=== PATIENT | female | born 1975 | race Caucasian/White ===

== ENCOUNTER 2019-12-24 12:06 | Emergency (ER) | payer OTHER, SELFPAY ==
[2019-12-24 12:30] VITALS: BP 158/95; PULSE 83; RESP 16; TEMP 36.8; O2SAT 98; BMI 39.1
--- NOTE | 2019-12-24 13:16 | HMH.EDUTC ---
[facility] [place]ression: Viral syndrome Disposition: Home, Self-Care Condition on Discharge: Good Instructions: DI for Viral Syndrome, Preventing the Spread of Coronavirus Discharge Instructions Additional Instructions: Drink plenty of fluids. Take tylenol for pain or fever. Follow up with your regular doctor. GO TO THE ER FOR ANY WORSENING SYMPTOMS FOLLOW THE DIRECTIONS ON THE COVID-19 HAND OUT THAT WE GAVE YOU REGARDING SELF-ISOLATION UNTIL YOU KNOW YOUR COVID-19 RESULTS Referrals: Lovely Uribe [Primary Care Provider] - Time of Disposition: 13:17 Medical Decision Making - Medical Records Medical records reviewed: No: I reviewed the patient's medical records. - Ruddy Inquiry Pt receiving controlled substance: No Vital Signs: 12/24/19 12:30 12/24/19 13:22 Temperature 98.3 F 98.3 F Temperature Source Oral Pulse Rate 83 Pulse Rate [Right Brachial] 83 Respiratory Rate 16 16 Blood Pressure 158/95 H Blood Pressure [Right Arm] 158/95 H Blood Pressure Mean [Right Arm] 116 Blood Pressure Source [Right Arm] Automatic Cuff Blood Pressure Position [Right Arm] Sitting 02 Sat by Pulse Oximetry 98 Oxygen Delivery Method Room Air Orders (Tests/Meds): ORDERS Category Date Time Status Covid-19 Nasal PCR ([facility]) Routine Lab 12/24/19 12:30 [place] [facility] [place] - General Stated complaint: headache,covid exposure Time Seen by Provider: 12/24/19 13:16 Mode of Arrival: Ambulatory Source of Information: Patient Limitations: No Limitations Description of Symptoms (Recalled from Triage Doc. 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 She c/o runny nose and mild sore throat at this time. - Related Data Allergies Allergy/AdvReac Type Severity Reaction Status Date / Time No Known Allergies Allergy Verified 12/24/19 12:52 - Worker's Comp Is this a Worker's Comp case?: No [facility] History - Hepatitis A Screen Drug use history?: No High risk sexual behaviors?: No History of sexually transmitted infection?: No Currently employed?: No Childcare worker?: No Do you have indoor plumbing?: Yes Do you have electricity?: Yes Attestation statement:: This patient has been screened for Hepatitis A risk factors. I have reviewed the patient's past medical history: Yes - Social History Alcohol Intake: never Occupational Status: other ROS Obtained: Yes All systems reviewed & no additional complaints - Constitutional Constitutional: Reports chills, Denies fever(s), Reports poor appetite, Reports malaise - Eyes Eyes: Denies eye discharge - ENT Ears, Nose, Mouth, and Throat: Reports as per HPI - Cardiovascular Cardiovascular: Denies chest pain - Respiratory Respiratory: No chest congestion, No cough Physical Exam - General General appearance: alert, in no apparent distress - Head Head exam: atraumatic, normocephalic, normal inspection - Eye Eye exam: Present: normal appearance, PERRL, EOMI - ENT ENT exam: Present: normal exam, normal oropharynx, mucous membranes moist, TM's normal bilaterally, normal external ear exam - Neck Neck exam: Present: normal inspection, full ROM, trachea midline. Absent: meningismus, lymphadenopathy - Chest Chest inspection: Present: normal inspection, symmetric chest wall rise. Absent: tenderness - Respiratory Respiratory exam: Present: normal lung sounds bilaterally. Absent: respiratory distress - Cardiovascular Cardiovascular exam: Present: regular rate, normal rhythm. Absent: JVD - Abdomina
[2019-12-24 13:22] VITALS: BP 158/95; PULSE 83; RESP 16; TEMP 36.8; O2SAT 98
[2019-12-24 23:28] LABS: Adenovirus,PCR Not Detected (NotDetected); Bordetella Pertussis Not Detected (NotDetected); Chlamydophila Pneumoniae, PCR Not Detected (NotDetected); Coronavirus 19, PCR Not Detected (NotDetected); Coronavirus 229E Not Detected (NotDetected); Coronavirus NL63 Not Detected (NotDetected); Coronavirus OC43 Not Detected (NotDetected); Coronovirus HKU1,PCR Not Detected (NotDetected); Human Metapneumovirus Not Detected (NotDetected); Influenza A, PCR Not Detected (NotDetected); Influenza AH1, 2009 Not Detected (NotDetected); Influenza AH1, PCR Not Detected (NotDetected); Influenza AH3,PCR Not Detected (NotDetected); Influenza B, PCR Not Detected (NotDetected); Mycoplasma Pneumoniae, PCR Not Detected (NotDetected); Parainfluenza 1, PCR Not Detected (NotDetected); Parainfluenza 2, PCR Not Detected (NotDetected); Parainfluenza 3, PCR Not Detected (NotDetected); Parainfluenza 4, PCR Not Detected (NotDetected); Respiratory Syncytial Virus Not Detected (NotDetected); Rhinovirus/Enterovirus Not Detected (NotDetected)
== END 2019-12-24 13:25 | disposition home or self-care (01) ==
PROVIDERS: Emergency Provider Nurse Practitioner Family; PCP General Practice
DX: Z20.828 Contact with and (suspected) exposure to other viral communicable diseases (principal)
CPT/HCPCS: 87581; 87633; 87798; 99201; U0003

== ENCOUNTER 2021-03-13 18:32 | Emergency (ER) | payer OTHER, SELFPAY ==
[2021-03-13 19:09] VITALS: BP 151/92; PULSE 89; RESP 21; TEMP 36.8; O2SAT 100; BMI 39.9
[2021-03-13 19:14] LABS: UTC Influenza A Antigen Negative (Negative); UTC Influenza B Antigen Negative (Negative)
--- NOTE | 2021-03-13 19:30 | HMH.EDUTC ---
[facility] [place] Disposition Clinical Impression: Exposure to COVID-19 virus, Viral syndrome Disposition: Home, Self-Care Condition on Discharge: Good Instructions: DI for Viral Syndrome, DI for COVID-19 (Suspected or Confirmed ), Preventing the Spread of Coronavirus Discharge Instructions Additional Instructions: *Monitor Temp, Over the counter Motrin or Tylenol as directed/as needed Tylenol every 4 hours and Motrin every 6 hours (as long as your family doctor has told you that you can take it) for fever or pain. and straight to ER if unable to lower temp less than 101.0 after medication given *Warm salt water gargles may help to soothe the throat *Throat Lozenges *Warm fluids like tea with honey may help to soothe the throat *Sleep elevated *Humidifier/Vaporizer Make sure to drink plenty of fluids Make sure that you are eating a healthy diet and eating foods high in vitamin C Follow up IMMEDIATELY for new or worsening symptoms or no Noticeable improvement over the next 48-72 hours. 911 for difficulty breathing or swallowing You were tested for today for COVID19 your test result should be back in the next 24-48 hours, you may check your results on the [facility] My Health Portal if you have trouble logging on you may call support to help you You was given a handout with instructions for Self Quarantine and Self isolation for while you wait on test results and what to do if they are positive If you are positive the Health Dept will be contacting you also Make sure to take your Vitamins Vit. C Vit D and Zinc if you can take them Referrals: Lovely Uribe [Primary Care Provider] - As needed Forms: Work/School Release Time of Disposition: 19:43 Medical Decision Making - Ruddy Inquiry Pt receiving controlled substance: No Ruddy was queried for this patient: No Vital Signs: 03/13/21 19:09 Temperature 98.3 F Temperature Source Oral Pulse Rate [Left] 89 Respiratory Rate 21 Blood Pressure [Right Arm] 151/92 H Blood Pressure Mean [Right Arm] 111 02 Sat by Pulse Oximetry 100 - Lab Data Lab results reviewed: Yes: I reviewed the patient's lab results. Lab Results 03/13/21 19:06: Influenza Type A Ag Negative, Influenza Type B Ag Negative Orders (Tests/Meds): ORDERS Category Date Time Status Covid-19 Nasal PCR ([facility]) Routine Lab 03/13/21 19:00 Received [facility] [place] HPI - General Stated complaint: sore throat, cough, headach, body aches, Time Seen by Provider: 03/13/21 19:30 Mode of Arrival: Ambulatory Source of Information: Patient Limitations: No Limitations Description of Symptoms (Recalled from Triage Doc. by RN): pt c/o body aches, [place], diarrhea, and cough since last night. daughter is positive for covid. HEENT Symptoms (Recalled from RN notes): Yes Resp Symptoms (Recalled from RN notes): Yes Skin Symptoms (Recalled from RN notes): No MS Symptoms (Recalled from RN notes): No Functional Status (Recalled from RN notes): wnl - History of Present Illness Provider Complaint: Patient state that her 17yr old daughter recently tested positive for COVID states that now she is having symptoms States that she is having body aches, chills, headache and diarrhea that started yesterday and today she has been aching all over States that she is concerned that she may have COVID now too or the flu - Related Data Allergies Allergy/AdvReac Type Severity Reaction Status Date / Time No Known Allergies Allergy Verified 12/24/19 12:52 - Worker's Comp Is this a Worker's Comp case?: No [facility] History - Hepatitis A Screen Drug use history?: No High risk sexual behaviors?: No History of sexually transmitted infection?: No Currently employed?: No Childcare worker?: No Do you have indoor plumbing?: Yes Do you have electricity?: Yes Attestation statement:: This patient has been screened for Hepatitis A risk factors. I have reviewed the patient's past medical history: Yes - Social History Alcohol Intake: never Occupational Sta
[2021-03-13 19:53] VITALS: BP 151/92; PULSE 89; RESP 21; TEMP 36.8
== END 2021-03-13 19:54 | disposition home or self-care (01) ==
PROVIDERS: Emergency Provider Nurse Practitioner; PCP General Practice
DX: B34.9 Viral infection, unspecified (principal); Z20.822 Contact with and (suspected) exposure to COVID-19
CPT/HCPCS: 87804; 99202; C9803; G0463; U0003; U0005

== ENCOUNTER 2021-09-13 22:41 | Emergency (ER) | payer OTHER, SELFPAY ==
[2021-09-13 22:41] VITALS: BP 162/100; PULSE 98; RESP 17; TEMP 37.1; O2SAT 95; BMI 39.9
--- NOTE | 2021-09-13 22:44 | ECG_ITS ---
APPROVED REPORT Exam: Resting ECG HR:94 bpm ECG Measurements Heart Rate 94 AXES CA 158 P 63 QRSd 95 QRS 52 QT 362 T 39 QTc 413 Conclusion SINUS RHYTHM NORMAL ECG UNCONFIRMED REPORT Electronically signed by : Timmy Chambers MD 09/15/2021 16:25:40
[2021-09-13 23:00] VITALS: BP 150/98; PULSE 94; O2SAT 96
--- NOTE | 2021-09-13 23:02 | XR_ITS ---
PROCEDURE INFORMATION: Exam: XR Chest Exam date and time: 09/13/2021 11:32 PM Age: 46 years old Clinical indication: Sternal or substernal pain and left-sided; Additional info: Chest pain TECHNIQUE: Imaging protocol: Radiologic exam of the chest. Views: 2 views. COMPARISON: No relevant prior studies available. FINDINGS: Lungs: Well aerated with no evidence of consolidations, interstitial patterns or pulmonary nodules. Pleural spaces: No evidence of effusions or pneumothorax. Heart/Mediastinum: The cardiomediastinal silhouette is normal in size and configuration. There is no evidence of cardiomegaly. Bones/joints: Intact. IMPRESSION: No radiographic abnormalities identified.
--- NOTE | 2021-09-13 23:09 | HMH.EDCP ---
ED Disposition Clinical Impression: Atypical chest pain, Exposure to COVID-19 virus Disposition: Home, Self-Care Condition on Discharge: Good Instructions: DI for Atypical Chest Pain Additional Instructions: recheck in ed if needed and see pcp for follow up - will treat as possible post infl changes covid-19 as pt with home test positive Prescriptions: predniSONE [Prednisone 20mg Tab] 20 mg PO BID #10 tab Transmission Status: [place] [facility] [place] Referrals: Coby Banegas APRN [Primary Care Provider] - - Critical Care Critical Care Time: No Attestation: On 09/13/21, the high probability of a clinically significant, sudden or life threatening deterioration of the following system(s) required my full and direct attention, intervention and personal management. The time I documented below is in addition to time spent performing reported procedures but includes the following listed in this critical care notation. Medical Decision Making - Medical Records Medical records reviewed: Yes: I reviewed the patient's medical records. - Ruddy Inquiry Pt receiving controlled substance: No Vital Signs: 09/13/21 22:41 09/13/21 23:00 09/13/21 23:30 Temperature 98.8 F Temperature Source Oral Pulse Rate 94 H 100 H Pulse Rate [Left Radial] 98 H Respiratory Rate 17 Blood Pressure 150/98 H 152/99 H Blood Pressure [Right Arm] 162/100 H Blood Pressure Mean 111 117 Blood Pressure Mean [Right Arm] 120 Blood Pressure Source [Right Arm] Automatic Cuff Blood Pressure Position [Right Arm] Sitting 02 Sat by Pulse Oximetry 95 96 96 Oxygen Delivery Method Room Air Room Air Room Air 09/14/21 00:30 09/14/21 01:00 09/14/21 01:31 Temperature Temperature Source Pulse Rate 82 82 82 Pulse Rate [Left Radial] Respiratory Rate 29 H 23 17 Blood Pressure 141/85 H 150/89 H 160/97 H Blood Pressure [Right Arm] Blood Pressure Mean Blood Pressure Mean [Right Arm] Blood Pressure Source [Right Arm] Blood Pressure Position [Right Arm] 02 Sat by Pulse Oximetry 100 99 100 Oxygen Delivery Method Room Air Room Air Room Air 09/14/21 02:01 09/14/21 02:30 09/14/21 02:51 Temperature 98.6 F Temperature Source Oral Pulse Rate 74 88 86 Pulse Rate [Left Radial] Respiratory Rate 13 22 18 Blood Pressure 137/78 134/69 135/69 Blood Pressure [Right Arm] Blood Pressure Mean Blood Pressure Mean [Right Arm] Blood Pressure Source [Right Arm] Blood Pressure Position [Right Arm] 02 Sat by Pulse Oximetry 99 95 Oxygen Delivery Method Room Air Room Air Room Air - Lab Data Lab results reviewed: Yes: I reviewed the patient's lab results. Lab Results 09/13/21 22:46: SARS-CoV-2 (PCR) Not detected, Influenza A Untype (PCR) Not detected, Influenza Type B (PCR) Not detected 09/13/21 22:50: WBC 9.8, RBC 4.83, Hgb 13.4, Hct 39.6, MCV 82.0, MCH 27.8, MCHC 33.9, RDW 14.6, Plt Count 215, MPV 8.5, Neut % (Auto) 60.9, Lymph % (Auto) 28.5, [place] % (Auto) 5.7, Eos % (Auto) 3.0, Baso % (Auto) 1.9, Neut # (Auto) 6.0, Lymph # (Auto) 2.8, [place] # (Auto) 0.6, Eos # (Auto) 0.3, Baso # (Auto) 0.2, ESR 18 09/13/21 22:50: Sodium 140, Potassium 3.4 L, Chloride 109 H, Carbon Dioxide 23, Anion Gap 11.4, BUN 16, Creatinine 0.60, Estimated Creat Clear 203, Estimated GFR 108, Est GFR ( Amer) 131, Glucose 97, Calcium 9.1, Total Bilirubin 0.1 L, Direct Bilirubin 0.0, Conjugated Bilirubin 0.0, Indirect Bilirubin 0.1, Unconjugated Bilirubin 0.4, AST 24, ALT 21, Alkaline Phosphatase 55, Troponin I < 0.01, C-Reactive Protein 3.0, Total Protein 7.1, Albumin 4.2, Amylase 70, Lipase 179, Procalcitonin 0.044 09/13/21 22:50: Serum HCG, Qual Negative 09/14/21 01:49: Troponin I < 0.01 Result diagrams: 09/13/21 22:50 09/13/21 22:50 Orders (Tests/Meds): ED MEDICATIONS Generic Name Dose Route Start Last Admin Trade Name Freq PRN Reason Stop Dose Admin Sodium Chloride 1,000 mls @ 999 mls/hr
[2021-09-13 23:11] LABS: Basophils # 0.2 K/mm3 (0-0.2); Basophils % 1.9 % (0.1-2.0); Eosinophils # 0.3 K/mm3 (0.0-0.4); Hematocrit 39.6 % (37.0-47.0); Hemoglobin 13.4 g/dL (12.2-16.2); Lymphocytes # 2.8 K/mm3 (0.7-4.5); Lymphocytes % 28.5 % (10-50); Mean Corpuscular HGB Conc 33.9 g/dL (31.8-35.4); Mean Corpuscular Hemoglobin 27.8 pg (27.0-31.2); Mean Platelet Volume 8.5 fl (7.4-10.4); Monocytes # 0.6 K/mm3 (0.1-1.0); Monocytes % 5.7 % (1.7-9.3); Neutrophils % 60.9 % (37.0-80.0); Platelet Count 215 K/mm3 (142-424); Red Blood Count 4.83 M/mm3 (4.20-5.40); Red Cell Distribution Width 14.6 % (11.5-17.5); White Blood Count 9.8 K/mm3 (4.8-10.8)
--- NOTE | 2021-09-13 23:16 | CT_ITS ---
PROCEDURE INFORMATION: Exam: CTA Chest With Contrast Exam date and time: 09/13/2021 11:44 PM Age: 46 years old Clinical indication: Other: Mid and left chest pain covid positive; Additional info: Cp covid+ RO pe TECHNIQUE: Imaging protocol: Computed tomographic angiography of the chest with contrast. 3D rendering (Not supervised by radiologist): MIP and/or 3D reconstructed images were created by the technologist. Radiation optimization: All CT scans at this facility use at least one of these dose optimization techniques: automated exposure control; mA and/or kV adjustment per patient size (includes targeted exams where dose is matched to clinical indication); or iterative reconstruction. Contrast material: ISOVUE 370; Contrast volume: 75 ml; Contrast route: INTRAVENOUS (IV); COMPARISON: CR XR CHEST 2V 09/13/2021 11:32 PM FINDINGS: Pulmonary arteries: Demonstrate homogeneous enhancement with no filling defects to suggest a recent pulmonary embolism. Aorta: Unremarkable. No aortic aneurysm. No aortic dissection. Lungs: No consolidation, interstitial process, masses or pulmonary nodules. Pleural spaces: Unremarkable. No pneumothorax. No pleural effusion. Heart: Unremarkable. No cardiomegaly. No pericardial effusion. Lymph nodes: Unremarkable. No enlarged lymph nodes. Gallbladder and bile ducts: Status post cholecystectomy. Bones/joints: Unremarkable. No acute fracture. Soft tissues: Unremarkable. IMPRESSION: 1. No evidence of PE. 2. No radiographic evidence of an acute pulmonary process.
[2021-09-13 23:17] LABS: Alanine Aminotransferase 21 U/L (12-78); Albumin Level 4.2 g/dl (3.5-5.0); Alkaline Phosphatase 55 U/L (38-126); Amylase 70 U/L (30-110); Anion Gap 11.4 mEq/L (5-15); Aspartate Amino Transferase 24 U/L (14-36); Bilirubin,Unconjugated 0.4 mg/dL (0.0-1.1); Blood Urea Nitrogen 16 mg/dl (7-17); Calcium 9.1 mg/dl (8.4-10.2); Carbon Dioxide 23 mmol/L (22.0-30.0); Chloride 109 mmol/L (98-107); Creatinine Clearance Estimated 203 mL/min (50-200); Estimated Glomerular Filt Rate 108 ml/min (>60); GFR (African American) 131 ML/MIN (>60); Glucose 97 mg/dl (74-100); Lipase 179 U/L (23-300); Potassium 3.4 mmoL/L (3.5-5.1); Sodium 140 mmol/L (136-145); Total Protein,Serum 7.1 g/dl (6.3-8.2)
[2021-09-13 23:26] LABS: Bilirubin,Indirect 0.1 mg/dL (0.0-0.9); Bilirubin,Total 0.1 mg/dl (0.2-1.3)
[2021-09-13 23:30] VITALS: BP 152/99; PULSE 100; O2SAT 96
[2021-09-13 23:30] LABS: HCG Qualitative, Serum Negative (Negative)
[2021-09-13 23:31] LABS: Troponin I < 0.01 ng/ml (0.00-0.034)
[2021-09-13 23:36] LABS: Erythrocyte Sedimentation Rate 18 mm/hr (0-20); Procalcitonin 0.044 ng/mL (0.0-2.0)
[2021-09-14] VITALS (7 sets, daily range): BP systolic 134–160; BP diastolic 69–97; PULSE 74–93; RESP 13–29; TEMP 36.7–37; O2SAT 95–100
--- NOTE | 2021-09-14 01:39 | PC.NURSE ---
Pt updated on POC. No new needs at this time.
[2021-09-14 01:58] LABS: Coronavirus 19, PCR Not Detected (NotDetected); Influenza A, PCR Not Detected (NotDetected); Influenza B, PCR Not Detected (NotDetected)
[2021-09-14 02:16] LABS: Troponin I < 0.01 ng/ml (0.00-0.034)
--- NOTE | 2021-09-14 03:25 | PC.NURSE ---
PT REPORTS PAIN RELIEF AND DESIRE TO GO HOME. MADE AWARE.
== END 2021-09-14 04:06 | disposition home or self-care (01) ==
PROVIDERS: Emergency Provider Emergency Medicine; PCP Nurse Practitioner Family
DX: R07.89 Other chest pain (principal); Z20.822 Contact with and (suspected) exposure to COVID-19
CPT/HCPCS: 71046; 71275; 80048; 80076; 82150; 83690; 84145; 84484; 84703; 85025; 85651; 86140; 93005; 96365; 96366; 96375; 99285; C9803; J2405; Q9967; U0003; U0005

== ENCOUNTER → 2022-02-19 11:00 | Outpatient (CLI) | payer BC, SELFPAY ==
[2022-02-19 18:06] LABS: Basophils # 0.1 K/mm3 (0-0.2); Basophils % 0.8 % (0.1-2.0); Eosinophils # 0.2 K/mm3 (0.0-0.4); Eosinophils % 2.4 % (0.1-12.0); Hematocrit 42.7 % (37.0-47.0); Hemoglobin 13.7 g/dL (12.2-16.2); Lymphocytes # 1.8 K/mm3 (0.7-4.5); Lymphocytes % 20.6 % (10-50); Mean Corpuscular HGB Conc 32.1 g/dL (31.8-35.4); Mean Corpuscular Volume 84.2 fl (81-99); Mean Platelet Volume 8.5 fl (7.4-10.4); Monocytes # 0.4 K/mm3 (0.1-1.0); Monocytes % 4.2 % (1.7-9.3); Neutrophils # 6.1 K/mm3 (1.8-7.8); Neutrophils % 71.9 % (37.0-80.0); Platelet Count 258 K/mm3 (142-424); Red Blood Count 5.07 M/mm3 (4.20-5.40); Red Cell Distribution Width 14.4 % (11.5-17.5); White Blood Count 8.5 K/mm3 (4.8-10.8)
[2022-02-19 18:22] LABS: Alanine Aminotransferase 20 U/L (12-78); Albumin Level 4.6 g/dl (3.5-5.0); Albumin/Globulin Ratio 1.8 (1.1-1.8); Alkaline Phosphatase 73 U/L (38-126); Anion Gap 10.8 mEq/L (5-15); Aspartate Amino Transferase 24 U/L (14-36); Bilirubin,Total 0.3 mg/dl (0.2-1.3); Blood Urea Nitrogen 13 mg/dl (7-17); Calcium 9.4 mg/dl (8.4-10.2); Carbon Dioxide 26 mmol/L (22.0-30.0); Chloride 108 mmol/L (98-107); Estimated Glomerular Filt Rate 90 ml/min (>60); GFR (African American) 109 ML/MIN (>60); Globulin 2.5 g/dL (1.3-3.2); Glucose 85 mg/dl (74-100); Potassium 4.8 mmoL/L (3.5-5.1); Sodium 140 mmol/L (136-145); Total Protein,Serum 7.1 g/dl (6.3-8.2); Uric Acid 5.8 mg/dl (2.5-6.2)
[2022-02-19 18:29] LABS: C-Reactive Protein 4.8 mg/L (0-4)
[2022-02-19 18:37] LABS: Erythrocyte Sedimentation Rate 16 mm/hr (0-20)
[2022-02-19 18:39] LABS: Free T4 (Free Thyroxine) 0.85 ng/dl (0.78-2.19)
[2022-02-19 18:40] LABS: 25-OH Vitamin D, Total 32.5 ng/mL (30-100)
[2022-02-19 18:53] LABS: Thyroid Stimulating Hormone 0.47 uIU/mL (0.465-4.68)
[2022-02-19 19:26] LABS: Hemoglobin A1C 5.8 % (4.0-6.0)
[2022-02-21 10:13] LABS: RA Latex Turbid. 22.1 IU/mL (<14.0)
[2022-03-03 21:20] LABS: Antinuclear Antibodies, IFA POSITIVE
== END ==
PROVIDERS: PCP Family Medicine; Visit Provider Family Medicine
DX: R53.83 Other fatigue (principal); I10 Essential (primary) hypertension; E66.9 Obesity, unspecified; Z68.42 Body mass index [BMI] 45.0-49.9, adult; R79.82 Elevated C-reactive protein (CRP); Z79.899 Other long term (current) drug therapy
CPT/HCPCS: 80053; 82306; 83036; 84439; 84443; 84550; 85025; 85651; 86038; 86140; 86431

== ENCOUNTER → 2022-03-05 06:15 | Outpatient (CLI) | payer BC, SELFPAY ==
[2022-03-05 18:32] LABS: Erythrocyte Sedimentation Rate 18 mm/hr (0-20)
[2022-03-05 18:35] LABS: Basophils % 0.6 % (0.1-2.0); Eosinophils # 0.2 K/mm3 (0.0-0.4); Eosinophils % 2.9 % (0.1-12.0); Hematocrit 40.4 % (37.0-47.0); Hemoglobin 12.9 g/dL (12.2-16.2); Lymphocytes # 1.5 K/mm3 (0.7-4.5); Mean Corpuscular HGB Conc 32.1 g/dL (31.8-35.4); Mean Corpuscular Hemoglobin 27.1 pg (27.0-31.2); Mean Corpuscular Volume 84.6 fl (81-99); Mean Platelet Volume 8.9 fl (7.4-10.4); Monocytes # 0.4 K/mm3 (0.1-1.0); Monocytes % 5.6 % (1.7-9.3); Neutrophils # 4.7 K/mm3 (1.8-7.8); Neutrophils % 68.9 % (37.0-80.0); Platelet Count 262 K/mm3 (142-424); Red Blood Count 4.77 M/mm3 (4.20-5.40); Red Cell Distribution Width 14.3 % (11.5-17.5); White Blood Count 6.7 K/mm3 (4.8-10.8)
== END ==
PROVIDERS: PCP Family Medicine; Visit Provider Family Medicine
DX: I10 Essential (primary) hypertension (principal); M25.50 Pain in unspecified joint
CPT/HCPCS: 85025; 85651

== ENCOUNTER → 2022-03-15 12:48 | Outpatient (CLI) | payer BC, SELFPAY | PROVIDERS: PCP Family Medicine; Visit Provider Family Medicine | DX: R06.81 Apnea, not elsewhere classified (principal); R06.83 Snoring | CPT/HCPCS: G0399 ==

== ENCOUNTER → 2022-04-24 20:06 | Outpatient (CLI) | payer BC, SELFPAY ==
[2022-04-24 21:29] LABS: Alanine Aminotransferase 23 U/L (12-78); Albumin Level 4.6 g/dl (3.5-5.0); Alkaline Phosphatase 53 U/L (38-126); Aspartate Amino Transferase 24 U/L (14-36); Bilirubin, Conjugated 0.3 mg/dL (0.0-0.3); Bilirubin,Direct 0.4 mg/dl (0.0-0.4); Bilirubin,Total 0.4 mg/dl (0.2-1.3); Total Protein,Serum 7.4 g/dl (6.3-8.2)
== END ==
PROVIDERS: Visit Provider Nurse Practitioner Primary Care
DX: M05.79 Rheumatoid arthritis with rheumatoid factor of multiple sites without organ or systems involvement (principal)
CPT/HCPCS: 80076

== ENCOUNTER → 2022-07-07 18:27 | Outpatient (CLI) | payer BC, SELFPAY ==
[2022-07-07 20:52] LABS: Alanine Aminotransferase 26 U/L (12-78); Albumin Level 4.5 g/dl (3.5-5.0); Alkaline Phosphatase 61 U/L (38-126); Aspartate Amino Transferase 29 U/L (14-36); Bilirubin,Direct 0.4 mg/dl (0.0-0.4); Bilirubin,Indirect 0.1 mg/dL (0.0-0.9); Bilirubin,Total 0.5 mg/dl (0.2-1.3); Bilirubin,Unconjugated 0.1 mg/dL (0.0-1.1); Total Protein,Serum 7.1 g/dl (6.3-8.2)
== END ==
PROVIDERS: Nurse Practitioner Primary Care; PCP Family Medicine; Visit Provider Family Medicine
DX: M05.79 Rheumatoid arthritis with rheumatoid factor of multiple sites without organ or systems involvement (principal); Z79.899 Other long term (current) drug therapy
CPT/HCPCS: 80076

== ENCOUNTER → 2022-12-22 15:00 | Outpatient (CLI) | payer BC, SELFPAY ==
[2022-12-22 17:44] LABS: Basophils % 0.3 % (0.1-2.0); Eosinophils # 0.2 K/mm3 (0.0-0.4); Eosinophils % 2.4 % (0.1-12.0); Hematocrit 39.1 % (37.0-47.0); Hemoglobin 13.2 g/dL (12.2-16.2); Lymphocytes # 1.8 K/mm3 (0.7-4.5); Lymphocytes % 24.7 % (10-50); Mean Corpuscular HGB Conc 33.7 g/dL (31.8-35.4); Mean Corpuscular Hemoglobin 28.1 pg (27.0-31.2); Mean Corpuscular Volume 83.5 fl (81-99); Mean Platelet Volume 9.1 fl (7.4-10.4); Monocytes # 0.4 K/mm3 (0.1-1.0); Neutrophils # 4.9 K/mm3 (1.8-7.8); Neutrophils % 67.5 % (37.0-80.0); Platelet Count 246 K/mm3 (142-424); Red Blood Count 4.68 M/mm3 (4.20-5.40); Red Cell Distribution Width 14.4 % (11.5-17.5); White Blood Count 7.3 K/mm3 (4.8-10.8)
[2022-12-22 17:46] LABS: Alanine Aminotransferase 27 U/L (12-78); Albumin Level 4.4 g/dl (3.5-5.0); Albumin/Globulin Ratio 1.7 (1.1-1.8); Alkaline Phosphatase 62 U/L (38-126); Anion Gap 15.1 mEq/L (5-15); Aspartate Amino Transferase 30 U/L (14-36); Bilirubin,Total 0.4 mg/dl (0.2-1.3); Blood Urea Nitrogen 14 mg/dl (7-17); Carbon Dioxide 21 mmol/L (22.0-30.0); Chloride 109 mmol/L (98-107); Estimated Glomerular Filt Rate 67 ml/min (>60); GFR (African American) 82 ML/MIN (>60); Globulin 2.6 g/dL (1.3-3.2); Glucose 174 mg/dl (74-100); Potassium 4.1 mmoL/L (3.5-5.1); Sodium 141 mmol/L (136-145)
[2022-12-22 17:52] LABS: C-Reactive Protein 2.7 mg/L (0-4)
[2022-12-22 18:06] LABS: T4 (Thyroxine) 7.3 ug/dl (5.53-11.0); Triiodothryronine (T3) Uptake 36 % (23.5-40.5)
[2022-12-22 18:14] LABS: Erythrocyte Sedimentation Rate 14 mm/hr (0-20)
[2022-12-22 18:18] LABS: Thyroid Stimulating Hormone 0.69 uIU/mL (0.465-4.68)
[2022-12-22 18:31] LABS: Hemoglobin A1C 5.4 % (4.0-6.0)
[2022-12-24 15:03] LABS: C-Peptide 26.4 ng/mL (1.1-4.4)
[2022-12-29 09:04] LABS: Antinuclear Antibodies (ANA) Negative
== END ==
PROVIDERS: PCP Nurse Practitioner Family; Visit Provider Nurse Practitioner Family
DX: E16.2 Hypoglycemia, unspecified; F41.9 Anxiety disorder, unspecified
CPT/HCPCS: 80053; 83036; 83525; 84436; 84439; 84443; 84479; 84681; 85025; 85651; 86038; 86140; 86225; 86235

== ENCOUNTER → 2022-12-26 10:06 | Outpatient (CLI) | payer BC, SELFPAY ==
--- NOTE | 2022-12-26 10:13 | CT_ITS ---
FINAL REPORT TECHNIQUE: Pre- and postcontrast images of the abdomen were performed by computed tomography. CLINICAL HISTORY: rule out insulinoma hypoglycemia, diarrhea COMPARISON: None FINDINGS: The lung bases are clear. The liver is normal in size and attenuation. The gallbladder has been surgically removed. A gastric sleeve is present. The spleen is unremarkable. The adrenals are normal. The pancreas is unremarkable. The kidneys enhance appropriately. The appendix is normal in appearance. No evidence of a pancreatic mass or abnormal contrast enhancement is identified. IMPRESSION: No acute intra-abdominal process. No pancreatic mass or contrast-enhancement within the pancreas is present. Reviewed, Interpreted and Dictated by Vernon Sanders III, MD Transcribed by Donna Mattson Authenticated and [facility]
== END ==
PROVIDERS: PCP Nurse Practitioner Family; Visit Provider Nurse Practitioner Family
DX: E16.2 Hypoglycemia, unspecified (principal); K91.1 Postgastric surgery syndromes; R19.7 Diarrhea, unspecified
CPT/HCPCS: 74170; Q9967

== ENCOUNTER 2022-12-30 08:30 | Emergency (ER) | payer BC, SELFPAY ==
[2022-12-30] VITALS (8 sets, daily range): BP systolic 115–139; BP diastolic 68–96; PULSE 70–92; RESP 16–20; TEMP 36.8; O2SAT 95–98; BMI 40.1
--- NOTE | 2022-12-30 08:45 | XR_ITS ---
FINAL REPORT CLINICAL HISTORY: fall down 8 steps, pain, polytrauma FINDINGS: Left femur Two views were obtained. There is no acute fracture or dislocation. No soft tissue abnormality is identified. IMPRESSION: No acute process. Reviewed, Interpreted and Dictated by Vernon Sanders III, MD Transcribed by Gila Hoyos Authenticated and [facility]
--- NOTE | 2022-12-30 08:45 | CT_ITS ---
FINAL REPORT TECHNIQUE: Thin section axial CT with IV contrast supplemented with multiplanar reconstruction under CT angiogram protocol. 3-D reconstructions were performed. This study was performed with techniques to keep radiation doses as low as reasonably achievable (ALARA). Individualized dose reduction techniques using automated exposure control or adjustment of mA and/or kV according to the patient''s size were employed. CLINICAL HISTORY: fall down 8 steps, head injury, polytrauma FINDINGS: The distal vertebral, basilar and distal internal carotid arteries have an unremarkable appearance. No aneurysm is seen. Major intracranial vessels are patent without significant stenosis. IMPRESSION: No evidence of vascular injury, aneurysm, hemodynamically significant stenosis or major vessel occlusion of the intracranial arterial system. Reviewed, Interpreted and Dictated by Vernon Sanders III, MD Transcribed by Gila Hoyos Authenticated and [facility]
--- NOTE | 2022-12-30 08:45 | CT_ITS ---
FINAL REPORT TECHNIQUE: Pre-and postcontrast images of the abdomen were performed by computed tomography. Extensive 3-D reconstruction images were performed. A CTA was performed. This study was performed with techniques to keep radiation doses as low as reasonably achievable (ALARA). Individualized dose reduction techniques using automated exposure control or adjustment of mA and/or kV according to the patient''s size were employed. CLINICAL HISTORY: fall down 8 steps, head injury, polytrauma FINDINGS: ABDOMEN: The lung bases are clear. Precontrast images demonstrate no evidence of nephrolithiasis. No adrenal masses are identified. The liver, spleen and pancreas are unremarkable. There are postoperative changes from gastric sleeve and cholecystectomy. The appendix is normal. CTA: The abdominal aorta is proper caliber. The SMA, celiac axis, and YUMI are patent. There is no significant stenosis or calcification. The renal arteries are patent bilaterally. CTA PELVIS: The iliac arteries are unremarkable. IMPRESSION: There is no evidence of organ injury or hemoperitoneum. Reviewed, Interpreted and Dictated by Vernon Sanders III, MD Transcribed by Gila Hoyos Authenticated and [facility]
--- NOTE | 2022-12-30 08:45 | CT_ITS ---
FINAL REPORT TECHNIQUE: Axial imaging of the lumbar spine was obtained without contrast. Sagittal and coronal reformatted images were also obtained and reviewed. This study was performed with techniques to keep radiation doses as low as reasonably achievable (ALARA). Individualized dose reduction techniques using automated exposure control or adjustment of mA and/or kV according to the patient's size were employed. CLINICAL HISTORY: fall down 8 steps, head injury, polytrauma FINDINGS: There is no fracture. The vertebral alignment is normal. There is multilevel mild degenerative change. Annular bulges are seen at multiple levels. There is a central L5-S1 disc protrusion. There are mild and moderate degenerative changes, worst at L5-S1.There is no evidence of significant central canal stenosis. IMPRESSION: Multilevel degenerative change without acute bony abnormality. Reviewed, Interpreted and Dictated by Vernon Sanders III, MD Transcribed by Gila Hoyos Authenticated and [facility]
--- NOTE | 2022-12-30 08:45 | CT_ITS ---
FINAL REPORT TECHNIQUE: Axial images through the pelvis were performed by computed tomography. Sagittal and coronal reformatted images were obtained and reviewed. This study was performed with techniques to keep radiation doses as low as reasonably achievable (ALARA). Individualized dose reduction techniques using automated exposure control or adjustment of mA and/or kV according to the patient's size were employed. CLINICAL HISTORY: fall down 8 steps, head injury, polytrauma FINDINGS: No fracture is identified. IUD is seen in the uterus. No mass or fluid collection is seen. IMPRESSION: No fracture identified. Reviewed, Interpreted and Dictated by Vernon Sanders III, MD Transcribed by Gila Hoyos Authenticated and [facility]
--- NOTE | 2022-12-30 08:45 | CT_ITS ---
FINAL REPORT TECHNIQUE: Thin section axial CT with IV contrast supplemented with multiplanar reconstruction under CT angiogram protocol. This study was performed with techniques to keep radiation doses as low as reasonably achievable (ALARA). Individualized dose reduction techniques using automated exposure control or adjustment of mA and/or kV according to the patient''s size were employed. NASCET criteria was utilized during interpretation. CLINICAL HISTORY: fall down 8 steps, head injury, polytrauma FINDINGS: Aortic arch: Arch shows no significant narrowing. Great vessel origins are widely patent. Right carotid: No significant stenosis is seen of the cervical common or internal carotid artery. Left carotid: No significant stenosis is seen of the cervical common or internal carotid artery. Vertebral: The right vertebral artery is hypoplastic. No significant stenosis is present. IMPRESSION: No significant stenosis identified. Reviewed, Interpreted and Dictated by Vernon Sanders III, MD Transcribed by Gila Hoyos Authenticated and [facility]
--- NOTE | 2022-12-30 08:45 | CT_ITS ---
FINAL REPORT CLINICAL HISTORY: fall down 8 steps, head injury, polytrauma FINDINGS: Axial CT images of the thoracic spine were obtained without contrast. Sagittal and coronal reformatted images were also obtained. This study was performed with techniques to keep radiation doses as low as reasonably achievable (ALARA). Individualized dose reduction techniques using automated exposure control or adjustment of mA and/or kV according to the patient's size were employed. There is no evidence of fracture. The vertebral alignment is normal. There are moderate degenerative changes with multilevel osteophytes. There is no evidence of significant canal stenosis. No paraspinous soft tissue abnormality is identified. IMPRESSION: No fracture or acute bony abnormality. Reviewed, Interpreted and Dictated by Vernon Sanders III, MD Transcribed by Gila Hoyos Authenticated and [facility]
--- NOTE | 2022-12-30 08:45 | CT_ITS ---
FINAL REPORT CLINICAL HISTORY: fall down 8 steps, head injury, polytrauma FINDINGS: Thin section axial CT images of the chest were obtained with contrast. 3D reformatted images were also obtained. This study was performed with techniques to keep radiation doses as low as reasonably achievable (ALARA). Individualized dose reduction techniques using automated exposure control or adjustment of mA and/or kV according to the patient''s size were employed. There is no evidence of pulmonary embolism. There is no evidence of thoracic aortic aneurysm or dissection. There is no evidence of mediastinal or hilar mass or adenopathy. There is no evidence of pulmonary mass or nodule. No localized inflammatory process is seen within the lungs. Limited images of the upper abdomen are unremarkable. IMPRESSION: No evidence of pulmonary embolism. No mass or localized inflammatory process. Reviewed, Interpreted and Dictated by Vernon Sanders III, MD Transcribed by Gila Hoyos Authenticated and [facility]
--- NOTE | 2022-12-30 08:45 | CT_ITS ---
FINAL REPORT CLINICAL HISTORY: fall down 8 steps, head injury, polytrauma FINDINGS: Axial CT images of the cervical spine were obtained without contrast. Sagittal and coronal reformatted images were also obtained. This study was performed with techniques to keep radiation doses as low as reasonably achievable (ALARA). Individualized dose reduction techniques using automated exposure control or adjustment of mA and/or kV according to the patient's size were employed. There is artifact secondary to patient's body habitus. There is no evidence of fracture or dislocation. The bony alignment is normal. There are moderate degenerative changes. There is no evidence of canal stenosis. No paraspinous soft tissue abnormality is seen. Limited images of the upper thorax are unremarkable. IMPRESSION: No fracture or acute bony abnormality identified. Reviewed, Interpreted and Dictated by Vernon Sanders III, MD Transcribed by Gila Hoyos Authenticated and [facility]
--- NOTE | 2022-12-30 08:45 | CT_ITS ---
FINAL REPORT CLINICAL HISTORY: fall down 8 steps, head injury, polytrauma FINDINGS: Axial images of the head were obtained without contrast. Coronal reformatted images were also obtained.This study was performed with techniques to keep radiation doses as low as reasonably achievable (ALARA). Individualized dose reduction techniques using automated exposure control or adjustment of mA and/or kV according to the patient''s size were employed. There is no evidence of intracranial hemorrhage or mass. The ventricular size is within normal limits. There is no evidence of shift of the midline structures. No abnormal extra axial fluid collection is identified. No skull abnormality is seen on the bone window images. IMPRESSION: No acute intracranial abnormality. Reviewed, Interpreted and Dictated by Vernon Sanders III, MD Transcribed by Gila Hoyos Authenticated and [facility]
--- NOTE | 2022-12-30 08:45 | XR_ITS ---
FINAL REPORT CLINICAL HISTORY: fall down 8 steps, pain, polytrauma FINDINGS: Left knee Three views were obtained. There is no acute fracture or dislocation. There are mild degenerative changes. No soft tissue abnormality is identified. IMPRESSION: No acute process. Reviewed, Interpreted and Dictated by Vernon Sanders III, MD Transcribed by Gila Hoyos Authenticated and [facility]
--- NOTE | 2022-12-30 08:45 | XR_ITS ---
FINAL REPORT CLINICAL HISTORY: fall down 8 steps, pain, polytrauma FINDINGS: Left hip Three views were obtained. There is no acute fracture or dislocation. There are moderate degenerative changes. No soft tissue abnormality is identified. IMPRESSION: No acute process. Reviewed, Interpreted and Dictated by Vernon Sanders III, MD Transcribed by Gila Hoyos Authenticated and . [facility]
--- NOTE | 2022-12-30 08:52 | HMH.EDGENADL ---
Discharge Plan Disposition Patient Disposition: Home, Self-Care Condition: Good Prescriptions Prescriptions: New naproxen 500 mg tablet 500 mg PO BID PRN (Reason: pain) Qty: 20 0RF methocarbamol 750 mg tablet 750 mg PO Q8H PRN (Reason: pain) Qty: 20 0RF No Action (DME) pen needle, diabetic [BD Ultra-Fine Mini Pen Needle] 31 gauge x 3/16 needle See Rx Instructions .ROUTE .MEDSUPPLY Qty: 50 Rx Instructions: As directed venlafaxine [Effexor XR] 75 mg capsule,extended release 24hr 75 mg PO DAILY Qty: 90 1RF Ozempic 1 mg/dose (4 mg/3 mL) pen injector 1 mg SQ WEEKLY Mirena 21 mcg/24 hours (8 yrs) 52 mg intrauterine device intrauterine lisinopril 20 mg tablet See Rx Instructions .ROUTE .COMPLEX Qty: 90 1RF Dose Instruction: TAKE 1 TABLET DAILY FOR HYPERTENSION Rx Instructions: TAKE 1 TABLET DAILY FOR HYPERTENSION diltiazem HCl 180 mg capsule,extended release 24hr See Rx Instructions .ROUTE .COMPLEX Qty: 90 1RF Dose Instruction: TAKE 1 CAPSULE DAILY Rx Instructions: TAKE 1 CAPSULE DAILY Referrals Follow up/Referrals: Fabián Kent MD [Primary Care Provider] - See instructions Activity Restrictions/Add. Instructions Additional Instructions/Restrictions: You were evaluated in the emergency department today. 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 You may also take Tylenol. Limit screen time, physical activity, driving, and operate heavy machinery until you have been 24 hours without neurologic symptoms, including headache. Follow-up with your primary care provider over the next 3 days. Return to the emergency department for new or worsening symptoms. Clinical Impressions Clinical Impression: Fall down stairs, Concussion Stand Alone Forms Stand Alone Forms: Work/School Release Instructions Patient Instructions: DI for Concussion Discharge ED Provider: Azucena Ramsey General Adult HPI General Chief complaint: Fall Stated complaint: AO12/30@home, head/Lt hip pain, dizzy Time Seen by Provider: 12/30/22 08:45 Mode of Arrival: Wheelchair Source of Information: Patient Limitations: No Limitations Description of Symptoms (Recalled from ER Triage Doc. by RN): Patient reports falling down 8 steps around 7am this morning. Complaint of left sided head pain and left hip pain. Also complaining of dizziness. Denies LOC. History of Present Illness HPI narrative: This patient is a 47-year-old female with a history of hypertension, diabetes, and PCOS presenting to the emergency department for evaluation after a fall down 8 steps. She states that she slipped on ice at the top of her outside stairs, and she fell all the way down to the bottom. She had the left side of her head but does not believe that she lost consciousness. She also complains of left hip pain. She is not able to get up on her own. She currently complains of severe headache, dizziness, and left hip pain. She does not take any blood thinners. She was well prior to the fall with no symptoms otherwise this morning. Related Data Home Medications Medication Instructions Recorded Confirmed pen needle, diabetic 31 gauge x #50 ea 04/14/22 12/22/2205/15 (BD Ultra-Fine Mini Pen Needle) levonorgestrel 21 mcg/24 hours (8 intrauterine 11/10/22 12/22/22 yrs) 52 mg intrauterine device (Mirena) semaglutide 1 mg/dose (4 mg/3 mL) 1 mg SQ WEEKLY 11/10/22 12/22/22 subcutaneous pen injector (Ozempic) Previous Rx's Medication Instructions Recorded venlafaxine 75 mg capsule,extended 75 mg PO DAILY #90 caps 07/17/22 release 24 hr (Effexor XR) diltiazem HCl 180 mg See Rx Instructions .Route 09/01/22 capsule,extended release 24 hr .COMPLEX #90 caps lisinopril 20 mg tablet See Rx Instructions .Route 09/01/22 .COMPLEX #90 tabs methocarbamol 750 mg tablet 750 mg PO Q8H PRN pain #20 tabs 12/30/22 naproxen 500 mg tablet
[2022-12-30 09:10] LABS: Basophils % 0.4 % (0.1-2.0); Eosinophils # 0.2 K/mm3 (0.0-0.4); Eosinophils % 2.2 % (0.1-12.0); Hematocrit 40.4 % (37.0-47.0); Lymphocytes # 1.5 K/mm3 (0.7-4.5); Lymphocytes % 18.6 % (10-50); Mean Corpuscular HGB Conc 34.7 g/dL (31.8-35.4); Mean Corpuscular Hemoglobin 28.7 pg (27.0-31.2); Mean Corpuscular Volume 82.6 fl (81-99); Mean Platelet Volume 8.5 fl (7.4-10.4); Monocytes # 0.4 K/mm3 (0.1-1.0); Monocytes % 5.3 % (1.7-9.3); Neutrophils # 5.9 K/mm3 (1.8-7.8); Neutrophils % 73.4 % (37.0-80.0); Platelet Count 201 K/mm3 (142-424); Red Cell Distribution Width 14.7 % (11.5-17.5)
[2022-12-30 09:13] LABS: Chloride 110 mmol/L (98-107); Potassium 3.9 mmoL/L (3.5-5.1); Sodium 141 mmol/L (136-145)
[2022-12-30 09:16] LABS: Alanine Aminotransferase 27 U/L (12-78); Albumin Level 4.6 g/dl (3.5-5.0); Albumin/Globulin Ratio 1.7 (1.1-1.8); Alkaline Phosphatase 48 U/L (38-126); Anion Gap 12.9 mEq/L (5-15); Aspartate Amino Transferase 33 U/L (14-36); Bilirubin,Total 0.4 mg/dl (0.2-1.3); Blood Urea Nitrogen 16 mg/dl (7-17); Carbon Dioxide 22 mmol/L (22.0-30.0); Creatinine Clearance Estimated 202 mL/min (50-200); Estimated Glomerular Filt Rate 108 ml/min (>60); GFR (African American) 130 ML/MIN (>60); Globulin 2.7 g/dL (1.3-3.2); Total Protein,Serum 7.3 g/dl (6.3-8.2)
[2022-12-30 09:17] LABS: Calcium 8.4 mg/dl (8.4-10.2); Glucose 116 mg/dl (74-100)
[2022-12-30 09:49] LABS: HCG,Quantitative < 2 mIU/ml (0-5.42)
[2022-12-30 09:50] LABS: HCG Qualitative, Serum Negative (Negative)
--- NOTE | 2022-12-30 09:52 | PC.NURSE ---
notified radiology that test has resulted, is negative, and she may be taken for imaging.
--- NOTE | 2022-12-30 10:05 | PC.NURSE ---
Dr. Ramsey s/w Dr. Nowak, Urologist with [facility].
--- NOTE | 2022-12-30 10:06 | PC.NURSE ---
xray at bs
--- NOTE | 2022-12-30 10:24 | PC.NURSE ---
pt to ct scan via stretcher
--- NOTE | 2022-12-30 11:22 | PC.NURSE ---
pt back from ct scan
--- NOTE | 2022-12-30 11:40 | PC.NURSE ---
Rounded on pt states no needs at this time at bs
--- NOTE | 2022-12-30 12:53 | PC.NURSE ---
pt laying in bed stated no complaints at this time, at bs
== END 2022-12-30 13:22 | disposition home or self-care (01) ==
PROVIDERS: Emergency Provider Emergency Medicine; PCP Family Medicine
DX: S06.0X0A Concussion without loss of consciousness, initial encounter (principal); M25.552 Pain in left hip; I10 Essential (primary) hypertension; E11.9 Type 2 diabetes mellitus without complications; M06.9 Rheumatoid arthritis, unspecified; E66.9 Obesity, unspecified; Z79.85 Long-term (current) use of injectable non-insulin antidiabetic drugs; W10.8XXA Fall (on) (from) other stairs and steps, initial encounter
CPT/HCPCS: 70450; 70496; 70498; 71275; 72125; 72128; 72131; 72192; 73502; 73552; 73562; 74174; 80053; 84702; 84703; 85025; 96374; 96375; 99285; J0131; J2405; Q9967

== ENCOUNTER 2023-01-25 11:04 | Emergency (ER) | payer BC, SELFPAY ==
[2023-01-25 11:55] VITALS: BP 165/108; PULSE 92; RESP 20; TEMP 37.2; O2SAT 98; BMI 41.9
--- NOTE | 2023-01-25 12:03 | XR_ITS ---
PROCEDURE INFORMATION: Exam: XR Chest Exam date and time: 01/25/2023 12:15 PM Age: 47 years old Clinical indication: Cough TECHNIQUE: Imaging protocol: Radiologic exam of the chest. Views: 2 views. COMPARISON: CT ANGIO CHEST 12/30/2022 11:10 AM FINDINGS: Lungs: Unremarkable. No consolidation. Pleural spaces: Unremarkable. No pleural effusion. No pneumothorax. Heart/Mediastinum: Unremarkable. No cardiomegaly. Bones/joints: Unremarkable. IMPRESSION: No acute findings.
--- NOTE | 2023-01-25 12:18 | EXP.UTC ---
Discharge Plan Disposition Patient Disposition: Home, Self-Care Condition: Good Prescriptions Prescriptions: New albuterol sulfate [Proventil HFA] 90 mcg/actuation HFA aerosol inhaler 1 - 2 inh inhalation Q6H PRN (Reason: shortness of breath or wheezing) Qty: 8.5 0RF guaifenesin [Mucinex] 600 mg tablet extended release 12hr 1,200 mg PO BID PRN (Reason: cough) Qty: 20 0RF azithromycin [Zithromax Z-Gustavo] 250 mg tablet See Rx Instructions .ROUTE .COMPLEX 5 Days Qty: 6 0RF Rx Instructions: For 250 mg dose pack: take 500 mg today (day 1), then 250 mg for 4 days (days 2-5) No Action (DME) pen needle, diabetic [BD Ultra-Fine Mini Pen Needle] 31 gauge x 3/16 needle See Rx Instructions .ROUTE .MEDSUPPLY Qty: 50 Rx Instructions: As directed venlafaxine [Effexor XR] 75 mg capsule,extended release 24hr 75 mg PO DAILY Qty: 90 1RF lisinopril 20 mg tablet See Rx Instructions .ROUTE .COMPLEX Qty: 90 1RF Dose Instruction: TAKE 1 TABLET DAILY FOR HYPERTENSION Rx Instructions: TAKE 1 TABLET DAILY FOR HYPERTENSION diltiazem HCl 180 mg capsule,extended release 24hr See Rx Instructions .ROUTE .COMPLEX Qty: 90 1RF Dose Instruction: TAKE 1 CAPSULE DAILY Rx Instructions: TAKE 1 CAPSULE DAILY Referrals Follow up/Referrals: Fabián Kent MD [Primary Care Provider] - See instructions Activity Restrictions/Add. Instructions Additional Instructions/Restrictions: Start antibiotic today. Be sure to complete entire prescription even if feeling better Monitor temp. Tylenol every 4 hours as needed and / or ibuprofen every 6 hours as needed ( As long as your primary care physician has told you that it ok to take both. For fever/aches/pains ER if no less than 101 despite Tylenol or Motrin Humidifier/vaporizer or hot steamy shower Inhaler every 4-6 hours as needed like we discussed. If unsure how to use it, ask pharmacist to demonstrate how. Should help open airways and improve cough, wheezing, and shortness of breath Mucinex during the day for your cough and cough suppressant only at night. Be sure to drink lots of water. Follow up IMMEDIATELY for new or worsening of symptoms OR no noticeable improvement over the next 48-72 hours. 911 immediately for any life threatening symptoms such as chest pain or difficulty breathing Clinical Impressions Clinical Impression: Bronchitis Sinusitis Qualifiers: Sinusitis location: unspecified location Chronicity: unspecified Qualified Code(s): J32.9 - Chronic sinusitis, unspecified Instructions Patient Instructions: Sinusitis, Acute Bronchitis, DI for Sinusitis Discharge ED Provider: Edna Bella [facility] HPI General Stated complaint: cough, chest congestion, pain between shoulders Mode of Arrival: Ambulatory Source of Information: Patient Limitations: No Limitations Time Seen by Provider: 01/25/23 12:19 Description of Symptoms (Recalled from Triage Doc. by RN): PATIENT C/O CONGESTION, PRODUCTIVE COUGH WITH DARK GREEN SPUTUM, SOA AND LOW-GRADE FEVER. SHE STATES SHE SAW HER PCP ON THURSDAY AND WAS GIVEN STEROID AND COUGH MEDS BUT STATES SHE IS FEELING WORSE HEENT Symptoms (Recalled from RN notes): Yes Resp Symptoms (Recalled from RN notes): Yes Skin Symptoms (Recalled from RN notes): No MS Symptoms (Recalled from RN notes): No Functional Status (Recalled from RN notes): WNL History of Present Illness Provider Complaint: Patient having chest congestion, cough that is productive at times, low grade fever and at times feels a little SOA after coughing episode states that she was seen earlier in the week by her PCP and treated with steriods and cough medication but has got worse so she came in today to get checked Related Data Home Medications Medication Instructions Recorded Confirmed pen needle, diabetic 31 gauge x #50 ea 04/14/22 01/20/2305/15 (BD Ultra-Fine Mini P
[2023-01-25 13:20] VITALS: BP 165/108; PULSE 92; RESP 20; TEMP 37.2; O2SAT 98
== END 2023-01-25 13:26 | disposition home or self-care (01) ==
PROVIDERS: Emergency Provider Nurse Practitioner; PCP Family Medicine
DX: J20.9 Acute bronchitis, unspecified (principal); J01.90 Acute sinusitis, unspecified; R06.02 Shortness of breath; R05.9 Cough, unspecified; M54.6 Pain in thoracic spine; R09.89 Other specified symptoms and signs involving the circulatory and respiratory systems; R50.9 Fever, unspecified; I10 Essential (primary) hypertension
CPT/HCPCS: 71046; 96372; 99212; 99214; G0463; J0696

== ENCOUNTER 2023-03-17 21:59 | Emergency (ER) | payer BC, SELFPAY ==
[2023-03-17 22:00] VITALS: BP 195/113; PULSE 103; RESP 19; TEMP 37.4; O2SAT 95; BMI 40.9
[2023-03-17 22:16] LABS: Microscopic, Urine URINE MICROSCOPIC (MICROSCOPIC)
[2023-03-17 22:20] LABS: Urine Pregnancy, HCG Qual. Negative (Negative)
[2023-03-17 22:22] LABS: Appearance,Urine SL CLOUDY (Clear); Bilirubin,Urine Negative (Negative); Blood, Urine TRACE-I (Negative); Color,Urine YELLOW (Yellow); Glucose,Urine (UA) Negative (Negative); Ketones,Urine Negative (Negative); Leukocyte Esterase,Urine 1+ (Negative); Nitrate,Urine Negative (Negative); Protein,Urine Negative (Negative); Urobilinogen,Urine 0.2 EU/dl (0.2)
--- NOTE | 2023-03-17 22:26 | CT_ITS ---
PROCEDURE INFORMATION: Exam: CT Abdomen And Pelvis With Contrast Exam date and time: 03/17/2023 10:48 PM Age: 47 years old Clinical indication: Abdominal pain; Additional info: Abdominal pain, fever TECHNIQUE: Imaging protocol: Computed tomography of the abdomen and pelvis with contrast. Total images: 340 Radiation optimization: All CT scans at this facility use at least one of these dose optimization techniques: automated exposure control; mA and/or kV adjustment per patient size (includes targeted exams where dose is matched to clinical indication); or iterative reconstruction. Contrast material: ISOVUE; Contrast volume: 75 ml; Contrast route: IV; COMPARISON: CT ANGIO ABDOMEN PELVIS 12/30/2022 11:10 AM FINDINGS: Lungs: Lung bases are clear. Heart: Normal heart size. Liver: Decreased liver attenuation from phase of contrast versus steatosis. Mild hepatomegaly. No liver mass. Gallbladder and bile ducts: Status post cholecystectomy. No bile duct dilatation. Pancreas: Normal. No ductal dilation. Spleen: Splenomegaly at 15.5 cm. No splenic mass. Adrenal glands: Normal. No mass. Kidneys and ureters: Mild bilateral pelvicaliectasis, similar to prior exam. Stable minor bilateral perinephric edema. No nephrolithiasis or renal mass. No ureteral stones. Stomach and bowel: Status post gastric sleeve procedure. Unremarkable duodenum. No ileus or bowel obstruction. Small bowel appears within normal limits. Unremarkable terminal ileum. Unremarkable colon and rectum. Appendix: Normal appendix. Intraperitoneal space: Unremarkable. No free air. No significant fluid collection. Vasculature: Numerous pelvic phleboliths. Abdominal aorta is normal in caliber. Major abdominal vessels enhance appropriately. Lymph nodes: Unremarkable. No enlarged lymph nodes. Urinary bladder: Unremarkable as visualized. Reproductive: 2.4 cm left ovarian cyst or dominant follicle requiring no strict follow-up. Anteverted uterus containing an IUD. Unremarkable right ovary. No adnexal mass. Bones/joints: Moderate degenerative changes lower thoracic spine. Mild degenerative changes lumbar spine. Mild osteopenia. Mild degenerative changes bilateral hips and SI joints. Soft tissues: Very tiny fat containing umbilical hernia. IMPRESSION: 1. No acute intra-abdominal or pelvic process. 2. Mild bilateral pelvicaliectasis, unchanged from December 30, 2022, and likely physiologic. 3. Mild hepatosplenomegaly. 4. Status post gastric sleeve and cholecystectomy. 5. Status post IUD. 6. 2.4 cm left ovarian cyst or dominant follicle requiring no strict follow-up.
[2023-03-17 22:28] LABS: Basophils # 0.1 K/mm3 (0-0.2); Basophils % 0.9 % (0.1-2.0); Eosinophils # 0.3 K/mm3 (0.0-0.4); Eosinophils % 2.7 % (0.1-12.0); Hemoglobin 14.1 g/dL (12.2-16.2); Lymphocytes # 2.6 K/mm3 (0.7-4.5); Lymphocytes % 24.5 % (10-50); Mean Corpuscular HGB Conc 33.5 g/dL (31.8-35.4); Mean Corpuscular Hemoglobin 27.5 pg (27.0-31.2); Mean Corpuscular Volume 82.2 fl (81-99); Mean Platelet Volume 8.4 fl (7.4-10.4); Monocytes # 0.6 K/mm3 (0.1-1.0); Monocytes % 5.5 % (1.7-9.3); Neutrophils % 66.5 % (37.0-80.0); Platelet Count 240 K/mm3 (142-424); Red Blood Count 5.11 M/mm3 (4.20-5.40); Red Cell Distribution Width 14.3 % (11.5-17.5); White Blood Count 10.6 K/mm3 (4.8-10.8)
[2023-03-17 22:32] LABS: Coronavirus 19, PCR Not Detected (NotDetected); Influenza A, PCR Not Detected (NotDetected); Influenza B, PCR Not Detected (NotDetected)
--- NOTE | 2023-03-17 22:32 | ED_ITS ---
Discharge Plan Disposition Patient Disposition: Home, Self-Care Prescriptions Prescriptions: New amoxicillin-pot clavulanate 875-125 mg tablet 1 tab PO BID 7 Days Qty: 14 0RF No Action diltiazem HCl 180 mg capsule,extended release 24hr 180 mg PO DAILY lisinopril 20 mg tablet 20 mg PO DAILY Referrals Follow up/Referrals: Fabián Kent MD [Primary Care Provider] - See instructions Activity Restrictions/Add. Instructions Additional Instructions/Restrictions: Please take antibiotics as prescribed. Please follow-up with your primary care provider. Please return to the emergency department if you develop any new or worsening symptoms or become concerned for your health. Clinical Impressions Clinical Impression: Abdominal pain Qualifiers: Abdominal location: right lower quadrant Qualified Code(s): R10.31 - Right lower quadrant pain UTI (urinary tract infection) Qualifiers: Encounter type: initial encounter Instructions Patient Instructions: DI for Acute Abdominal Pain Discharge ED Provider: Chandan Fishman General Adult HPI <Chandan Fishman MD - Last Filed: 03/17/23 23:03> General Chief complaint: Abdominal Pain Stated complaint: abd pain Time Seen by Provider: 03/17/23 22:15 Mode of Arrival: Ambulatory Source of Information: Patient Limitations: No Limitations Description of Symptoms (Recalled from ER Triage Doc. by RN): 47 F presents from home with right sided abdominal pain that began at 0300 this date. Patient reports this as being 8/10 pain that is sharp and radiates to her overall abdomen area. Patient states she has children at home with the flu and believed this to be related; however, the pain is worsening. Patient still has her appendix. Denies n/v/d. History of Present Illness HPI narrative: 47-year-old female history of gastric sleeve, section, cholecystectomy presenting for right lower quadrant pain. Started at 3 AM today, 03/17. Got progressively worse throughout the day. Came back worse just before arrival. It is sharp, stabbing, right lower quadrant, does not radiate, associated with constipation, no vomiting, diarrhea. Patient states that last bowel movement was earlier today, but was constipated for her. She is not passing gas. Related Data Home Medications Medication Instructions Recorded Confirmed diltiazem HCl 180 mg 180 mg PO DAILY 03/17/23 03/17/23 capsule,extended release 24 hr lisinopril 20 mg tablet 20 mg PO DAILY 03/17/23 03/17/23 Previous Rx's Medication Instructions Recorded amoxicillin 875 mg-potassium 1 tab PO BID 7 days #14 tabs 03/17/23 clavulanate 125 mg tablet Allergies Allergy/AdvReac Type Severity Reaction Status Date / Time No Known Allergies Allergy Verified 01/20/23 11:07 [facility] <Chandan Fishman MD - Last Filed: 03/17/23 23:03> [facility] Disclaimer: The information contained in this section may have been updated after the patient was seen, as this information can be updated by other users. Medical History Hypertension Rheumatoid arthritis Seropositive rheumatoid arthritis of multiple joints Surgical History H/O gastric sleeve History of History of cholecystectomy History of tonsillectomy Family History Other Coronary artery disease Diabetes Hypertension Social History Smoking Status: Never smoker alcohol intake: never substance use type: denies use current occupational status: unemployed Travel in the last 8 weeks: None household members: spouse and children housing: house <Chandan Fishman MD - Last Filed: 03/17/23 23:03> ROS Obtained: Yes All systems reviewed & no additional complaints except as documented Physical Exam <Chandan Fishman MD - Last Filed: 03/17/23 23:03> General General appearance: alert, in no apparent distress and obese Head Head exam: atraumatic and normocephalic Eye Eye exam: Present normal appearance, PERRL and EOMI ENT ENT exam: Present mucous membranes moist Neck Neck exam: Present normal inspection, full ROM and trachea midline Respiratory Respiratory exam: Absent respiratory distress, wheezes, stridor, accessory muscle use or prolonged expiratory phase Cardiovascular Cardiovascular exam: Present normal rhythm Abdominal Exam Abdominal exam: Present soft, tenderness and guarding; Absent distention, rebound or rigidity Abdominal tenderness: Present RLQ Extremities Exam Extremities exam: Absent edema Neurological Exam Neurological exam: Present alert, oriented X3, CN II-XII intact and normal gait; Absent motor sensory deficit Skin Skin exam: Present warm and dry; Absent diaphoresis or erythema Medical Decision Making <Chandan Fishman MD - Last Filed: 03/17/23 23:03> Medical Records Medical records reviewed: Yes I reviewed the patient's medical records. Ruddy Inquiry Pt receiving controlled substance: No Ruddy was queried for this patient: No Vital Signs: 03/17/23 22:00 Temperature 99.3 F Temperature Source Oral Pulse Rate [Left] 103 H Respiratory Rate 19 Blood Pressure [Right Arm] 195/113 H Blood Pressure Mean [Right Arm] 140 Blood Pressure Source [Right Arm] Automatic Cuff Blood Pressure Position [Right Arm] Sitting 02 Sat by Pulse Oximetry 95 Oxygen Delivery Method Room Air Lab Data Lab Results 03/17/23 22:09: Urine Color Yellow, Urine Appearance Sl cloudy, Urine pH 7.0, Ur Specific [place] 1.020, Urine Protein Negative, Urine Glucose (UA) Negative, Urine Ketones Negative, Urine Blood Trace-i, Urine Nitrate Negative, Urine Bili houser Negative, Urine Urobilinogen 0.2, Ur Leukocyte Esterase 1+ A, Urine RBC 3- 5, Urine WBC 3-5, Ur Squamous Epith Cells Occasional, Amorphous Sediment 1+, Urine Bacteria 2+, Urine HCG, Qual Negative 03/17/23 22:15: WBC 10.6, RBC 5.11, Hgb 14.1, Hct 42.0, MCV 82.2, MCH 27.5, MCHC 33.5, RDW 14.3, Plt Count 240, MPV 8.4, Neut % (Auto) 66.5, Lymph % (Auto) 24.5, [place] % (Auto) 5.5, Eos % (Auto) 2.7, Baso % (Auto) 0.9, Neut # (Auto) 7.0, Lymph # (Auto) 2.6, [place] # (Auto) 0.6, Eos # (Auto) 0.3, Baso # (Auto) 0.1, Sodium 142, Potassium 3.9, Chloride 107, Carbon Dioxide 27, Anion Gap 11.9, BUN 17, Creatinine 0.90, Estimated Creat Clear 138, Estimated GFR 67, Est GFR ( Amer) 82, Glucose 116 H, Lactate 1.0, Calcium 9.3, Total Bilirubin 0.4, AST 26, ALT 24, Alkaline Phosphatase 51, Total Protein 7.6, Albumin 4.5, Globulin 3.1, Albumin/Globulin Ratio 1.5 03/17/23 22:25: Lipase 201 03/17/23 22:27: SARS-CoV-2 (PCR) Not detected, Influenza A Untype (PCR) Not detected, Influenza Type B (PCR) Not detected 03/17/23 22:15 03/17/23 22:15 Orders (Tests/Meds): ED MEDICATIONS Generic Name Dose Route Start Last Admin Trade Name Robby PRN Reason Stop Dose Admin Sodium Chloride 1,000 mls @ 999 mls/hr 03/17/23 22:35 03/17/23 22:40 Sod Chlor 0.9% 1000ml Bag IV 03/17/23 23:35 999 mls/hr .Q1H1M ONE Administration Sodium Chloride 10 ml 03/17/23 22:11 Sodium Chloride 0.9% 10ml Flush Syringe IV 04/16/23 22:10 NEEDED PRN Maintain IV Site Sodium Chloride 10 ml 03/17/23 22:52 03/17/23 22:53 Sodium Chloride 0.9% 10ml Syr (Rad Only) IV 04/16/23 22:51 10 ml NEEDED PRN Administration Maintain IV Site Trimethoprim/Sulfamethoxazole 1 each 03/17/23 23:31 Sulfa/Trimethoprim 1 Tablet PO 03/17/23 23:32 ONCE ONE Discontinued Medications Generic Name Dose Route Start Last Admin Trade Name Robby PRN Reason Stop Dose Admin Acetaminophen 1,000 mg 03/17/23 22:34 03/17/23 22:40 Acetaminophen 1,000mg/100ml Vial IV 03/17/23 22:35 1,000 mg ONCE ONE Administration Iopamidol 75 ml 03/17/23 22:52 03/17/23 22:53 Iopamidol-370 (76%);100ml Bottle IV 03/17/23 22:53 75 ml ONCE ONE Administration Ketorolac Tromethamine 15 mg 03/17/23 22:34 03/17/23 22:40 Ketorolac 30mg/Ml Vial IV 03/17/23 22:35 15 mg ONCE ONE Administration Ondansetron HCl 4 mg 03/17/23 22:34 03/17/23 22:40 Ondansetron 4mg/2ml Vial IV 03/17/23 22:35 4 mg ONCE ONE Administration ORDERS Category Date Time Status CT abdomen pelvis w con Stat Cat Scan 03/17/23 22:26 Completed Complete Blood Count Auto Diff Stat Lab 03/17/23 22:15 Completed Comprehensive Metabolic Panel Stat Lab 03/17/23 22:15 Completed Lactic Acid Stat Lab 03/17/23 22:15 Completed Lipase Stat Lab 03/17/23 22:25 Completed Rapid PCR Covid and Flu A/B Stat Lab 03/17/23 22:27 Completed Urinalysis and Microscopic Stat Lab 03/17/23 22:09 Completed Urine , HCG Qual. Stat Lab 03/17/23 22:09 Completed Urine Culture Stat Micro 03/17/23 22:09 Received Medical Decision Narrative: 47-year-old female history of gastric sleeve, section, cholecystectomy presenting for right lower quadrant pain. Started at 3 AM today, 03/17. Got progressively worse throughout the day. Came back worse just before arrival. It is sharp, stabbing, right lower quadrant, does not radiate, associated with constipation, no vomiting, diarrhea. Patient states that last bowel movement was earlier today, but was constipated for her. She is not passing gas. History was obtained via conversation with patient. On arrival, patient hemodynamically stable, alert, oriented x4, appropriate, GCS 15, moving all extremities spontaneously, pupils equal and reactive to light. Full physical exam performed and significant for obese, well-appearing woman. Tenderness primarily in right lower quadrant with guarding. No rebound or rigidity. No flank tenderness. Differential includes PUD, gastritis, enteritis, gastroenteritis, pancreatitis, SBO, colitis, diverticulitis, nephrolithiasis, UTI, aortic pathology, mesenteric ischemia, , cholecystitis, appendicitis, hepatitis, among others. Patient was given fluids, Toradol, [place] of, Zofran for symptomatic management and correction of underlying abnormalities. Workup independently interpreted and nonactionable CBC or chemistry. UA with trace blood and leukocyte Estrace. CT scan pending at time of handoff to oncoming physician. <Devin Spencer MD - Last Filed: 03/17/23 23:36> Vital Signs: 03/17/23 22:00 Temperature 99.3 F Temperature Source Oral Pulse Rate [Left] 103 H Respiratory Rate 19 Blood Pressure [Right Arm] 195/113 H Blood Pressure Mean [Right Arm] 140 Blood Pressure Source [Right Arm] Automatic Cuff Blood Pressure Position [Right Arm] Sitting 02 Sat by Pulse Oximetry 95 Oxygen Delivery Method Room Air Lab Data Lab Results 03/17/23 22:09: Urine Color Yellow, Urine Appearance Sl cloudy, Urine pH 7.0, Ur Specific [place] 1.020, Urine Protein Negative, Urine Glucose (UA) Negative, Urine Ketones Negative, Urine Blood Trace-i, Urine Nitrate Negative, Urine Bilirubin Negative, Urine Urobilinogen 0.2, Ur Leukocyte Esterase 1+ A, Urine RBC 3-5, Urine WBC 3-5, Ur Squamous Epith Cells Occasional, Amorphous Sediment 1+, Urine Bacteria 2+, Urine HCG, Qual Negative 03/17/23 22:15: WBC 10.6, RBC 5.11, Hgb 14.1, Hct 42.0, MCV 82.2, MCH 27.5, MCHC 33.5, RDW 14.3, Plt Count 240, MPV 8.4, Neut % (Auto) 66.5, Lymph % (Auto) 24.5, [place] % (Auto) 5.5, Eos % (Auto) 2.7, Baso % (Auto) 0.9, Neut # (Auto) 7.0, Lymph # (Auto) 2.6, [place] # (Auto) 0.6, Eos # (Auto) 0.3, Baso # (Auto) 0.1, Sodium 142, Potassium 3.9, Chloride 107, Carbon Dioxide 27, Anion Gap 11.9, BUN 17, Creatinine 0.90, Estimated Creat Clear 138, Estimated GFR 67, Est GFR ( Amer) 82, Glucose 116 H, Lactate 1.0, Calcium 9.3, Total Bilirubin 0.4, AST 26, ALT 24, Alkaline Phosphatase 51, Total Protein 7.6, Albumin 4.5, Globulin 3.1, Albumin/Globulin Ratio 1.5 03/17/23 22:25: Lipase 201 03/17/23 22:27: SARS-CoV-2 (PCR) Not detected, Influenza A Untype (PCR) Not detected, Influenza Type B (PCR) Not detected Orders (Tests/Meds): ED MEDICATIONS Generic Name Dose Route Start Last Admin Trade Name Freq PRN Reason Stop Dose Admin Sodium Chloride 1,000 mls @ 999 mls/hr 03/17/23 22:35 03/17/23 22:40 Sod Chlor 0.9% 1000ml Bag IV 03/17/23 23:35 999 mls/hr .Q1H1M ONE Administration Sodium Chloride 10 ml 03/17/23 22:11 Sodium Chloride 0.9% 10ml Flush Syringe IV 04/16/23 22:10 NEEDED PRN Maintain IV Site Sodium Chloride 10 ml 03/17/23 22:52 03/17/23 22:53 Sodium Chloride 0.9% 10ml Syr (Rad Only) IV 04/16/23 22:51 10 ml NEEDED PRN Administration Maintain IV Site Trimethoprim/Sulfamethoxazole 1 each 03/17/23 23:31 Sulfa/Trimethoprim 1 Tablet PO 03/17/23 23:32 ONCE ONE Discontinued Medications Generic Name Dose Route Start Last Admin Trade Name Freq PRN Reason Stop Dose Admin Acetaminophen 1,000 mg 03/17/23 22:34 03/17/23 22:40 Acetaminophen 1,000mg/100ml Vial IV 03/17/23 22:35 1,000 mg ONCE ONE Administration Iopamidol 75 ml 03/17/23 22:52 03/17/23 22:53 Iopamidol-370 (76%);100ml Bottle IV 03/17/23 22:53 75 ml ONCE ONE Administration Ketorolac Tromethamine 15 mg 03/17/23 22:34 03/17/23 22:40 Ketorolac 30mg/Ml Vial IV 03/17/23 22:35 15 mg ONCE ONE Administration Ondansetron HCl 4 mg 03/17/23 22:34 03/17/23 22:40 Ondansetron 4mg/2ml Vial IV 03/17/23 22:35 4 mg ONCE ONE Administration ORDERS Category Date Time Status CT abdomen pelvis w con Stat Cat Scan 03/17/23 22:26 Completed Complete Blood Count Auto Diff Stat Lab 03/17/23 22:15 Completed Comprehensive Metabolic Panel Stat Lab 03/17/23 22:15 Completed Lactic Acid Stat Lab 03/17/23 22:15 Completed Lipase Stat Lab 03/17/23 22:25 Completed Rapid PCR Covid and Flu A/B Stat Lab 03/17/23 22:27 Completed Urinalysis and Microscopic Stat Lab 03/17/23 22:09 Completed Urine , HCG Qual. Stat Lab 03/17/23 22:09 Completed Urine Culture Stat Micro 03/17/23 22:09 Received Medical Decision Narrative: 47-year-old female history of gastric sleeve, section, cholecystectomy presenting for right lower quadrant pain. Started at 3 AM today, 03/17. Got progressively worse throughout the day. Came back worse just before arrival. It is sharp, stabbing, right lower quadrant, does not radiate, associated with constipation, no vomiting, diarrhea. Patient states that last bowel movement was earlier today, but was constipated for her. She is not passing gas. History was obtained via conversation with patient. On arrival, patient hemodynamically stable, alert, oriented x4, appropriate, GCS 15, moving all extremities spontaneously, pupils equal and reactive to light. Full physical exam performed and significant for obese, well-appearing woman. Tenderness primarily in right lower quadrant with guarding. No rebound or rigidity. No flank tenderness. Differential includes PUD, gastritis, enteritis, gastroenteritis, pancreatitis, SBO, colitis, diverticulitis, nephrolithiasis, UTI, aortic pathology, mesenteric ischemia, , cholecystitis, appendicitis, hepatitis, among others. Patient was given fluids, Toradol, [place] of, Zofran for symptomatic management and correction of underlying abnormalities. Workup independently interpreted and nonactionable CBC or chemistry. UA with trace blood and leukocyte Estrace. CT scan pending at time of handoff to oncoming physician. Johanna CHA: I assumed care of the patient at the time of handoff from the prior provider. On reassessment patient reports symptomatic improvement. No guarding on my exam. CT imaging interpreted by me, shows no acute findings such as braxton endicitis, gastroenteritis, obstruction etc. Does show other stable findings from prior. Nothing to explain abdominal pain. UA shows 3-5 WBCs and 3-5 RBCs with 2+ bacteria, nitrate negative. Patient reports no urinary symptoms. Given fever and abdominal pain with positive urine, will treat empirically as urinary tract infection, though this may not ultimately be the source of her pain. Patient given dose of Bactrim and discharged with prescription for same. Return precautions given. Critical Care <Chandan Fishman MD - Last Filed: 03/17/23 23:03> Critical Care Time Critical Care Time: No
[2023-03-17 22:33] LABS: Alanine Aminotransferase 24 U/L (12-78); Albumin Level 4.5 g/dl (3.5-5.0); Albumin/Globulin Ratio 1.5 (1.1-1.8); Alkaline Phosphatase 51 U/L (38-126); Anion Gap 11.9 mEq/L (5-15); Aspartate Amino Transferase 26 U/L (14-36); Bilirubin,Total 0.4 mg/dl (0.2-1.3); Blood Urea Nitrogen 17 mg/dl (7-17); Calcium 9.3 mg/dl (8.4-10.2); Carbon Dioxide 27 mmol/L (22.0-30.0); Chloride 107 mmol/L (98-107); Creatinine Clearance Estimated 138 mL/min (50-200); Estimated Glomerular Filt Rate 67 ml/min (>60); GFR (African American) 82 ML/MIN (>60); Globulin 3.1 g/dL (1.3-3.2); Glucose 116 mg/dl (74-100); Potassium 3.9 mmoL/L (3.5-5.1); Sodium 142 mmol/L (136-145); Total Protein,Serum 7.6 g/dl (6.3-8.2)
[2023-03-17] MEDS: 0.9 % SODIUM CHLORIDE 1000ML 1,000 ML 999 ML IV (22:40)
[2023-03-17] MEDS: ACETAMINOPHEN 1,000MG/100ML VIAL 1000 MG IV (22:40)
[2023-03-17] MEDS: KETOROLAC 30MG/ML VIAL 15 MG IV (22:40)
[2023-03-17] MEDS: ONDANSETRON 4MG/2ML VIAL 4 MG IV (22:40)
[2023-03-17 22:44] LABS: Lipase 201 U/L (23-300)
[2023-03-17] MEDS: IOPAMIDOL-370 (76%);100ML BOTTLE 75 ML IV (22:53)
[2023-03-17] MEDS: SODIUM CHLORIDE 0.9% 10ML SYR (RAD ONLY) 10 ML IV (22:53)
[2023-03-17 23:11] LABS: Amorphous Sediment,Urine 1+ /lpf; Bacteria,Urine 2+ /lpf; Squamous Epithelial Cell,Urine Occasional #/hpf (0-5)
[2023-03-17] MEDS: SULFA/TRIMETHOPRIM 1 TABLET 1 EACH PO (23:36)
[2023-03-17 23:42] VITALS: BP 175/90; PULSE 86; RESP 17; TEMP 36.6; O2SAT 96
--- NOTE | 2023-03-20 13:39 | PC.NURSE ---
Per Ayse after reviewing urine culture results and seeing pt was DC on augmentin, there is no further action at this time
== END 2023-03-17 23:42 | disposition home or self-care (01) ==
PROVIDERS: Emergency Provider Emergency Medicine; PCP Family Medicine
DX: R10.31 Right lower quadrant pain (principal); N39.0 Urinary tract infection, site not specified; B96.89 Other specified bacterial agents as the cause of diseases classified elsewhere; I10 Essential (primary) hypertension; E66.9 Obesity, unspecified; Z68.41 Body mass index [BMI] 40.0-44.9, adult
CPT/HCPCS: 74177; 80053; 81001; 81025; 83605; 83690; 85025; 87086; 87636; 96361; 96374; 96375; 99285; J0131; J2405; Q9967

== ENCOUNTER 2023-11-03 14:10 | Outpatient (CLI) | payer BC, SELFPAY ==
--- NOTE | 2023-11-03 14:10 | MM_ITS ---
PROCEDURE INFORMATION: Exam: Bilateral Screening 3D Mammography Exam date and time: 11/03/2023 2:03 PM Age: 48 years old Clinical indication: Screening. No family history of breast cancer. Note technologist indicates thicker tissue under right arm. TECHNIQUE: Imaging protocol: Bilateral Screening tomosynthesis and 2D mammography including computer-aided detection (CAD) when performed. COMPARISON: SCN DIG BREAST TOMOSYN GLENDA 03/06/2020 11:16 AM FINDINGS: MAMMOGRAPHY: Breast composition: The breasts are almost entirely fatty. Mass: None. Architectural distortion: None. Calcifications: No suspicious calcifications. Asymmetric density: None. Skin thickening: None. Axillary adenopathy: None. IMPRESSION: See comment Technologist notes thicker tissue under right arm. If of clinical concern, diagnostic mammography and or sonography can be added as clinically indicated.Further evaluation of a palpable abnormality should be based on clinical grounds regardless of radiographic findings or lack thereof. No mammographic evidence of malignancy. Annual screening is recommended unless otherwise clinically indicated. ASSESSMENT: BI-RADS Category 1: Negative.
== END 2023-11-03 23:59 | disposition home or self-care (01) ==
LOC: RAD 14:10
PROVIDERS: PCP Family Medicine; Visit Provider Family Medicine
DX: Z12.39 Encounter for other screening for malignant neoplasm of breast (principal)
CPT/HCPCS: 77063; 77067

== ENCOUNTER 2023-12-18 10:04 | Emergency (ER) | payer BC, SELFPAY ==
[2023-12-18] VITALS (8 sets, daily range): BP systolic 110–137; BP diastolic 73–92; PULSE 80–101; RESP 14–18; TEMP 36.7; O2SAT 93–99; BMI 39.1
--- NOTE | 2023-12-18 10:02 | ECG_ITS ---
APPROVED REPORT Exam: Resting ECG HR:101 bpm ECG Measurements Heart Rate 101 AXES NH 156 P 64 QRSd 98 QRS 56 QT 356 T 65 QTc 414 Conclusion SINUS TACHYCARDIA LOW QRS VOLTAGE IN PRECORDIAL LEADS [QRS DEFLECTION < 1.0 mV IN CHEST LEADS] ABNORMAL RHYTHM ECG UNCONFIRMED REPORT Electronically signed by : GHASSAN REILLY, 12/20/2023 06:10:06
--- NOTE | 2023-12-18 10:11 | ED_ITS ---
Discharge Plan Disposition Patient Disposition: Home, Self-Care Condition: Good Prescriptions Prescriptions: New meloxicam 7.5 mg tablet 7.5 mg PO BID 5 Days Qty: 10 0RF No Action sumatriptan succinate [Imitrex] 25 mg tablet See Rx Instructions PO .COMPLEX Qty: 30 2RF Rx Instructions: take 1 tab at onset of headache; if no relief may repeat 1 tab after at least 2 hrs; max = 4 tabs/24 hr PO azithromycin 250 mg tablet See Rx Instructions PO .COMPLEX Qty: 6 0RF Rx Instructions: For 250 mg dose pack: take 500 mg today (day 1), then 250 mg for 4 days (days 2-5) PO diltiazem HCl 180 mg capsule,extended release 24hr 180 mg PO DAILY 90 Days Qty: 90 0RF lisinopril 20 mg tablet 20 mg PO DAILY 90 Days Qty: 90 0RF venlafaxine 75 mg capsule,extended release 24hr 75 mg PO DAILY 90 Days Qty: 90 0RF Referrals Follow up/Referrals: Brook Merrill DO [Staff Physician] - See instructions Provider,Referral, MD [Primary Care Provider] - See instructions Activity Restrictions/Add. Instructions Additional Instructions/Restrictions: As we discussed, it appears that some of your chest pain is related to some fibrous tissue on your left breast that is near your sternum. It is difficult to say, reviewing your recent mammogram, that this was imaged on that mammogram. I placed a referral to the [facility] doctor in [facility] for you to have this evaluated. I have written a prescription for a course of anti-inflammatory medications. Please return with any new or worsening symptoms. I would like you to have this evaluated by the [facility] doctor as it is important to have a specialist weigh in and make sure that this is not something that would need biopsy or further workup because although this could be a benign condition it may need further workup to rule out conditions such as breast cancer. Clinical Impressions Clinical Impression: Abnormal breast tissue Stand Alone Forms Stand Alone Forms: Work/School Release Print Language Print Language: Marshallese Discharge ED Provider: Dragan Tavera General Adult HPI General Chief complaint: Chest Pain Stated complaint: chest pain Time Seen by Provider: 12/18/23 10:11 History of Present Illness HPI narrative: She presents with a chief complaint of chest pain, which began approximately three weeks ago, following a mammogram performed one month ago. The pain is described as sharp and occurs even when lying still. She denies any recent injuries and reports no relief or exacerbation of the pain with any specific activities or interventions. There is no difficulty breathing, bruising, or swelling in the affected area. Her medical history includes a fall in November of the previous year, with no broken ribs or lingering issues reported. Additionally, there is a history of pericarditis following a COVID-19 infection in August 2021. She notes that the current chest pain is different from the pain experienced during the pericarditis episode, describing the previous pain as feeling like an elephant went on me and my heart was beating out of my chest. She denies any recent illness, cough, or congestion but reports bilateral leg muscle pain without swelling. Previous mammograms have been performed at a different facility, and breast exams have been conducted by an [employer]PER[employer] in the past. She is unsure of the results of the most recent mammogram. Initially, she thought she might have pulled a muscle during the mammogram but became concerned when the pain persisted even when not moving. The pain is localized to the chest wall area, and she wonders if it could be related to arthritis. The pain occurs throughout the day, both at work and at home, prompting her to encourage her to seek medical attention. Please note that above description of symptoms, in this electronic medical record under categorization of recalled from ER triage doctor by RN are reflective of an initial nursing assessment, however, is not reflective of my full history and physical exam that was personally taken and clarified. Consequentially, this preceding description of symptoms, which may include the patient's categorized chief complaint in the EMR, do not reflect my personal clinical impression, and the ultimate description of history of present illness and patient stated complaints should be deferred to this section of the note. Unless stated otherwise or congruent with this section of the note, additional signs, symptoms, or incongruence should be interpreted as inaccurate with my clinical impression. Related Data Previous Rx's ?Medication ?Instructions ?Recorded sumatriptan succinate 25 mg tablet See Rx Instructions PO .COMPLEX 04/22/23 (Imitrex) #30 tabs azithromycin 250 mg tablet See Rx Instructions PO .COMPLEX #6 08/05/23 tabs diltiazem HCl 180 mg 180 mg PO DAILY 90 days #90 caps 11/18/23 capsule,extended release 24 hr lisinopril 20 mg tablet 20 mg PO DAILY 90 days #90 tabs 11/20/23 venlafaxine 75 mg capsule,extended 75 mg PO DAILY 90 days #90 caps 11/20/23 release 24 hr meloxicam 7.5 mg tablet 7.5 mg PO BID 5 days #10 tabs 12/18/23 Allergies Allergy/AdvReac Type Severity Reaction Status Date / Time No Known Allergies Allergy Verified 04/22/23 16:08 [facility] Disclaimer: The information contained in this section may have been updated after the patient was seen, as this information can be updated by other users. Medical History Hypertension Rheumatoid arthritis Seropositive rheumatoid arthritis of multiple joints Surgical History H/O gastric sleeve History of History of cholecystectomy History of tonsillectomy Family History Other Coronary artery disease Diabetes Hypertension Social History Smoking Status: Never smoker alcohol intake: never substance use type: denies use current occupational status: unemployed Travel in the last 8 weeks: None household members: spouse and children housing: house Other Medical History Have you received the Flu Vaccine for this season: No Have you received the Pneumonia Vaccine: No ROS Obtained: Yes other As per HPI Physical Exam General General appearance: alert and in no apparent distress Head Head exam: atraumatic and normocephalic Eye Eye exam: Present normal appearance Neck Neck exam: Present normal inspection Chest Chest inspection: Present normal inspection and symmetric chest wall rise Respiratory Respiratory exam: Present normal lung sounds bilaterally; Absent respiratory distress Cardiovascular Cardiovascular exam: Present regular rate and normal rhythm Abdominal Exam Abdominal exam: Present soft Neurological Exam Neurological exam: Present alert and oriented X3 Psychiatric Psychiatric exam: Present normal affect and normal mood Skin Skin exam: Present warm and dry Other Other exam information: Along reported area of chest pain, some fibrous tissue on superior medial aspect of parasternal area. No palpable fluctuance or overlying skin changes. Medical Decision Making Medical Records Medical records reviewed: Yes I reviewed the patient's medical records. Screening: Per USPSTF and CDC recommendations, given the prevalence of disease in our region, it is our hospital?s policy to screen for HIV and viral Hepatitis for all patients aged 18 and over and those with ongoing risk factors. Ruddy Inquiry Pt receiving controlled substance: No Vital Signs: 12/18/23 10:05 12/18/23 10:11 12/18/23 10:37 Temperature 98.0 F Temperature Source Oral Pulse Rate 93 H 89 Pulse Rate [Radial] 93 H Respiratory Rate 16 18 14 Blood Pressure 135/92 H 128/85 Blood Pressure [Right Arm] 135/92 H Blood Pressure Mean [Right Arm] 106 Blood Pressure Source Blood Pressure Source [Right Arm] Automatic Cuff Blood Pressure Position Blood Pressure Position [Right Arm] Sitting 02 Sat by Pulse Oximetry 97 94 L 98 Oxygen Delivery Method Room Air Room Air Room Air 12/18/23 11:00 12/18/23 11:30 12/18/23 12:00 Temperature Temperature Source Pulse Rate 89 80 101 H Pulse Rate [Radial] Respiratory Rate 17 16 17 Blood Pressure 137/82 114/80 110/73 Blood Pressure [Right Arm] Blood Pressure Mean [Right Arm] Blood Pressure Source Blood Pressure Source [Right Arm] Blood Pressure Position Blood Pressure Position [Right Arm] 02 Sat by Pulse Oximetry 95 95 93 L Oxygen Delivery Method 12/18/23 12:30 12/18/23 13:03 Temperature 98.0 F Temperature Source Oral Pulse Rate 92 H 94 H Pulse Rate [Radial] Respiratory Rate 17 18 Blood Pressure 121/78 121/78 Blood Pressure [Right Arm] Blood Pressure Mean [Right Arm] Blood Pressure Source Automatic Cuff Blood Pressure Source [Right Arm] Blood Pressure Position Sitting Blood Pressure Position [Right Arm] 02 Sat by Pulse Oximetry 99 Oxygen Delivery Method Room Air Lab Data Lab Results 12/18/23 10:15: WBC 8.1, RBC 5.07, Hgb 14.2, Hct 41.1, MCV 81.1, MCH 28.0, MCHC 34.5, RDW 14.9, Plt Count 242, MPV 8.3, Neut % (Auto) 67.8, Lymph % (Auto) 22.1, [place] % (Auto) 6.3, Eos % (Auto) 3.2, Baso % (Auto) 0.6, Neut # (Auto) 5.5, Lymph # (Auto) 1.8, [place] # (Auto) 0.5, Eos # (Auto) 0.3, Baso # (Auto) 0.1, Total Counted 100, Neutrophils % (Manual) 53, Lymphocytes % (Manual) 41, Atypical Lymphs % 1.0, Monocytes % (Manual) 2, Eosinophils % (Manual) 3, Platelet Estimate Normal, RBC Morphology Normal, Sodium 140, Potassium 4.6, Chloride 110 H, Carbon Dioxide 24, Anion Gap 10.6, BUN 15, Creatinine 0.60, Estimated Creat Clear 195, Estimated GFR 107, Est GFR ( Amer) 130, Glucose 103 H, Calcium 9.0, Total Bilirubin 0.7, AST 42 H, ALT 31, Alkaline Phosphatase 34 L, Troponin I < 0.01, Total Protein 7.5, Albumin 4.6, Globulin 2.9, Albumin/Globulin Ratio 1.6, Hepatitis C Antibody Non reactive, HIV 1&2 Antibody Rapid Nonreactive 12/18/23 10:15 12/18/23 10:15 Orders (Tests/Meds): ED MEDICATIONS Discontinued Medications Generic Name Dose Route Start Last Admin Trade Name Freq PRN Reason Stop Dose Admin Sodium Chloride 10 ml 12/18/23 10:18 Sodium Chloride 0.9% 10ml Flush Syringe IV 01/17/24 10:17 NEEDED PRN Maintain IV Site ORDERS Category Date Time Status Chest XR 2 view (NOT portable) [XR chest 2V] Stat Exams 12/18/23 10:18 Completed Complete Blood Count Man Dif Stat Lab 12/18/23 10:15 Completed Comprehensive Metabolic Panel Stat Lab 12/18/23 10:15 Completed HIV (1&2) Antibody Rapid Stat Lab 12/18/23 10:15 Completed Hep C Ab with Reflex to RNA Stat Lab 12/18/23 10:15 Completed Troponin I Stat Lab 12/18/23 10:15 Completed HEART Score History (anamnesis): Slightly suspicious ECG: Non-specific disturbance Age: 45-65 years Risk factors: No known risk factors Troponin: </= normal limit HEART Score: 2 Medical Decision Narrative: Patient with history and exam per above presenting for evaluation of chest pain Diagnoses considered include ACS, soft tissue injury, costochondritis, pneumonia, symptoms appear to be most consistent with tenderness along fibrous tissue of chest wall area. ED workup and treatment included: ED MEDICATIONS Discontinued Medications Generic Name Dose Route Start Last Admin Trade Name Freq PRN Reason Stop Dose Admin Sodium Chloride 10 ml 12/18/23 10:18 Sodium Chloride 0.9% 10ml Flush Syringe IV 01/17/24 10:17 NEEDED PRN Maintain IV Site ORDERS Category Date Time Status Chest XR 2 view (NOT portable) [XR chest 2V] Stat Exams 12/18/23 10:18 Completed Complete Blood Count Man Dif Stat Lab 12/18/23 10:15 Completed Comprehensive Metabolic Panel Stat Lab 12/18/23 10:15 Completed HIV (1&2) Antibody Rapid Stat Lab 12/18/23 10:15 Completed Hep C Ab with Reflex to RNA Stat Lab 12/18/23 10:15 Received Troponin I Stat Lab 12/18/23 10:15 Completed Labs were independently interpreted by me, significant for no acute findings Imaging was independently visualized and interpreted by me, significant for no acute findings Please refer to radiology report for full details. My clinical impression at this time is most consistent with tenderness due to fibrous tissue of the medial aspect of left breast, of indeterminate etiology. She will require follow-up for further evaluation by specialist. She was informed that she should follow-up closely to ensure that she has proper evaluation to rule out conditions such as neoplasm. I discussed my clinical impression with patient and answered all questions. At this time, the evidence for any other entities in the differential is insufficient to warrant any further testing or ED observation. This was explained to the patient. The patient was advised that persistent or worsening symptoms require further evaluation. Critical Care Critical Care Time Critical Care Time: No
--- NOTE | 2023-12-18 10:18 | XR_ITS ---
PROCEDURE INFORMATION: Exam: XR Chest Exam date and time: 12/18/2023 10:20 AM Age: 48 years old Clinical indication: Angina; Additional info: Chest pain TECHNIQUE: Imaging protocol: Radiologic exam of the chest. Views: 2 views. COMPARISON: CR XR CHEST 2V 01/25/2023 12:15 PM FINDINGS: Lungs: Unremarkable. No consolidation. Pleural spaces: Unremarkable. No pleural effusion. No pneumothorax. Heart/Mediastinum: Unremarkable. No cardiomegaly. Bones/joints: Unremarkable. IMPRESSION: No acute findings.
[2023-12-18 10:24] LABS: MANUAL DIFFERENTIAL MANUAL DIFFERENTIAL (MANUAL DIFF)
[2023-12-18 10:36] LABS: Basophils # 0.1 K/mm3 (0-0.2); Basophils % 0.6 % (0.1-2.0); Eosinophils # 0.3 K/mm3 (0.0-0.4); Eosinophils % 3.2 % (0.1-12.0); Hematocrit 41.1 % (37.0-47.0); Hemoglobin 14.2 g/dL (12.2-16.2); Lymphocytes # 1.8 K/mm3 (0.7-4.5); Lymphocytes % 22.1 % (10-50); Mean Corpuscular HGB Conc 34.5 g/dL (31.8-35.4); Mean Corpuscular Volume 81.1 fl (81-99); Mean Platelet Volume 8.3 fl (7.4-10.4); Monocytes # 0.5 K/mm3 (0.1-1.0); Monocytes % 6.3 % (1.7-9.3); Neutrophils # 5.5 K/mm3 (1.8-7.8); Neutrophils % 67.8 % (37.0-80.0); Platelet Count 242 K/mm3 (142-424); Red Blood Count 5.07 M/mm3 (4.20-5.40); Red Cell Distribution Width 14.9 % (11.5-17.5); White Blood Count 8.1 K/mm3 (4.8-10.8)
[2023-12-18 10:41] LABS: Alanine Aminotransferase 31 U/L (12-78); Albumin Level 4.6 g/dl (3.5-5.0); Albumin/Globulin Ratio 1.6 (1.1-1.8); Alkaline Phosphatase 34 U/L (38-126); Anion Gap 10.6 mEq/L (5-15); Aspartate Amino Transferase 42 U/L (14-36); Bilirubin,Total 0.7 mg/dl (0.2-1.3); Blood Urea Nitrogen 15 mg/dl (7-17); Carbon Dioxide 24 mmol/L (22.0-30.0); Chloride 110 mmol/L (98-107); Creatinine Clearance Estimated 195 mL/min (50-200); Estimated Glomerular Filt Rate 107 ml/min (>60); GFR (African American) 130 ML/MIN (>60); Globulin 2.9 g/dL (1.3-3.2); Glucose 103 mg/dl (74-100); Potassium 4.6 mmoL/L (3.5-5.1); Sodium 140 mmol/L (136-145); Total Protein,Serum 7.5 g/dl (6.3-8.2)
--- NOTE | 2023-12-18 10:44 | PC.NURSE ---
ROUNDED ON PT NO NEEDS AT THIS TIME, TURNED OFF LIGHT AND CALL LIGHT IN REACH
[2023-12-18 10:50] LABS: Troponin I < 0.01 ng/ml (0.00-0.034)
[2023-12-18 11:37] LABS: HIV (1&2) Antibody Rapid NONREACTIVE (NONREACTIVE)
[2023-12-18 12:23] LABS: Eosinophils % 3 % (0-3); Lymphocytes % 41 % (10-50); Monocytes % 2 % (2-9); Neutrophils % 53 % (42-76); Platelet Estimate Normal; RBC Morphology Normal; Total Cells Counted 100
--- NOTE | 2023-12-18 12:30 | PC.NURSE ---
DR NGUYỄN AT BEDSIDE
[2023-12-19 08:28] LABS: HCV Ab Non Reactive (Non Reactive)
== END 2023-12-18 13:05 | disposition home or self-care (01) ==
PROVIDERS: Emergency Provider Emergency Medicine
DX: N64.59 Other signs and symptoms in breast (principal); R07.9 Chest pain, unspecified; M79.10 Myalgia, unspecified site
CPT/HCPCS: 71046; 80053; 84484; 85007; 85014; 85018; 85048; 85049; 86803; 87389; 93005; 99283

== ENCOUNTER 2024-01-28 11:08 | Emergency (ER) | payer BC, SELFPAY ==
[2024-01-28 11:10] VITALS: BP 137/98; PULSE 120; RESP 22; TEMP 36.9; O2SAT 97; BMI 40.7
[2024-01-28 11:21] VITALS: BMI 40.7
--- NOTE | 2024-01-28 11:21 | ECG_ITS ---
APPROVED REPORT Exam: Resting ECG HR:116 bpm ECG Measurements Heart Rate 116 AXES DC 153 P 69 QRSd 97 QRS 74 QT 331 T 51 QTc 400 Conclusion SINUS TACHYCARDIA LOW QRS VOLTAGE IN PRECORDIAL LEADS [QRS DEFLECTION < 1.0 mV IN CHEST LEADS] NONSPECIFIC T-WAVE ABNORMALITY ABNORMAL RHYTHM ECG UNCONFIRMED REPORT Electronically signed by : GHASSAN REILLY, 01/29/2024 06:22:00
--- NOTE | 2024-01-28 11:26 | XR_ITS ---
PROCEDURE INFORMATION: Exam: XR Chest Exam date and time: 01/28/2024 11:24 AM Age: 48 years old Clinical indication: Cough and fever; Additional info: Cough, productive, fevers TECHNIQUE: Imaging protocol: Radiologic exam of the chest. Views: 2 views. COMPARISON: CR XR CHEST 2V 12/18/2023 10:20 AM FINDINGS: Lungs: Normal. Pleural spaces: Unremarkable. No pleural effusion. No pneumothorax. Heart/Mediastinum: Normal. Bones/joints: No acute abnormality. IMPRESSION: No acute findings.
[2024-01-28 11:30] VITALS: BP 144/94; PULSE 123; O2SAT 94
[2024-01-28] MEDS: 0.9 % SODIUM CHLORIDE 1000ML 1,000 ML 999 ML IV (11:31)
--- NOTE | 2024-01-28 11:33 | [facility].EDCP ---
Discharge Plan Disposition Chief Complaint: Shortness of Breath/Dyspnea Prescriptions Prescriptions: New dexamethasone 6 mg tablet 6 mg PO DAILY Qty: 5 0RF No Action azithromycin 250 mg tablet See Rx Instructions PO .COMPLEX Qty: 6 0RF Rx Instructions: For 250 mg dose pack: take 500 mg today (day 1), then 250 mg for 4 days (days 2-5) PO diltiazem HCl 180 mg capsule,extended release 24hr 180 mg PO DAILY 90 Days Qty: 90 0RF lisinopril 20 mg tablet 20 mg PO DAILY 90 Days Qty: 90 0RF venlafaxine 75 mg capsule,extended release 24hr 75 mg PO DAILY 90 Days Qty: 90 0RF sumatriptan succinate [Imitrex] 25 mg tablet See Rx Instructions PO .COMPLEX Qty: 30 2RF Rx Instructions: take 1 tab at onset of headache; if no relief may repeat 1 tab after at least 2 hrs; max = 4 tabs/24 hr PO meloxicam 7.5 mg tablet 7.5 mg PO BID 5 Days Qty: 10 0RF Referrals Follow up/Referrals: Fabián Kent MD [Primary Care Provider] - See instructions Activity Restrictions/Add. Instructions Additional Instructions/Restrictions: Call your family doctor to establish care for this visit to the emergency department and schedule follow-up within 48 hours to ensure improvement. If you have any worsening of your condition or any other concerning signs or symptoms, return to the emergency department or your primary care doctor for further evaluation. Clinical Impressions Clinical Impression: COVID-19 Print Language Print Language: Greek Discharge ED Provider: Chandan Fishman [facility] General Chief Complaint: Shortness of Breath/Dyspnea Stated Complaint: coughing up black soa back pain Time Seen by Provider: 01/28/24 11:18 Mode of Arrival: Ambulatory Source of Information: Patient Limitations: No Limitations Description of Symptoms (Recalled from ER Triage Doc. by RN): patient reports she has been sick for 2 weeks. Patient states she has had a cough, SOA, and back pain. She started to cough up some mucus today. is covid positive at this time. History of Present Illness HPI narrative: Please note that above description of symptoms, in this electronic medical record under categorization of recalled from ER triage doctor by RN are reflective of an initial nursing assessment, however, is not reflective of my full history and physical exam that was personally taken and clarified. Consequentially, this preceding description of symptoms, which may include the patient's categorized chief complaint in the EMR, do not reflect my personal clinical impression, and the ultimate description of history of present illness and patient stated complaints should be deferred to this section of the note. Unless stated otherwise or congruent with this section of the note, additional signs, symptoms, or incongruence should be interpreted as inaccurate with my clinical impression. Related Data Previous Rx's ?Medication ?Instructions ?Recorded azithromycin 250 mg tablet See Rx Instructions PO .COMPLEX #6 08/05/23 tabs diltiazem HCl 180 mg 180 mg PO DAILY 90 days #90 caps 11/18/23 capsule,extended release 24 hr lisinopril 20 mg tablet 20 mg PO DAILY 90 days #90 tabs 11/20/23 venlafaxine 75 mg capsule,extended 75 mg PO DAILY 90 days #90 caps 11/20/23 release 24 hr meloxicam 7.5 mg tablet 7.5 mg PO BID 5 days #10 tabs 12/18/23 sumatriptan succinate 25 mg tablet See Rx Instructions PO .COMPLEX 01/07/24 (Imitrex) #30 tabs dexamethasone 6 mg tablet 6 mg PO DAILY #5 tabs 01/28/24 Allergies Allergy/AdvReac Type Severity Reaction Status Date / Time No Known Allergies Allergy Verified 04/22/23 16:08 [facility] Disclaimer: The information contained in this section may have been updated after the patient was seen, as this information can be updated by other users. Medical History Hypertension Rheumatoid arthritis Seropositive rheumatoid arthritis of multiple joints Surgical History H/O gastric sleeve History of History of cholecystectomy History of tonsillectomy Family History Other Coronary artery disease Diabetes Hypertension Social History Smoking Status: Never smoker alcohol intake: never substance use type: denies use current occupational status: unemployed household members: spouse and children housing: house Other Medical History Have you received the Flu Vaccine for this season: No Have you received the Pneumonia Vaccine: No ROS Obtained: Yes All systems reviewed & no additional complaints except as documented Physical Exam General General appearance: alert, in no apparent distress and obese Neck Neck exam: Present trachea midline Chest Chest inspection: Present normal inspection and symmetric chest wall rise Respiratory Respiratory exam: Present normal lung sounds bilaterally and other (Intermittently coughing); Absent respiratory distress, wheezes, stridor, accessory muscle use or prolonged expiratory phase Cardiovascular Cardiovascular exam: Present normal rhythm, tachycardia and other (Pulses equal and symmetric in upper and lower extremities) Extremities Exam Extremities exam: Absent edema Neurological Exam Neurological exam: Present alert, oriented X3 and CN II-XII intact Skin Skin exam: Present warm and dry; Absent cyanosis, diaphoresis or pallor HEART Score HEART Score HEART Score assessment performed?: Yes HEART Score: 1 Critical Care Critical Care Time Critical Care Time: No Medical Decision Making Medical Records Medical records reviewed: Yes I reviewed the patient's medical records. Ruddy Inquiry Pt receiving controlled substance: No Ruddy was queried for this patient: No Vital Signs Vital Signs: 01/28/24 11:10 01/28/24 11:30 01/28/24 12:01 Temperature 98.4 F Temperature Source Oral Pulse Rate 123 H 106 H Pulse Rate [Right Brachial] 120 H Respiratory Rate 22 Blood Pressure 144/94 H 168/94 H Blood Pressure [Right Arm] 137/98 H Blood Pressure Mean [Right Arm] 111 Blood Pressure Source [Right Arm] Automatic Cuff Blood Pressure Position [Right Arm] Sitting 02 Sat by Pulse Oximetry 97 94 L 98 Oxygen Delivery Method Room Air Room Air Room Air 01/28/24 12:30 Temperature Temperature Source Pulse Rate 104 H Pulse Rate [Right Brachial] Respiratory Rate Blood Pressure 133/89 Blood Pressure [Right Arm] Blood Pressure Mean [Right Arm] Blood Pressure Source [Right Arm] Blood Pressure Position [Right Arm] 02 Sat by Pulse Oximetry 98 Oxygen Delivery Method Room Air Lab Data Labs: Lab Results 01/28/24 11:33: Lactate 1.8 01/28/24 11:34: WBC 11.2 H, RBC 5.00, Hgb 13.8, Hct 41.5, MCV 83.1, MCH 27.6, MCHC 33.2, RDW 14.5, Plt Count 234, MPV 7.9, Neut % (Auto) 72.3, Lymph % (Auto) 17.7, [place] % (Auto) 6.2, Eos % (Auto) 2.9, Baso % (Auto) 0.9, Neut # (Auto) 8.1 H, Lymph # (Auto) 2.0, Linn # (Auto) 0.7, Eos # (Auto) 0.3, Baso # (Auto) 0.1, D-Dimer 0.65 H, Sodium 142, Potassium 3.9, Chloride 110 H, Carbon Dioxide 23, Anion Gap 12.9, BUN 12, Creatinine 0.80, Estimated Creat Clear 153, Estimated GFR 77, Est GFR ( Amer) 93, Glucose 111 H, Calcium 8.9, Total Bilirubin 0.5, AST 24, ALT 24, Alkaline Phosphatase 59, Troponin I < 0.01, Total Protein 7.1, Albumin 4.3, Globulin 2.8, Albumin/Globulin Ratio 1.5, SARS-CoV-2 (PCR) Detected A, Influenza A Untype (PCR) Not detected, Influenza Type B (PCR) Not detected 01/28/24 11:34 01/28/24 11:34 Response Orders (Tests/Meds): ED MEDICATIONS Generic Name Dose Route Start Last Admin Trade Name Freq PRN Reason Stop Dose Admin Sodium Chloride 10 ml 01/28/24 11:27 Sodium Chloride 0.9% 10ml Flush Syringe IV 02/27/24 11:26 NEEDED PRN Maintain IV Site Discontinued Medications Generic Name Dose Route Start Last Admin Trade Name Freq PRN Reason Stop Dose Admin Dexamethasone 10 mg 01/28/24 11:27 01/28/24 11:34 Dexamethasone 4mg Tablet PO 01/28/24 11:28 10 mg ONCE ONE Administration Sodium Chloride 1,000 mls @ 999 mls/hr 01/28/24 11:27 01/28/24 11:31 Sod Chlor 0.9% 1000ml Bag IV 01/28/24 12:27 999 mls/hr .Q1H1M ONE Administration ORDERS Category Date Time Status CXR 2 view (NOT portable) [XR chest 2V] Stat Exams 01/28/24 11:26 Completed CBC w/Auto Diff [Complete Blood Count Auto Diff] Stat Lab 01/28/24 11:34 Completed CMP [Comprehensive Metabolic Panel] Stat Lab 01/28/24 11:34 Completed D-Dimer Stat Lab 01/28/24 11:34 Completed Lactic Acid Stat Lab 01/28/24 11:33 Completed Rapid PCR Covid and Flu A/B Stat Lab 01/28/24 11:34 Completed Trop I [Troponin I] Stat Lab 01/28/24 11:34 Completed Troponin I Q3H Lab 01/28/24 14:30 Ordered Troponin I Q3H Lab 01/28/24 17:30 Ordered Blood Culture Stat Micro 01/28/24 11:47 Received ECG Request Stat Y 01/28/24 11:21 Ordered MDM Narrative Medical Decision Narrative: 48-year-old female history of hypertension presenting with cough. Patient states that her was diagnosed with COVID a few days prior to this. She states that she has been sick for about 2 weeks, then started getting worse over the last 2 days. Cough changed from clear to productive of dark green sputum. Also has been chilled, no objective fevers measured. No chest pain, shortness of breath, nausea, vomiting. Been tolerating p.o. intake without issue. History was obtained via conversation with patient. On arrival, patient hemodynamically stable, alert, oriented x4, appropriate, GCS 15, moving all extremities spontaneously, pupils equal and reactive to light. Full physical exam performed and significant for obese female in no acute distress. Intermittently coughing. Not producing any sputum. Lungs are clear to auscultation anterior and posteriorly bilaterally. Cardiac exam within normal limits. Patient is tachycardic, but afebrile. Mucous membranes appear moist. Differential includes bronchitis, pneumonia, PE, pneumothorax, sepsis, among others. Patient was given Decadron p.o., 1 L fluids for symptomatic management and correction of underlying abnormalities. Patient placed on continuous cardiac monitoring and continuous pulse ox with initial blood pressure 137/98, heart rate 120, saturation 97% on room air. EKG independently interpreted sinus tachycardia [address] or T wave changes concerning for acute ischemia. MI 153, QRS 97, QTc 400. Normal axis. No evidence of right heart strain. Workup independently interpreted and significant for nonactionable CBC or chemistry. Negative troponin. D-dimer mildly elevated 0.65, but positive COVID swab. On independent interpretation of imaging, no acute cardiopulmonary space disease on chest x-ray. See radiology read for full review of final results. Heart score 1. PERC positive, dimer negative by years criteria. On reevaluation, patient resting about at baseline, no acute complaints. Given patient presentation, workup, history, this most likely represents acute COVID URI and bronchitis. Because patient at baseline without signs or symptoms of clinical decompensation, deemed appropriate for discharge. Results were relayed to patient who voiced understanding and were agreeable to outpatient management and follow up. I discussed my clinical impression with patient and answered all questions. At this time, the evidence for any other entities in the differential is insufficient to warrant any further testing or ED observation. This was explained as well. Advisory was given that persistent or worsening symptoms require further evaluation. I confirmed the understanding of this discussion. Leather [employer] disclaimer Much of this encounter note is an electronic ui software developer spoken language to printed text. Electronic ui software developer of the spoken language may permit errors. Although I have reviewed the note, some errors may still exist.
[2024-01-28] MEDS: DEXAMETHASONE 4MG TABLET 10 MG PO (11:34)
[2024-01-28 11:46] LABS: Influenza A, PCR Not Detected (NotDetected); Influenza B, PCR Not Detected (NotDetected)
[2024-01-28 11:48] LABS: Basophils # 0.1 K/mm3 (0-0.2); Basophils % 0.9 % (0.1-2.0); Eosinophils # 0.3 K/mm3 (0.0-0.4); Eosinophils % 2.9 % (0.1-12.0); Hematocrit 41.5 % (37.0-47.0); Hemoglobin 13.8 g/dL (12.2-16.2); Lymphocytes % 17.7 % (10-50); Mean Corpuscular HGB Conc 33.2 g/dL (31.8-35.4); Mean Corpuscular Hemoglobin 27.6 pg (27.0-31.2); Mean Corpuscular Volume 83.1 fl (81-99); Mean Platelet Volume 7.9 fl (7.4-10.4); Monocytes # 0.7 K/mm3 (0.1-1.0); Monocytes % 6.2 % (1.7-9.3); Neutrophils # 8.1 K/mm3 (1.8-7.8); Neutrophils % 72.3 % (37.0-80.0); Platelet Count 234 K/mm3 (142-424); Red Cell Distribution Width 14.5 % (11.5-17.5); White Blood Count 11.2 K/mm3 (4.8-10.8)
[2024-01-28 11:59] LABS: Lactic Acid 1.8 mmol/L (0.7-2.1)
[2024-01-28 12:00] LABS: Alanine Aminotransferase 24 U/L (12-78); Albumin Level 4.3 g/dl (3.5-5.0); Albumin/Globulin Ratio 1.5 (1.1-1.8); Alkaline Phosphatase 59 U/L (38-126); Anion Gap 12.9 mEq/L (5-15); Aspartate Amino Transferase 24 U/L (14-36); Bilirubin,Total 0.5 mg/dl (0.2-1.3); Blood Urea Nitrogen 12 mg/dl (7-17); Calcium 8.9 mg/dl (8.4-10.2); Carbon Dioxide 23 mmol/L (22.0-30.0); Chloride 110 mmol/L (98-107); Creatinine Clearance Estimated 153 mL/min (50-200); Estimated Glomerular Filt Rate 77 ml/min (>60); GFR (African American) 93 ML/MIN (>60); Globulin 2.8 g/dL (1.3-3.2); Glucose 111 mg/dl (74-100); Potassium 3.9 mmoL/L (3.5-5.1); Sodium 142 mmol/L (136-145); Total Protein,Serum 7.1 g/dl (6.3-8.2)
[2024-01-28 12:01] VITALS: BP 168/94; PULSE 106; O2SAT 98
[2024-01-28 12:13] LABS: Troponin I < 0.01 ng/ml (0.00-0.034)
[2024-01-28 12:21] LABS: D-Dimer 0.65 ug/mL (0.0-0.5)
[2024-01-28 12:30] VITALS: BP 133/89; PULSE 104; O2SAT 98
[2024-01-28 12:34] LABS: Coronavirus 19, PCR Detected (NotDetected)
[2024-01-28 12:55] VITALS: BP 133/89; PULSE 90; RESP 20; TEMP 37.1; O2SAT 99
== END 2024-01-28 12:59 | disposition home or self-care (01) ==
PROVIDERS: Emergency Provider Emergency Medicine; PCP Family Medicine
DX: U07.1 COVID-19 (principal); R05.9 Cough, unspecified; R06.02 Shortness of breath; M54.9 Dorsalgia, unspecified; R68.83 Chills (without fever)
CPT/HCPCS: 71046; 80053; 83605; 84484; 85025; 85378; 87040; 87636; 93005; 96360; 99284; J7030; J8540

== ENCOUNTER 2024-03-16 15:37 | Outpatient (CLI) | payer BC, SELFPAY ==
[2024-03-16 16:35] LABS: Basophils % 0.4 % (0.1-2.0); Eosinophils # 0.2 K/mm3 (0.0-0.4); Eosinophils % 2.6 % (0.1-12.0); Hematocrit 39.9 % (37.0-47.0); Hemoglobin 13.4 g/dL (12.2-16.2); Lymphocytes # 1.8 K/mm3 (0.7-4.5); Lymphocytes % 25.3 % (10-50); Mean Corpuscular HGB Conc 33.6 g/dL (31.8-35.4); Mean Corpuscular Hemoglobin 27.7 pg (27.0-31.2); Mean Corpuscular Volume 82.4 fl (81-99); Mean Platelet Volume 10.7 fl (7.4-10.4); Monocytes # 0.6 K/mm3 (0.1-1.0); Monocytes % 8.3 % (1.7-9.3); Neutrophils # 4.6 K/mm3 (1.8-7.8); Neutrophils % 63.3 % (37.0-80.0); Platelet Count 245 K/mm3 (142-424); Red Blood Count 4.84 M/mm3 (4.20-5.40); Red Cell Distribution Width 14.1 % (11.5-17.5); White Blood Count 7.3 K/mm3 (4.8-10.8)
[2024-03-16 16:58] LABS: Chloride 107 mmol/L (98-107); Sodium 136 mmol/L (136-145)
[2024-03-16 17:01] LABS: Anion Gap 10.2 mEq/L (5-15); Blood Urea Nitrogen 15 mg/dl (7-17); Calcium 9.6 mg/dl (8.4-10.2); Carbon Dioxide 23 mmol/L (22.0-30.0); Estimated Glomerular Filt Rate 107 ml/min (>60); GFR (African American) 130 ML/MIN (>60); Glucose 96 mg/dl (74-100); Potassium 4.2 mmoL/L (3.5-5.1)
[2024-03-16 17:32] LABS: Thyroid Stimulating Hormone 0.57 uIU/mL (0.465-4.68)
[2024-03-17 08:17] LABS: FSH 5.7 mIU/mL (.)
== END 2024-03-16 23:59 | disposition home or self-care (01) ==
LOC: LAB.DROPOF 03-17 11:21
PROVIDERS: PCP Family Medicine; Visit Provider Family Medicine
DX: M25.9 Joint disorder, unspecified (principal); I10 Essential (primary) hypertension; E28.2 Polycystic ovarian syndrome
CPT/HCPCS: 80048; 83001; 83036; 84443; 85025

== ENCOUNTER 2024-09-17 23:16 | Inpatient (IN) | payer BC, SELFPAY ==
--- OUTSIDE RECORDS SUMMARY | 2024-08-02 14:45 | XMS_ITS | Encounter Summary ---
Author Organization [facility] Address [address] [place] [address] Care Team Providers Care Boat Fueler Name Role Phone Fabián [place] MD Primary Care Provider +1- [phone] Reason for Visit * Reason Comments Rheumatoid Arthritis Follow up Encounter Details Date Type Department Care Team (Late st Contact Info) Description 08/02/2024 2:45 PM EDT Office Visit [facility]Y [address] [address] Abner Valentin DO [address] [id number] Seropositive rheumatoid arthritis (Primary Dx); High risk medication use Social History Tobacco Use Types Packs/Day Years Used Date Smoking Tobacco: Never Smokeless Tobacco: Never Alcohol Use Standard Drinks/Week Comments Never 0 (1 standard drink = 0.6 oz pur e alcohol) Comments Unknown Sex and Gender Information Value Date Recorded Sex Assigned at Not on file Legal Sex Female 10:45 AM EST Gender Identity Not on file Sexual Orientation Not on file documented as of this encounter Last Filed Vital Signs Vital Sign Reading Time Taken Comments Blood Pressure 136/72 08/02/2024 2:16 PM EDT Pulse 115 08/02/2024 2:16 PM EDT Temperature 36.4 C (97.6 F) 08/02/2024 2:16 PM EDT Respiratory Rate - - Oxygen Saturation - - Inhaled Oxygen Concentration - - Weight 123 kg (271 lb 1.6 oz) 08/02/2024 2:16 PM EDT Height 165.1 cm (5' 5 ) 08/02/2024 2:16 PM EDT Body Mass Index 45.11 08/02/2024 2:16 PM EDT documented in this encounter Patient Instructions * Attachments The following attachments cannot be sent through Care Everywhere. * Rheumatoid Arthritis (Azerbaijani) documented in this encounter Progress Notes * Abner Valentin DO - 08/02/2024 2:45 PM EDTAssociated Problem(s): Seropositive rheumatoid arthritis Medication/treatment/interventions tried include: Tylenol, sulfasalazine, venlafaxine, she saw Rheumatology 2022, Paroxetine, methotrexate/folic acid, meloxicam 03/21/22: ESR 25 (< 20), RF 18 (<14), CCP Negative, CRP normal, Benavidez normal, SSA and SSB normal, Sm/BALE PILER Normal, DS DNA Normal, RICKIE 1:320 speckled 03/31/24: RICKIE 1:640 speckled, RF + She previously saw rheumatology She has tried sulfasalazine in the past. She did not think it helped her. We gave her a handout on RA to review. Continue/refill MTX & folic acid She reports feeling well today Follow up in 4 months. Orders: CBC Auto Differential Comprehensive Metabolic Panel C-reactive Protein Sedimentation Rate * Abner Valentin, - 08/02/2024 2:45 PM EDTAssociated Problem(s): High risk medication use Methotrexate 15 mg PO once/week for RA Started 03/31/24 1. CBC and CMP every 8-12 weeks to monitor for medication toxicity. 2. Take folate supplements daily. 3. No recent serious infections. 4. Refill today Orders: CBC Auto Differential Comprehensive Metabolic Panel C-reactive Protein Sedimentation Rate * Abner Valentin DO - 08/02/2024 2:45 PM EDT Images from the original note were not included. Office Follow Up Date: 08/02/2024 Patient Name: Cj Stuart Date of : 1975 Chief Complaint Patient presents with Rheumatoid Arthritis Follow up History of Present Illness: Cj Stuart is a 48 y.o. female who is here today for follow up. She established care with us as of 03/31/24. We have prescribed her methotrexate/folic acid. She reports feeling improved. Today she rates her pain as 1/10 in severity. She has 1 hour/day of morning stiffness. No red or hot joints. No swelling. No muscle pain or weakness. No back or neck issues. No sicca symptoms. No shortness of breath. No chest pain. No GI issues. She has increased urinary frequency. No pain with urination. No headaches or paresthesias. No lymphadenopathy. No abnormal bruising/bleeding. No rash. She notes some hair loss. Subjective Review of Systems Constitutional: Positive for diaphoresis. HENT: Negative. Eyes: Negative. Respiratory: Negative. Cardiovascular: Negative. Gastrointestinal: Negative. Endocrine: Negative. Genitourinary: Positive for frequency. Musculoskeletal: Positive for arthralgias. Skin: Negative. Allergic/Immunologic: Negative. Neurological: Negative. Hematological: Negative. Psychiatric/Behavioral: Negative. All other systems reviewed and are negative. Current Outpatient Medications: dilTIAZem CD (CARDIZEM CD) 180 MG 24 hr capsule, Take 1 capsule by mouth Daily., Disp: , Rfl: folic acid (FOLVITE) 1 MG tablet, Take 1 tablet by mouth Daily., Disp: 30 tablet, Rfl: 5 lisinopril (PRINIVIL,ZESTRIL) 20 MG tablet, Take 1 tablet by mouth Daily., Disp: , Rfl: meloxicam (MOBIC) 15 MG tablet, take 1 tablet 1 time each day, Disp: , Rfl: methotrexate 2.5 MG tablet, Take 6 tablets by mouth 1 (One) Time Per Week., Disp: 24 tablet, Rfl: 3 venlafaxine XR (EFFEXOR-XR) 75 MG 24 hr capsule, Take 1 capsule by mouth Daily., Disp: , Rfl: No Known Allergies I have reviewed and updated the patient's chief complaint, history of present illness, review of systems, past medical history, surgical history, family history, social history, medications and allergy list as appropriate. Objective Vitals: 08/02/24 1416 BP: 136/72 BP Location: Right arm Patient Position: Sitting Cuff Size: Large Adult Pulse: 115 Temp: 97.6 ??F (36.4 ??C) Weight: 123 kg (271 lb 1.6 oz) Height: 165.1 cm (65 ) PainSc: 1 Body mass index is 45.11 kg/m??. Physical Exam General: Well appearing 48 year old female. Not in distress. She is ambulating unassisted. SKIN: No rashes. No alopecia. No subcutaneous nodules. No digital pits or ulcers. No sclerodactyly. HEENT: NCAT. Conjunctiva clear, no photophobia. No oral or nasal ulcers. Hearing intact. Pulmonary: Clear to auscultation bilaterally. No wheezing, rales, or rhonchi. CV: Regular rate and rhythm. No murmurs, rubs, or gallops. Psych: Normal mood and affect. Alert and oriented x 3. Extremities: No cyanosis or edema. Musculoskeletal: No joint swelling or tenderness to palpation. No warmth or erythema. Normal range of motion of the wrists, ankles, elbows, and knees. Lymph: No palpable cervical adenopathy Procedures Assessment / Plan Assessment & Plan Seropositive rheumatoid arthritis Medication/treatment/interventions tried include: Tylenol, sulfasalazine, venlafaxine, she saw [facility] 2022, Paroxetine, methotrexate/folic acid, meloxicam 03/21/22: ESR 25 (< 20), RF 18 (<14), CCP Negative, CRP normal, Benavidez normal, SSA and SSB normal, Sm/BALE PILER Normal, DS DNA Normal, RICKEI 1:320 speckled 03/31/24: RICKIE 1:640 speckled, RF + She previously saw rheumatology She has tried sulfasalazine in the past. She did not think it helped her. We gave her a handout on RA to review. Continue/refill MTX & folic acid She reports feeling well today Follow up in 4 months. Orders: CBC Auto Differential Comprehensive Metabolic Panel C-reactive Protein Sedimentation Rate High risk medication use Methotrexate 15 mg PO once/week for RA Started 03/31/24 1. CBC and CMP every 8-12 weeks to monitor for medication toxicity. 2. Take folate supplements daily. 3. No recent serious infections. 4. Refill today Orders: CBC Auto Differential Comprehensive Metabolic Panel C-reactive Protein Sedimentation Rate Follow Up: Return in about 4 months (around 12/02/2024). Abner Valentin DO [facility] [place] documented in this encounter Plan of Treatment Upcoming Encounters Date Type Department Care Team (Late st Contact Info) Description 12/30/2024 11:15 AM EDT Office Visit [facility] [address] [place] [address] Abner Valentin DO [address] [facility] [address] [place] [address] Scheduled Orders Name Type Priority Associated Diagnoses Orde r Schedule CBC Auto Differential Lab Routine Seropositive rheumatoid arthritis High risk medication use Ordered: 08/02/2024 documented as of this encounter Procedures Procedure Name Priority Date/Time Associated Diagnosis Comments SEDIMENTATION RATE Routine 08/02/2024 2: 47 PM EDT Seropositive rheumatoid arthritis High risk medication use CBC AND DIFFERENTIAL Routine 08/02/2024 2:47 PM EDT C-REACTIVE PROTEIN Routine 08/02/2024 2: 47 PM EDT Seropositive rheumatoid arthritis High risk medication use COMPREHENSIVE METABOLIC PANEL Routine 08/02/2024 2:47 PM EDT Seropositive rheumatoid arthritis High risk medication use documented in this encounter Results * (ABNORMAL) CBC & Differential (08/02/2024 2:47 PM EDT) WBC 9.6 3.4 - 10.8 x10E3/uL [facility] RBC 4.70 3.77 - 5.28 x10E6/uL [facility] Hemoglobin 13.3 11.1 - 15.9 g/dL [facility] Hematocrit 41.6 34.0 - 46.6 % [facility] MCV 89 79 - 97 fL [facility] MCH 28.3 26.6 - 33.0 pg [facility] MCHC 32.0 31.5 - 35.7 g/dL [facility] RDW 13.7 11.7 - 15.4 % [facility] Platelets 277 150 - 450 x10E3/uL [facility] Neutrophil Rel % 76 Not Estab. % [facility] Lymphocyte Rel % 17 Not Estab. % [facility] Monocyte Rel % 5 Not Estab. % [facility] Eosinophil Rel % 2 Not Estab. % [facility] Basophil Rel % 0 Not Estab. % [facility] Neutrophils Absolute 7.3(H) 1.4 - 7.0 x10E3/uL [facility] Lymphocytes Absolute 1.6 0.7 - 3.1 x10E3/uL [facility] Monocytes Absolute 0.4 0.1 - 0.9 x10E3/uL [facility] Eosinophils Absolute 0.2 0.0 - 0.4 x10E3/uL [facility] Basophils Absolute 0.0 0.0 - 0.2 x10E3/uL [facility] Immature Granulocyte Rel % 0 Not Estab. % [facility] Immature Grans Absolute 0.0 0.0 - 0.1 x10E3/uL [facility] 08/02/2024 2:47 PM EDT 08/02/2024 Narrative [email or web address] (AMBULATORY) - 08/03/2024 5:06 AM EDT Performed at: - [address] [id number] Agent: Galindo Lobato PhD, Phone: [phone] Patient Fasting: N Abner Valentin DO LAB BLOOD ORDERABLES F inal Result [email or web address] (AMBULATORY) [address] [id number], [facility] [address] [place] [address], * Sedimentation Rate (08/02/2024 2:47 PM EDT) [facility] Sed Rate 26 0 - 32 mm/hr [facility] Blood 08/02/2024 2:47 PM EDT 08/02/2024 Narrative [email or web address] (AMBULATORY) - 08/03/2024 5:06 AM EDT Performed at: 01 - [facility] [address] [place], [place] [id number] Agent: Galindo Lobato PhD, Phone: [phone] Patient Fasting: N [place] LAB BLOOD ORDERABLES F inal Result Performing Organization Address [facility]/ZIP Co de Phone Number [facility] [address] [place] [address], [facility] [address] [place] [address], * C-reactive Protein (08/02/2024 2:47 PM EDT) [facility] C-Reactive Protein 3 0 - 10 mg/L [facility] Blood 08/02/2024 2:47 PM EDT 08/02/2024 Narrative [facility] - 08/03/2024 5:06 AM EDT Performed at: - [facility] [address] [place], [place] [id number] Agent: Galindo Lobato PhD, Phone: [phone] Patient Fasting: N [place] LAB BLOOD ORDERABLES F inal Result Performing Organization Address [facility]/ZIP Co de Phone Number [facility] (AMBUL[facility]) [address] [place] [address], [facility] [address] [place] [address], * (ABNORMAL) Comprehensive Metabolic Panel (08/02/2024 2:47 PM EDT) Glucose 210(H) 70 - 99 mg/dL [facility] BUN 17 6 - 24 mg/dL [facility] Creatinine 0.84 0.57 - 1.00 mg/dL [facility] EGFR Result 86 >59 mL/min/1.7 3 [facility] BUN/Creatinine Ratio 20 9 - 23 [facility] Sodium 140 134 - 144 mmol/L [facility] Potassium 3.9 3.5 - 5.2 mmol/L [facility] Chloride 104 96 - 106 mmol/L [facility] Total CO2 20 20 - 29 mmol/L [facility] Calcium 9.4 8.7 - 10.2 mg/dL [facility] Total Protein 6.5 6.0 - 8.5 g/dL [facility] Albumin 4.4 3.9 - 4.9 g/dL [facility] Globulin 2.1 1.5 - 4.5 g/dL [facility] Total Bilirubin 0.4 0.0 - 1.2 mg/dL [facility] Alkaline Phosphatase 59 44 - 121 IU/L [facility] AST (SGOT) 12 0 - 40 IU/L [facility] ALT (SGPT) 14 0 - 32 IU/L [facility] Blood 08/02/2024 2:47 PM EDT 08/02/2024 Narrative [facility] (AMBULATORY) - 08/03/2024 5:06 AM EDT Performed at: 01 - [facility] [facility] [id number] [place], [place] [id number] Agent: Galindo Lobato PhD, Phone: [phone] Patient Fasting: N Abner Valentin DO LAB BLOOD ORDERABLES F inal Result [facility] (AMBULATORY) [address] [place] [address], [place] [phone] [facility] [address] [place] [address], documented in this encounter Visit Diagnoses Diagnosis Seropositive rheumatoid arthritis- Primary High risk medication use documented in this encounter Care Teams Boat Fueler Relationship Specialty Start Date End Date Fabián Kent MD [address] [place] [address] [place] [address] PCP - General Family Medicine 03/23/24 documented as of this encounter
--- OUTSIDE RECORDS SUMMARY | 2024-08-02 14:45 | XMS_ITS | Encounter Summary ---
Author Organization [facility] Address [address] [place] [address] Care Team Providers Care Security Intern Name Role Phone Fabián [place] MD Primary Care Provider +1- [phone] Reason for Visit * Reason Comments Rheumatoid Arthritis Follow up Encounter Details Date Type Department Care Team (Late st Contact Info) Description 08/02/2024 2:45 PM EDT Office Visit [facility] RHEUM[facility] [address] [address] Abner Valentin DO [address] [phone] Seropositive rheumatoid arthritis (Primary Dx); High risk [...] sent through Care Everywhere. * Rheumatoid Arthritis (Portuguese) documented in this encounter Progress Notes * Abner Valentin DO - 08/02/2024 2:45 PM EDTAssociated Problem(s): Seropositive rheumatoid arthritis Medication/treatment/interventions tried include: Tylenol, sulfasalazine, venlafaxine, she saw Rheumatology 2022, Paroxetine, methotrexate/folic acid, meloxicam 03/21/22: ESR 25 (< 20), RF 18 (<14), CCP Negative, CRP normal, Benavidez normal, SSA and SSB normal, Sm/LABORER CHEMICAL PROCESSING Normal, DS DNA Normal, RICKIE 1:320 speckled [...] normal, Benavidez normal, SSA and SSB normal, Sm/LABORER CHEMICAL PROCESSING Normal, DS DNA Normal, RICKIE 1:320 speckled [...] in about 4 months (around 12/02/2024). Abner Valentni DO [facility] of [place] documented in this encounter Plan of Treatment Upcoming Encounters Date Type Department Care Team (Late st Contact Info) Description 12/30/2024 11:15 AM EDT Office Visit [facility] [address] [place] [address] Abner Valentin DO [address] [facility] [address] [place] [address] Scheduled Orders Name Type Priority Associated Diagnoses [...] 08/02/2024 2:47 PM EDT 08/02/2024 Narrative [facility] [employer] (AMBULATORY) - 08/03/2024 5:06 AM EDT Performed at: - [address] [id number] Cap Maker: Galindo Lobato PhD, Phone: [phone] Patient Fasting: N Abner Valentin DO LAB BLOOD ORDERABLES F inal Result [facility] (AMBULATORY) [address] [id number], [facility] [address] [place] [address], * Sedimentation Rate (08/02/2024 2:47 PM EDT) [facility] Sed Rate 26 0 - 32 mm/hr [facility] Blood 08/02/2024 2:47 PM EDT 08/02/2024 Narrative [facility] (AMBULATORY) - 08/03/2024 5:06 AM EDT Performed at: 01 - [facility] [address] [place], [place] [id number] Cap Maker: Galindo Lobato PhD, Phone: [phone] Patient Fasting: N [facility] LAB BLOOD ORDERABLES F inal Result Performing Organization Address [facility] [place]/ZIP Co de Phone Number [facility] [address] [place] [address], [facility] [address] [place] [address], * C-reactive Protein (08/02/2024 2:47 PM EDT) [facility] C-Reactive Protein 3 0 - 10 mg/L [facility] Blood 08/02/2024 2:47 PM EDT 08/02/2024 N[facility]ative [facility] - 08/03/2024 5:06 AM EDT Performed at: - [facility] [address] [place], [place] [id number] Cap Maker: Galindo Lobato PhD, Phone: [phone] Patient Fasting: N [facility] LAB BLOOD ORDERABLES F inal Result Performing Organization Address [facility]/ZIP Co de Phone Number [facility] (AMBULATORY) [address] [place] [address], [facility] [address] [place] [address], * (ABNORMAL) Comprehensive Metabolic Panel (08/02/2024 2:47 [...] 08/02/2024 2:47 PM EDT 08/02/2024 Narrative [facility] (AMBULATORY) - 08/03/2024 5:06 AM EDT Performed at: 01 - [facility] [id number] [place], [place] [id number] Cap Maker: Galindo Lobato PhD, Phone: [phone] Patient Fasting: N Abner Valentin DO LAB BLOOD ORDERABLES F inal Result [facility] (AMBULATORY) [address] [place] [address], [place] [phone] [facility] [address] [place] [address], documented in this encounter Visit Diagnoses Diagnosis Seropositive rheumatoid arthritis- Primary High risk medication use documented in this encounter Care Teams Security Intern Relationship Specialty Start Date End Date Fabián [place] MD [address] [place] [address] PCP - General Family Medicine 03/23/24 documented as of this encounter
[2024-09-17 23:17] VITALS: BP 201/119; PULSE 116; RESP 18; TEMP 36.6; O2SAT 100; BMI 43.6
--- NOTE | 2024-09-17 23:21 | XR_ITS ---
PROCEDURE INFORMATION: Exam: XR Chest Exam date and time: 09/17/2024 11:53 PM Age: 49 years old Clinical indication: Pain; Radiating; Additional info: Cp TECHNIQUE: Imaging protocol: Radiologic exam of the chest. Views: 1 view. Total images: 1 COMPARISON: CR XR CHEST 2V 01/28/2024 11:24 AM FINDINGS: Lungs: Unremarkable. No consolidation. No pulmonary vascular congestion or edema. Pleural spaces: Unremarkable. No pleural effusion. No pneumothorax. Heart/Mediastinum: Unremarkable. No cardiomegaly. No mediastinal widening or hilar enlargement. Bones/joints: Unremarkable. IMPRESSION: No radiographically acute cardiopulmonary process.
--- NOTE | 2024-09-17 23:21 | HMH.EDGENADL ---
Discharge Plan Disposition Patient Disposition: Admitted Clinical Impressions Clinical Impression: NSTEMI (non-ST elevated myocardial infarction) Discharge ED Provider: Devin Spencer General Adult HPI General Chief complaint: Chest Pain Stated complaint: chest pain Time Seen by Provider: 09/17/24 23:21 History of Present Illness HPI narrative: 49-year-old female with rheumatoid arthritis, hypertension, tachycardia presents for chest pain. She reports it has been ongoing since this morning. She tried a diet patch from [employer] this morning but started feeling worse after she put it on so she took it off after 2 hours. She reports chest pain pressure and burning in her upper chest. Has been consistent throughout the day. She reports she took her normal meds including lisinopril and diltiazem. Related Data Home Medications ?Medication ?Instructions ?Recorded ?Confirmed folic acid 1 mg tablet 1 mg PO DAILY 04/21/24 09/18/24 methotrexate sodium 2.5 mg tablet 2.5 mg PO WEEKLY 04/21/24 09/18/24 Previous Rx's ?Medication ?Instructions ?Recorded sumatriptan succinate 25 mg tablet See Rx Instructions PO .COMPLEX 01/07/24 (Imitrex) #30 tabs meloxicam 15 mg tablet 15 mg PO DAILY #30 tabs 06/29/24 diltiazem HCl 180 mg See Rx Instructions .Route 08/08/24 capsule,extended release 24 hr .COMPLEX #90 caps lisinopril 20 mg tablet See Rx Instructions .Route 08/24/24 .COMPLEX #90 tabs venlafaxine 75 mg capsule,extended 75 mg PO DAILY 30 days #90 caps 08/24/24 release 24 hr Allergies Allergy/AdvReac Type Severity Reaction Status Date / Time nadolol AdvReac Mild Hypertensio Verified 09/18/24 03:58 n [facility] Disclaimer: The information contained in this section may have been updated after the patient was seen, as this information can be updated by other users. Medical History (Updated 09/18/24 @ 01:57 by Ramiro Ryder APRN) Elevated troponin COVID-19 Exposure to COVID-19 virus Viral syndrome Hypoglycemia Gastroenteritis Fall down stairs Concussion Sinusitis Bronchitis UTI (urinary tract infection) Seropositive rheumatoid arthritis of multiple joints Rheumatoid arthritis Hypertension Surgical History (Updated 09/18/24 @ 01:56 by Ramiro Ryder APRN) H/O cardiac catheterization H/O gastric sleeve History of tonsillectomy History of cholecystectomy History of Family History Other Coronary artery disease Diabetes Hypertension Social History Smoking Status: Never smoker alcohol intake: never substance use type: denies use current occupational status: unemployed Travel in the last 8 weeks?: None household members: spouse and children housing: house Have you lived/traveled outside US in past 30 days?: No Contact w/someone who lives/traveled outside US past 30 days?: No Exposure to someone with infectious disease in past 14 days?: No Do you have a fever (greater than 100.4 F or 38 C)?: No Have you tested positive for COVID-19?: No Exposed to someone with COVID-19 in past 14 days?: No Do you have a sore throat?: No Do you have a cough?: No Do you have any weakness?: No Do you have any diarrhea?: No Are you experiencing any unusual bleeding?: No Do you have any muscle aches/pain?: No Do you have any abdominal pain?: No Are you experiencing loss of taste or smell?: No Other Medical History Have you received the Flu Vaccine for this season: No Have you received the Pneumonia Vaccine: No ROS Obtained: Yes All systems reviewed & no additional complaints except as documented Physical Exam General General appearance: alert Comment: Uncomfortable appearing Head Head exam: atraumatic and normocephalic Eye Eye exam: Present normal appearance, PERRL and EOMI ENT ENT exam: Present normal oropharynx and normal external ear exam Neck Neck exam: Present normal inspection and full ROM Chest Chest inspection: Present normal inspection and symmetric chest wall rise; Absent tenderness Respiratory Respiratory exam: Present normal lung sounds bilaterally; Absent respiratory distress Cardiovascular Cardiovascular exam: Present regular rate and normal rhythm Abdominal Exam Abdominal exam: Present soft; Absent distention, tenderness or guarding Extremities Exam Extremities exam: Present normal inspection; Absent edema or joint swelling Back Exam Back exam: Present normal inspection; Absent tenderness Neurological Exam Neurological exam: Present alert and oriented X3; Absent motor sensory deficit Psychiatric Psychiatric exam: Present normal affect and normal mood Skin Skin exam: Present warm, dry and normal color Lymphatic Lymphatic Findings: no adenopathy Medical Decision Making Medical Records Medical records reviewed: Yes I reviewed the patient's medical records. Screening: Per USPSTF and CDC recommendations, given the prevalence of disease in our region, it is our hospital?s policy to screen for HIV and viral Hepatitis for all patients aged 18 and over and those with ongoing risk factors. Ruddy Inquiry Pt receiving controlled substance: No Ruddy was queried for this patient: No Vital Signs: 09/17/24 23:17 09/17/24 23:22 09/18/24 00:00 Temperature 97.9 F Temperature Source Oral Pulse Rate 116 H 89 Pulse Rate [Radial] 116 H Respiratory Rate 18 25 H Blood Pressure 137/81 Blood Pressure [Right Arm] 201/119 H Blood Pressure Mean Blood Pressure Mean [Right Arm] 146 Blood Pressure Position Blood Pressure Position [Right Arm] Sitting 02 Sat by Pulse Oximetry 100 96 Oxygen Delivery Method Room Air 09/18/24 00:15 09/18/24 00:35 09/18/24 01:25 Temperature 98 F Temperature Source Oral Pulse Rate 101 H 111 H 103 H Pulse Rate [Radial] Respiratory Rate 20 26 H 18 Blood Pressure 164/100 H 207/121 H 163/98 H Blood Pressure [Right Arm] Blood Pressure Mean 119 149 Blood Pressure Mean [Right Arm] Blood Pressure Position Sitting Blood Pressure Position [Right Arm] 02 Sat by Pulse Oximetry 100 99 Oxygen Delivery Method Room Air Lab Data Lab results reviewed: Yes I reviewed the patient's lab results. Lab Results 09/17/24 23:20: WBC 10.3, RBC 4.79, Hgb 13.5, Hct 40.7, MCV 85.0, MCH 28.2, MCHC 33.2, RDW 13.7, Plt Count 244, MPV 9.8, Neut % (Auto) 65.8, Lymph % (Auto) 22.9, Crane % (Auto) 8.2, Eos % (Auto) 2.5, Baso % (Auto) 0.3, Neut # (Auto) 6.8, Lymph # (Auto) 2.4, Crane # (Auto) 0.9, Eos # (Auto) 0.3, Baso # (Auto) 0.0, D-Dimer 0.62 H, Sodium 139, Potassium 3.9, Chloride 107, Carbon Dioxide 24, Anion Gap 11.9, BUN 15, Creatinine 0.80, Estimated Creat Clear 77, Estimated GFR 77, Est GFR ( Amer) 93, Glucose 120 H, Calcium 9.4, Magnesium 2.1, Total Bilirubin 0.5, AST 29, ALT 21, Alkaline Phosphatase 57, Troponin I 0.18 H, Total Protein 7.3, Albumin 4.8, Globulin 2.5, Albumin/Globulin Ratio 1.9 H, Serum HCG, Qual Negative 09/17/24 23:20 09/17/24 23:20 Orders (Tests/Meds): ED MEDICATIONS Generic Name Dose Route Start Last Admin Trade Name Freq PRN Reason Stop Dose Admin Acetaminophen 650 mg 09/18/24 01:06 Acetaminophen 325mg Tab PO 10/18/24 01:05 Q6HP PRN Fever or Mild Pain (1-3) Diltiazem HCl 0 mg 09/18/24 02:15 Diltiazem Hcl 180mg Cap.Er.24h PO 10/18/24 02:14 .COMPLEX CHARLEE Enoxaparin Sodium 120 mg 09/18/24 00:15 09/18/24 00:33 Enoxaparin 100mg/Ml Syringe 1 mg/kg (120 mg) 10/18/24 00:14 120 mg SUBCUT Administration Q12H CHARLEE Enoxaparin Sodium 100 mg 09/18/24 09:00 Enoxaparin 100mg/Ml Syringe SUBCUT 10/18/24 08:59 DAILY CHARLEE Ketorolac Tromethamine 15 mg 09/18/24 01:11 09/18/24 02:05 Ketorolac 30mg/Ml Vial IV 09/23/24 01:10 15 mg Q6HP PRN Administration Moderate to Severe Pain (4-10) Lisinopril 0 mg 09/18/24 02:15 Lisinopril 20mg Tablet PO 10/18/24 02:14 .COMPLEX CHARLEE Lorazepam 1 mg 09/18/24 01:06 09/18/24 02:06 Lorazepam 2mg/Ml Vial IV 10/18/24 01:05 1 mg Q4HP PRN Administration Agitation Morphine Sulfate 2 mg 09/18/24 01:06 Morphine 2mg/Ml Syringe IV 10/18/24 01:05 Q2HP PRN Severe Pain (7-10) Nitroglycerin 0.4 mg 09/18/24 00:12 09/18/24 01:00 Nitroglycerin 0.4mg Sl Tablet SL 10/18/24 00:11 0.4 mg Q5MINP PRN Administration Chest Pain Ondansetron HCl 4 mg 09/18/24 01:06 Ondansetron 4mg/2ml Vial IV 10/18/24 01:05 Q6HP PRN Nausea Sumatriptan Succinate 0 mg 09/18/24 02:15 Sumatriptan Succinate 25mg Tablet PO 10/18/24 02:14 .COMPLEX CHARLEE Venlafaxine HCl 75 mg 09/18/24 09:00 Venlafaxine Xr 75mg Capsule PO 10/18/24 08:59 DAILY CHARLEE Discontinued Medications Generic Name Dose Route Start Last Admin Trade Name Freq PRN Reason Stop Dose Admin Acetaminophen 1,000 mg 09/17/24 23:21 09/17/24 23:37 Acetaminophen 500mg Tab PO 09/17/24 23:22 1,000 mg ONCE ONE Administration Aspirin 324 mg 09/17/24 23:21 09/17/24 23:37 Aspirin 81mg Chewable Tablet PO 09/17/24 23:22 324 mg ONCE ONE Administration Iopamidol 75 ml 09/18/24 00:28 09/18/24 00:37 Iopamidol-370 (76%);100ml Bottle IV 09/18/24 00:29 75 ml ONCE ONE Administration Lidocaine HCl 15 ml 09/17/24 23:21 09/17/24 23:37 Lidocaine 2% Viscous Faye 15ml Udc PO 09/17/24 23:22 15 ml ONCE ONE Administration Sodium Chloride 10 ml 09/18/24 00:28 09/18/24 00:37 Sodium Chloride 0.9% 10ml Syr (Rad Only) IV 09/18/24 00:29 10 ml ONCE ONE Administration Sodium Chloride 50 ml 09/18/24 00:28 09/18/24 00:37 0.9 % Sodium Chloride 50 Ml Vial IV 09/18/24 00:29 50 ml ONCE ONE Administration ORDERS Category Date Time Status CT angio chest PE protocol Stat Cat Scan 09/18/24 00:09 Completed CXR --portable [XR chest portable] Stat Exams 09/17/24 23:21 Completed CBC w/Auto Diff [Complete Blood Count Auto Diff] Stat Lab 09/17/24 23:20 Completed CMP [Comprehensive Metabolic Panel] Stat Lab 09/17/24 23:20 Completed D-Dimer Stat Lab 09/17/24 23:20 Completed HCG Qualitative, Serum Stat Lab 09/17/24 23:20 Completed Magnesium Stat Lab 09/17/24 23:20 Completed Troponin I Q3H Lab 09/17/24 23:20 Completed Troponin I Q3H Lab 09/18/24 02:13 Completed ECG Data Tracing #1: I reviewed this ECG and interpreted as documented below: Sinus tachycardia, rate of 107, no significant ST elevation or T wave changes ECG initial impression date: 09/17/24 ECG initial impression time: 23:15 HEART Score History (anamnesis): Moderately suspicious ECG: Normal Age: 45-65 years Risk factors: 1-2 risk factors Troponin: > 3x normal limit HEART Score: 5 Medical Decision Narrative: 49-year-old female with history of rheumatoid arthritis, hypertension, tachycardia, obesity presents for chest pain/pressure since this morning in her upper chest. History was obtained via interactive discussion with patient, family, chart review. On arrival, patient is afebrile, hypertensive, mildly tachycardic, moving all extremities spontaneously. Full physical exam performed and significant for no significant lower extremity edema, clear lungs bilaterally, Differential includes but is not limited to ACS, PE, hypertensive emergency, GERD, musculoskeletal chest pain, medication side effect. Patient was given aspirin, Tylenol, GI cocktail, for symptomatic management and correction of underlying abnormalities. Workup initiated including CBC CMP chest x-ray test D-dimer (cannot PERC out secondary to tachycardia) troponin. On re-evaluation, patient blood pressure significantly improved, 137/81. Laboratory workup independently interpreted by me and significant for D-dimer greater than 0.5, will follow-up with CT PE, no leukocytosis. Initial troponin is significantly elevated at 0.18. Imaging independently interpreted by me and significant for clear lungs bilaterally on chest x-ray, no evidence of PE on CT scan. See radiology read for full review of final results. Given patient history, exam and workup, patient's presentation most likely represents NSTEMI. Jet Blade Polisher activation was considered but deemed unnecessary given no STEMI. Patient was initiated on Lovenox and nitro. Interactive discussion was had with hospitalist on-call for admission. Procedures Risk/Benefits of Procedure(s) Were Explained: Yes Critical Care Critical Care Time Critical Care Time: Yes Attestation: On 09/17/24, the high probability of a clinically significant, sudden or life threatening deterioration of the following system(s) required my full and direct attention, intervention and personal management. The time I documented below is in addition to time spent performing reported procedures but includes the following listed in this critical care notation. Total Time Total Critical Care Time: 40
[2024-09-17 23:22] VITALS: PULSE 116
--- OUTSIDE RECORDS SUMMARY | 2024-09-17 23:26 | XMS_ITS | Encounter Summary ---
Author Organization [facility] Address [address] [place] [address] Care Team Providers Care Auto Collision Repair Instructor Name Role Phone Fabián Kent MD Primary Care Provider [phone]- [phone] Reason for Visit * Reason Onset Date Comments Med Refill 07/26/2024 Encounter Details Date Type Department Care Team (Late st Contact Info) Description 07/26/2024 Refill [facility] [address] [phone] Abner Valentin DO [address] [id number] Social History Tobacco Use Types Packs/Day Years [...] on file documented as of this encounter Miscellaneous Notes * Telephone Encounter - Eva Beltran RN - 08/01/2024 10:12 AM EDT Rx Refill Note Requested Prescriptions Pending Prescriptions Disp Refills methotrexate 2.5 MG tablet 24 tablet 3 Sig: Take 6 tablets by mouth 1 (One) Time Per Week. Last office visit with prescribing clinician: 03/31/2024 Last telemedicine visit with prescribing clinician: Visit date not found Next office visit with prescribing clinician: 08/02/2024 Would you like a call back once the refill request has been completed: [] Yes [] No If the office needs to give you a call back, can they leave a voicemail: [] Yes [] No Eva Beltran RN 08/01/24, 10:12 EDT documented in this encounter Plan of Treatment Upcoming Encounters Date Type Department Care Team (Late st Contact Info) Description 12/30/2024 11:15 AM EDT Office Visit [facility] [address] [phone] Abner Valentin DO [address] [address] documented as of this encounter Visit Diagnoses Not on filedocumented in this encounter Care Teams Auto Collision Repair Instructor Relationship Specialty Start Date End Date Fabián Kent MD [address] [place] [address] PCP - General Family Medicine 03/23/24 documented as of this encounter
--- OUTSIDE RECORDS SUMMARY | 2024-09-17 23:26 | XMS_ITS | Encounter Summary ---
Author Organization [facility] Address [address] [place] [address] Care Team Providers Care Machine Lead Burner Name Role Phone Fabián Kent MD Primary Care Provider [phone]- [phone] Encounter Details Date Type Department Care Team (Latest Contact Info) Description 08/02/2024 Travel Social History Tobacco Use Types Packs/Day Years [...] on file documented as of this encounter Plan of Treatment Upcoming Encounters Date Type Department Care Team (Late st Contact Info) Description 12/30/2024 11:15 AM EDT Office Visit [facility] [address] [phone] Abner Valentin DO [address] [address] documented as of this encounter Visit Diagnoses Not on filedocumented in this encounter Care Teams Machine Lead Burner Relationship Specialty Start Date End Date Fabián Kent MD [address] [place] [address] [place] [address] PCP - General Family Medicine 03/23/24 documented as of this encounter
--- OUTSIDE RECORDS SUMMARY | 2024-09-17 23:26 | XMS_ITS | Clinical Summary ---
Author Organization [employer] ([place], [place], [place], [place]) Address [address] [place] [address] Care Team Providers Care Enterprise Sales Executive Name Role Phone Fabián Kent MD Primary Care Provider +1- [phone] Allergies No known active allergies Medications lisinopriL (PRINIVIL,ZESTR IL) 20 MG tablet Take 1 tablet (20 mg total) by mouth daily. Active diltiazem (TIAZAC) 180 MG 24 hr capsule Take 1 capsule (180 mg total) by mouth daily. Active venlafaxine (EFFEXOR-XR) 75 MG 24 hr capsule Take 1 capsule (75 mg total) by mouth daily. Active nitroglycerin (NITROSTAT) 0.4 MG SL tablet Put 1 pill under tongue every 5min as needed for chest pain.No more than 3 doses in 15min.Call 911 if pain unrelieved 5min after 1st dose. 20 tablet 4 Active SUMAtriptan (IMITREX) 25 MG tablet Take 1 tablet (25 mg total) by mouth as needed. 4 Active Active Problems Problem Noted Date Diagnosed Date Chest pain 05/13/2023 Tachycardia 05/13/2023 Anxiety 05/12/2023 Arrhythmia 05/12/2023 Hypertension 05/12/2023 Family History Medical History Relation Name Comments Diabetes Maternal Grandfather Heart attack Maternal Grandfather Kidney failure Maternal Grandfather Seizures Maternal Grandmother Lung cancer Paternal Grandfather Relation Name Status Comments Maternal Grandfather Maternal Grandmother Paternal Grandfather Social History Tobacco Use Types Packs/Day Years Used Date Smoking Tobacco: Never Passive Smoke Exposure: Never Smokeless Tobacco: Never Tobacco Cessation:Counseling Given: Not Answered Alcohol Use Standard Drinks/Week Comments Never 0 (1 standard drink = 0.6 oz pur e alcohol) Denies caffeine use Food Insecurity Answer Date Recorded Food run out past 12 months Not on file 04/30 Food did not last past 12 months Not on file 05/12/2023 Employment Answer Date Recorded Help finding and keeping a job Not on file 0 05/12/2023 Family and Community Support Answer Solitario e Recorded Help with Day to Day Activities Not on file 05/12/2023 Feeling Lonely or Isolated Not on file 05/11 Educational Attainment Answer Date Steven rded Speak language other than Maori at home Not on file 05/12/2023 Want help with school or training Not on file 05/12/2023 Substance Use Answer Date Recorded Used prescription meds for non-medical reasons N ot on file 05/12/2023 Used illegal drugs past 12 months Not on file 05/12/2023 Comments Unknown Sex and Gender Information Value Date Recorded Sex Assigned at Not on file Legal Sex Female 8:38 AM CDT Gender Identity Not on file Sexual Orientation Not on file Last Filed Vital Signs Vital Sign Reading Time Taken Comments Blood Pressure 138/82 06/03/2023 11:40 AM EDT Pulse 87 06/03/2023 11:40 AM EDT Temperature 37.3 C (99.1 F) 05/12/2023 9:44 AM EDT Respiratory Rate 20 06/03/2023 11:40 AM EDT Oxygen Saturation 97% 06/03/2023 11:40 AM EDT Inhaled Oxygen Concentration - - Weight 120.2 kg (265 lb) 06/03/2023 11:40 AM EDT Height 165.1 cm (5' 5 ) 06/03/2023 11:40 AM EDT Body Mass Index 44.1 06/03/2023 11:40 AM EDT Plan of Treatment Health Maintenance Due Date Last Done Comments CT Colonography 1976 Colonoscopy 1976 Colorectal Cancer Screening 1976 FOBT/FIT 1976 Fit-DNA (Cologuard) 1976 Sigmoidoscopy 1976 Depression Screening (12+) 1988 HIV Screening 09/09/1991 Hepatitis C Screening 1994 DTAP/TDAP/TD VACCINES (1 - Tdap) 09/09/1995 Pneumococcal Vaccine: 0-49 Years (1 of 2 - PCV) 1995 Pap Smear 1997 Breast Cancer Screening 2016 Lipid Panel 2021 COVID-19 VACCINE (1 - 2023- season) 2023 Tobacco Cessation Counseling and Screening (12+) 06/0206/03/2023 Influenza Vaccine (#1) 2024 Insurance BLUE CROSS/BLUE SHIELD Care Teams Enterprise Sales Executive Relationship Specialty Start Date End Date Fabián Kent MD [address] [place] [address] [place] [address] PCP - General Family Medicine 05/12/23
--- OUTSIDE RECORDS SUMMARY | 2024-09-17 23:26 | XMS_ITS | Encounter Summary ---
Author Organization [facility] Address [address] [place] [address] Care Team Providers Care Dumper Bulk System Name Role Phone Fabián Kent MD Primary Care Provider +1- [phone] Reason for Visit * Reason Comments Med Refill Encounter Details Date Type Department Care Team (Late st Contact Info) Description 07/21/2024 Refill [facility] [address] [phone] Abner Valentin DO [address] [phone] Social History Tobacco Use Types Packs/Day Years [...] Telephone Encounter - Eva Beltran RN - 07/23/2024 5:11 PM EDT Denied MTX. Needs labs documented in this encounter Plan of Treatment Upcoming Encounters Date Type Department Care Team (Late st Contact Info) Description 12/30/2024 11:15 AM EDT Office Visit [facility] [address] [phone] Abner Valentin, DO [address] [place] [address] documented as of this encounter Visit Diagnoses Not on filedocumented in this encounter Care Teams Dumper Bulk System Relationship Specialty Start Date End Date Fabián Kent MD [address] [place] [address] PCP - General Family Medicine 03/23/24 documented as of this encounter
--- OUTSIDE RECORDS SUMMARY | 2024-09-17 23:26 | XMS_ITS | Data Portability ---
Author Organization [place] - [facility] Address [address] [place] [address] Care Team Providers Care Pictures Editor Name Role Phone [place] HINKLE Primary Care Provider Assessment Encounter Date Assessment Date Assessment LastModified by Organization Details LastModified Time 11/28/2021 11/28/2021 I am concerned a bout her tachycardia. On my examination the heart rate had dropped to 80-90 but she is still very short of breath. The 1 thing we have not ruled out as a pulmonary embolus. I think in her situation this needs to be done. Her stress test was normal. Her echocardiogram showed a normal ejection fraction is 65-70% with trivial mitral insufficiency. She has been having cramping since the hydrochlorothiazide. I am going to stop that. If need be, we can add low-dose Lasix. Will get a CT of the chest with PE protocol. I went to see her back in 2 weeks. Continue diltiazem. Meds and chart reviewed in full today Continue current medications Risk factor modification CT chest PE protocol Stop hydrochlorothiazide Continue to hold metoprolol Consider Lasix if swelling reoccurs Continue Cardizem at current dose Follow-up in 2 weeks [email or web address] Not available 11/29/2021 17:08:51 Plan of Treatment Reminders Order Date Submit Date Provider Last Modified By Organization Details Last Modified Time Details Appointments None recorded. Lab None recorded. Referral None recorded. Procedures None recorded. Surgeries None recorded. Imaging CT, angiogram, chest, w/wo contrast 2021 022 [email or web address] 1 [place] (Centralized Scheduling), [address] [place] [address] , [place], [address], 08:46:24 Medication Orders None recorded. Patient TargetsNo targets recorded. Patient InstructionsNo instructions recorded. Reason for Referral None Reported. Results Created Date Observation Date Name Description Value Unit Range Abnormal Flag Note LastModifiedBy Organization Detail LastModifiedTime 12/17/1912/16/2021 CREAT ININE W/GFR note See Note Order ing Provi amor: Jacob regan MD Not Available [address] , [place], [address], 12/16/2021 11:23:05 12/17/1912/16/2021 CREAT ININE W/GFR creatinine 0.68 mg/dL 0.55-1 .02 normal Not Available [address] , [place], [address], 12/16/2021 11:23:05 12/17/1912/16/2021 CREAT ININE W/GFR glom filtr rate (estimated) > 60 mL/mi n >60 normal Not Available [address] Maria M o[place]va, [place], [address], 12/16/2021 11:23:05 12/17/1912/16/2021 CREAT ININE W/GFR GFR est (if -amer ican) > 60 mL/mi n >60 normal Not Available [address] Maria [place], [place], [address], 12/16/2021 11:23:05 12/17/1912/16/2021 CREAT ININE W/GFR performing lab see note - [facility] [address] [place] [address] [facility] [id number] Not Available [address] [place], [place], [address], 12/16/2021 11:23:05 12/17/1912/16/2021 CT, chest , w/ contr ast [facility] Name: CJ STUART9 Medica l AppEnsure Phys: Broderick CHA, [place] [address] : 1975 Age: 46 Sex: F Acct: [id number] Loc: G.CT PHONE #: Exam Date: 2021 Status : REG CLI FAX #: Rad# [id number] Unit# [id number] Admit Date: 2021 EXAMS: CPT CODE: [id number] CTA CHEST (PE) 63572 Examin ation: CTA chest PE protoc ol 2021 Histor y: 46-yea r-old female with shortn ess of breath and cough. Histor y of COVID- 19. Techni que: After the admini strati on of intrav enous contra st, helica l CT data was acquir ed in the axial plane throug h the chest. Images were render ed in 2.5 mm thick contig uous axial, de la o l, and sagitt al sectio ns. Maximu m intens ity projec tion images in the de la o l plane were also create d. In order to reduce radiat ion dose to the patien t, either automa malick exposu re contro l was employ ed or the mA or kV was adjust ed by the techno logist based on patien t age and weight . Compar pepe: None. Findin gs: Adequa te opacif icatio n of the pulmon rajat arteri es. No pulmon rajat emboli sm is identi fied. No enlarg ed medias tinal, hilar, or axilla ry nodes are identi fied. Mild de la o ry artery calcif icatio ns. Heart size is normal . No signif icant perica rdial fluid/ thicke asher. No pleura l fluid. Visual ized portio ns of the upper abdome n includ ed in this examin ation of the chest sugges t fatty infilt ration of the partia lly visual ized liver. Patien t is status post cholec ystect tere and gastri c sleeve surger y. Lung window images show mild depend ent atelec tasis of both lower lobes. Mild subseg mental atelec tasis of medial aspect of the right middle lobe. No consol idatio n or signif icant ground glass. No signif icant pulmon rajat nodule s are identi fied. Bone window images show no signif icant lytic or sclero tic bone lesion s. IMPRES LUCA: 1. No pulmon rajat emboli sm is identi fied. 2. No acute findin gs in the chest. Note: Recomm endati ons for follow -up of incide ntal pulmon rajat nodule s are based on Fleisc hner Societ y criter ia. PAGE 1 Signed Report (KEILA NUED) [facility] Name: CJ STUART [employer] Sil[employer] Phys: Broderick CHA, [place] [address] : 1975 Age: 46 Sex: F Acct: [id number] Loc: G.CT PHONE #: Exam Date: 2021 Status : REG CLI FAX #: [phone] Rad# [id number] Unit# [id number] Admit Date: 2021 EXAMS: CPT CODE: [id number] CTA CHEST (PE) 20806 Electr onical ly Signed by GIOVANNI DAVENPORT MD on 2021 at 1208 Report ed and signed by: GIOVANNI DAVENPORT MD CC: [place] BartholomewP-C; Jacob Mcconnell MD Dictat ed Date/T kunal: 2021 (1208) Techno logist : CELSA SANTOSH DEGENN JAZZY Transc ribed Date/T kunal: 2021 (1208) Transc riptio nist: DR.CLA SHAN averyic Signat ure Date/T kunal: 2021 (1208) Printe d Date/T kunal: 2021 (1229) BATCH NO: N/A PAGE 2 Signed Report CC'ed Logic: Orderi ng Provid er: BRODERICK PERALTA Attend ing Provid er: BRODERICK PERALTA Referr ing Provid er: BRODERICK Al ting Provid er: MEEK BE [email or web address] , [place], [address], 12/16/2021 14:05:13 Result Notes Documentation Provider Name and Address Organization Details Recorded Time Ct, Chest, W/ Contrast : [facility] Name: CJ STUART [address] [place] [address] Phys: [place] [address] : 1975 Age: 46 Sex: F Acct: [id number] Loc: G.CT PHONE #: Exam Date: 12/16/2021 Status: REG CLI FAX #: Rad# [id number] Unit# [id number] Admit Date: 12/16/2021 EXAMS: CPT CODE: [id number] CTA CHEST (PE) 79334 Examination: CTA chest PE protocol 12/16/2021 History: 46-year-old female with shortness of breath and cough. History of COVID-19. Technique: After the administration of intravenous contrast, helical CT data was acquired in the axial plane through the chest. Images were rendered in 2.5 mm thick contiguous axial, coronal, and sagittal sections. Maximum intensity projection images in the coronal plane were also created. In order to reduce radiation dose to the patient, either automated exposure control was employed or the mA or kV was adjusted by the technologist based on patient age and weight. Comparison: None. Findings: Adequate opacification of the pulmonary arteries. No pulmonary embolism is identified. No enlarged mediastinal, hilar, or axillary nodes are identified. Mild coronary artery calcifications. Heart size is normal. No significant pericardial fluid/thickening. No pleural fluid. Visualized portions of the upper abdomen included in this examination of the chest suggest fatty infiltration of the partially visualized liver. Patient is status post cholecystectomy and gastric sleeve surgery. Lung window images show mild dependent atelectasis of both lower lobes. Mild subsegmental atelectasis of medial aspect of the right middle lobe. No consolidation or significant groundglass. No significant pulmonary nodules are identified. Bone window images show no significant lytic or sclerotic bone lesions. IMPRESSION: 1. No pulmonary embolism is identified. 2. No acute findings in the chest. Note: Recommendations for follow-up of incidental pulmonary nodules are based on Fleischner Society criteria. PAGE 1 Signed Report (CONTINUED) [facility] Name: CJ STUART [address] Phys: Broderick CHA, [place] [address] : 1975 Age: 46 Sex: F Acct: [id number] Loc: G.CT PHONE #: Exam Date: 12/16/2021 Status: REG CLI FAX #: Rad# [id number] Unit# [id number] Admit Date: 12/16/2021 EXAMS: CPT CODE: [id number] CTA CHEST (PE) [id number] at 1208 Reported and signed by: KYLIE DAVENPORT MD CC: [place] SORIA-C; Jacob Mcconnell MD Dictated Date/Time: 12/16/2021 (1208) Technologist: MARYANNE WINKLER Transcribed Date/Time: 12/16/2021 (1208) Qualitative Researcher: Electronic Signature Date/Time: 12/16/2021 (1208) Printed Date/Time: 12/16/2021 (1229) BATCH NO: N/A PAGE 2 Signed Report CC'ed Logic: Ordering Provider: BRODERICK PERALTA Attending Provider: BRODERICK PERALTA Referring Provider: BRODERICK PERALTA Consulting Provider: MANAN Casanova [facility], [place] - [place] - [place] & [place] 12/16/2021 14:05:13 Problems Name Problem SNOMED Code Status Onset Date Resolution Date Notes Provider Name and Address Organization Details Recorded Time Dyspnea on exertion 83032397 Active 2021 Jacob Mcconnell MD [facility] [employer],[address], [place], [address] [facility] [place] - [place] - [place] & [place] 2 09:11:04 Tachycardia 4764353 Active 2021 Jacob Mcconnell MD [address] [place] [address],[address], [place], [address], [facility] & [place] 2 09:11:17 Edema 528849667 Active 2021 Jacob Mcconnell MD [address] [place] [address],[address], [place], [address], [place] [facility] & [place] 2 09:11:35 Problem Notes None recorded. Procedures Surgical History Date Name Laterality Status Provider Name and Address Organization Details Recorded Time 007 Cholecystectomy completed [facility] Kannan DAMICO [facility] & [place] 11/28/2021 14:16:31 006 Tonsillectomy/Farhad oidectomy completed Poonamalysa DAMICO [facility] & [place] 11/28/2021 14:16:31 Imaging Results None recorded. Procedure Notes None recorded. Medical Equipment None Reported. Allergies No known drug allergies Medications Name Sig Start Date Stop Date Status Note LastModified by Organization Details LastModified Time potassium chloride ER 10 mEq capsule,ext ended release Take 1 capsule every day by oral route. active SW Not Available Not Available No t Available azithromyci n 250 mg tablet TAKE TWO (2) TABLETS ONCE DAILY FOR ONE (1) DAY THEN ONE (1) TABLET ONCE DAILY FOR FOUR (4) DAYS 11/28 completed Not Available Not Available Not Available diltiazem CD 180 mg capsule,ext ended release 24 hr take one tablet by mouth once daily active Not Available Not Available No t Available metoprolol succinate ER 50 mg tablet,exte nded release 24 hr TAKE ONE (1) TABLET EVERY DAY BY ORAL ROUTE DIRECTED FOR 90 DAYS. 11/28 completed Not Available Not Available Not Available lisinopril 20 mg tablet TAKE ONE (1) TABLET ONCE DAILY. active Not Available Not Available No t Available metoprolol succinate ER 100 mg tablet,exte nded release 24 hr active Not Available Not Available Not Available benzonatate 100 mg capsule TAKE ONE (1) CAPSULE THREE (3) TIMES A DAY BY ORAL ROUTE NEEDED FOR 7 DAYS. 11/28 completed Not Available Not Available Not Available paroxetine 30 mg tablet TAKE ONE (1) TABLET EVERY DAY BY ORAL ROUTE DIRECTED FOR 30 DAYS. 11/28 completed Not Available Not Available Not Available paroxetine 20 mg tablet TAKE 1 TABLET ONCE DAILY. 11/28 completed Not Available Not Available Not Available hydrochloro thiazide 25 mg tablet active Not Available Not Available No t Available paroxetine 40 mg tablet TAKE ONE (1) TABLET EVERY DAY BY ORAL ROUTE DIRECTED FOR 30 DAYS. active Not Available Not Available No t Available amoxicillin 875 mg-potassiu m clavulanate 125 mg tablet TAKE ONE (1) TABLET EVERY 12 HOURS BY ORAL ROUTE DIRECTED FOR 7 DAYS. 11/28 completed Not Available Not Available Not Available hydrochloro thiazide active SW Not Available Not Available Not Available Floranex 1 million cell tablet TAKE ONE (1) TABLET EVERY DAY BY ORAL ROUTE DIRECTED 11/28 completed Not Available Not Available Not Available Vitals Date Recorded Body height Body mass index (BMI) Body weight Oxygen saturation Oxygen saturation in Arterial blood by Pulse oximetry Heart rate Systolic And Diastolic Provider Name and Address Organization Details Last Updated DateTime 2 165.1 cm 45.1 kg/m2 965998. 53 g 98 % 98 % 110 /min 128/76 mm[Hg] Poonam García n [facility] & [place] 2 14:15:00 Social History Question Answer Notes LastModified by Playtabase ion Details LastModified Time Tobacco Smoking Status Never Smoker Poonam Brunner null, [facility] & [place] 11/28/2021 14:19:49 If You Are , What Was Your Level Of Alcohol Consumption Prior To ? None [email or web address] Information not available 11/28/2021 Sex: Unknown Functional Status Question Answer Note LastModified by Organizat ion Details LastModified Time Do you use any illicit or recreational drugs? No [email or web address] Information not available 11/28/2021 What is your level of alcohol consumption? None [email or web address] Information not available 11/28/2021 Mental Status None recorded. Family History Relationship Description Onset Age of this Age Resolved Age Notes LastModified by Organization Details LastModified Time Father No current problems or disability [email or web address] Not available 0 11/28/2021 14:19:33 Mother No current problems or disability [email or web address] Not available 0 11/28/2021 14:19:33 Medical History Condition Response Obesity Y Headaches Y Hypertension Y Gynecological HistoryNo gynecological history recorded. Obstetrics History GPAL:G 0 P 0 0 0 0 Past Encounters Encounter ID Performer Location Encounter Start Date Encounter Closed Date Diagnosis/Indication Diagnosis SNOMED-CT Code Diagnosis ICD10 Code Diagnosis Note [id number] Jacob Mcconnell MD [address] [facility] [address] [place] [address] 11/28/2021 08:41:47 11/28/2021 09:08:09 Dyspnea on exertion 35324328 R06.09 Tachycardia 9517386 R00. [address]-COVID-19 syndrome 5500125327 Z86.16 Edema 172941698 R60.9 Health Concerns Section Related Observation LastModified by Organization Detai ls LastModified Time None Recorded Concern Status LastModified by Organization Details LastModified Time None Recorded Advance Directives Directive None Recorded Payers Insurance Date Sequence Insurance Name Policy Number Policy Harman Covered Member ID Harman Member ID Guarantor Name 12/23/2021 1 [place] [id number] Cj Stuart [id number] Cj Stuart 01/16/2023 1 [facility] (MEDICAID HMO) Zac Roa [id number] Cj Stuart 10/01/2021 1 [facility] [id number] Irvin B Roa [id number] Cj Stuart Notes Date Note Type Note Provider Name and Address Organization Details Recorded Time 2 text/html patient started the diltiazem and hydrochlorothiazide and feels like it is helping with a heart rate but she has been having severe leg pains and spasms especially at night. She is no longer taking the metoprolol. No chest pain or pressure. She does have shortness of breath Jacob Mcconnell MD [address] [facility],[address], [place], [address], [facility] - [facility] 11/29/2021 17:09:15 OBGyn Episode No OBEpisode recorded.
--- OUTSIDE RECORDS SUMMARY | 2024-09-17 23:27 | XMS_ITS | Referral Summary ---
Author Organization [employer] ([place], [place], [place], [place]) Address [address] [place] [address] Care Team Providers Care Hoop Maker Machine Name Role Phone Fabián Kent MD Primary Care Provider [phone] Allergies No known active allergies Medications lisinopriL [...] 05/13/2023 Anxiety 05/12/2023 Arrhythmia 05/12/2023 Hypertension 05/12/2023 Social History Tobacco Use Types Packs/Day Years [...] Date Steven rded Speak language other than [place] Citizen at home Not on file 05/12/2023 Want [...] 06/03/2023 11:40 AM EDT Plan of Treatment Not on file Insurance BLUE CROSS/BLUE SHIELD Care Teams Hoop Maker Machine Relationship Specialty Start Date End Date Fabián Kent MD [address] [place] [address] PCP - General Family Medicine 05/12/23
--- OUTSIDE RECORDS SUMMARY | 2024-09-17 23:27 | XMS_ITS | Clinical Summary ---
Author Organization Healthcare Address [address] [place] [address] Care Team Providers Care Transfer Table Operator Name Role Phone Lovely Uribe MD Primary Care Provider [phone] Allergies No known active allergies Medications dilTIAZem XR (Dilacor XR) 180 MG 24 hr capsule 12/31/2021 Active B-D UF III MINI PEN NEEDLES 31G X 5 MM misc 03/13/2022 Active lisinopril 20 MG tablet 04/30/2021 Active PARoxetine (Paxil) 10 MG tablet Finished in less than a week 02/27/2022 Active Ozempic, 0.25 or 0.5 MG/DOSE, 2 MG/1.5ML solution pen-injector inj. pen 1 (one) time per week. 03/13/2022 Active cholecalciferol (Vitamin D-3) 25 MCG (1000 UT) tablet Take by mouth 1 (one) time each day. Active cyanocobalamin 100 MCG tablet Take 100 mcg by mouth 1 (one) time each day. Active multivitamin (Theragran) tablet Take 1 tablet by mouth 1 (one) time each day. Active sulfaSALAzine (Azulfidine) 500 MG EC tabletIndicatio ns:Seropositive rheumatoid arthritis of multiple sites (CMS/HCC) Do not crush, chew, or split. 2 tablets by mouth twice daily with food 120 tablet 2 07/08/2022 Active Active Problems No known active problems Family History Medical History Relation Name Comments Diabetes Maternal Grandfather Dangelo Hoffman Cancer Paternal Grandfather Larce [place] Relation Name Status Comments Maternal Grandfather Dangelo Hoffman Paternal Grandfather Larce Anitha Social History Tobacco Use Types Packs/Day Years Used Date Smoking Tobacco: Never Smokeless Tobacco: Never Tobacco Cessation:Counseling Given: Not Answered PHQ-2 Answer Date Recorded Patient Health Questionnaire-2 Score 0 03/21/2022 PHQ-2A Answer Date Recorded Patient Health Questionnaire-2 Score 0 03/21/2022 Comments Unknown Sex and Gender Information Value Date Recorded Sex Assigned at Female 03/18/2022 12:28 PM EST Legal Sex Female 8:26 PM EDT Gender Identity Female 03/18/2022 12:28 PM EST Sexual Orientation Straight 03/18/2022 12 :28 PM EST Last Filed Vital Signs Vital Sign Reading Time Taken Comments Blood Pressure 131/89 03/21/2022 9:22 AM EST Pulse 89 03/21/2022 9:22 AM EST Temperature 37 C (98.6 F) 03/21/2022 9:22 AM EST Respiratory Rate - - Oxygen Saturation 98% 03/21/2022 9:22 AM EST Inhaled Oxygen Concentration - - Weight 123 kg (271 lb 2.7 oz) 03/21/2022 9:22 AM EST Height 165.1 cm (5' 5 ) 03/21/2022 9:22 AM EST Body Mass Index 45.12 03/21/2022 9:22 AM EST Plan of Treatment Health Maintenance Due Date Last Done Comments Y-Infant/Child/Adol SDOH Screenings 1975 [facility]-CHYNB-28 Vaccine (#1) 1981 [facility]- SDOH Screenings 1994 [facility]-Adult SDOH Screenings 1994 [facility]-DTaP,Tdap,and Td Vaccine s (1 - Tdap) 09/09/1995 [facility]-Hepatitis B Vaccines (1 of 3 - 19+ 3-dose series) 09/09/1995 [facility]-Pap Smear 1997 [facility]-Cervical Cancer Screening 2006 [facility]-HPV/Cotest 2006 CT Colonography 2021 Colonoscopy 2021 FIT-DNA 2021 FIT 2021 FOBT 2021 Sigmoidoscopy 2021 [facility]-Colorectal Cancer Screening 2021 [facility]-Depression Screening 03/21/2023 03/21/2022 [facility]-Influenza Vaccine (#1) 2024 [facility]-Zoster Vaccines (1 of 2) 2026 [facility]-HIV Screening Completed 03/21/2022 [facility]-Hepatitis C Screening Completed 03/21/2022 [facility]-Obesity Intervention Completed 03/21/2022 HPV Vaccines Aged Out No longer eligi ble based on patient's age to complete this topic [facility]-HIB Vaccines Aged Out No longer e ligible based on patient's age to complete this topic [facility]-Hepatitis A Vaccines Aged Out No longer eligible based on patient's age to complete this topic [facility]-IPV Vaccines Aged Out No longer e ligible based on patient's age to complete this topic [facility]-Pneumococcal Vaccine: Pediatrics (0 to 5 Years) and At-Risk Patients (6 to 49 Years) Aged Out No long er eligible based on patient's age to complete this topic [facility]-Rotavirus Vaccines Aged Out No lo nger eligible based on patient's age to complete this topic Procedures Procedure Name Priority Date/Time Associated Diagnosis Comments ACUTE HEPATITIS PANEL Routine 03/21/2022 10:45 AM EST RICKIE positive HIV 1/2 ANTIBODY/ANTIGEN SCREEN WITH REFLEX TO HIV I/II DIFFERENTIATION Routine 03/21/2022 10:45 AM EST RICKIE positive from Last 3 Months or Most Recently Relevant to Health Maintenance Results * HIV 1 & 2 Antibody/Antigen Screen (03/21/2022 10:45 AM EST) HIV 1 & 2 Antibody/Anti gen Screen Nonreactive Nonreactive 03/21/2022 2:03 PM EST [facility] Blood Venous blood specimen / Unknown Venipuncture / Unknown 03/21/2022 10:45 AM EST 03/21/2022 10:48 AM EST March R Noah STRETCHING MACHINE TENDER FRAME LAB BLOOD ORDERABLES Final Result [facility] [address] [place] [address] * Acute Hepatitis Panel (03/21/2022 10:45 AM EST) Hepatitis B Surf Antigen Negative Negative 03/21/2022 1:42 PM EST [facility] Hepatitis C Antibody Negative Negative 03/21/2022 1:42 PM EST [facility] Hepatitis A Antibody IgM Negative Negative 03/21/2022 1:42 PM EST [facility] Hepatitis B Core Antibody IgM Negative Negative 03/21/2022 1:42 PM EST [facility] Blood Venous blood specimen / Unknown Venipuncture / Unknown 03/21/2022 10:45 AM EST 03/21/2022 10:48 AM EST march R Noah STRETCHING MACHINE TENDER FRAME LAB BLOOD ORDERABLES Final Result [facility] [address] [place] [address] from Last 3 Months or Most Recently Relevant to Health Maintenance Insurance Care Teams Transfer Table Operator Relationship Specialty Start Date End Date [place] [address] PCP - General 07/13/20
--- OUTSIDE RECORDS SUMMARY | 2024-09-17 23:27 | XMS_ITS | Encounter Summary ---
Author Organization Healthcare Address [address] [place] [address] Care Team Providers Care Manager Target Name Role Phone Lovely Uribe MD Primary Care Provider Encounter Details Date Type Department Care Team (Late st Contact Info) Description 04/24/2022 [facility] [address] [place] [address] Fabián Kent MD Social History Tobacco Use Types Packs/Day Years Used Date Smoking Tobacco: Never Smokeless Tobacco: Never PHQ-2 Answer Date Recorded Patient Health Questionnaire-2 Score 0 03/21/2022 PHQ-2A Answer Date Recorded Patient Health Questionnaire-2 Score 0 03/21/2022 Comments Unknown Sex and Gender Information Value Date Recorded Sex Assigned at Female 03/18/2022 12:28 PM EST Legal Sex Female 8:26 PM EDT Gender Identity Female 03/18/2022 12:28 PM EST Sexual Orientation Straight 03/18/2022 12 :28 PM EST documented as of this encounter Plan of Treatment Not on file documented as of this encounter Visit Diagnoses Not on filedocumented in this encounter Additional Health Concerns Assessment Noted Time A fall risk assessment has been complete d for the patient 03/21/2022 9:28 AM EST A Body Mass Index follow-up plan has been documented for the patient 03/23/2022 9:21 AM EST documented as of this encounter Care Teams Manager Target Relationship Specialty Start Date End Date Lovely Uribe MD [address] [place] [address] PCP - General 07/13/20 documented as of this encounter
--- OUTSIDE RECORDS SUMMARY | 2024-09-17 23:27 | XMS_ITS | Encounter Summary ---
[facility] Address [address] [place] [address] Care Team Providers Care Park Recreation Manager Name Role Phone Fabián Kent MD Primary Care Provider [phone]- [phone] Encounter Details Date Type Department Care Team ([facility] Contact Info) Description 08/03/2024 Results Follow-Up [facility] RHEUMATOLOGY [address] [phone] Abner Valentin DO [address] [place] [phone] Social History Tobacco Use Types Packs/Day Years [...] Encounters Date Type Department Care Team (Late Contact Info) Description 12/30/2024 11:15 AM EDT Office Visit [facility] RHEUMATOLOGY [address] [address] Abner Valentin DO [address] [place] [address] [phone] documented as of this encounter Visit Diagnoses Not on filedocumented in this encounter Care Teams Park Recreation Manager Relationship Specialty Start Date End Date Fabián Kent MD [address] [place] [address] PCP - General Family Medicine 03/23/24 documented as of this encounter
--- OUTSIDE RECORDS SUMMARY | 2024-09-17 23:27 | XMS_ITS | Clinical Summary ---
Author Organization [facility] Address [address] [place] [address] Care Team Providers Care Slat Basket Maker Machine Name Role Phone Fabián Kent MD Primary Care Provider [phone]- [phone] Allergies No known active allergies Medications dilTIAZem CD (CARDIZEM CD) 180 MG 24 hr capsule Take 1 capsule by mouth Daily. 02/22/2024 Active lisinopril (PRINIVIL,ZESTR IL) 20 MG tablet Take 1 tablet by mouth Daily. Active venlafaxine XR (EFFEXOR-XR) 75 MG 24 hr capsule Take 1 capsule by mouth Daily. Active methotrexate 2.5 MG tablet Take 6 tablets by mouth 1 (One) Time Per Week. 24 tablet 3 08/02/2024 Active folic acid (FOLVITE) 1 MG tablet Take 1 tablet by mouth Daily. 30 tablet 5 08/02/2024 Active meloxicam (MOBIC) 15 MG tablet take 1 tablet 1 time each day 07/23/2024 Active Active Problems Problem Noted Date Diagnosed Date High risk medication use 08/02/2024 Assessment & Plan (08/02/2024 2:22 PM EDT): Methotrexate 15 mg PO once/week for RA Started 03/31/24 1. CBC and CMP every 8-12 weeks to monitor for medication toxicity. 2. Take folate supplements daily. 3. No recent serious infections. 4. Refill today Orders: CBC Auto Differential Comprehensive Metabolic Panel C-reactive Protein Sedimentation Rate Seropositive rheumatoid arthritis 03/31/2024 Assessment & Plan (08/02/2024 2:22 PM EDT): Medication/treatment/interventions tried include: Tylenol, sulfasalazine, venlafaxine, she saw Rheumatology 2022, Paroxetine, methotrexate/folic acid, meloxicam 03/21/22: ESR 25 (< 20), RF 18 (<14), CCP Negative, CRP normal, Benavidez normal, SSA and SSB normal, Sm/AUTISTIC TEACHER Normal, DS DNA Normal, RICKIE 1:320 speckled [...] Comprehensive Metabolic Panel C-reactive Protein Sedimentation Rate Assessment & Plan (03/31/2024 12:12 PM EST): Medication/treatment/interventions tried include: Tylenol, sulfasalazine, venlafaxine, she saw Rheumatology 2022, Paroxetine 03/21/22: ESR 25 (< 20), RF 18 (<14), CCP Negative, CRP normal, Benavidez normal, SSA and SSB normal, Sm/AUTISTIC TEACHER Normal, DS DNA Normal, RICKIE 1:320 speckled She previously saw rheumatology She has tried sulfasalazine in the past. She did not think it helped her. Labs and x-rays today Start methotrexate 15 mg PO once/week for RA and folic acid 1 mg/day. Risks and benefits reviewed. Orders: QuantiFERON-TB Gold Plus; Future Hepatitis Panel, Acute; Future 14.3.3 ETA, Rheum. Arthritis; Future RICKIE 12 Plus Profile (RDL); Future RICKIE by IFA, Reflex to Titer and Pattern; Future ANCA Panel; Future CBC Auto Differential; Future CK; Future Comprehensive Metabolic Panel; Future C-reactive Protein; Future Cyclic Citrul Peptide Antibody, IgG / IgA; Future HLA-B27 Antigen; Future RF Isotypes, IgG, IgA, IgM EIA; Future Sedimentation Rate; Future Thyroid Antibodies; Future Urinalysis With Culture If Indicated -; Future Aldolase; Future XR Hand 2 View Bilateral; Future XR Foot 3+ View Bilateral; Future XR Knee 3 View Bilateral; Future Encounters Date Type Department Care Team Description 08/03/2024 Results Follow-Up [facility] RHEUMATOLOGY [address] [place] [phone] Abner Valentin DO 08/02/2024 2:45 PM EDT Office Visit [facility] RHEUMATOLOGY [address] [place] [phone] Abner Valentin DO Seropositive rheumatoid arthritis (Primary Dx); High risk medication use 08/02/2024 Travel 07/26/2024 Refill [facility] RHEUMATOLOGY [address] [place] [phone] Abner Valentin DO 07/21/2024 Refill [facility] RHEUMAT[facility] [address] [place] [phone] Abner Valentin DO from Last 3 Months Family History Medical History Relation Name Comments Diabetes Father Relation Name Status Comments Father Social History Tobacco Use Types Packs/Day Years [...] Mass Index 45.11 08/02/2024 2:16 PM EDT Plan of Treatment Upcoming Encounters Date Type Department Care Team (Late st Contact Info) Description 12/30/2024 11:15 AM EDT Office Visit [facility] RHEUMATOLOGY [address] [place] [phone] Abner Valentin DO [address] [facility] [address] [place], [place] [id number] Health Maintenance Due Date Last Done Comments Annual Gynecologic Pelvic an d Breast Exam 1976 TDAP/TD VACCINES (1 - Tdap) 09/09/1995 PAP SMEAR 1997 MAMMOGRAM 2016 COLOGUARD 2021 COLON CANCER SCREENING 5 YEA R SIGMOIDOSCOPY 2021 COLONOSCOPY 2021 [address]AL CANCER SCREENING 2021 CT COLONOGRAPHY 2021 FECAL OCCULT BLOOD TEST 2021 FIT Testing (1 year) 2021 COVID-19 Vaccine ( - 2023-2 5 season) 2023 ANNUAL PHYSICAL 03/31/2024 INFLUENZA VACCINE 11/30/2024 HEPATITIS C SCREENING Completed 03/31/2024 , 03/21/2022 Pneumococcal Vaccine 0-49 Aged Out No longer eligible based on patient's age to complete this topic Procedures Procedure Name Priority Date/Time Associated Diagnosis Comments CBC AND DIFFERENTIAL Routine 08/02/2024 2:47 PM EDT SEDIMENTATION RATE Routine 08/02/2024 2: 47 PM EDT Seropositive rheumatoid arthritis High risk medication use C-REACTIVE PROTEIN Routine 08/02/2024 2: 47 PM EDT Seropositive rheumatoid arthritis High risk medication use COMPREHENSIVE METABOLIC PANEL Routine 08/02/2024 2:47 PM EDT Seropositive rheumatoid arthritis High risk medication use HEPATITIS PANEL, ACUTE Routine 12:39 PM EST Arthralgia, unspecified joint Fatigue, unspecified type Seropositive rheumatoid arthritis from Last 3 Months or Most Recently Relevant to Health Maintenance Results * Sedimentation Rate (08/02/2024 2:47 PM EDT) Sed Rate 26 0 - 32 mm/hr [facility] Blood 08/02/2024 2:47 PM EDT 08/02/2024 Narrative [facility]OQU[facility] (AMBULATORY) - 08/03/2024 5:06 AM EDT Performed at: 01 - [facility] [address], [place] [id number] Library Clerical Assistant: Galindo Lobato PhD, Phone: [phone] Patient Fasting: N Abner Valentin DO LAB BLOOD ORDERABLES F inal Result [facility] (AMBULATORY) [address] [place] [address], [facility] [address] [place] [address], * (ABNORMAL) CBC & Differential (08/02/2024 2:47 [...] 08/02/2024 2:47 PM EDT 08/02/2024 Narrative [facility] (AMBULATORY) - 08/03/2024 5:06 AM EDT Performed at: [address] [place] [id number] Library Clerical Assistant: Galindo Lobato PhD, Phone: [phone] Patient Fasting: N [facility] BLOOD ORDERABLES F inal Result Performing Organization Address [facility]/ZIP Co de Phone Number [facility] ([facility]) [address] [id number], [facility] [address] [place], [place] [id number], [place] [phone] * C-reactive Protein (08/02/2024 2:47 PM EDT) [facility] C-Reactive Protein 3 0 - 10 mg/L [facility] Blood 08/02/2024 2:47 PM EDT 08/02/2024 [facility] (AMBULATORY) - 08/03/2024 5:06 AM EDT Performed at: [address] [place] [id number] Library Clerical Assistant: Galindo Lobato PhD, Phone: [phone] Patient Fasting: N Abner Valentin LAB BLOOD ORDERABLES F inal Result Performing Organization Address City/[facility]/ZIP Co de Phone Number [facility] [address] [place] [address], [place] [phone] [facility] [address] [place] [address], * (ABNORMAL) Comprehensive Metabolic Panel (08/02/2024 2:47 PM EDT) Pathologist [facility] Glucose 210(H) 70 - 99 mg/dL [facility] [...] Blood 08/02/2024 2:47 PM EDT 08/02/2024 N[facility]ative [facility] - 08/03/2024 5:06 AM EDT Performed at: - [address] [id number] Library Clerical Assistant: Galindo Lobato PhD, Phone: [phone] Patient Fasting: N us Abner Valentin DO LAB BLOOD ORDERABLES F inal Result [facility] [employer] [facility] (AMBULATORY) [address] [place], [place] [id number], [facility] [address] [place], [place] [id number], * Hepatitis Panel, Acute (03/31/2024 12:39 PM EST) [facility] Hepatitis B Surface Ag Non-Reacti ve Non-Reacti ve 04/01/2024 12:01 AM EST [facility] Hep A IgM Non-Reacti ve Non-Reacti ve 04/01/2024 12:01 AM EST [facility] Hep B C IgM Non-Reacti ve Non-Reacti ve 04/01/2024 12:01 AM EST [facility] Hepatitis C Ab Non-Reacti ve Non-Reacti ve 04/01/2024 12:01 AM EST [facility] Blood Venipuncture / Unknown 03/31/2024 12:39 PM EST 03/31/2024 12:39 PM EST [facility] - 04/01/2024 12:01 AM EST Results may be falsely decreased if patient taking Biotin. Abner Valentin DO LAB BLOOD ORDERABLES F inal Result [facility]
[address] [place] [address], from Last 3 Months or Most Recently Relevant to Health Maintenance Insurance Care Teams Slat Basket Maker Machine Relationship Specialty Start Date End Date Fabián Kent MD [address] [place] [address] PCP - General Family Medicine 03/23/24
[2024-09-17 23:29] LABS: Hematocrit 40.7 % (37.0-47.0); Hemoglobin 13.5 g/dL (12.2-16.2); Immature Granulocytes % 0.3 %; Mean Corpuscular HGB Conc 33.2 g/dL (31.8-35.4); Mean Corpuscular Hemoglobin 28.2 pg (27.0-31.2); Mean Corpuscular Volume 85.0 fl (81-99); Nucleated Red Blood Cells % 0 %; Platelet Count 244 K/mm3 (142-424); Red Blood Count 4.79 M/mm3 (4.20-5.40); Red Cell Distribution Width-SD 42.5 fL; White Blood Count 10.3 K/mm3 (4.8-10.8)
[2024-09-17] MEDS: ACETAMINOPHEN 500MG TAB 1000 MG PO (23:37)
[2024-09-17] MEDS: ASPIRIN 81MG CHEWABLE TABLET 324 MG PO (23:37)
[2024-09-17] MEDS: LIDOCAINE 2% VISCOUS SOL 15ML UDC 15 ML PO (23:37)
[2024-09-17 23:40] LABS: Alanine Aminotransferase 21 U/L (12-78); Albumin Level 4.8 g/dl (3.5-5.0); Albumin/Globulin Ratio 1.9 (1.1-1.8); Alkaline Phosphatase 57 U/L (38-126); Anion Gap 11.9 mEq/L (5-15); Aspartate Amino Transferase 29 U/L (14-36); Bilirubin,Total 0.5 mg/dl (0.2-1.3); Blood Urea Nitrogen 15 mg/dl (7-17); Calcium 9.4 mg/dl (8.4-10.2); Carbon Dioxide 24 mmol/L (22.0-30.0); Chloride 107 mmol/L (98-107); Creatinine Clearance Estimated 77 mL/min (50-200); Creatinine,Serum 0.80 mg/dl (0.52-1.04); Estimated Glomerular Filt Rate 77 ml/min (>60); GFR (African American) 93 ML/MIN (>60); Globulin 2.5 g/dL (1.3-3.2); Glucose 120 mg/dl (74-100); Magnesium 2.1 mg/dl (1.6-2.3); Potassium 3.9 mmoL/L (3.5-5.1); Sodium 139 mmol/L (136-145); Total Protein,Serum 7.3 g/dl (6.3-8.2)
[2024-09-17 23:45] LABS: D-Dimer 0.62 ug/mL (0.0-0.5); HCG Qualitative, Serum Negative (Negative)
[2024-09-17 23:51] LABS: Troponin I 0.18 ng/ml (0.00-0.034)
[2024-09-18] VITALS (26 sets, daily range): BP systolic 115–207; BP diastolic 66–121; PULSE 74–112; RESP 12–26; TEMP 36.4–37.4; O2SAT 91–100; BMI 45.8
--- NOTE | 2024-09-18 00:09 | CT_ITS ---
PROCEDURE INFORMATION: Exam: CTA Chest With Contrast Exam date and time: 09/18/2024 12:29 AM Age: 49 years old Clinical indication: Pain; Radiating; Additional info: Cp, SOA, positive dimer TECHNIQUE: Imaging protocol: Computed tomographic angiography of the chest with contrast. Exam focused on the arteries. 3D rendering (Not supervised by radiologist): MIP and/or 3D reconstructed images were created by the technologist. Total images: 919 Radiation optimization: All CT scans at this facility use at least one of these dose optimization techniques: automated exposure control; mA and/or kV adjustment per patient size (includes targeted exams where dose is matched to clinical indication); or iterative reconstruction. Contrast material: ISOVUE; Contrast volume: 75 ml; Contrast route: INTRAVENOUS (IV); COMPARISON: CT ANGIO CHEST 12/30/2022 11:10 AM FINDINGS: Pulmonary arteries: Adequate contrast opacification the pulmonary arteries. Main pulmonary artery is normal in caliber. Cardiac pulsation artifact in the pulmonary outflow tract. No main or saddle emboli. No lobar or segmental emboli. Distal subsegmental branch evaluation limited by attenuation artifacts without convincing evidence for embolic disease. Aorta: No thoracic aortic aneurysm or dissection. Lungs: The trachea and main bronchi are patent. The lungs are clear and well expanded. No pulmonary mass or concerning lung nodules. Pleural spaces: Unremarkable. No pneumothorax. No pleural effusion. Heart: Normal heart size. No pericardial effusion. Scarring coronary artery calcifications. Mediastinal space: No mediastinal mass or hematoma. Lymph nodes: No mediastinal or hilar lymphadenopathy. Liver: Hepatic steatosis. Hepatomegaly incompletely included. Gallbladder and biliary ducts: Status post cholecystectomy. Spleen: Mild splenomegaly at 13.5 cm. Stomach: Status post gastric sleeve. Bones/joints: Moderate degenerative changes lower thoracic spine. Bone detail limited by attenuation artifacts. Soft tissues: Unremarkable. IMPRESSION: 1. No acute intrathoracic process. Specifically, no acute pulmonary emboli. 2. Clear lungs. 3. Hepatosplenomegaly. 4. Hepatic steatosis 5. Status post cholecystectomy and gastric sleeve.
[2024-09-18] MEDS: SODIUM CHLORIDE 0.9% 10ML SYR (RAD ONLY) 10 ML IV (00:37)
[2024-09-18] MEDS: IOPAMIDOL-370 (76%);100ML BOTTLE 75 ML IV (00:37)
[2024-09-18] MEDS: 0.9 % SODIUM CHLORIDE 50 ML VIAL IV (00:37)
--- NOTE | 2024-09-18 00:45 | PC.NURSE ---
TAZ Sheppard called report to TAZ Liu
--- NOTE | 2024-09-18 00:50 | PC.NURSE ---
Step down bed ordered. Room change to 264.
[2024-09-18] MEDS: NITROGLYCERIN 0.4MG SL TABLET 0.4 MG SL ×2 (01:00→13:04)
--- NOTE | 2024-09-18 01:19 | P.HP_ITS ---
<Statement entered by Chase Arce MD - 09/18/24 08:59> Personally examined patient and agree with plan of care as outlined by the HOSPITAL MORTICIAN. History of Present Illness *Admission Date: 09/18/24 *Reason for visit:: Chest pain elevated troponin *History of present illness: Ms. Matthews a 49-year-old female began to have chest pain this morning she described as 10 out of 10.. She has had this all day and now has come to the emergency room. She now describes her chest pain is about 7 out of 10.. Workup by the ER provider and report to me shows that she does have an elevated troponin, there was no ST elevation on the twelve-lead EKG.. Due to a slightly elevated D-dimer a CT scan was done to rule out any potential pulmonary embolism. Blood pressure and heart rate has remained high with systolic being greater than 200 at times sometimes dropping to a little below 140. CT scan noted hepatosplenomegaly, and fatty liver. Examination found no other source for the pain. Such as trauma injury or overuse.. She is noted that she receives methotrexate once a week for a positive RA titer and positive RICKIE titer. Other pertinent history shows that she had COVID twice in 2021 also once in 2023. She is a non-smoker, but is morbidly obese . Her weight has remained basically the same. She denies any vomiting or nauseated with the symptoms. Patient states she has been taking her calcium channel char and ALYCIA inhibitor as prescribed. She is also received aspirin in the emergency room. Given the first dose of Lovenox will then be increased to a milligrams in the morning.. Plans are to continue to monitor heart rate and blood pressure need for nitro glycerin drips is a possibility. For this reason she will be placed in the stepdown in the ICU. In evaluating patient's past labs she is not a diabetic but has hyperinsulinemia. [facility] Disclaimer: The information contained in this section may have been updated after the patient was seen, as this information can be updated by other users. Medical History (Updated 09/18/24 @ 01:57 by Ramiro Ryder APRN) Elevated troponin COVID-19 Exposure to COVID-19 virus Viral syndrome Hypoglycemia Gastroenteritis Fall down stairs Concussion Sinusitis Bronchitis UTI (urinary tract infection) Seropositive rheumatoid arthritis of multiple joints Rheumatoid arthritis Hypertension Surgical History (Updated 09/18/24 @ 01:56 by Ramiro Ryder APRN) H/O cardiac catheterization H/O gastric sleeve History of tonsillectomy History of cholecystectomy History of Family History Other Coronary artery disease Diabetes Hypertension Social History Smoking Status: Never smoker alcohol intake: never substance use type: denies use current occupational status: unemployed Travel in the last 8 weeks?: None household members: spouse and children housing: house Have you lived/traveled outside US in past 30 days?: No Contact w/someone who lives/traveled outside US past 30 days?: No Exposure to someone with infectious disease in past 14 days?: No Do you have a fever (greater than 100.4 F or 38 C)?: No Have you tested positive for COVID-19?: No Exposed to someone with COVID-19 in past 14 days?: No Do you have a sore throat?: No Do you have a cough?: No Do you have any weakness?: No Do you have any diarrhea?: No Are you experiencing any unusual bleeding?: No Do you have any muscle aches/pain?: No Do you have any abdominal pain?: No Are you experiencing loss of taste or smell?: No Other Medical History Have you received the Flu Vaccine for this season: No Have you received the Pneumonia Vaccine: No Review of Systems Review of Systems Review of systems:: pertinent systems reviewed and negative unless documented below Constitutional Constitutional: Reports as per HPI and Reports snoring Eyes Eyes: Reports as per HPI ENT Ears, Nose, Mouth, and Throat: Reports as per HPI *Cardiovascular Cardiovascular: Reports as per HPI, Reports chest pain at rest and Reports chest pain with activity Comments: Patient has had chest pain on both sides with some into her arms., Not take any nitroglycerin at home forgot she had *Respiratory Respiratory: Reports as per HPI and Reports snoring Comments: Past history of sleep study showed snoring but indeterminant for sleep apnea t hat showed no decrease in oxygen saturation when sleeping *Gastrointestinal Gastrointestinal: Reports as per HPI Comments: History of gastric sleeve *Musculoskeletal Musculoskeletal: Reports as per HPI Comments: Patient has chronic pain but states that besides the chest wall discomfort that everything else is remained the same Integumentary/Breasts Comments: No complaints of breast disorders has had a biopsy in the past Psychiatric Psychiatric: Reports as per HPI Endocrine Endocrine: Reports as per HPI Hematologic/Lymphatic Hematologic/Lymphatic: Reports as per HPI Allergic/Immunologic Comments: Patient has no allergies to medicine but was put on nadolol once that had an adverse reaction and made her blood pressure elevate Meds Home Medications and Allergies Home Medications ?Medication ?Instructions ?Recorded ?Confirmed ?Type sumatriptan succinate 25 mg tablet See Rx Instructions PO .COMPLEX 01/07/24 09/18/24 Rx (Imitrex) #30 tabs folic acid 1 mg tablet 1 mg PO DAILY 04/21/2409/18 History methotrexate sodium 2.5 mg tablet 2.5 mg PO WEEKLY 09/18/24 History meloxicam 15 mg tablet 15 mg PO DAILY #30 tabs 04/3 09/18/24 Rx diltiazem HCl 180 mg See Rx Instructions .Route 0 08/08/24 09/18/24 Rx capsule,extended release 24 hr .COMPLEX #90 caps lisinopril 20 mg tablet See Rx Instructions .Route 0 08/24/24 09/18/24 Rx .COMPLEX #90 tabs venlafaxine 75 mg capsule,extended 75 mg PO DAILY 30 d ays #90 caps 08/24/24 09/18/24 Rx release 24 hr New Prescriptions to Start Prescriptions: Allergies Allergy/AdvReac Type Severity Reaction Status Date / Time nadolol AdvReac Mild Other Verified 09/18/24 01:37 Exam Data for Last 24 hours Vital signs and Labs for Last 24 Hours: Temp Pulse Resp BP Pulse Ox O2 Del Method 97.9 F 111 H 26 H 207/121 H 99 Room Air 09/17/24 23:17 09/18/24 00:35 09/18/24 00:35 09/18/24 00:35 09/18/24 00:35 09/17/24 23:17 Laboratory Results - last 24 hr 09/17/24 23:20: WBC 10.3, RBC 4.79, Hgb 13.5, Hct 40.7, MCV 85.0, MCH 28.2, MCHC 33.2, RDW 13.7, Plt Count 244, MPV 9.8, Neut % (Auto) 65.8, Lymph % (Auto) 22.9, [place] % (Auto) 8.2, Eos % (Auto) 2.5, Baso % (Auto) 0.3, Neut # (Auto) 6.8, Lymph # (Auto) 2.4, [place] # (Auto) 0.9, Eos # (Auto) 0.3, Baso # (Auto) 0.0, D-Dimer 0.62 H, Sodium 139, Potassium 3.9, Chloride 107, Carbon Dioxide 24, Anion Gap 11.9, BUN 15, Creatinine 0.80, Estimated Creat Clear 77, Estimated GFR 77, Est GFR ( Amer) 93, Glucose 120 H, Calcium 9.4, Magnesium 2.1, Total Bilirubin 0.5, AST 29, ALT 21, Alkaline Phosphatase 57, Troponin I 0.18 H, Total Protein 7.3, Albumin 4.8, Globulin 2.5, Albumin/Globulin Ratio 1.9 H, Serum HCG, Qual Negative I & O for Last 24 hours: Intake & Output 09/15/24 09/16/24 09/17/24 09/18/24 05:59 05:59 05:59 05:59 Weight 262 lb Radiology Reports for the Last 24 Hours: CT of the lungs showed no obvious PEs. Lungs were clear had an enlarged liver and spleen showing fatty deposits Constitutional Constitutional: moderate distress, morbidly obese and cooperative *Routine HEENT Exam Head: Present normocephalic and atraumatic Eye: Present EOMI ENT: Present mucous membranes moist, oropharynx clear, dentition normal and nares patent *Routine Neck Exam Neck: Present supple and full ROM Routine Chest/Breast/Axilla Exam Comments: No tenderness found on exam *Routine Respiratory Exam Respiratory: Present CTA bilaterally, normal respiratory effort, able to speak in complete sentences and symmetric chest movement Comments: Lung exam was perfectly normal no signs of respiratory infection and/or restriction. *Routine Cardiovascular Exam Cardiovascular: Present RRR, Normal S1 and Normal S2 Comments: Examination for heart sounds perfectly normal good capillary refill, patient is obese but there was no sign of any dependent edema in the lower extremities *Routine Abdominal Exam Abdominal: Present soft and obese Comments: Examination of the abdomen perfectly normal patient is large unable to determine that there was any liver or spleen enlargement. But there was no tenderness upon exam *Routine Rectal Exam Rectal:: deferred *Routine Genitalia Exam Genitalia:: deferred *Routine Extremities Exam Extremities: Present full ROM, pulses intact and normal capillary refill Comments: The patient is able to move arms and legs independently there is no sign of any deficits. Routine Back/Spine/Pelvis Exam Back/Spine: Present full ROM Comments: Did not stand the patient while examining her in the emergency room but she is able to move sit up move her neck shows no signs of any back discomfort or limitations *Routine Skin Exam Skin: Present intact, dry and normal turgor *Routine Neurological Exam Neurological: Present alert, oriented X3, CN II-XII intact, normal reflexes, moving all extremities, normal tone, vision grossly intact, hearing grossly intact and normal speech Routine Psychiatric Exam Psychiatric: Present normal affect, normal thought process, cooperative, good i nsight and good judgment Comments: Patient is with in room patient is anxious about what is going on but she is totally appropriate, asking and expressing understanding of questions and teaching. Appears to get along very well with her spouse H&P: Result Impressions Atypical chest pain, with elevated troponin Imaging and Cardiology CT scan - chest: Status: image reviewed by me Additional comments: MPRESSION: 1. No acute intrathoracic process. Specifically, no acute pulmonary emboli. 2. Clear lungs. 3. Hepatosplenomegaly. 4. Hepatic steatosis 5. Status post cholecystectomy and gastric sleeve. Assessment and Plan *Assessment and plan (1) NSTEMI (non-ST elevated myocardial infarction): Status: Acute Category: Medical Code(s): I21.4 - Non-ST elevation (NSTEMI) myocardial infarction (2) Elevated troponin: Status: Inactive Category: Medical Code(s): R79.89 - Other specified abnormal findings of blood chemistry (3) Atypical chest pain: Status: Acute Category: Medical Code(s): R07.89 - Other chest pain (4) Hypertension: Status: Acute Qualifiers: Hypertension type: primary hypertension Qualified Code(s): I10 - Essential (primary) hypertension Category: Medical Code(s): I10 - Essential (primary) hypertension (5) Tachycardia: Status: Acute Category: Medical Code(s): R00.0 - Tachycardia, unspecified (6) Fatty liver: Status: Acute Category: Medical Code(s): K76.0 - Fatty (change of) liver, not elsewhere classified (7) Spleen enlarged: Status: Acute Category: Medical Code(s): R16.1 - Splenomegaly, not elsewhere classified (8) Enlarged liver: Status: Acute Category: Medical Code(s): R16.0 - Hepatomegaly, not elsewhere classified Plan 1. Patient will be admitted to the floor with serial troponins. Will continue to monitor for any ST elevations. Can Nick treatment to decrease hypertension and decreased heart rate.. 2. Patient will be kept on Lovenox and aspirin at this time. Will continue to monitor for ST elevations or EKG changes. Cardiac consult has been placed. 3. Pain and anxiety control, medication has been ordered to help the patient relax and with medications to try to decrease any chest wall discomfort.
--- NOTE | 2024-09-18 01:31 | PC.NURSE ---
patient arrived to ICU unit via wheelchair from ED @01:20
[2024-09-18] MEDS: KETOROLAC 30MG/ML VIAL 15 MG IV (02:05)
[2024-09-18] MEDS: LORazepam 2MG/ML VIAL 1 MG IV (02:06)
[2024-09-18 03:06] LABS: Troponin I 0.32 ng/ml (0.00-0.034)
--- NOTE | 2024-09-18 03:08 | PC.NURSE ---
Troponin 0.32, notified [facility]IAT[facility] THERAPIST and EKG performed.
--- NOTE | 2024-09-18 03:12 | ECG_ITS ---
APPROVED REPORT Exam: Resting ECG HR:86 bpm ECG Measurements Heart Rate 86 AXES [place] 164 P 77 QRSd 99 QRS 60 QT 387 T 79 QTc 430 Conclusion SINUS RHYTHM WITH SINUS ARRHYTHMIA LOW QRS VOLTAGE IN PRECORDIAL LEADS [QRS DEFLECTION < 1.0 mV IN CHEST LEADS] BORDERLINE ECG UNCONFIRMED REPORT Electronically signed by : Timmy Chambers MD 09/19/2024 07:59:53
[2024-09-18 05:36] LABS: Activated Partial Thrombo Time 30.8 seconds (22.8-30.6)
[2024-09-18 05:38] LABS: Alanine Aminotransferase 20 U/L (12-78); Albumin Level 4.4 g/dl (3.5-5.0); Albumin/Globulin Ratio 1.9 (1.1-1.8); Alkaline Phosphatase 48 U/L (38-126); Anion Gap 11.0 mEq/L (5-15); Aspartate Amino Transferase 35 U/L (14-36); Bilirubin,Total 0.6 mg/dl (0.2-1.3); Blood Urea Nitrogen 13 mg/dl (7-17); Calcium 8.9 mg/dl (8.4-10.2); Carbon Dioxide 24 mmol/L (22.0-30.0); Chloride 107 mmol/L (98-107); Creatinine Clearance Estimated 85 mL/min (50-200); Creatinine,Serum 0.70 mg/dl (0.52-1.04); Estimated Glomerular Filt Rate 89 ml/min (>60); GFR (African American) 108 ML/MIN (>60); Globulin 2.3 g/dL (1.3-3.2); Glucose 105 mg/dl (74-100); Magnesium 2.0 mg/dl (1.6-2.3); Potassium 4.0 mmoL/L (3.5-5.1); Sodium 138 mmol/L (136-145); Total Protein,Serum 6.7 g/dl (6.3-8.2)
--- NOTE | 2024-09-18 05:42 | PC.NURSE ---
0110 Report called to Rosario Pérez
[2024-09-18 05:45] LABS: NT Pro Brain Natriuretic Pep. 63.5 pg/mL (0-125)
[2024-09-18 06:00] LABS: Hematocrit 37.8 % (37.0-47.0); Hemoglobin 12.4 g/dL (12.2-16.2); Immature Granulocytes % 0.3 %; Mean Corpuscular HGB Conc 32.8 g/dL (31.8-35.4); Mean Corpuscular Hemoglobin 28.1 pg (27.0-31.2); Mean Corpuscular Volume 85.5 fl (81-99); Nucleated Red Blood Cells % 0 %; Platelet Count 239 K/mm3 (142-424); Red Blood Count 4.42 M/mm3 (4.20-5.40); Red Cell Distribution Width-SD 42.7 fL; White Blood Count 7.6 K/mm3 (4.8-10.8)
[2024-09-18 07:01] LABS: Troponin I 0.49 ng/ml (0.00-0.034)
[2024-09-18 08:07] LABS: Troponin I 0.51 ng/ml (0.00-0.034)
[2024-09-18] MEDS: LISINOPRIL 20MG TABLET 20 MG PO (08:53)
[2024-09-18] MEDS: dilTIAZem HCL 180MG CAP.ER.24H 180 MG PO (08:53)
[2024-09-18] MEDS: VENLAFAXINE XR 75MG CAPSULE 75 MG PO (08:53)
[2024-09-18] MEDS: ENOXAPARIN 150MG/ML SYRINGE 125 MG SUBCUT ×2 (08:55→21:09)
[2024-09-18 09:35] LABS: Cholesterol 178 mg/dl (140-200); HDL Cholesterol 28 mg/dl (40-60); Triglycerides 312 mg/dl (30-150)
[2024-09-18 10:09] LABS: Hemoglobin A1C 7.1 % (4.0-6.0)
[2024-09-18 10:32] LABS: Thyroid Stimulating Hormone 1.08 uIU/mL (0.465-4.68)
[2024-09-18] MEDS: ASPIRIN EC 81MG TABLET 81 MG PO (10:42)
--- NOTE | 2024-09-18 11:14 | P.PN_ITS ---
Subjective *Date: 09/19/24 *Time: 15:39 Exam Data for Last 24 hours Vital signs and Labs for Last 24 Hours: Temp Pulse Resp BP Pulse Ox O2 Del Method 97.6 F 105 H 26 H 132/93 H 97 Room Air 09/18/24 08:00 09/18/24 11:00 09/18/24 11:00 09/18/24 10:00 09/18/24 11:00 09/18/24 10:00 Laboratory Results - last 24 hr 09/17/24 23:20: WBC 10.3, RBC 4.79, Hgb 13.5, Hct 40.7, MCV 85.0, MCH 28.2, MCHC 33.2, RDW 13.7, Plt Count 244, MPV 9.8, Neut % (Auto) 65.8, Lymph % (Auto) 22.9, [place] % (Auto) 8.2, Eos % (Auto) 2.5, Baso % (Auto) 0.3, Neut # (Auto) 6.8, Lymph # (Auto) 2.4, [place] # (Auto) 0.9, Eos # (Auto) 0.3, Baso # (Auto) 0.0, D-Dimer 0.62 H, Sodium 139, Potassium 3.9, Chloride 107, Carbon Dioxide 24, Anion Gap 11.9, BUN 15, Creatinine 0.80, Estimated Creat Clear 77, Estimated GFR 77, Est GFR ( Amer) 93, Glucose 120 H, Calcium 9.4, Magnesium 2.1, Total Bilirubin 0.5, AST 29, ALT 21, Alkaline Phosphatase 57, Troponin I 0.18 H, Total Protein 7.3, Albumin 4.8, Globulin 2.5, Albumin/Globulin Ratio 1.9 H, Serum HCG, Qual Negative 09/18/24 02:13: Troponin I 0.32 H 09/18/24 05:00: WBC 7.6 D, RBC 4.42, Hgb 12.4, Hct 37.8, MCV 85.5, MCH 28.1, MCHC 32.8, RDW 13.9, Plt Count 239, MPV 10.2, Neut % (Auto) 60.2, Lymph % (Auto) 27.6, [place] % (Auto) 7.8, Eos % (Auto) 3.8, Baso % (Auto) 0.3, Neut # (Auto) 4.6, Lymph # (Auto) 2.1, [place] # (Auto) 0.6, Eos # (Auto) 0.3, Baso # (Auto) 0.0, ESR 61 H, APTT 30.8 H, Sodium 138, Potassium 4.0, Chloride 107, Carbon Dioxide 24, Anion Gap 11.0, BUN 13, Creatinine 0.70, Estimated Creat Clear 85, Estimated GFR 89, Est GFR ( Amer) 108, Glucose 105 H, Hemoglobin A1c 7.1 H, Calcium 8.9, Magnesium 2.0, Total Bilirubin 0.6, AST 35, ALT 20, Alkaline Phosphatase 48, Troponin I 0.49 H, NT-Pro-B Natriuret Pep 63.5, Total Protein 6.7, Albumin 4.4, Globulin 2.3, Albumin/Globulin Ratio 1.9 H 09/18/24 07:38: Troponin I 0.51 H 09/18/24 07:40: Triglycerides 312 H, Cholesterol 178, LDL Cholesterol Direct 107.99, VLDL Cholesterol 62 H, HDL Cholesterol 28 L, Cholesterol/HDL Ratio 6.4 H , TSH 1.08 I & O for Last 24 hours: Intake & Output 09/15/24 09/16/24 09/17/24 09/18/24 23:59 23:59 23:59 23:59 Intake Total 450 / 450 Output Total 600 / 600 Balance -150 / -150 Weight 118.841 kg 124.919 kg Constitutional Constitutional: no acute distress and obese *Routine HEENT Exam Head: Present normocephalic Eye: Present EOMI and PERRL ENT: Present mucous membranes moist *Routine Neck Exam Neck: Present supple; Absent lymphadenopathy *Routine Respiratory Exam Respiratory: Present CTA bilaterally *Routine Cardiovascular Exam Cardiovascular: Present RRR *Routine Abdominal Exam Abdominal: Present soft and normoactive bowel sounds; Absent tenderness *Routine Extremities Exam Extremities: Absent cyanosis, clubbing or edema *Routine Skin Exam Skin: Present warm; Absent rash *Routine Neurological Exam Neurological: Present alert and oriented X3 Assessment and Plan *Assessment and plan (1) Fatty liver: Status: Acute Category: Medical Code(s): K76.0 - Fatty (change of) liver, not elsewhere classified (2) Spleen enlarged: Status: Acute Category: Medical Code(s): R16.1 - Splenomegaly, not elsewhere classified (3) NSTEMI (non-ST elevated myocardial infarction): Status: Acute Category: Medical Code(s): I21.4 - Non-ST elevation (NSTEMI) myocardial infarction (4) CAD (coronary artery disease), [place] coronary artery: Status: Acute Category: Medical Code(s): I25.10 - Atherosclerotic heart disease of [place] coronary artery without angina pectoris Kwadwo Briones is a 49-year-old female who presented with midsternal chest pain with radiation to left jaw and was admitted for NSTEMI. #NSTEMI #CAD #Hypertension ? Presented with 1 day onset of midsternal chest pain with radiation to left jaw, troponins peaked at 0.51. EKG without ST elevations. Intermittent chest pains before LHC, responsive to nitro. ? Cardiology consulted, s/p PCI with 3 stents to RCA, 1 stent to first obtuse, and 1 stent to second obtuse arteries. Patient tolerated procedure well. LV gram showed preserved EF 55%. Dr. Vance recommended monitoring overnight. ? Started aspirin 81 mg, Effient 10 mg, atorvastatin 40 mg, metoprolol succinate 25 mg. Had discontinued home diltiazem. ? Cardiology started amlodipine 10 mg, lisinopril 40 mg. ? ECHO obtained, pending report at this time. ? Continuous cardiac telemetry. #Type 2 diabetes, new diagnosis #Obesity #Hepatosplenomegaly #Fatty liver disease ? Hemoglobin A1c 7.1%. ? Blood sugar stable at this time. ? Plan to start metformin, and consider GLP-1 agonist on discharge. Continue statin as above. ? Obesity BMI 46 complicates all aspects of care. #Anxiety/depression ? Continue home venlafaxine 75 mg. Full code DVT prophylaxis: Lovenox 40 mg
[2024-09-18] MEDS: ACETAMINOPHEN 325MG TAB 650 MG PO ×2 (11:41→18:57)
--- NOTE | 2024-09-18 12:57 | ECG_ITS ---
APPROVED REPORT Exam: Resting ECG HR:109 bpm ECG Measurements Heart Rate 109 AXES CO 159 P 59 QRSd 102 QRS 33 QT 353 T 44 QTc 417 Conclusion SINUS TACHYCARDIA LOW QRS VOLTAGE IN PRECORDIAL LEADS [QRS DEFLECTION < 1.0 mV IN CHEST LEADS] Isolated Q in III ABNORMAL ECG UNCONFIRMED REPORT Electronically signed by : Timmy Chambers MD 09/19/2024 07:59:50
--- NOTE | 2024-09-18 13:06 | PC.NURSE ---
EKG print out given to provider at [id number]
[2024-09-18] MEDS: MORPHINE 2MG/ML SYRINGE 2 MG IV (13:14)
--- NOTE | 2024-09-18 18:19 | PC.NURSE ---
Pt has remained in the bed for most of the shift. she has complained of generally not feeling well, she also had an episode of chest pain early this afternoon that was relieved with 1 nitro and 1mg morphine. her migraine has persisted though. pt was medicated with home does of imitrex. pt is a/o x 4 lungs clear throughout. pt is able to get up to the bsc independently. family is noted to be at bedside throughout the shift as well. nad noted.
[2024-09-18] MEDS: ATORVASTATIN 40MG TABLET 40 MG PO (21:09)
--- OUTSIDE RECORDS SUMMARY | 2024-09-18 22:23 | XMS_ITS | Encounter Summary ---
Author Organization [facility] Address [address] [place] [address] Care Team Providers Care Precision Crop Manager Name Role Phone Fabián Kent MD Primary Care Provider [phone] Reason for Visit * Reason Onset Date Comments Med Refill 07/26/2024 Encounter Details Date Type Department Care Team (Late st Contact Info) Description 07/26/2024 Refill [facility] [address] [phone] Abner Valentin DO [address] [id number] Social History Tobacco Use Types Packs/Day Years [...] 12/30/2024 11:15 AM EDT Office Visit [facility] [address] [phone] Abner Valentin DO [address] [id number] documented as of this encounter Visit Diagnoses Not on filedocumented in this encounter Care Teams Precision Crop Manager Relationship Specialty Start Date End Date Fabián Kent MD [address] [place] [facility] [address] [place] [address] PCP - General Family Medicine 03/23/24 documented as of this encounter
--- OUTSIDE RECORDS SUMMARY | 2024-09-18 22:23 | XMS_ITS | Clinical Summary ---
Author Organization [facility] Address [address] [place] [address] Care Team Providers Care Campus Recruiting Intern Name Role Phone Lovely Uribe MD Primary Care Provider [phone] Allergies No known active allergies Medications dilTIAZem [...] Grandfather Dangelo Hoffman Cancer Paternal Grandfather Larce [place] Relation Name Status Comments Maternal Grandfather Dangelo [...] Last Done Comments Y-Infant/Child/Adol SDOH Screenings 1976 [id number] Vaccine (#1) 1981 [facility]- SDOH Screenings 1994 [...] Screen Nonreactive Nonreactive 03/21/2022 2:03 PM EST [facility] Blood Venous blood specimen / Unknown Venipuncture / Unknown 03/21/2022 10:45 AM EST 03/21/2022 10:48 AM EST March R Noah SUPERVISOR REFINING LAB BLOOD ORDERABLES Final Result [facility] [address] [place] [address] * Acute Hepatitis Panel (03/21/2022 10:45 AM EST) Hepatitis B Surf Antigen Negative Negative 03/21/2022 1:42 PM EST [facility] Hepatitis C Antibody Negative Negative 03/21/2022 1:42 PM EST [facility] Hepatitis A Antibody IgM Negative Negative 03/21/2022 1:42 PM EST [facility] Hepatitis B Core Antibody IgM Negative Negative 03/21/2022 1:42 PM EST [facility] Blood Venous blood specimen / Unknown Venipuncture / Unknown 03/21/2022 10:45 AM EST 03/21/2022 10:48 AM EST march R Noah SUPERVISOR REFINING LAB BLOOD ORDERABLES Final Result [facility] [address] [place] [address] from Last 3 Months or Most Recently Relevant to Health Maintenance Insurance Care Teams Campus Recruiting Intern Relationship Specialty Start Date End Date Lovely Uribe MD [address] [place] [address] PCP - General 07/13/20
--- OUTSIDE RECORDS SUMMARY | 2024-09-18 22:23 | XMS_ITS | Clinical Summary ---
Author Organization [facility] Address [address] [place] [address] Care Team Providers Care Director Of Quality Name Role Phone Fabián Kent MD Primary Care Provider +1- [phone] Allergies No known active allergies Medications dilTIAZem [...] normal, Benavidez normal, SSA and SSB normal, Sm/TAPE STRINGER Normal, DS DNA Normal, RICKIE 1:320 speckled [...] normal, Benavidez normal, SSA and SSB normal, Sm/TAPE STRINGER Normal, DS DNA Normal, RICKIE 1:320 speckled [...] Department Care Team Description 08/03/2024 Results Follow-Up [facility] RHEUMATOLOGY [address] [place] [phone] Abner Valentin DO 08/02/2024 2:45 PM EDT Office Visit [facility] RHEUM[facility] [address] [place] [phone] Abner Valentin DO Seropositive rheumatoid arthritis (Primary Dx); High risk medication use 08/02/2024 Travel 07/26/2024 Refill [facility] RHEUM[facility] [address] [place] [phone] Abner Valentin DO 07/21/2024 Refill [facility] RHEUMAT[facility] [address] [place] [phone] Abner Valentin DO from Last 3 Months [...] Description 12/30/2024 11:15 AM EDT Office Visit [facility] RHEUMAT[facility] [address] [place] [phone] Abner Valentin DO [address] [facility] [address] [place], [place] [id number] Health Maintenance Due Date Last Done Comments [...] at: [facility] - [facility] [address] [place], [place] [id number] Director Of Casework Services: Galindo Lobato PhD, Phone: [phone] Patient Fasting: N Abner Valentin DO LAB BLOOD ORDERABLES F inal Result [facility] (AMBULATORY) [address] [place] [address], [facility] [address] [place] [address], * (ABNORMAL) CBC & Differential (08/02/2024 2:47 [...] 08/02/2024 2:47 PM EDT 08/02/2024 Narrative [facility] (AMBULATORY) - 08/03/2024 5:06 AM EDT Performed at: [address] [place] [id number] Director Of Casework Services: Galindo Lobato PhD, Phone: [phone] Patient Fasting: N [facility] BLOOD ORDERABLES F inal Result Performing Organization Address [facility]/ZIP Co de Phone Number [facility] ([facility]) [address] [id number], [facility] [address] [place], [place] [id number], [place] [phone] * C-reactive Protein (08/02/2024 2:47 PM EDT) [facility] C-Reactive Protein 3 0 - 10 mg/L [facility] Blood 08/02/2024 2:47 PM EDT 08/02/2024 [facility] (AMBULATORY) - 08/03/2024 5:06 AM EDT Performed at: [address] [place] [id number] Director Of Casework Services: Galindo Lobato PhD, Phone: [phone] Patient Fasting: N Abner Valentin LAB BLOOD ORDERABLES F inal Result Performing Organization Address City/[facility]/ZIP Co de Phone Number [facility] [address] [place] [address], [place] [phone] [facility] [address] [place] [address], * (ABNORMAL) Comprehensive Metabolic Panel (08/02/2024 2:47 PM EDT) Pathologist [facility] Glucose 210(H) 70 - 99 mg/dL [facility] [...] Blood 08/02/2024 2:47 PM EDT 08/02/2024 [facility]ative [facility] - 08/03/2024 5:06 AM EDT Performed at: - [address] [id number] Director Of Casework Services: Galindo Lobato PhD, Phone: [phone] Patient Fasting: N us Abner Valentin DO LAB BLOOD ORDERABLES F inal Result [facility] ([facility]) [address] [place], [place] [id number], [facility] [address] [place], [place] [id number], * Hepatitis Panel, Acute (03/31/2024 12:39 PM EST) [facility] Hepatitis B Surface Ag Non-Reacti ve Non-Reacti ve 04/01/2024 12:01 AM EST [facility] Hep A IgM Non-Reacti ve Non-Reacti ve 04/01/2024 12:01 AM EST [facility] Hep B C IgM Non-Reacti ve Non-Reacti ve 04/01/2024 12:01 AM EST [facility] Hepatitis C Ab Non-Reacti ve Non-Reacti ve 04/01/2024 12:01 AM EST [facility] Blood Venipuncture / Unknown 03/31/2024 12:39 PM EST 03/31/2024 12:39 PM EST [facility] LABORATORY - 04/01/2024 12:01 AM EST Results may be falsely decreased if patient taking Biotin. Abner Valentin DO LAB BLOOD ORDERABLES F inal Result [facility]
[address] [place] [address], from Last 3 Months or Most Recently Relevant to Health Maintenance Insurance Care Teams Director Of Quality Relationship Specialty Start Date End Date Fabián Kent MD [address] [place] [address] [place] [address] PCP - General Family Medicine 03/23/24
--- OUTSIDE RECORDS SUMMARY | 2024-09-18 22:23 | XMS_ITS | Clinical Summary ---
Author Organization [employer] ([place], [place], [place] Address [address] [place] [address] Care Team Providers Care Child'S Nurse Name Role Phone Fabián Kent MD Primary Care Provider +1- [phone] Allergies No known active allergies Medications lisinopriL [...] Date Steven rded Speak language other than French at home Not on file 05/12/2023 Want [...] 2024 Insurance BLUE CROSS/BLUE SHIELD Care Teams Child'S Nurse Relationship Specialty Start Date End Date Fabián Kent MD [address] [place] [address] [place] [address] PCP - General Family Medicine 05/12/23
--- OUTSIDE RECORDS SUMMARY | 2024-09-18 22:23 | XMS_ITS | Referral Summary ---
Author Organization [employer] ([place], [place], [place], [place]) Address [address] [place] [address] Care Team Providers Care Screener And Blender Name Role Phone Fabián Kent MD Primary Care Provider [phone]- [phone] Allergies No known active allergies Medications lisinopriL [...] Date Steven rded Speak language other than Colombian at home Not on file 05/12/2023 Want [...] file Insurance BLUE CROSS/BLUE SHIELD Care Teams Screener And Blender Relationship Specialty Start Date End Date Fabián Kent MD [address] [place] [address] [place] [address] PCP - General Family Medicine 05/12/23
--- OUTSIDE RECORDS SUMMARY | 2024-09-18 22:23 | XMS_ITS | Encounter Summary ---
Author Organization [facility] Address [address] [place] [address] Care Team Providers Care Cork Molder Name Role Phone Fabián Kent MD Primary Care Provider +1- [phone] Encounter Details Date Type Department Care Team [...] Visit [facility] RHEUMATOLOGY [address] [phone] Abner Valentni DO [address] [address] documented as of this encounter Visit Diagnoses Not on filedocumented in this encounter Care Teams Cork Molder Relationship Specialty Start Date End Date Fabián Kent MD [address] [place] [address] PCP - General Family Medicine 03/23/24 documented as of this encounter
--- OUTSIDE RECORDS SUMMARY | 2024-09-18 22:23 | XMS_ITS | Encounter Summary ---
Author Organization [facility] Address [address] [place] [address] Care Team Providers Care Land Leasing Information Clerk Name Role Phone Lovely Uribe MD Primary Care Provider [phone] Encounter Details Date Type Department Care Team (Late st Contact Info) Description 04/24/2022 Community [facility] Practice [address] [place] [address] Fabián Kent MD Social History Tobacco Use [...] documented as of this encounter Care Teams Land Leasing Information Clerk Relationship Specialty Start Date End Date Lovely Uribe MD [address] [place] [address] PCP - General 07/13/20 documented as of this encounter
--- OUTSIDE RECORDS SUMMARY | 2024-09-18 22:23 | XMS_ITS | Encounter Summary ---
[facility] Address [address] [place] [address] Care Team Providers Care District Branch Manager Name Role Phone Fabián Kent MD Primary Care Provider [phone]- [phone] Reason for Visit * Reason Comments Med Refill Encounter Details Date Type Department Care Team (Late st Contact Info) Description 07/21/2024 Refill [facility] RHEUMATOLOGY [address] [phone] Abner Valentin DO [address] [phone] Social History Tobacco Use Types Packs/Day Years [...] Description 12/30/2024 11:15 AM EDT Office Visit [facility] RHEUMATOLOGY [address] [phone] Abner Valentin, DO [address] [place] [address] documented as of this encounter Visit Diagnoses Not on filedocumented in this encounter Care Teams District Branch Manager Relationship Specialty Start Date End Date Fabián Kent MD [address] [place] [address] PCP - General Family Medicine 03/23/24 documented as of this encounter
--- OUTSIDE RECORDS SUMMARY | 2024-09-18 22:23 | XMS_ITS | Encounter Summary ---
[facility] Address [address] [place] [address] Care Team Providers Care Mechanic Senior Name Role Phone Fabián Kent MD Primary Care Provider [phone]- [phone] Encounter Details Date Type Department Care Team ([facility] Contact Info) Description 08/03/2024 Results Follow-Up [facility] RHEUMATOLOGY [address] [address] Abner Valentin DO [address] [place] [address] Social History Tobacco Use Types Packs/Day Years [...] 12/30/2024 11:15 AM EDT Office Visit [facility] RHEUMATOLOGY [address] [phone] Abner Valentin DO [address] [place] [phone] documented as of this encounter Visit Diagnoses Not on filedocumented in this encounter Care Teams Mechanic Senior Relationship Specialty Start Date End Date Fabián Kent MD [address] [place] [address] PCP - General Family Medicine 03/23/24 documented as of this encounter
--- NOTE | 2024-09-18 23:15 | ECG_ITS ---
APPROVED REPORT Exam: Resting ECG HR:107 bpm ECG Measurements Heart Rate 107 AXES VT 144 P 60 QRSd 102 QRS 47 QT 346 T 53 QTc 409 Conclusion SINUS TACHYCARDIA LOW QRS VOLTAGE IN PRECORDIAL LEADS [QRS DEFLECTION < 1.0 mV IN CHEST LEADS] ABNORMAL RHYTHM ECG Electronically signed by : KORTNEY ROUSSEAU, 09/18/2024 15:53:17
--- NOTE | 2024-09-18 23:21 | ECG_ITS ---
APPROVED REPORT Exam: Resting ECG HR:100 bpm ECG Measurements Heart Rate 100 AXES NV 158 P 56 QRSd 97 QRS 38 QT 362 T 58 QTc 419 Conclusion SINUS TACHYCARDIA LOW QRS VOLTAGE IN PRECORDIAL LEADS [QRS DEFLECTION < 1.0 mV IN CHEST LEADS] ABNORMAL RHYTHM ECG UNCONFIRMED REPORT Electronically signed by : GHASSAN REILLY, 09/18/2024 06:31:38
[2024-09-19] VITALS (72 sets, daily range): BP systolic 110–168; BP diastolic 69–122; PULSE 78–102; RESP 11–29; TEMP 36.6–37.2; O2SAT 89–99; BMI 46.0
--- NOTE | 2024-09-19 06:00 | CA_ITS ---
APPROVED REPORT EXAM: Comprehensive 2D, Doppler, and color-flow Echocardiogram Carroter: Magalys Mason CRT Ht: 5 ft 4 in Wt: 275lbs BSA: 2.24 BP: 156/99 mmHg Indications: Chest Pain, Non STEMI, Hypertension/HDD, RA Echo Enhancing Agent Indication: Endocardial border delineation Agent(s) / Amount(s) Used: Definity 2 cc Comments: Definity given 2D Dimensions LA Volume 36.70 mL LA Volume Index 16.00 mL/m2 (M/F) 16-34 M-Mode Dimensions LA Diam 3.89 cm (1.9-4.0) TAPSE 2.64 (<1.7) LV Diastology E Decel Time 127 (160-240 msec) E/A Ratio 0.95 MED A' 10.00 cm/s LAT A' 16.40 cm/s Aortic Valve AO Peak GR. 6.80 mmHg Mitral Valve MV A Velocity 75.0 (40-130 cm/s) E/A Ratio 0.95 Pulmonary Valve PV Peak Velocity 84.0 (50-150 cm/s) Tricuspid Valve TR P. Velocity 186.00 cm/s RAP Estimate 10.00 mmHg RVSP 23.90 mmHg Left Ventricle The left ventricle is normal size. The left ventricular systolic function is normal. The left ventricular ejection fraction is within the normal range. There is normal left ventricular wall thickness. There is normal LV segmental wall motion. The left ventricular diastolic function is normal. No left ventricle thrombus noted on this study. LVEF is 55%. Right Ventricle The right ventricle is normal size. The right ventricular systolic function is normal. Atria The left atrium size is normal. The right atrium size is normal. There is no Doppler evidence of interatrial shunt. Aortic Valve The aortic valve opens well. There is no aortic valvular stenosis. No aortic regurgitation is present. Mitral Valve The mitral valve is normal in structure. No evidence of mitral valve stenosis. There is no mitral valve regurgitation noted. Tricuspid Valve Tricuspid valve is grossly normal in structure and function. Trace tricuspid regurgitation. There is insufficient TR jet to estimate RVSP. Pulmonic Valve The pulmonary valve is normal in structure. Trace pulmonic regurgitation. Great Vessels The aortic root is normal in size. IVC is normal in size and collapses >50% with inspiration. Pericardium There is no pericardial effusion. Other Information Study Quality: Fair Conclusion Normal biventricular systolic function. No significant valvular stenosis or regurgitation. Electronically signed by : Darby Vergara MD 09/20/2024 00:38:26
[2024-09-19] MEDS: ACETAMINOPHEN 325MG TAB 650 MG PO (06:14)
[2024-09-19 07:39] LABS: Anion Gap 16.0 mEq/L (5-15); Blood Urea Nitrogen 15 mg/dl (7-17); Calcium 9.4 mg/dl (8.4-10.2); Carbon Dioxide 22 mmol/L (22.0-30.0); Chloride 106 mmol/L (98-107); Creatinine Clearance Estimated 85 mL/min (50-200); Creatinine,Serum 0.70 mg/dl (0.52-1.04); Estimated Glomerular Filt Rate 89 ml/min (>60); GFR (African American) 108 ML/MIN (>60); Glucose 130 mg/dl (74-100); Magnesium 2.0 mg/dl (1.6-2.3); Potassium 4.0 mmoL/L (3.5-5.1); Sodium 140 mmol/L (136-145)
[2024-09-19 07:40] LABS: Alanine Aminotransferase 26 U/L (12-78); Albumin Level 4.7 g/dl (3.5-5.0); Albumin/Globulin Ratio 1.7 (1.1-1.8); Alkaline Phosphatase 77 U/L (38-126); Aspartate Amino Transferase 29 U/L (14-36); Bilirubin,Total 0.7 mg/dl (0.2-1.3); Globulin 2.7 g/dL (1.3-3.2); Total Protein,Serum 7.4 g/dl (6.3-8.2)
[2024-09-19 07:54] LABS: Hematocrit 43.0 % (37.0-47.0); Hemoglobin 13.8 g/dL (12.2-16.2); Red Blood Count 5.03 M/mm3 (4.20-5.40); White Blood Count 10.2 K/mm3 (4.8-10.8)
[2024-09-19 07:55] LABS: Mean Corpuscular HGB Conc 32.1 g/dL (31.8-35.4); Mean Corpuscular Hemoglobin 27.4 pg (27.0-31.2); Mean Corpuscular Volume 85.5 fl (81-99); Nucleated Red Blood Cells % 0 %; Platelet Count 264 K/mm3 (142-424); Red Cell Distribution Width-SD 42.5 fL
[2024-09-19 07:56] LABS: Immature Granulocytes % 0.7 %
[2024-09-19] MEDS: ASPIRIN EC 81MG TABLET 81 MG PO (09:01)
[2024-09-19] MEDS: LISINOPRIL 20MG TABLET 20 MG PO (09:01)
[2024-09-19] MEDS: VENLAFAXINE XR 75MG CAPSULE 75 MG PO (09:02)
[2024-09-19] MEDS: METOPROLOL SUCCINATE XL 25MG TABLET 25 MG PO (09:02)
[2024-09-19] MEDS: DEFINITY US ECHO CONTRAST 2ML INJ 2 MG IV (09:09)
--- NOTE | 2024-09-19 10:00 | PC.NURSE ---
Report given to Brook Carpenter RN. Continuation of care plan.
--- NOTE | 2024-09-19 10:23 | IR_ITS ---
APPROVED REPORT Patient Location: Inpatient PROCEDURES Left heart catheterization Left ventriculogram Selective coronary angiogram Drug-eluting stent deployment to the proximal mid and distal right coronary artery in a continuous manner Intravascular ultrasound to the right coronary Drug-eluting stent appointment to the first obtuse marginal artery Drug-eluting stent deployment to the second obtuse marginal artery INDICATION Acute non-ST elevation myocardial infarction, Coronary artery disease, Complex angiography requiring IVUS guidance Informed consent was obtained prior to the procedure. COMPLICATIONS NONE Estimated Blood Loss: LESS THAN 10 ML TECHNIQUE One percent lidocaine used to anesthetize the right anterior aspect of the wrist. The right radial artery was accessed via the Seldinger technique. A 6 [place] sheath was placed in the right radial artery. 2.5 mg of Verapamil, 800 mcg of nitroglycerin, 1mg Lidocaine and 5000 U Heparin were given through the arterial sheath. The JL3 catheter was also used to perform left heart catheterization, left ventriculogram and selective coronary angiogram. At the end the diagnostic angiogram therapeutic heparin is administered given a therapeutic ACT and the guide catheter was placed in the right coronary followed by choice PT extra-support wire placed distally. 2.75 x 38 mm Yasir frontier stent was deployed in the mid segment. A 3 mm x 30 mm [place] frontier stent was placed distal to the for stent yet still overlapping and deployed at 15 lewis. The balloon was brought back and deployed at 20 lewis to match the 2 stents and a post dilate the 2.75 mm stent. A 3.5 x 15 mm [place] frontier stent was placed proximal to the first stent yet still overlapping and deployed at 20 lewis. Intravascular ultrasound probe was advanced which demonstrated undersizing and poor expansion in several areas. 3.5 x 20 mm noncompliant balloon was deployed in the distal portion at 20 lewis in the midportion at 24 lewis the proximal portion at 24 lewis. Excellent angiographic results were obtained with YARELIS-3 flow being present before and after the procedure. Following this the guide catheter was placed in the left main artery and a choice floppy wire was placed in the second obtuse marginal artery where a 2.5 x 22 mm [place] frontier stent was deployed at 20 lewis reducing the severe stenosis to 0%. The wire was pulled back and placed into the first obtuse marginal artery where another 2.5 x 22 mm [place] frontier stent was deployed at 20 lewis reducing this critical stenosis 0%. YARELIS-3 flow was present before and after the procedure. At the end the procedure the apparatus was removed the sheath was removed good hemostasis was achieved and TR banding patient was transferred to the postop putting in stable condition ANGIOGRAPHIC RESULTS The left main artery Normal The left anterior descending artery Has proximal 30% stenosis with mid vessel 40% stenoses and distal 30% stenosis The circumflex artery Is codominant and has a proximal 40% concentric stenosis with a 90% stenosis in the proximal first obtuse marginal artery and tandem 90% stenoses in the second obtuse marginal artery The right coronary artery Is codominant and has proximal 50% mid vessel 80% in the distal 70% stenosis The PEDRAZA ventriculogram reveals Preserved at 55% The left ventricular end-diastolic pressure 20 mmHg IMPRESSION Severe to critical coronary disease involving the 1st and 2nd obtuse marginal artery off the circumflex artery and severe disease throughout the right coronary as described above Successful stenting of the proximal mid and distal right coronary severe disease reduced to 0% with 3 contiguous drug-eluting stents Successful stenting of a critically diseased first obtuse marginal artery critical disease reduced to 0% with 1 drug-eluting stent Successful stenting of a critically diseased second obtuse marginal artery critical disease reduced to 0% with 1 drug-eluting stent Preserved ejection fraction Mildly elevated LVEDP PLAN 1. Effient aspirin 2. LDL less than 55 to be achieved with high intensity statin 3. Aggressive treatment of diabetes 4. Cardiac rehabilitation 5. Recommend weight loss and exercise program 6. Avoidance of tobacco products 7. Standard therapy for ischemic cardiomyopathy which should include carvedilol and ALYCIA inhibitors Electronically signed by : Devon Vance MD 09/19/2024 12:55:04
--- NOTE | 2024-09-19 10:28 | EXP.CARD.CON ---
History of Present Illness History of Present Illness Consult date: 09/19/24 Requesting physician: Chase Arce Consult reason: chest pain Chief complaint: chest pain History of present illness: This is a 49-year-old white female who presented to the emergency department complaints of chest pain. She states that her symptoms started on Thursday morning. She states at first it felt like a racing of the heart and her heart was going to race out of her chest. Then she had a burning, pressure sensation that radiated to her bilateral arms into the left side of her neck. It was associated with nausea and shortness of breath. The patient states that the symptoms started Thursday morning and persisted all throughout the day on Thursday. She thought she was dehydrated and got some liquid IV without improvement in her symptoms. On Thursday night she came to the emergency department because her symptoms continued to persist. This was a 10 out of 10 pain. Nothing helped to improve her symptoms at home. Her systolic blood pressure was greater than 200 while in the emergency department. She was found to have an elevated troponin consistent with a non-STEMI. She states that her symptoms have improved since being in the hospital. She denies any fever, chills, vomiting, diarrhea, PND or orthopnea. [facility] Disclaimer: The information contained in this section may have been updated after the patient was seen, as this information can be updated by other users. Medical History (Updated 09/19/24 @ 10:31 by Brook Murguia APRN) Angina pectoris NSTEMI (non-ST elevated myocardial infarction) Elevated troponin COVID-19 Exposure to COVID-19 virus Viral syndrome Hypoglycemia Gastroenteritis Fall down stairs Concussion Sinusitis Bronchitis UTI (urinary tract infection) Seropositive rheumatoid arthritis of multiple joints Rheumatoid arthritis Hypertension Surgical History H/O cardiac catheterization H/O gastric sleeve History of tonsillectomy History of cholecystectomy History of Family History Other Coronary artery disease Diabetes Hypertension Social History (Updated 09/18/24 @ 04:31 by Rosario Rincon RN) Smoking Status: Never smoker alcohol intake: never substance use type: denies use current occupational status: unemployed Travel in the last 8 weeks?: None household members: spouse and children housing: house Have you lived/traveled outside US in past 30 days?: No Contact w/someone who lives/traveled outside US past 30 days?: No Exposure to someone with infectious disease in past 14 days?: No Do you have a fever (greater than 100.4 F or 38 C)?: No Have you tested positive for COVID-19?: No Exposed to someone with COVID-19 in past 14 days?: No Do you have a sore throat?: No Do you have a cough?: No Do you have any weakness?: No Are you experiencing any nausea/vomitting?: No Do you have any diarrhea?: No Are you experiencing any unusual bleeding?: No Do you have any muscle aches/pain?: No Do you have any abdominal pain?: No Are you experiencing loss of taste or smell?: No Review of Systems Review of Systems Review of systems:: pertinent systems reviewed and negative unless documented below Constitutional Constitutional: Reports system reviewed and no additional complaints, except as documented Eyes Eyes: Reports system reviewed and no additional complaints, except as documented ENT Ears, Nose, Mouth, and Throat: Reports system reviewed and no additional complaints, except as documented *Cardiovascular Cardiovascular: Reports system reviewed and no additional complaints, except as documented, Reports chest pain, Reports chest pain at rest, Reports chest pain with activity, Reports dyspnea, Reports dyspnea on exertion, Reports palpitations, Reports radiating jaw, neck or arm pain and Reports rapid heart rate *Respiratory Respiratory: Reports system reviewed and no additional complaints, except as documented, Reports dyspnea and Reports dyspnea on exertion *Gastrointestinal Gastrointestinal: Reports system reviewed and no additional complaints, except as documented and Reports nausea *Genitourinary Genitourinary: Reports system reviewed and no additional complaints, except as documented *Musculoskeletal Musculoskeletal: Reports system reviewed and no additional complaints, except as documented Integumentary/Breasts Skin/Breast: Reports system reviewed and no additional complaints, except as documented *Neurologic Neurologic: Reports system reviewed and no additional complaints, except as documented Psychiatric Psychiatric: Reports system reviewed and no additional complaints, except as documented Endocrine Endocrine: Reports system reviewed and no additional complaints, except as documented and Reports palpitations Hematologic/Lymphatic Hematologic/Lymphatic: Reports system reviewed and no additional complaints, except as documented Allergic/Immunologic Allergic/Immunologic: Reports system reviewed and no additional complaints, except as documented Exam Data for Last 24 hours Vital signs and Labs for Last 24 Hours: Temp Pulse Resp BP Pulse Ox O2 Del Method 98.8 F 84 15 136/88 95 Room Air 09/19/24 07:59 09/19/24 08:30 09/19/24 08:30 09/19/24 07:59 09/19/24 08:30 09/19/24 09:00 Laboratory Results - last 24 hr 09/18/24 07:40: TSH 1.08 09/19/24 06:49: WBC 10.2 D, RBC 5.03, Hgb 13.8, Hct 43.0, MCV 85.5, MCH 27.4, MCHC 32.1, RDW 13.8, Plt Count 264, MPV 10.0, Neut % (Auto) 67.9, Lymph % (Auto) 21.6, [place] % (Auto) 6.8, Eos % (Auto) 2.5, Baso % (Auto) 0.5, Neut # (Auto) 6.9, Lymph # (Auto) 2.2, [place] # (Auto) 0.7, Eos # (Auto) 0.3, Baso # (Auto) 0.1, Sodium 140, Potassium 4.0, Chloride 106, Carbon Dioxide 22, Anion Gap 16.0 H, BUN 15, Creatinine 0.70, Estimated Creat Clear 85, Estimated GFR 89, Est GFR ( Amer) 108, Glucose 130 H, Calcium 9.4, Magnesium 2.0, Total Bilirubin 0.7, AST 29, ALT 26 D, Alkaline Phosphatase 77, Total Protein 7.4, Albumin 4.7, Globulin 2.7, Albumin/Globulin Ratio 1.7 I & O for Last 24 hours: Intake & Output 09/16/24 09/17/24 09/18/24 09/19/24 23:59 23:59 23:59 23:59 Intake Total 1050 / 1050 Output Total 1600 / 1600 400 / 400 Balance -550 / -550 -385 / -385 Weight 262 lb 275 lb 6.388 oz 276 lb 0.3 oz Constitutional Constitutional: no acute distress and morbidly obese *Routine HEENT Exam Head: Present normocephalic and atraumatic ENT: Present mucous membranes moist *Routine Neck Exam Neck: Present supple, full ROM and normal carotid upstroke; Absent JVD, carotid bruit or lymphadenopathy *Routine Respiratory Exam Respiratory: Present CTA bilaterally, normal respiratory effort, able to speak in complete sentences and symmetric chest movement *Routine Cardiovascular Exam Cardiovascular: Present RRR, Normal S1 and Normal S2; Absent murmur or gallop *Routine Abdominal Exam Abdominal: Present soft and normoactive bowel sounds; Absent tenderness, distended or organomegaly *Routine Extremities Exam Extremities: Present full ROM, pulses intact and normal capillary refill; Absent cyanosis, clubbing or edema *Routine Skin Exam Skin: Present intact and warm; Absent erythema *Routine Neurological Exam Neurological: Present alert, oriented X3 and CN II-XII intact; Absent sensory deficit or motor deficit Routine Psychiatric Exam Psychiatric: Present normal affect Meds Home Medications and Allergies Home Medications ?Medication ?Instructions ?Recorded ?Confirmed ?Type folic acid 1 mg tablet 1 mg PO DAILY 04/21/24 09/18/24 History methotrexate sodium 2.5 mg tablet 15 mg PO FR 04/21/24 09/18/24 History meloxicam 15 mg tablet 15 mg PO DAILY #30 tabs 06/29/24 09/18/24 Rx venlafaxine 75 mg capsule,extended 75 mg PO DAILY 30 days #90 caps 08/24/24 09/18/24 Rx release 24 hr diltiazem HCl 180 mg 180 mg PO DAILY 09/18/24 09/18/24 History capsule,extended release 24 hr lisinopril 20 mg tablet 20 mg PO DAILY 09/18/24 09/18/24 History sumatriptan succinate 25 mg tablet 25 mg PO DAILYP PRN Headache 09/18/24 09/18/24 History aspirin 81 mg chewable tablet 81 mg PO DAILY #30 tabs 09/19/24 Rx prasugrel HCl 10 mg tablet 10 mg PO DAILY #30 tabs 09/19/24 Rx (Effient) New Prescriptions to Start Prescriptions: aspirin Devon Vance prasugrel HCl [Effient] Devon Vance Allergies Allergy/AdvReac Type Severity Reaction Status Date / Time nadolol AdvReac Mild Hypertensio Verified 09/18/24 03:58 n Assessment and Plan *Assessment and plan (1) NSTEMI (non-ST elevated myocardial infarction): Status: Acute Category: Medical Code(s): I21.4 - Non-ST elevation (NSTEMI) myocardial infarction (2) Angina pectoris: Status: Acute Category: Medical Code(s): I20.9 - Angina pectoris, unspecified (3) Hypertension: Status: Acute Qualifiers: Hypertension type: primary hypertension Qualified Code(s): I10 - Essential (primary) hypertension Category: Medical Code(s): I10 - Essential (primary) hypertension (4) Tachycardia: Status: Acute Category: Medical Code(s): R00.0 - Tachycardia, unspecified (5) Spleen enlarged: Status: Acute Category: Medical Code(s): R16.1 - Splenomegaly, not elsewhere classified (6) Fatty liver: Status: Acute Category: Medical Code(s): K76.0 - Fatty (change of) liver, not elsewhere classified (7) Enlarged liver: Status: Acute Category: Medical Code(s): R16.0 - Hepatomegaly, not elsewhere classified Plan Plan: 1. The patient was admitted to the hospital with chest pain. She was found to have an elevated troponin consistent with a non-STEMI. The patient undergo left cardiac catheterization today to evaluate coronary artery disease due to the elevated troponin. 2. The patient has been educated the risk and benefits of proceed with left cardiac catheterization. The patient verbalized understanding and is agreeable in proceeding with the procedure. 3. The patient will be n.p.o. in preparation for left cardiac catheterization. 4. Will obtain an echocardiogram to evaluate her LV function due to her non-STEMI. 5. Continue aspirin 81 mg daily and Lovenox for non-STEMI. 6. Her blood pressure is well-controlled. Continue lisinopril and metoprolol. 7. Her LDL goal is less than 55. Her LDL is 107. Start Lipitor 40 mg p.o. nightly. 8. Continue to hold diltiazem. 9. Further recommendations will be made pending the patient's response to treatment and the results of her left cardiac catheterization today. Thank you for the opportunity to help participate in the care of this patient. All recommendations and orders are per Dr. Vergara. AMB Pre-cath Criteria Pre-cath considerations: Clinical evaluation and indication for coronary angiography includes:: suspected CAD, new onset angina <= 2 months and worsening angina Patient is describing chest pain symtom as:: typical angina Clinical risk factors:: Elevated troponin, non-STEMI, hypertension How many antianginals is the patient taking?: 2 Patient is taking:: beta char and CCB Risks and benefits:: We will plan to proceed with LHC/coronary angiography with right radial access. The patient has been educated on the risks and benefits of proceeding with LHC/coronary angiography with right radial access. The patient verbalized understanding and is agreeable in proceeding with the procedure.
[2024-09-19] MEDS: VERAPAMIL 2.5MG/ML 2ML VIAL 2.5 MG IV (10:54)
[2024-09-19] MEDS: HEPARIN 1,000 UNITS/500ML NS (CATH LAB) 3000 UNIT IV (10:54)
[2024-09-19] MEDS: NITROGLYCERIN 800MCG/8ML SYR (CATH LAB) 800 MCG IA (10:54)
[2024-09-19] MEDS: HEPARIN 1,000 UNITS/ML 10ML VIAL (CATH LAB) 5000 UNIT IV (10:54)
[2024-09-19] MEDS: 0.9 % SODIUM CHLORIDE 500 ML 25 ML IV (10:55)
[2024-09-19] MEDS: LIDOCAINE 1% 10ML MDV 10 ML IJ (10:55)
[2024-09-19] MEDS: FENTANYL 100MCG/2ML VIAL 50 MCG IV (10:55)
[2024-09-19] MEDS: MIDAZOLAM HCL 1MG/ML 5ML VIAL 1 MG IV (10:55)
--- NOTE | 2024-09-19 10:55 | PC.NURSE ---
Patient off floor to r and d lab technician, with Anitra Miles RN. @ 10:35am.
[2024-09-19] MEDS: ASPIRIN 325MG TABLET 325 MG PO (11:40)
[2024-09-19] MEDS: PRASUGREL 10MG TAB 60 MG PO (11:40)
--- NOTE | 2024-09-19 11:55 | SUR.PHASEII ---
NOTIFIED A BL[employer]ISE DISPLAYER OF PATIENT BP ELEVATED
--- NOTE | 2024-09-19 12:05 | PC.NURSE ---
Patient back to room from farm labor contractor.
[2024-09-19] MEDS: IOPAMIDOL-370 (76%);100ML BOTTLE 250 ML IV (13:08)
[2024-09-19 13:11] LABS: CATHL Activated Clotting Time 388 SEC (74-125)
[2024-09-19] MEDS: LISINOPRIL 20MG TABLET 40 MG PO (14:13)
[2024-09-19] MEDS: AMLODIPINE 10MG TABLET 10 MG PO (14:14)
--- NOTE | 2024-09-19 17:55 | PC.NURSE ---
arrived by w/c from ICU
[2024-09-19] MEDS: ATORVASTATIN 40MG TABLET 40 MG PO (20:26)
[2024-09-20] VITALS: BP 135/77; PULSE 80; PULSE 89; RESP 18; TEMP 36.8; O2SAT 95
[2024-09-20 04:00] VITALS: BP 122/85; PULSE 90; RESP 20; TEMP 36.8; O2SAT 97; BMI 45.7
[2024-09-20 07:14] LABS: Hematocrit 37.8 % (37.0-47.0); Hemoglobin 12.5 g/dL (12.2-16.2); Immature Granulocytes % 0.3 %; Mean Corpuscular HGB Conc 33.1 g/dL (31.8-35.4); Mean Corpuscular Hemoglobin 28.2 pg (27.0-31.2); Mean Corpuscular Volume 85.1 fl (81-99); Nucleated Red Blood Cells % 0 %; Platelet Count 221 K/mm3 (142-424); Red Blood Count 4.44 M/mm3 (4.20-5.40); Red Cell Distribution Width-SD 42.1 fL; White Blood Count 9.8 K/mm3 (4.8-10.8)
[2024-09-20 07:22] LABS: Alanine Aminotransferase 21 U/L (12-78); Albumin Level 4.2 g/dl (3.5-5.0); Albumin/Globulin Ratio 1.8 (1.1-1.8); Alkaline Phosphatase 59 U/L (38-126); Anion Gap 10.9 mEq/L (5-15); Aspartate Amino Transferase 25 U/L (14-36); Bilirubin,Total 0.7 mg/dl (0.2-1.3); Blood Urea Nitrogen 16 mg/dl (7-17); Calcium 9.1 mg/dl (8.4-10.2); Carbon Dioxide 24 mmol/L (22.0-30.0); Chloride 108 mmol/L (98-107); Creatinine Clearance Estimated 85 mL/min (50-200); Creatinine,Serum 0.70 mg/dl (0.52-1.04); Estimated Glomerular Filt Rate 89 ml/min (>60); GFR (African American) 108 ML/MIN (>60); Globulin 2.4 g/dL (1.3-3.2); Glucose 108 mg/dl (74-100); Magnesium 1.9 mg/dl (1.6-2.3); Potassium 3.9 mmoL/L (3.5-5.1); Sodium 139 mmol/L (136-145); Total Protein,Serum 6.6 g/dl (6.3-8.2)
[2024-09-20 08:00] VITALS: BP 146/80; PULSE 90; PULSE 93; RESP 14; TEMP 37; O2SAT 97
[2024-09-20] MEDS: LISINOPRIL 20MG TABLET 40 MG PO (08:41)
[2024-09-20] MEDS: ASPIRIN EC 81MG TABLET 81 MG PO (08:41)
[2024-09-20] MEDS: AMLODIPINE 10MG TABLET 10 MG PO (08:41)
[2024-09-20] MEDS: METOPROLOL SUCCINATE XL 25MG TABLET 25 MG PO (08:41)
[2024-09-20] MEDS: PRASUGREL 10MG TAB 10 MG PO (08:41)
[2024-09-20] MEDS: VENLAFAXINE XR 75MG CAPSULE 75 MG PO (08:50)
--- NOTE | 2024-09-20 10:33 | P.PN_ITS ---
Documented by User: CASH Mariee 09/20/24 10:37 Subjective Subjective Date: 09/20/24 Time: 09:30 Interval history: Successful stenting of RCA and OM1 yesterday. Patient has stable labs and vitals this morning and denies symptoms. Exam Data for Last 24 hours Vital signs and Labs for Last 24 Hours: Temp Pulse Resp BP Pulse Ox O2 Del Method 98.6 F 93 H 14 146/80 H 97 Room Air 09/20/24 08:00 09/20/24 08:00 09/20/24 08:00 09/20/24 08:00 09/20/24 08:00 09/20/24 09:05 Laboratory Results - last 24 hr 09/19/24 11:12: Activated Clotting Time 388 H* 09/20/24 06:26: WBC 9.8, RBC 4.44, Hgb 12.5, Hct 37.8, MCV 85.1, MCH 28.2, MCHC 33.1, RDW 13.6, Plt Count 221, MPV 10.3, Neut % (Auto) 70.8, Lymph % (Auto) 18.1, [place] % (Auto) 7.7, Eos % (Auto) 2.7, Baso % (Auto) 0.4, Neut # (Auto) 6.9, Lymph # (Auto) 1.8, [place] # (Auto) 0.8, Eos # (Auto) 0.3, Baso # (Auto) 0.0, Sodium 139, Potassium 3.9, Chloride 108 H, Carbon Dioxide 24, Anion Gap 10.9, BUN 16, Creatinine 0.70, Estimated Creat Clear 85, Estimated GFR 89, Est GFR ( Amer) 108, Glucose 108 H, Calcium 9.1, Magnesium 1.9, Total Bilirubin 0.7, AST 25, ALT 21, Alkaline Phosphatase 59, Total Protein 6.6, Albumin 4.2 D, Globulin 2.4, Albumin/Globulin Ratio 1.8 I & O for Last 24 hours: Intake & Output 09/17/24 09/18/24 09/19/24 09/20/24 23:59 23:59 23:59 23:59 Intake Total 1050 / 1050 15 / 375 840 / 840 Output Total 1600 / 1600 400 / 400 600 / 600 Balance -550 / -550 -385 / -25 240 / 240 Weight 262 lb 275 lb 6.388 oz 276 lb 0.3 oz 274 lb 8 oz Constitutional Constitutional: no acute distress and cooperative *Routine HEENT Exam Eye: Present PERRL *Routine Respiratory Exam Respiratory: Present CTA bilaterally; Absent accessory muscle use, wheezes or crackles *Routine Cardiovascular Exam Cardiovascular: Present RRR, Normal S1 and Normal S2; Absent murmur, gallop or rubs Comments: Right radial cath site normal on inspection and palpation *Routine Abdominal Exam Abdominal: Present soft; Absent tenderness *Routine Extremities Exam Extremities: Present pulses intact; Absent cyanosis or edema *Routine Skin Exam Skin: Present intact; Absent erythema or wounds *Routine Neurological Exam Neurological: Present alert and oriented X3 Routine Psychiatric Exam Psychiatric: Present cooperative Progress Note: A&P Assessment and plan (1) NSTEMI (non-ST elevated myocardial infarction): Status: Acute (2) CAD (coronary artery disease), [place] coronary artery: Status: Acute (3) Hypertension: Status: Acute (4) Hyperlipidemia: Status: Acute (5) Fatty liver: Status: Acute (6) Spleen enlarged: Status: Acute (7) Diabetes mellitus: Status: Acute Assessment and Plan Assessment and Plan for All Diagnoses:: 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 Discussed dedicated intermodal truck driver RF modification and care for cath site. Htn - stable - home with Metoprolol, Lisinopril, Amlodipine DM-II - new dx this admission - would be good candidate for GLP-1 but states she was previously intolerant - defer to Hospitalist HLD - home with high dose statin CV stable for DC Home. Office f/u with us 1-2 weeks. CV DC Meds: Aspirin 81 mg 1 p.o. daily Effient 10 mg 1 p.o. daily Toprol-XL 25 mg 1 p.o. daily Lisinopril 20 mg 1 p.o. daily Amlodipine 5 mg 1 p.o. daily Atorvastatin 80 mg 1 p.o. nightly Documented by User: Brook Murguia APRN 09/20/24 12:36 Subjective Subjective Interval history: Successful stenting of RCA and OM1 yesterday. Patient has stable labs and vitals this morning. Denies chest pain or pressure. Denies shortness of breath or edema. Denies fever, chills, nausea, vomiting or diarrhea. Exam Data for Last 24 hours Vital signs and Labs for Last 24 Hours: Temp Pulse Resp BP Pulse Ox O2 Del Method 98.6 F 93 H 14 146/80 H 97 Room Air 09/20/24 08:00 09/20/24 08:00 09/20/24 08:00 09/20/24 08:00 09/20/24 08:00 09/20/24 09:05 Laboratory Results - last 24 hr 09/19/24 11:12: Activated Clotting Time 388 H* 09/20/24 06:26: WBC 9.8, RBC 4.44, Hgb 12.5, Hct 37.8, MCV 85.1, MCH 28.2, MCHC 33.1, RDW 13.6, Plt Count 221, MPV 10.3, Neut % (Auto) 70.8, Lymph % (Auto) 18.1, [place] % (Auto) 7.7, Eos % (Auto) 2.7, Baso % (Auto) 0.4, Neut # (Auto) 6.9, Lymph # (Auto) 1.8, [place] # (Auto) 0.8, Eos # (Auto) 0.3, Baso # (Auto) 0.0, Sodium 139, Potassium 3.9, Chloride 108 H, Carbon Dioxide 24, Anion Gap 10.9, BUN 16, Creatinine 0.70, Estimated Creat Clear 85, Estimated GFR 89, Est GFR ( Amer) 108, Glucose 108 H, Calcium 9.1, Magnesium 1.9, Total Bilirubin 0.7, AST 25, ALT 21, Alkaline Phosphatase 59, Total Protein 6.6, Albumin 4.2 D, Globulin 2.4, Albumin/Globulin Ratio 1.8 I & O for Last 24 hours: Intake & Output 09/17/24 09/18/24 09/19/24 09/20/24 23:59 23:59 23:59 23:59 Intake Total 1050 / 1050 15 / 375 840 / 840 Output Total 1600 / 1600 400 / 400 600 / 600 Balance -550 / -550 -385 / -25 240 / 240 Weight 262 lb 275 lb 6.388 oz 276 lb 0.3 oz 274 lb 8 oz Constitutional Constitutional: morbidly obese Progress Note: A&P Assessment and plan (1) NSTEMI (non-ST elevated myocardial infarction): Status: Acute (2) CAD (coronary artery disease), [place] coronary artery: Status: Acute (3) Hypertension: Status: Acute (4) Hyperlipidemia: Status: Acute (5) Fatty liver: Status: Acute (6) Spleen enlarged: Status: Acute (7) Diabetes mellitus: Status: Acute Assessment and Plan Assessment and Plan for All Diagnoses:: Plan: 1. The patient was admitted to the hospital with chest pain. She was found to have an elevated troponin consistent with a non-STEMI. The patient underwent left cardiac catheterization yesterday and had stenting to the proximal and distal right coronary artery with 3 drug-eluting stents, stenting to the first obtuse marginal artery with 1 drug-eluting stent and stenting to the second obtuse marginal artery with 1 drug-eluting stent. She tolerated the procedure well and will be on Effient and aspirin for dual antiplatelet therapy. 2. Echo showed a normal ejection fraction and no significant valve disease. 3. Her blood pressure is well-controlled. Continue lisinopril and metoprolol and norvasc for hypertension. 4. Her LDL goal is less than 55. Her LDL is 107. She was started on Lipitor 40 mg p.o. nightly. 5. Patient has new onset diabetic. Her hemoglobin A1c was 7.1%. She would be a good candidate for a GLP-1. Will leave this up to the hospitalist. 6. No further recommendations at this time from a cardiac standpoint. She is stable for discharge home today from a cardiac standpoint on the following cardiac medications: CV DC Meds: Aspirin 81 mg 1 p.o. daily Effient 10 mg 1 p.o. daily Toprol-XL 25 mg 1 p.o. daily Lisinopril 40 mg 1 p.o. daily Amlodipine 10 mg 1 p.o. daily Atorvastatin 40 mg 1 p.o. nightly Thank you for the opportunity to help participate in the care of this patient. All recommendations and orders are per Dr. Vergara.
--- NOTE | 2024-09-20 10:37 | EXP.DC.SUM ---
General Admission date:: 09/18/24 Discharge date: 09/20/24 HPI HPI HPI: Ms. Matthews a 49-year-old female began to have chest pain this morning she described as 10 out of 10.. She has had this all day and now has come to the emergency room. She now describes her chest pain is about 7 out of 10.. Workup by the ER provider and report to me shows that she does have an elevated troponin, there was no ST elevation on the twelve-lead EKG.. Due to a slightly elevated D-dimer a CT scan was done to rule out any potential pulmonary embolism. Blood pressure and heart rate has remained high with systolic being greater than 200 at times sometimes dropping to a little below 140. CT scan noted hepatosplenomegaly, and fatty liver. Examination found no other source for the pain. Such as trauma injury or overuse.. She is noted that she receives methotrexate once a week for a positive RA titer and positive RICKIE titer. Other pertinent history shows that she had COVID twice in 2021 also once in 2023. She is a non-smoker, but is morbidly obese . Her weight has remained basically the same. She denies any vomiting or nauseated with the symptoms. Patient states she has been taking her calcium channel char and ALYCIA inhibitor as prescribed. She is also received aspirin in the emergency room. Given the first dose of Lovenox will then be increased to a milligrams in the morning.. Plans are to continue to monitor heart rate and blood pressure need for nitroglycerin drips is a possibility. For this reason she will be placed in the stepdown in the ICU. In evaluating patient's past labs she is not a diabetic but has hyperinsulinemia. Hospital Course Hospital Course Hospital Course: Cj Briones is a 49-year-old female who presented with midsternal chest pain with radiation to left jaw and was admitted for NSTEMI. Taken for left heart cath on 09/19. Tolerated procedure well. Received 5 stents total. Stable to discharge home with close follow-up as an outpatient. Adjustments made to medications. Problems addressed as follows: # Type I NSTEMI #CAD #Hypertension ? Presented with 1 day onset of midsternal chest pain with radiation to left jaw, troponins peaked at 0.51. EKG without ST elevations. Intermittent chest pains before C, responsive to nitro. Cardiology consulted, s/p PCI with 3 stents to RCA, 1 stent to first obtuse, and 1 stent to second obtuse arteries. Patient tolerated procedure well. LV gram showed preserved EF 55%. Dr. Vance recommended monitoring overnight. Started aspirin 81 mg, Effient 10 mg, atorvastatin 40 mg, metoprolol succinate 25 mg. Had discontinued home diltiazem. Did well overnight. Cardiology recommended adding amlodipine 10 mg daily and lisinopril 40 mg daily for hypertension. Echo obtained showing preserved EF. Left heart cath findings as follows: Severe to critical coronary disease involving the 1st and 2nd obtuse marginal artery off the circumflex artery and severe disease throughout the right coronary as described above Successful stenting of the proximal mid and distal right coronary severe disease reduced to 0% with 3 contiguous drug-eluting stents Successful stenting of a critically diseased first obtuse marginal artery critical disease reduced to 0% with 1 drug-eluting stent Successful stenting of a critically diseased second obtuse marginal artery critical disease reduced to 0% with 1 drug-eluting stent Preserved ejection fraction Mildly elevated LVEDP #Type 2 diabetes, new diagnosis #Obesity #Hepatosplenomegaly #Fatty liver disease ? Hemoglobin A1c 7.1%. Blood sugar stable during admission. Recommend close follow-up with PCP to consider GLP-1 as an outpatient to treat both diabetes and her obesity. #Anxiety/depression: Continue home venlafaxine 75 mg. Exam Data for Last 24 hours Vital signs and Labs for Last 24 Hours: Temp Pulse Resp BP Pulse Ox O2 Del Method 98.6 F 93 H 14 146/80 H 97 Room Air 09/20/24 08:00 09/20/24 08:00 09/20/24 08:00 09/20/24 08:00 09/20/24 08:00 09/20/24 09:05 Laboratory Results - last 24 hr 09/19/24 11:12: Activated Clotting Time 388 H* 09/20/24 06:26: WBC 9.8, RBC 4.44, Hgb 12.5, Hct 37.8, MCV 85.1, MCH 28.2, MCHC 33.1, RDW 13.6, Plt Count 221, MPV 10.3, Neut % (Auto) 70.8, Lymph % (Auto) 18.1, [place] % (Auto) 7.7, Eos % (Auto) 2.7, Baso % (Auto) 0.4, Neut # (Auto) 6.9, Lymph # (Auto) 1.8, [place] # (Auto) 0.8, Eos # (Auto) 0.3, Baso # (Auto) 0.0, Sodium 139, Potassium 3.9, Chloride 108 H, Carbon Dioxide 24, Anion Gap 10.9, BUN 16, Creatinine 0.70, Estimated Creat Clear 85, Estimated GFR 89, Est GFR ( Amer) 108, Glucose 108 H, Calcium 9.1, Magnesium 1.9, Total Bilirubin 0.7, AST 25, ALT 21, Alkaline Phosphatase 59, Total Protein 6.6, Albumin 4.2 D, Globulin 2.4, Albumin/Globulin Ratio 1.8 I & O for Last 24 hours: Intake & Output 09/17/24 09/18/24 09/19/24 09/20/24 23:59 23:59 23:59 23:59 Intake Total 1050 / 1050 15 / 375 840 / 840 Output Total 1600 / 1600 400 / 400 600 / 600 Balance -550 / -550 -385 / -25 240 / 240 Weight 118.841 kg 124.919 kg 125.2 kg 124.511 kg Constitutional Constitutional: no acute distress, morbidly obese and cooperative *Routine HEENT Exam Head: Present normocephalic Eye: Present EOMI and PERRL ENT: Present mucous membranes moist *Routine Neck Exam Neck: Present supple; Absent lymphadenopathy *Routine Respiratory Exam Respiratory: Present CTA bilaterally; Absent rhonchi, wheezes or crackles *Routine Cardiovascular Exam Cardiovascular: Present RRR *Routine Abdominal Exam Abdominal: Present soft and normoactive bowel sounds; Absent tenderness *Routine Rectal Exam Patient deferred: visual exam *Routine Exam Patient deferred: external exam *Routine Extremities Exam Extremities: Absent cyanosis, clubbing or edema Comments: Right radial access clean dry and intact. No bleeding *Routine Skin Exam Skin: Present intact and warm; Absent rash *Routine Neurological Exam Neurological: Present alert, oriented X3 and moving all extremities; Absent altered mental status Results Data Completed and Pending Labs on day of discharge: Labs from last 24 hours 09/20/24 09/19/24 06:26 11:12 WBC 9.8 RBC 4.44 Hgb 12.5 Hct 37.8 MCV 85.1 MCH 28.2 MCHC 33.1 RDW 13.6 Plt Count 221 MPV 10.3 Neut % (Auto) 70.8 Lymph % (Auto) 18.1 [place] % (Auto) 7.7 Eos % (Auto) 2.7 Baso % (Auto) 0.4 Neut # (Auto) 6.9 Lymph # (Auto) 1.8 [place] # (Auto) 0.8 Eos # (Auto) 0.3 Baso # (Auto) 0.0 Activated Clotting Time 388 H* Sodium 139 Potassium 3.9 Chloride 108 H Carbon Dioxide 24 Anion Gap 10.9 BUN 16 Creatinine 0.70 Estimated Creat Clear 85 Estimated GFR 89 Est GFR ( Amer) 108 Glucose 108 H Calcium 9.1 Magnesium 1.9 Total Bilirubin 0.7 AST 25 ALT 21 Alkaline Phosphatase 59 Total Protein 6.6 Albumin 4.2 D Globulin 2.4 Albumin/Globulin Ratio 1.8 DS: Diagnosis Discharge Diagnosis (1) NSTEMI (non-ST elevated myocardial infarction): Status: Acute Code(s): I21.4 - Non-ST elevation (NSTEMI) myocardial infarction (2) CAD (coronary artery disease), [place] coronary artery: Status: Acute Code(s): I25.10 - Atherosclerotic heart disease of [place] coronary artery without angina pectoris (3) Fatty liver: Status: Acute Code(s): K76.0 - Fatty (change of) liver, not elsewhere classified (4) Spleen enlarged: Status: Acute Code(s): R16.1 - Splenomegaly, not elsewhere classified Meds Home Medications and Allergies Home Medications ?Medication ?Instructions ?Recorded ?Confirmed ?Type folic acid 1 mg tablet 1 mg PO DAILY 04/21/24 09/18/24 History methotrexate sodium 2.5 mg tablet 15 mg PO FR 04/21/24 09/18/24 History venlafaxine 75 mg capsule,extended 75 mg PO DAILY 30 days #90 caps 08/24/24 09/18/24 Rx release 24 hr sumatriptan succinate 25 mg tablet 25 mg PO DAILYP PRN Headache 09/18/24 09/18/24 History amlodipine 10 mg tablet 10 mg PO DAILY 30 days #30 tabs 09/20/24 Rx aspirin 81 mg tablet,delayed 81 mg PO DAILY #30 tabs 09/20/24 Rx release atorvastatin 40 mg tablet 40 mg PO HS 30 days #30 tabs 09/20/24 Rx lisinopril 40 mg tablet 40 mg PO DAILY #30 tabs 09/20/24 Rx metoprolol succinate 25 mg 25 mg PO DAILY 30 days #30 tabs 09/20/24 Rx tablet,extended release 24 hr prasugrel HCl 10 mg tablet 10 mg PO DAILY 30 days #30 tabs 09/20/24 Rx New Prescriptions to Start Prescriptions: amlodipine Dangelo,Ruel aspirin Dangelo,Ruel atorvastatin Dangelo,Ruel lisinopril Dangelo,Ruel metoprolol succinate Dangelo,Ruel prasugrel HCl Dangelo,Ruel Allergies Allergy/AdvReac Type Severity Reaction Status Date / Time nadolol AdvReac Mild Hypertensio Verified 09/18/24 03:58 n Discharge Plan Disposition Patient Disposition: Home, Self-Care Condition: Good Discharge Order Discharge Orders: Discharge Order (Routine); Ordered 09/20/24 Ordered By: Ruel Pierson Follow up Plan Follow up with: Brook Murguia APRN [Nurse Practitioner, Cardiology] - 09/26/24 11:00 am Fabián Kent MD [Primary Care Provider, Internal Medicine] - 09/27/24 11:30 am Prescriptions/Medication Reconciliation: New atorvastatin 40 mg Tablet 40 mg PO HS 30 Days Qty: 30 0RF amlodipine 10 mg Tablet 10 mg PO DAILY 30 Days Qty: 30 0RF metoprolol succinate 25 mg Tablet Extended Release 24 Hr 25 mg PO DAILY 30 Days Qty: 30 0RF lisinopril 40 mg tablet 40 mg PO DAILY Qty: 30 0RF aspirin 81 mg Tablet,Delayed Release (Dr/Ec) 81 mg PO DAILY Qty: 30 5RF prasugrel HCl 10 mg Tablet 10 mg PO DAILY 30 Days Qty: 30 5RF Continued methotrexate sodium 2.5 mg tablet 15 mg PO FR Patient Comments: TAKE 6 TABLETS 1 TIME EACH WEEK folic acid 1 mg tablet 1 mg PO DAILY Patient Comments: TAKE 1 TABLET 1 TIME EACH DAY venlafaxine 75 mg capsule,extended release 24hr 75 mg PO DAILY 30 Days Qty: 90 0RF sumatriptan succinate 25 mg tablet 25 mg PO DAILYP PRN (Reason: Headache) Patient Comments: TAKE 1 TABLET AT START OF HEADACHE. MAY TAKE ANOTHER TABLET IN 2 HOURS IF NEEDED. DO NOT TAKE MORE THAN 4 TABLETS IN 24 HOURS. Rx Instructions: OFE 1 TABLET AT START OF HEADACHE. MAY TAKE ANOTHER TABLET IN 2 HOURS IF NEEDED. DO NOT TAKE MORE THAN 4 TABLETS IN 24 HOURS. Discontinued meloxicam 15 mg tablet 15 mg PO DAILY Qty: 30 2RF diltiazem HCl 180 mg capsule,extended release 24hr 180 mg PO DAILY Patient Comments: TAKE 1 CAPSULE DAILY lisinopril 20 mg tablet 20 mg PO DAILY Patient Comments: TAKE 1 TABLET DAILY Other Ambulatory Orders: Basic Metabolic Panel (Routine) Timeframe: 3 Days Facility: [facility] - Location: Laboratory Ordered By: Devon Vance Complete Blood Count Auto Diff (Routine) Timeframe: 3 Days Facility: [facility] - Location: Laboratory Ordered By: Devon Vance Problem Reconciliation Problems Reviewed?: Yes Patient Discharge Instructions ACTIVITY: Continue current activity and No heavy lifting DIET: continue same diet, diabetic diet and low fat, low cholesterol Stand Alone Forms: [facility] Work Release Patient Instructions: DI for Cardiac Catheterization, DI for Coronary Artery Disease Print Language: Kazakh Providers Primary Care Provider: Fabián Kent Admit Provider: Chase Arce Attending Provider: Chase Arce
--- NOTE | 2024-09-21 09:53 | SW/DCPLANNER ---
Spoke with patient on the phone. Patient stated that she is doing good and that her arm is sore where she had the heart cath. Patient stated that she is aware of her upcoming appointments. Patient stated that she was able to get her new medicine picked up from [facility]. Patient stated that she has no concerns or questions at this time. Evelin Beltran
== END 2024-09-20 12:02 | disposition home or self-care (01) | DRG 321 ==
LOC: ER 23:25 → 2ND 09-18 00:39 → ICU 09-18 22:21 → 2ND 09-19 17:48
PROVIDERS: Internal Medicine; Nurse Practitioner Family; Admitting Provider Student in an Organized Health Care Education/Training Program; Emergency Provider Emergency Medicine; PCP Family Medicine; Visit Provider Student in an Organized Health Care Education/Training Program
PROC: 4A023N7 Measurement of Cardiac Sampling and Pressure, Left Heart, Percutaneous Approach (ICD-10-PCS; CPT 93452; principal; 2024-09-19 10:30)
DX: I21.4 Non-ST elevation (NSTEMI) myocardial infarction (principal); Z68.42 Body mass index [BMI] 45.0-49.9, adult; I25.10 Atherosclerotic heart disease of native coronary artery without angina pectoris; I10 Essential (primary) hypertension; E11.9 Type 2 diabetes mellitus without complications; K76.0 Fatty (change of) liver, not elsewhere classified; R16.2 Hepatomegaly with splenomegaly, not elsewhere classified; E78.5 Hyperlipidemia, unspecified; M06.9 Rheumatoid arthritis, unspecified; F41.9 Anxiety disorder, unspecified; F32.A Depression, unspecified; E66.01 Morbid (severe) obesity due to excess calories; Z79.899 Other long term (current) drug therapy; Z88.8 Allergy status to other drugs, medicaments and biological substances; Z86.16 Personal history of COVID-19
CPT/HCPCS: 36415; 71045; 71275; 80053; 80061; 83036; 83735; 83880; 84443; 84484; 84703; 85025; 85347; 85378; 85651; 85730; 93005; 93306; 99152; 99153; C1725; C1769; C1874; J1200; J1644; J1650; J1885; J2003; J2060; J2250; J2270; J3010; J7040; Q9957; Q9967

== ENCOUNTER 2024-09-22 13:11 | Outpatient (CLI) | payer BC, SELFPAY ==
--- OUTSIDE RECORDS SUMMARY | 2024-08-02 14:45 | XMS_ITS | Encounter Summary ---
Author Organization [facility] Address [address] [place] [address] Care Team Providers Care Insulation Extruder Operator Name Role Phone Fabián [place] MD Primary Care Provider +1- [phone] Reason for Visit * Reason Comments Rheumatoid Arthritis Follow up Encounter Details Date Type Department Care Team (Late st Contact Info) Description 08/02/2024 2:45 PM EDT Office Visit [facility] RHEUMATOLOGY [address] [address] Abner Valentin DO [address] [id number] Seropositive rheumatoid arthritis (Primary Dx); High risk [...] sent through Care Everywhere. * Rheumatoid Arthritis (Bangladeshi) documented in this encounter Progress Notes * Abner Valentin DO - 08/02/2024 2:45 PM EDTAssociated Problem(s): Seropositive rheumatoid arthritis Medication/treatment/interventions tried include: Tylenol, sulfasalazine, venlafaxine, she saw Rheumatology 2022, Paroxetine, methotrexate/folic acid, meloxicam 03/21/22: ESR 25 (< 20), RF 18 (<14), CCP Negative, CRP normal, Benavidez normal, SSA and SSB normal, Sm/SANITATION WORKER Normal, DS DNA Normal, RICKIE 1:320 speckled [...] normal, Benavidez normal, SSA and SSB normal, Sm/SANITATION WORKER Normal, DS DNA Normal, RICKIE 1:320 speckled [...] 4 months (around 12/02/2024). Abner Valentin DO [facility] [place] documented in this encounter Plan of Treatment Upcoming Encounters Date Type Department Care Team (Late st Contact Info) Description 12/30/2024 11:15 AM EDT Office Visit [facility] [address] [place] [address] Abner Valentin DO [address] [facility] [address] [place] [address] Scheduled Orders Name Type Priority Associated Diagnoses [...] 08/02/2024 2:47 PM EDT 08/02/2024 Narrative [facility] (AMBULATORY) - 08/03/2024 5:06 AM EDT Performed at: - [address] [id number] Coffee Weigher: Galindo Lobato PhD, Phone: [phone] Patient Fasting: N Abner Valentin DO LAB BLOOD ORDERABLES F inal Result [facility] (AMBULATORY) [address] [id number], [facility] [address] [place] [address], * Sedimentation Rate (08/02/2024 2:47 PM EDT) [facility] Sed Rate 26 0 - 32 mm/hr [facility] Blood 08/02/2024 2:47 PM EDT 08/02/2024 Narrative [facility] (AMBULATORY) - 08/03/2024 5:06 AM EDT Performed at: 01 - [facility] [address] [place], [place] [id number] Coffee Weigher: Galindo Lobato PhD, Phone: [phone] Patient Fasting: N [facility] LAB BLOOD ORDERABLES F inal Result Performing Organization Address [facility]/ZIP Co de Phone Number [facility] [address] [place] [address], [facility] [address] [place] [address], * C-reactive Protein (08/02/2024 2:47 PM EDT) [facility] C-Reactive Protein 3 0 - 10 mg/L [facility] Blood 08/02/2024 2:47 PM EDT 08/02/2024 Narrative [facility] - 08/03/2024 5:06 AM EDT Performed at: - [facility] [address] [place], [place] [id number] Coffee Weigher: Galindo Lobato PhD, Phone: [phone] Patient Fasting: N [facility] LAB BLOOD ORDERABLES F inal Result Performing Organization Address [facility]/ZIP Co de Phone Number [facility] (AMBULATORY) [address] [place] [address], [facility] [address] [place] [address], * (ABNORMAL) Comprehensive Metabolic Panel (08/02/2024 2:47 [...] 08/02/2024 2:47 PM EDT 08/02/2024 Narrative [facility] (AMBULATORY) - 08/03/2024 5:06 AM EDT Performed at: 01 - [facility] [id number] [place], [place] [id number] Coffee Weigher: Galindo Lobato PhD, Phone: [phone] Patient Fasting: N Abner Valentin DO LAB BLOOD ORDERABLES F inal Result [facility] (AMBULATORY) [address] [place] [address], [place] [phone] [facility] [address] [place] [address], documented in this encounter Visit Diagnoses Diagnosis Seropositive rheumatoid arthritis- Primary High risk medication use documented in this encounter Care Teams Insulation Extruder Operator Relationship Specialty Start Date End Date Fabián [place] MD [address] [place] [address] PCP - General Family Medicine 03/23/24 documented as of this encounter
--- OUTSIDE RECORDS SUMMARY | 2024-09-22 13:14 | XMS_ITS | Data Portability ---
Author Organization [place] [facility] [facility] Address [address] [place] [address] Care Team Providers Care Stretch Box Tender Name Role Phone [place] HINKLE Primary Care [...] CT, angiogram, chest, w/wo contrast 2021 022 1 [facility] (Centralized Scheduling), [address] [place] [address] , [place], [address], 08:46:24 Medication Orders None recorded. Patient TargetsNo targets recorded. Patient InstructionsNo instructions recorded. Reason for Referral None Reported. Results Created Date Observation Date Name Description Value Unit Range Abnormal Flag Note LastModifiedBy Organization Detail LastModifiedTime 12/17/1912/16/2021 CREAT ININE W/GFR note See Note Order ing Provi amor: Jacob regan MD Not Available [address] , [place], [address], 12/16/2021 11:23:05 12/17/1912/16/2021 CREAT ININE W/GFR creatinine 0.68 mg/dL 0.55-1 .02 normal Not Available [address] , [place], [address], 12/16/2021 11:23:05 12/17/1912/16/2021 CREAT ININE W/GFR glom filtr rate (estimated) > 60 mL/mi n >60 normal Not Available [address] [place], [place], [address], 12/16/2021 11:23:05 12/17/1912/16/2021 CREAT ININE W/GFR GFR est (if -amer ican) > 60 mL/mi n >60 normal Not Available [address] [place], [place], [address], 12/16/2021 11:23:05 12/17/1912/16/2021 CREAT ININE W/GFR performing lab see note - [facility] [address] [place] [address] [facility] [address] Not Available [address] [place], [place], [address], 12/16/2021 11:23:05 12/17/1912/16/2021 CT, chest , w/ contr ast [facility] Name: CJ STUART9 Medica l SMCpros Phys: Broderick CHA, [place] [address] : 1975 Age: 46 Sex: F Acct: [id number] Loc: G.CT PHONE #: Exam Date: 2021 Status : REG CLI FAX #: Rad# [id number] Unit# [id number] Admit Date: 2021 EXAMS: CPT CODE: [id number] CTA CHEST (PE) 71188 Examin ation: CTA chest PE protoc ol [...] ia. PAGE 1 Signed Report (KEILA NUED) [facility] Name: CJ STUART [employer] [facility] Medical Phys: Broderick CHA, [place] [address] : 1975 Age: 46 Sex: F Acct: [id number] Loc: G.CT PHONE #: Exam Date: 2021 Status : REG CLI FAX #: Rad# [id number] Unit# [id number] Admit Date: 2021 EXAMS: CPT CODE: [id number] CTA CHEST (PE) 83618 Electr onical ly Signed by GIOVANNI DAVENPORT [...] BRODERICK Al ting Provid er: MEEK BE [email or web address] [address] , [place], [address], 12/16/2021 14:05:13 Result Notes Documentation Provider Name and Address Organization Details Recorded Time Ct, Chest, W/ Contrast : [facility] Name: CJ STUART [address] [place] [address] Phys: [place] [address] : 1975 Age: 46 Sex: F Acct: [id number] Loc: G.CT PHONE #: Exam Date: 12/16/2021 Status: REG CLI FAX #: Rad# [id number] Unit# [id number] Admit Date: 12/16/2021 EXAMS: CPT CODE: [id number] CTA CHEST (PE) 37302 Examination: CTA chest PE protocol 12/16/2021 History: [...] Society criteria. PAGE 1 Signed Report (CONTINUED) [facility] Ce Name: CJ STUART [address] Phys: Broderick CHA, [place] [address] : 1975 Age: 46 Sex: F Acct: [id number] Loc: G.CT PHONE #: Exam Date: 12/16/2021 Status: REG CLI FAX #: Rad# [id number] Unit# [id number] Admit Date: 12/16/2021 EXAMS: CPT CODE: [id number] CTA CHEST (PE) 40855 at 1208 Reported and signed by: KYLIE DAVENPORT MD CC: [place] SORIA-C; Jacob Mcconnell MD Dictated Date/Time: 12/16/2021 (1208) Technologist: MARYANNE WINKLER Transcribed Date/Time: 12/16/2021 (1208) Pad Machine Feeder: Electronic Signature Date/Time: 12/16/2021 (1208) Printed Date/Time: 12/16/2021 (1229) BATCH NO: N/A PAGE 2 Signed Report CC'ed Logic: Ordering Provider: BRODERICK PERALTA Attending Provider: BRODERICK PERALTA Referring Provider: BRODERICK PERALTA Consulting Provider: MANAN Casanova [facility], [place] - [place] - [place] [facility] [place] 12/16/2021 14:05:13 Problems Name Problem SNOMED Code Status Onset Date Resolution Date Notes Provider Name and Address Organization Details Recorded Time Dyspnea on exertion 32189185 Active 2021 Jacob Mcconnell MD [facility] [address], [place], [address] [facility] [place] - [facility] - [place] [facility] [place] 2 09:11:04 Tachycardia 8066045 Active 2021 Jacob Mcconnell MD [address] [place] [address],[address], [place], [address], [facility] & [place] 2 09:11:17 Edema 521544395 Active 2021 Jacob Mcconnell MD [address] [place] [address],[address], [place], [address], [facility] & [place] 2 09:11:35 Problem Notes None recorded. Procedures Surgical History Date Name Laterality Status Provider Name and Address Organization Details Recorded Time 007 Cholecystectomy completed [facility] Kannan DAMICO [facility] & [place] 11/28/2021 14:16:31 006 Tonsillectomy/Farhad oidectomy completed Poonamalysa DAMICO [facility] & [place] 11/28/2021 14:16:31 Imaging Results None recorded. Procedure [...] Updated DateTime 2 165.1 cm 45.1 kg/m2 329874. 53 g 98 % 98 % 110 /min 128/76 mm[Hg] Poonam García n [facility] & [place] 2 14:15:00 Social History Question Answer Notes LastModified by Socialthing ion Details LastModified Time Tobacco Smoking Status Never Smoker Poonam Brunner null, [facility] & [place] 11/28/2021 14:19:49 If You Are , What Was Your Level Of Alcohol Consumption Prior To ? None [email or web address] Information not available 11/28/2021 Sex: Unknown Functional Status Question Answer Note LastModified by Organizat ion Details LastModified Time Do you use any illicit or recreational drugs? No [email or web address] Information not available 11/28/2021 What is your level of alcohol consumption? None [email or web address] Information not available 11/28/2021 Mental Status None recorded. Family History Relationship Description Onset Age of this Age Resolved Age Notes LastModified by Organization Details LastModified Time Father No current problems or disability [email or web address] Not available 0 11/28/2021 14:19:33 Mother No current problems or disability [email or web address] Not available 0 11/28/2021 14:19:33 Medical History Condition Response Obesity Y Headaches Y Hypertension Y Gynecological HistoryNo gynecological history recorded. Obstetrics History GPAL:G 0 P 0 0 0 0 Past Encounters Encounter ID Performer Location Encounter Start Date Encounter Closed Date Diagnosis/Indication Diagnosis SNOMED-CT Code Diagnosis ICD10 Code Diagnosis Note [id number] Jacob Mcconnell MD [address] [email or web address] [address] [place] [address] 11/28/2021 08:41:47 11/28/2021 09:08:09 Dyspnea on exertion 60703720 R06.09 Tachycardia 2086280 R00. [address]-COVID-19 syndrome 4848369030 Z86.16 Edema 065632654 R60.9 Health Concerns Section Related Observation LastModified by Organization Detai ls LastModified Time None Recorded Concern Status LastModified by Organization Details LastModified Time None Recorded Advance Directives Directive None Recorded Payers Insurance Date Sequence Insurance Name Policy Number Policy Harman Covered Member ID Harman Member ID Guarantor Name 12/23/2021 1 [place] [id number] Cj Stuart [id number] Cj Stuart 01/16/2023 1 [facility] (MEDICAID HMO) Zac Roa [id number] Cj Stuart 10/01/2021 1 [facility] [id number] Irvin B Roa [id number] Cj Stuart Notes Date Note Type Note [...] of breath Jacob Mcconnell MD [address] [facility] [place] [facility],[address], [place], [address], [facility] - [facility] 11/29/2021 17:09:15 OBGyn Episode No OBEpisode recorded.
--- OUTSIDE RECORDS SUMMARY | 2024-09-22 13:15 | XMS_ITS | Encounter Summary ---
Author Organization Healthcare Address [address] [place] [address] Care Team Providers Care Meat Lugger Name Role Phone Lovely Uribe MD Primary Care Provider [phone] Encounter Details Date Type Department Care Team (Late st Contact Info) Description 04/24/2022 Community [facility] [address] [place] [address] Fabián Kent MD Social History Tobacco Use [...] documented as of this encounter Care Teams Meat Lugger Relationship Specialty Start Date End Date Lovely Uribe MD [address] [place] [address] PCP - General 07/13/20 documented as of this encounter
--- OUTSIDE RECORDS SUMMARY | 2024-09-22 13:15 | XMS_ITS | Encounter Summary ---
Author Organization [facility] Address [address] [place] [address] Care Team Providers Care Near Eastern Archaeology Lecturer Name Role Phone Fabián Kent MD Primary Care Provider [phone] Encounter Details Date Type Department Care Team [...] Description 12/30/2024 11:15 AM EDT Office Visit [facility] RHEUMATOLOGY [address] [phone] Abner Valentin DO [address] [address] documented as of this encounter Visit Diagnoses Not on filedocumented in this encounter Care Teams Near Eastern Archaeology Lecturer Relationship Specialty Start Date End Date Fabián Kent MD [address] [place] [address] [place] [address] PCP - General Family Medicine 03/23/24 documented as of this encounter
--- OUTSIDE RECORDS SUMMARY | 2024-09-22 13:15 | XMS_ITS | Encounter Summary ---
Author Organization [facility] Address [address] [place] [address] Care Team Providers Care Title Abstractor Name Role Phone Fabián Kent MD Primary Care Provider [phone] Reason for Visit * Reason Onset Date Comments Med Refill 07/26/2024 Encounter Details Date Type Department Care Team (Late st Contact Info) Description 07/26/2024 Refill [facility] RHEUMATOLOGY [address] [address] Abner Valentin DO [address] [id number] Social History Tobacco Use Types Packs/Day Years [...] Description 12/30/2024 11:15 AM EDT Office Visit [facility] RHEUMATOLOGY [address] [phone] Abner Valentin DO [address] [address] documented as of this encounter Visit Diagnoses Not on filedocumented in this encounter Care Teams Title Abstractor Relationship Specialty Start Date End Date Fabián Kent MD [address] [place] [facility] [address] [place] [address] PCP - General Family Medicine 03/23/24 documented as of this encounter
--- OUTSIDE RECORDS SUMMARY | 2024-09-22 13:15 | XMS_ITS | Referral Summary ---
Author Organization [facility] ([place], [place], [place], [place]) Address [address] [place] [address] Care Team Providers Care Floating Derrick Operator Name Role Phone Fabián Kent MD Primary Care Provider [phone]- [phone] Allergies No known active allergies Medications lisinopriL [...] Date Steven rded Speak language other than Estonian at home Not on file 05/12/2023 Want [...] file Insurance BLUE CROSS/BLUE SHIELD Care Teams Floating Derrick Operator Relationship Specialty Start Date End Date Fabián Kent MD [address] [place] [address] [place] [address] PCP - General Family Medicine 05/12/23
--- OUTSIDE RECORDS SUMMARY | 2024-09-22 13:15 | XMS_ITS | Clinical Summary ---
Author Organization [facility] Address [address] [place] [address] Care Team Providers Care Courtroom Deputy Or Calendar Clerk Name Role Phone Fabián Kent MD Primary Care Provider [phone]- [phone] Allergies No known active allergies Medications dilTIAZem [...] normal, Benavidez normal, SSA and SSB normal, Sm/SMELTER CHARGER Normal, DS DNA Normal, RICKIE 1:320 speckled [...] normal, Benavidez normal, SSA and SSB normal, Sm/SMELTER CHARGER Normal, DS DNA Normal, RICKIE 1:320 speckled [...] Department Care Team Description 08/03/2024 Results Follow-Up [facility] [address] [place] [phone] Abner Valentin DO 08/02/2024 2:45 PM EDT Office Visit [facility] [address] [place] [phone] Abner Valentin DO Seropositive rheumatoid arthritis (Primary Dx); High risk medication use 08/02/2024 Travel 07/26/[address] [facility] [address] [place] [phone] Abner Valentin DO 07/21/[address] [facility] [address] [place] [phone] Abner Valentin DO from Last 3 Months [...] Description 12/30/2024 11:15 AM EDT Office Visit [facility] [address] [place] [phone] Abner Valentin DO [address] [facility] [address] [place], [place] [id number] Health Maintenance Due Date Last Done Comments [...] 5:06 AM EDT Performed at: 01 - [facility] [address] [place], [place] [id number] Plasterer Journeyman: Galindo Lobato PhD, Phone: [phone] Patient Fasting: N Abner Valentin DO LAB BLOOD ORDERABLES F inal Result [facility] ([facility]) [address] [place] [address], [facility] [address] [place] [address], * (ABNORMAL) CBC & Differential (08/02/2024 2:47 [...] PM EDT 08/02/2024 Narrative [facility] (AMBULATORY) - 08/03/2024 5:06 AM EDT Performed at: [address] [place] [id number] Plasterer Journeyman: Galindo Lobato PhD, Phone: [phone] Patient Fasting: N [facility] LAB BLOOD ORDERABLES F inal Result Performing Organization Address [facility]/ZIP Co de Phone Number [facility] [address] [id number], [facility] [address] [place], [place] [id number], [place] [phone] * C-reactive Protein (08/02/2024 2:47 PM EDT) [facility] C-Reactive Protein 3 0 - 10 mg/L [facility] Blood 08/02/2024 2:47 PM EDT 08/02/2024 [facility] (AMBULATORY) - 08/03/2024 5:06 AM EDT Performed at: [address] [place] [id number] Plasterer Journeyman: Galindo Lobato PhD, Phone: [phone] Patient Fasting: N Abner Valentin LAB BLOOD ORDERABLES F inal Result Performing Organization Address City/[facility]/ZIP Co de Phone Number [facility] [address] [place] [address], [place] [phone] [facility] [address] [place] [address], * (ABNORMAL) Comprehensive Metabolic Panel (08/02/2024 2:47 PM EDT) Pathologist [facility] Glucose 210(H) 70 - 99 mg/dL [facility] [...] Blood 08/02/2024 2:47 PM EDT 08/02/[address] [facility] - 08/03/2024 5:06 AM EDT Performed at: - [address] [id number] Plasterer Journeyman: Galindo Lobato PhD, Phone: [phone] Patient Fasting: N us Abner Valentin DO LAB BLOOD ORDERABLES F inal Result [facility]) [address] [place], [place] [id number], [facility] [address] [place], [place] [id number], * Hepatitis Panel, Acute (03/31/2024 12:39 PM EST) [facility] Hepatitis B Surface Ag Non-Reacti ve Non-Reacti ve 04/01/2024 12:01 AM EST [facility] Hep A IgM Non-Reacti ve Non-Reacti ve 04/01/2024 12:01 AM EST [facility] Hep B C IgM Non-Reacti ve Non-Reacti ve 04/01/2024 12:01 AM EST [facility] Hepatitis C Ab Non-Reacti ve Non-Reacti ve 04/01/2024 12:01 AM EST [facility] Blood Venipuncture / Unknown 03/31/2024 12:39 PM EST 03/31/2024 12:39 PM EST [facility] - 04/01/2024 12:01 AM EST Results may be falsely decreased if patient taking Biotin. Abner Valentin DO LAB BLOOD ORDERABLES F inal Result [facility]
[address] [place] [address], from Last 3 Months or Most Recently Relevant to Health Maintenance Insurance Care Teams Courtroom Deputy Or Calendar Clerk Relationship Specialty Start Date End Date Fabián Kent MD [address] [place] [address] PCP - General Family Medicine 03/23/24
--- OUTSIDE RECORDS SUMMARY | 2024-09-22 13:15 | XMS_ITS | Clinical Summary ---
Author Organization Healthcare Address [address] [place] [address] Care Team Providers Care Craft Artist Name Role Phone Lovely Uribe MD Primary Care Provider [phone] Allergies No known active allergies Medications dilTIAZem [...] Grandfather Dangelo Hoffman Cancer Paternal Grandfather Larce [place] Relation Name Status Comments Maternal Grandfather Dangelo [...] Last Done Comments Y-Infant/Child/Adol SDOH Screenings 1976 [id number] Vaccine (#1) 1981 [facility]- SDOH Screenings 1994 [...] Screen Nonreactive Nonreactive 03/21/2022 2:03 PM EST [facility] Blood Venous blood specimen / Unknown Venipuncture / Unknown 03/21/2022 10:45 AM EST 03/21/2022 10:48 AM EST March R Noah IMAGING SCIENCE PROFESSOR LAB BLOOD ORDERABLES Final Result [facility] [address] [place] [address] * Acute Hepatitis Panel (03/21/2022 10:45 AM EST) Hepatitis B Surf Antigen Negative Negative 03/21/2022 1:42 PM EST [facility] Hepatitis C Antibody Negative Negative 03/21/2022 1:42 PM EST [facility] Hepatitis A Antibody IgM Negative Negative 03/21/2022 1:42 PM EST [facility] Hepatitis B Core Antibody IgM Negative Negative 03/21/2022 1:42 PM EST [facility] Blood Venous blood specimen / Unknown Venipuncture / Unknown 03/21/2022 10:45 AM EST 03/21/2022 10:48 AM EST march R Noah IMAGING SCIENCE PROFESSOR LAB BLOOD ORDERABLES Final [facility] [address] [place] [address] from Last 3 Months or Most Recently Relevant to Health Maintenance Insurance Care Teams Craft Artist Relationship Specialty Start Date End Date Lovely Uribe MD [address] [place] [address] PCP - General 07/13/20
--- OUTSIDE RECORDS SUMMARY | 2024-09-22 13:15 | XMS_ITS | Clinical Summary ---
Author Organization [facility] ([place], [place], [place], [place]) Address [address] [place] [address] Care Team Providers Care Airplane Flight Attendant Supervisor Name Role Phone Fabián Kent MD Primary Care Provider [phone] Allergies No known active allergies Medications lisinopriL [...] Date Steven rded Speak language other than Bulgarian at home Not on file 05/12/2023 Want [...] 2024 Insurance BLUE CROSS/BLUE SHIELD Care Teams Airplane Flight Attendant Supervisor Relationship Specialty Start Date End Date Fabián Kent MD [address] [place] [address] PCP - General Family Medicine 05/12/23
--- OUTSIDE RECORDS SUMMARY | 2024-09-22 13:15 | XMS_ITS | Encounter Summary ---
Author Organization [facility] Address [address] [place] [address] Care Team Providers Care Production Control Expert Name Role Phone Fabián Kent MD Primary Care Provider [phone] Encounter Details Date Type Department Care Team ([facility] Contact Info) Description 08/03/2024 Results Follow-Up [facility] [address] [phone] Abner Valentin DO [address] [place] [phone] Social History Tobacco Use Types Packs/Day Years [...] Description 12/30/2024 11:15 AM EDT Office Visit [facility] [address] [phone] Abner Valentin DO [address] [place] [phone] documented as of this encounter Visit Diagnoses Not on filedocumented in this encounter Care Teams Production Control Expert Relationship Specialty Start Date End Date Fabián Kent MD [address] [place] [address] PCP - General Family Medicine 03/23/24 documented as of this encounter
[2024-09-22 13:47] LABS: Hematocrit 40.1 % (37.0-47.0); Hemoglobin 12.9 g/dL (12.2-16.2); Immature Granulocytes % 0.3 %; Mean Corpuscular HGB Conc 32.2 g/dL (31.8-35.4); Mean Corpuscular Hemoglobin 27.3 pg (27.0-31.2); Mean Corpuscular Volume 85.0 fl (81-99); Nucleated Red Blood Cells % 0 %; Platelet Count 259 K/mm3 (142-424); Red Blood Count 4.72 M/mm3 (4.20-5.40); Red Cell Distribution Width-SD 42.3 fL; White Blood Count 10.1 K/mm3 (4.8-10.8)
[2024-09-22 14:18] LABS: Chloride 107 mmol/L (98-107); Sodium 137 mmol/L (136-145)
[2024-09-22 14:19] LABS: Potassium 4.4 mmoL/L (3.5-5.1)
[2024-09-22 14:21] LABS: Blood Urea Nitrogen 22 mg/dl (7-17); Creatinine,Serum 0.60 mg/dl (0.52-1.04); Estimated Glomerular Filt Rate 107 ml/min (>60); GFR (African American) 129 ML/MIN (>60)
[2024-09-22 14:22] LABS: Anion Gap 12.4 mEq/L (5-15); Calcium 9.8 mg/dl (8.4-10.2); Carbon Dioxide 22 mmol/L (22.0-30.0); Glucose 93 mg/dl (74-100)
== END 2024-09-22 23:59 | disposition home or self-care (01) ==
LOC: LAB 13:12
PROVIDERS: PCP Family Medicine; Visit Provider Internal Medicine
DX: I25.10 Atherosclerotic heart disease of native coronary artery without angina pectoris (principal)
CPT/HCPCS: 36415; 80048; 85025

== ENCOUNTER 2024-10-13 18:15 | Emergency (ER) | payer BC, SELFPAY ==
--- NOTE | 2024-10-13 18:21 | ECG_ITS ---
APPROVED REPORT Exam: Resting ECG HR:101 bpm ECG Measurements Heart Rate 101 AXES MT 167 P 65 QRSd 97 QRS 50 QT 337 T 56 QTc 395 Conclusion SINUS TACHYCARDIA LOW QRS VOLTAGE IN PRECORDIAL LEADS [QRS DEFLECTION < 1.0 mV IN CHEST LEADS] ABNORMAL RHYTHM ECG Electronically signed by : KORTNEY ROUSSEAU, 10/13/2024 21:55:08
--- NOTE | 2024-10-13 18:25 | CT_ITS ---
PROCEDURE INFORMATION: Exam: CTA Chest With Contrast Exam date and time: 10/13/2024 6:42 PM Age: 49 years old Clinical indication: Other: Severe mid shoulder pain; Additional info: Post cath 3w severe mid shoulder pain TECHNIQUE: Imaging protocol: Computed tomographic angiography of the chest with contrast. Exam focused on the arteries. 3D rendering (Not supervised by radiologist): MIP and/or 3D reconstructed images were created by the technologist. Radiation optimization: All CT scans at this facility use at least one of these dose optimization techniques: automated exposure control; mA and/or kV adjustment per patient size (includes targeted exams where dose is matched to clinical indication); or iterative reconstruction. Contrast material: ISOVUE; Contrast volume: 80 ml; Contrast route: INTRAVENOUS (IV); COMPARISON: CT ANGIO CHEST PE PROTOCOL 09/18/2024 12:29 AM FINDINGS: Pulmonary arteries: Normal. No pulmonary emboli. Aorta: Unremarkable. No aortic aneurysm. No aortic dissection. Lungs: Unremarkable. No consolidation. No masses. Pleural spaces: Unremarkable. No pneumothorax. No pleural effusion. Heart: Unremarkable. No cardiomegaly. No pericardial effusion. Coronary arteries: Moderate coronary calcium. Lymph nodes: Unremarkable. No enlarged lymph nodes. Liver: The liver is low in density. Gallbladder and biliary ducts: Cholecystectomy. Stomach: Gastric bypass surgery. Bones/joints: Unremarkable. No acute fracture. Soft tissues: Unremarkable. IMPRESSION: 1. No evidence of pulmonary embolus. 2. Moderate coronary calcium. 3. Diffuse hepatic steatosis. 4. Cholecystectomy and gastric bypass.
--- NOTE | 2024-10-13 18:27 | ED_ITS ---
Discharge Plan Disposition Patient Disposition: Home, Self-Care Prescriptions Prescriptions: No Action methotrexate sodium 2.5 mg tablet 15 mg PO FR Patient Comments: TAKE 6 TABLETS 1 TIME EACH WEEK folic acid 1 mg tablet 1 mg PO DAILY Patient Comments: TAKE 1 TABLET 1 TIME EACH DAY amlodipine 10 mg tablet 10 mg PO DAILY 30 Days Qty: 30 5RF lisinopril 40 mg tablet 40 mg PO DAILY Qty: 30 5RF metoprolol succinate 25 mg tablet extended release 24 hr 25 mg PO DAILY 30 Days Qty: 30 5RF venlafaxine 75 mg capsule,extended release 24hr 75 mg PO DAILY 30 Days Qty: 90 0RF sumatriptan succinate 25 mg tablet 25 mg PO DAILYP PRN (Reason: Headache) Patient Comments: TAKE 1 TABLET AT START OF HEADACHE. MAY TAKE ANOTHER TABLET IN 2 HOURS IF NEEDED. DO NOT TAKE MORE THAN 4 TABLETS IN 24 HOURS. Rx Instructions: OFE 1 TABLET AT START OF HEADACHE. MAY TAKE ANOTHER TABLET IN 2 HOURS IF NEEDED. DO NOT TAKE MORE THAN 4 TABLETS IN 24 HOURS. atorvastatin 40 mg Tablet 40 mg PO HS 30 Days Qty: 30 0RF aspirin 81 mg Tablet,Delayed Release (Dr/Ec) 81 mg PO DAILY Qty: 30 5RF prasugrel HCl 10 mg Tablet 10 mg PO DAILY 30 Days Qty: 30 5RF Referrals Follow up/Referrals: Fabián Kent MD [Primary Care Provider, Internal Medicine] - See instructions Activity Restrictions/Add. Instructions Additional Instructions/Restrictions: At this time it was felt you are safe to be discharged home. If new or worsening symptoms please do not hesitate to return the emergency department. For pain please take Tylenol 1 g every 6 hours as needed. Clinical Impressions Clinical Impression: Shoulder blade pain, Back pain Instructions Patient Instructions: DI for Low Back Pain Print Language Print Language: Chadian Discharge ED Provider: Zach Aparicio HPI General Chief Complaint: Back Pain/Injury Stated Complaint: Pain in left shoulder area,stents placed 4 wks ag Time Seen by Provider: 10/13/24 18:18 History of Present Illness HPI narrative: Patient is a 49-year-old male past medical history of coronary artery disease status post 5 stents a few weeks ago who presents emergency department for evaluation of back pain and shortness of breath. History is obtained by patient at bedside over the last 3 days she has had severe left-sided shoulder pain radiating up into her left trapezius area no anterior chest pain. There is associated shortness of breath and global weakness. This is different as she had anterior chest pain previously which required stenting. No trauma. No other acute complaints at this time. Please note that above description of symptoms, in this electronic medical record under categorization of recalled from ER triage doctor by RN are reflective of an initial nursing assessment, however, is not reflective of my full history and physical exam that was personally taken and clarified. Consequentially, this preceding description of symptoms, which may include the patient's categorized chief complaint in the EMR, do not reflect my personal clinical impression, and the ultimate description of history of present illness and patient stated complaints should be deferred to this section of the note. Unless stated otherwise or congruent with this section of the note, additional signs, symptoms, or incongruence should be interpreted as inaccurate with my clinical impression. Related Data Home Medications ?Medication ?Instructions ?Recorded ?Confirmed folic acid 1 mg tablet 1 mg PO DAILY 04/21/2409/26 methotrexate sodium 2.5 mg tablet 15 mg PO FR 04/21/24 09/26/24 sumatriptan succinate 25 mg tablet 25 mg PO DAILYP PRN Headache 09/18/24 09/26/24 Previous Rx's ?Medication ?Instructions ?Recorded venlafaxine 75 mg capsule,extended 75 mg PO DAILY 30 d ays #90 caps 08/24/24 release 24 hr aspirin 81 mg tablet,delayed 81 mg PO DAILY #30 tabs 0 09/20/24 release atorvastatin 40 mg tablet 40 mg PO HS 30 days #30 tabs 09/20/24 prasugrel HCl 10 mg tablet 10 mg PO DAILY 30 days #30 tabs 09/20/24 amlodipine 10 mg tablet 10 mg PO DAILY 30 days #30 t abs 09/26/24 lisinopril 40 mg tablet 40 mg PO DAILY #30 tabs 08/31 10/24 metoprolol succinate 25 mg 25 mg PO DAILY 30 days #30 tabs 09/26/24 tablet,extended release 24 hr Allergies Allergy/AdvReac Type Severity Reaction Status Date / Time nadolol AdvReac Mild Hypertensio Verified 09/26/24 13:44 n [facility] Disclaimer: The information contained in this section may have been updated after the patient was seen, as this information can be updated by other users. Medical History Myalgia Diabetes mellitus Hyperlipidemia Angina pectoris NSTEMI (non-ST elevated myocardial infarction) Elevated troponin COVID-19 Exposure to COVID-19 virus Viral syndrome Hypoglycemia Gastroenteritis Fall down stairs Concussion Sinusitis Bronchitis UTI (urinary tract infection) Seropositive rheumatoid arthritis of multiple joints Rheumatoid arthritis Hypertension Surgical History H/O cardiac catheterization H/O gastric sleeve History of tonsillectomy History of cholecystectomy History of Family History Other Coronary artery disease Diabetes Hypertension Social History Smoking Status: Never smoker alcohol intake: never substance use type: denies use current occupational status: unemployed Travel in the last 8 weeks?: None household members: spouse and children housing: house Have you lived/traveled outside US in past 30 days?: No Contact w/someone who lives/traveled outside US past 30 days?: No Exposure to someone with infectious disease in past 14 days?: No Do you have a fever (greater than 100.4 F or 38 C)?: No Have you tested positive for COVID-19?: No Exposed to someone with COVID-19 in past 14 days?: No Do you have a sore throat?: No Do you have a cough?: No Do you have any weakness?: No Do you have any diarrhea?: No Are you experiencing any unusual bleeding?: No Do you have any muscle aches/pain?: No Do you have any abdominal pain?: No Are you experiencing loss of taste or smell?: No Other Medical History Have you received the Flu Vaccine for this season: No Have you received the Pneumonia Vaccine: No ROS Obtained: Yes Systems reviewed as appropriate & no additional complaints except as documented Physical Exam General General appearance: alert Comment: Appearing uncomfortable in bed Head Head exam: atraumatic and normocephalic Eye Eye exam: Present PERRL and EOMI ENT ENT exam: Present mucous membranes moist Neck Neck exam: Present normal inspection Chest Chest inspection: Present normal inspection and symmetric chest wall rise Respiratory Respiratory exam: Present normal lung sounds bilaterally; Absent respiratory distress Cardiovascular Cardiovascular exam: Present regular rate and normal rhythm Abdominal Exam Abdominal exam: Present soft; Absent tenderness, guarding or rebound Extremities Exam Extremities exam: Present normal inspection Neurological Exam Neurological exam: Present alert and CN II-XII intact Psychiatric Psychiatric exam: Present normal affect Skin Skin exam: Present warm and dry HEART Score HEART Score HEART Score assessment performed?: Yes History (anamnesis): Moderately suspicious ECG: Normal Age: 45-65 years Risk factors: Atherosclerosis history Troponin: </= normal limit HEART Score: 4 Critical Care Critical Care Time Critical Care Time: No Medical Decision Making Ruddy Inquiry Pt receiving controlled substance: No Vital Signs Vital Signs: 10/13/24 18:30 10/13/24 18:30 10/13/24 18:32 Temperature 98.7 F 98.7 F Temperature Source Oral Oral Pulse Rate 108 H 96 H Pulse Rate [Right] 108 H Respiratory Rate 18 18 17 Blood Pressure 137/92 H 114/70 Blood Pressure [Right Arm] 137/92 H Blood Pressure Mean [Right Arm] 107 02 Sat by Pulse Oximetry 99 99 97 Oxygen Delivery Method Room Air Room Air 10/13/24 19:00 10/13/24 19:30 Temperature Temperature Source Pulse Rate 98 H 99 H Pulse Rate [Right] Respiratory Rate 27 H 27 H Blood Pressure 118/66 107/63 L Blood Pressure [Right Arm] Blood Pressure Mean [Right Arm] 02 Sat by Pulse Oximetry 97 94 L Oxygen Delivery Method Lab Data Labs: Lab Results 10/13/24 18:25: WBC 7.8, RBC 4.33, Hgb 11.8 L, Hct 37.0, MCV 85.5, MCH 27.3, MCHC 31.9, RDW 14.6, Plt Count 213, MPV 10.3, Neut % (Auto) 70.2, Lymph % (Auto) 17.2, Nuckolls % (Auto) 10.1 H, Eos % (Auto) 1.9, Baso % (Auto) 0.3, Neut # (Auto) 5.5, Lymph # (Auto) 1.3, Nuckolls # (Auto) 0.8, Eos # (Auto) 0.2, Baso # (Auto) 0.0, Sodium 140, Potassium 3.9, Chloride 108 H, Carbon Dioxide 26, Anion Gap 9.9, BUN 14, Creatinine 0.60, Estimated Creat Clear 197, Estimated GFR 107, Est GFR ( Amer) 129, Glucose 79, Calcium 9.2, Total Bilirubin 0.4, AST 26, ALT 22, Alkaline Phosphatase 50, Troponin I < 0.01, Total Protein 7.3, Albumin 4.6, Globulin 2.7, Albumin/Globulin Ratio 1.7 10/13/24 18:45: SARS-CoV-2 (PCR) Not detected, Influenza A Untype (PCR) Not detected, Influenza Type B (PCR) Not detected 10/13/24 18:25 10/13/24 18:25 Response Orders (Tests/Meds): ED MEDICATIONS Generic Name Dose Route Start Last Admin Trade Name Freq PRN Reason Stop Dose Admin Sodium Chloride 10 ml 10/13/24 18:48 10/13/24 18:50 Sodium Chloride 0.9% 10ml Syr (Rad Only) IV 11/12/24 18:47 10 ml NEEDED PRN Administration Maintain IV Site Discontinued Medications Generic Name Dose Route Start Last Admin Trade Name Freq PRN Reason Stop Dose Admin Acetaminophen 1,000 mg 10/13/24 18:27 10/13/24 18:48 Acetaminophen 500mg Tab PO 10/13/24 18:28 1,000 mg ONCE ONE Administration Aspirin 324 mg 10/13/24 18:25 10/13/24 18:49 Aspirin 81mg Chewable Tablet PO 10/13/24 18:26 324 mg ONCE ONE Administration Iopamidol 80 ml 10/13/24 18:48 10/13/24 18:50 Iopamidol-370 (76%);100ml Bottle IV 10/13/24 18:49 80 ml ONCE ONE Administration Morphine Sulfate 4 mg 10/13/24 18:25 10/13/24 18:51 Morphine 4mg/Ml Syringe IV 10/13/24 18:26 4 mg ONCE ONE Administration Ondansetron HCl 4 mg 10/13/24 18:25 10/13/24 18:51 Ondansetron 4mg/2ml Vial IV 10/13/24 18:26 4 mg ONCE ONE Administration Sodium Chloride 50 ml 10/13/24 18:48 10/13/24 18:50 0.9 % Sodium Chloride 50 Ml Vial IV 10/13/24 18:49 50 ml ONCE ONE Administration ORDERS Category Date Time Status CT angio chest - dissection Stat Cat Scan 10/13/24 18:25 Completed CBC w/Auto Diff [Complete Blood Count Auto Diff] Stat Lab 10/13/24 18:25 Completed CMP [Comprehensive Metabolic Panel] Stat Lab 10/13/24 18:25 Completed Rapid PCR Covid and Flu A/B Stat Lab 10/13/24 18:45 Completed Trop I [Troponin I] Stat Lab 10/13/24 18:25 Completed Troponin I Q3H Lab 10/13/24 21:30 Ordered Troponin I Q3H Lab 10/14/24 00:30 Ordered ECG Data Tracing #1: ECG Narrative: Independently interpreted by me rate is 101, rhythm is regular, axis is normal, no ST elevation in anatomical contiguous leads, QTc 395 MDM Narrative Medical Decision Narrative: In summary patient is a 49-year-old female past medical history above presents emerged part for evaluation of left shoulder blade pain. Patient is hemodynamically stable nontoxic-appearing upon arrival, afebrile. Differential diagnosis includes dissection, musculoskeletal back pain, among others. Workup we conducted with hematologic labs CT angio chest dissection protocol, troponin, EKG. Initial interventions include multimodal pain control, aspirin, Zofran. EKG at bedside reviewed by me and is nonischemic. Initial workup reviewed by me hematologic labs are nonactionable no significant leukocytosis, no transfusable anemia no CHRISTIANA or critical electrolyte abnormality. Initial troponin undetectably low. Viral swab negative. CTA chest informally visualized by me no saddle PE no obvious dissection. Formal read shows moderate coronary calcium no evidence of PE evidence of previous gastric bypass. Upon repeat evaluation patient was resting in bed. Given this I feel the patient is appropriate for outpatient management at this time I discussed case with Dr. Vance who agrees. Patient will follow-up with cardiology Thursday morning.
[2024-10-13 18:30] VITALS: BP 137/92; PULSE 108; RESP 18; TEMP 37.1; O2SAT 99; BMI 39.9
[2024-10-13 18:32] VITALS: BP 114/70; PULSE 96; RESP 17; O2SAT 97
--- OUTSIDE RECORDS SUMMARY | 2024-10-13 18:36 | XMS_ITS | Clinical Summary ---
Author Organization Healthcare Address [address] [place] [address] Care Team Providers Care Sales Order Coordinator Name Role Phone Lovely Uribe MD Primary Care Provider [phone] Allergies No known active allergies Medications dilTIAZem [...] Grandfather Dangelo Hoffman Cancer Paternal Grandfather Larce Anitha Relation Name Status Comments Maternal Grandfather Dangelo Hoffman Paternal Grandfather Larce [place] Social History Tobacco Use Types Packs/Day Years [...] Last Done Comments Y-Infant/Child/Adol SDOH Screenings 1976 [id number] Vaccine (#1) 1981 [facility]- SDOH Screenings 1994 [...] Screen Nonreactive Nonreactive 03/21/2022 2:03 PM EST [facility] Blood Venous blood specimen / Unknown Venipuncture / Unknown 03/21/2022 10:45 AM EST 03/21/2022 10:48 AM EST March R Naoh FEED RESEARCH AIDE LAB BLOOD ORDERABLES Final Result [facility] [address] [place] [address] * Acute Hepatitis Panel (03/21/2022 10:45 AM EST) Hepatitis B Surf Antigen Negative Negative 03/21/2022 1:42 PM EST [facility] Hepatitis C Antibody Negative Negative 03/21/2022 1:42 PM EST [facility] Hepatitis A Antibody IgM Negative Negative 03/21/2022 1:42 PM EST [facility] Hepatitis B Core Antibody IgM Negative Negative 03/21/2022 1:42 PM EST [facility] Blood Venous blood specimen / Unknown Venipuncture / Unknown 03/21/2022 10:45 AM EST 03/21/2022 10:48 AM EST march R Noah FEED RESEARCH AIDE LAB BLOOD ORDERABLES Final Result [facility] [address] [place] [address] from Last 3 Months or Most Recently Relevant to Health Maintenance Insurance Care Teams Sales Order Coordinator Relationship Specialty Start Date End Date Lovely Uribe MD [address] [place] [address] PCP - General 07/13/20
--- OUTSIDE RECORDS SUMMARY | 2024-10-13 18:36 | XMS_ITS | Clinical Summary ---
Author Organization [employer] ([place], [place], [place], [place]) Address [address] [place] [address] Care Team Providers Care U.S. Revenue Officer Name Role Phone Fabián Kent MD Primary Care Provider +1- [phone] Allergies No known active allergies Medications lisinopriL [...] Date Steven rded Speak language other than Yoruba at home Not on file 05/12/2023 Want [...] 2024 Insurance BLUE CROSS/BLUE SHIELD Care Teams U.S. Revenue Officer Relationship Specialty Start Date End Date Fabián Kent MD [address] [place] [address] [place] [address] PCP - General Family Medicine 05/12/23
--- OUTSIDE RECORDS SUMMARY | 2024-10-13 18:36 | XMS_ITS | Referral Summary ---
Author Organization [employer] ([place], [place], [place], [place]) Address [address] [place] [address] Care Team Providers Care Blacktop Spreader Name Role Phone Fabián Kent MD Primary Care Provider +1- [phone] Allergies No known active allergies Medications lisinopriL [...] Date Steven rded Speak language other than Israeli at home Not on file 05/12/2023 Want [...] file Insurance BLUE CROSS/BLUE SHIELD Care Teams Blacktop Spreader Relationship Specialty Start Date End Date Fabián Kent MD [address] [place] [address] PCP - General Family Medicine 05/12/23
--- OUTSIDE RECORDS SUMMARY | 2024-10-13 18:36 | XMS_ITS | Encounter Summary ---
Author Organization Healthcare Address [address] [place] [address] Care Team Providers Care Glue Machine Operator Name Role Phone Lovely Uribe MD Primary Care Provider [phone] Encounter Details Date Type Department Care Team (Late st Contact Info) Description 04/24/2022 [facility] [address] [place] [address] Fabián Kent MD Social History Tobacco Use [...] documented as of this encounter Care Teams Glue Machine Operator Relationship Specialty Start Date End Date Lovely Uribe MD [address] [place] [address] PCP - General 07/13/20 documented as of this encounter
--- OUTSIDE RECORDS SUMMARY | 2024-10-13 18:36 | XMS_ITS | Clinical Summary ---
Author Organization [facility] Address [address] [place] [address] Care Team Providers Care Flight Mechanic Name Role Phone Fabián Kent MD Primary Care Provider +1- [phone] Allergies No known active allergies Medications dilTIAZem [...] normal, Benavidez normal, SSA and SSB normal, Sm/STRAIGHTENING MACHINE FEEDER Normal, DS DNA Normal, RICKIE 1:320 speckled [...] normal, Benavidez normal, SSA and SSB normal, Sm/STRAIGHTENING MACHINE FEEDER Normal, DS DNA Normal, RICKIE 1:320 speckled [...] Department Care Team Description 08/03/2024 Results Follow-Up [facility] [address] [place] [phone] Abner Valentin DO 08/02/2024 2:45 PM EDT Office Visit [facility] [address] [place] [phone] Abner Valentin DO Seropositive rheumatoid arthritis (Primary Dx); High risk medication use 08/02/2024 Travel 07/26/2024 Refill [facility] [address] [place] [phone] Abner Valentin DO 07/21/2024 Refill [facility] [address] [place] [phone] Abner Valentin DO from Last 3 Months [...] Office Visit [facility] [address] [place] [phone] Abner Valentin DO [address] [facility] [address] [place], [place] [address] Health Maintenance Due Date Last Done Comments [...] 5:06 AM EDT Performed at: 01 - [facility] [address] [place], [place] [id number] Bar Host/Hostess: Galindo Lobato PhD, Phone: [phone] Patient Fasting: N Abner Valentin DO LAB BLOOD ORDERABLES F inal Result [facility] (AMBULATORY) [address] [place] [address], [facility] [address] [place] [address], * (ABNORMAL) CBC & Differential (08/02/2024 2:47 [...] 08/02/2024 2:47 PM EDT 08/02/2024 Narrative [facility] (AMBULATORY) - 08/03/2024 5:06 AM EDT Performed at: [address] [place] [id number] Bar Host/Hostess: Galindo Lobato PhD, Phone: [phone] Patient Fasting: N [facility]OD ORDERABLES F inal Result Performing Organization Address [facility]/ZIP Co de Phone Number [facility] [address] [id number], [facility] [address] [place], [place] [address], [place] [phone] * C-reactive Protein (08/02/2024 2:47 PM EDT) [facility] C-Reactive Protein 3 0 - 10 mg/L [facility] Blood 08/02/2024 2:47 PM EDT 08/02/2024 [facility] (AMBULATORY) - 08/03/2024 5:06 AM EDT Performed at: [address] [place] [id number] Bar Host/Hostess: Galindo Lobato PhD, Phone: [phone] Patient Fasting: N Abner Valentin LAB BLOOD ORDERABLES F inal Result Performing Organization Address City/[facility]/ZIP Co de Phone Number [facility] [address] [place] [address], [place] [phone] [facility] [address] [place] [address], * (ABNORMAL) Comprehensive Metabolic Panel (08/02/2024 2:47 PM EDT) Pathologist [facility] Glucose 210(H) 70 - 99 mg/dL [facility] [...] Blood 08/02/2024 2:47 PM EDT 08/02/2024 Narrative [facility] - 08/03/2024 5:06 AM EDT Performed at: - [address] [id number] Bar Host/Hostess: Galindo Lobato PhD, Phone: [phone] Patient Fasting: N us Abner Valentin DO LAB BLOOD ORDERABLES F inal Result [facility] (AMBULAT[facility]) [address] [place], [place] [id number], [facility] [address] [place], [place] [id number], * Hepatitis Panel, Acute (03/31/2024 12:39 PM EST) [facility] Hepatitis B Surface Ag Non-Reacti ve Non-Reacti ve 04/01/2024 12:01 AM EST [facility] Hep A IgM Non-Reacti ve Non-Reacti ve 04/01/2024 12:01 AM EST [facility] Hep B C IgM Non-Reacti ve Non-Reacti ve 04/01/2024 12:01 AM EST [facility] Hepatitis C Ab Non-Reacti ve Non-Reacti ve 04/01/2024 12:01 AM EST [facility] Blood Venipuncture / Unknown 03/31/2024 12:39 PM EST 03/31/2024 12:39 PM EST [facility] LABORATORY - 04/01/2024 12:01 AM EST Results may be falsely decreased if patient taking Biotin. Abner Valentin DO LAB BLOOD ORDERABLES F inal Result [facility]
[address] [place] [address], from Last 3 Months or Most Recently Relevant to Health Maintenance Insurance Care Teams Flight Mechanic Relationship Specialty Start Date End Date Fabián Kent MD [address] [place] [address] PCP - General Family Medicine 03/23/24
--- NOTE | 2024-10-13 18:40 | PC.NURSE ---
PT TO CT
[2024-10-13 18:45] LABS: Albumin Level 4.6 g/dl (3.5-5.0); Chloride 108 mmol/L (98-107); Potassium 3.9 mmoL/L (3.5-5.1); Sodium 140 mmol/L (136-145)
[2024-10-13 18:46] LABS: Hematocrit 37.0 % (37.0-47.0); Hemoglobin 11.8 g/dL (12.2-16.2); Immature Granulocytes % 0.3 %; Mean Corpuscular HGB Conc 31.9 g/dL (31.8-35.4); Mean Corpuscular Hemoglobin 27.3 pg (27.0-31.2); Mean Corpuscular Volume 85.5 fl (81-99); Nucleated Red Blood Cells % 0 %; Platelet Count 213 K/mm3 (142-424); Red Blood Count 4.33 M/mm3 (4.20-5.40); Red Cell Distribution Width-SD 44.8 fL; White Blood Count 7.8 K/mm3 (4.8-10.8)
[2024-10-13 18:48] LABS: Alanine Aminotransferase 22 U/L (12-78); Albumin/Globulin Ratio 1.7 (1.1-1.8); Alkaline Phosphatase 50 U/L (38-126); Anion Gap 9.9 mEq/L (5-15); Aspartate Amino Transferase 26 U/L (14-36); Bilirubin,Total 0.4 mg/dl (0.2-1.3); Blood Urea Nitrogen 14 mg/dl (7-17); Calcium 9.2 mg/dl (8.4-10.2); Carbon Dioxide 26 mmol/L (22.0-30.0); Creatinine Clearance Estimated 197 mL/min (50-200); Creatinine,Serum 0.60 mg/dl (0.52-1.04); Estimated Glomerular Filt Rate 107 ml/min (>60); GFR (African American) 129 ML/MIN (>60); Globulin 2.7 g/dL (1.3-3.2); Glucose 79 mg/dl (74-100); Total Protein,Serum 7.3 g/dl (6.3-8.2)
[2024-10-13] MEDS: ACETAMINOPHEN 500MG TAB 1000 MG PO (18:48)
[2024-10-13] MEDS: ASPIRIN 81MG CHEWABLE TABLET 324 MG PO (18:49)
[2024-10-13] MEDS: SODIUM CHLORIDE 0.9% 10ML SYR (RAD ONLY) 10 ML IV (18:50)
[2024-10-13] MEDS: IOPAMIDOL-370 (76%);100ML BOTTLE 80 ML IV (18:50)
[2024-10-13] MEDS: 0.9 % SODIUM CHLORIDE 50 ML VIAL IV (18:50)
[2024-10-13] MEDS: ONDANSETRON 4MG/2ML VIAL 4 MG IV (18:51)
[2024-10-13] MEDS: MORPHINE 4MG/ML SYRINGE 4 MG IV (18:51)
[2024-10-13 19:00] VITALS: BP 118/66; PULSE 98; RESP 27; O2SAT 97
[2024-10-13 19:01] LABS: Coronavirus 19, PCR Not Detected (NotDetected); Influenza A, PCR Not Detected (NotDetected); Influenza B, PCR Not Detected (NotDetected)
[2024-10-13 19:10] LABS: Troponin I < 0.01 ng/ml (0.00-0.034)
--- NOTE | 2024-10-13 19:18 | PC.NURSE ---
received report on patient, pt in stable condition with no needs at this time.
[2024-10-13 19:30] VITALS: BP 107/63; PULSE 99; RESP 27; O2SAT 94
[2024-10-13 20:51] VITALS: BP 93/40; PULSE 88; RESP 12; TEMP 36.6; O2SAT 97
== END 2024-10-13 20:56 | disposition home or self-care (01) ==
PROVIDERS: Emergency Provider Emergency Medicine; PCP Family Medicine
DX: R06.02 Shortness of breath (principal); M25.512 Pain in left shoulder; M54.6 Pain in thoracic spine; R53.1 Weakness
CPT/HCPCS: 71275; 80053; 84484; 85025; 87636; 93005; 96374; 96375; 99284; J2270; J2405; Q9967

== ENCOUNTER 2024-11-26 11:09 | Emergency (ER) | payer BC, SELFPAY ==
[2024-11-26 11:22] VITALS: BP 132/87; PULSE 81; RESP 16; TEMP 36.6; O2SAT 98; BMI 39.9
[2024-11-26 11:30] VITALS: BP 128/84; PULSE 76; O2SAT 97
--- NOTE | 2024-11-26 11:30 | ED_ITS ---
Discharge Plan Disposition Patient Disposition: Home, Self-Care Prescriptions Prescriptions: No Action methotrexate sodium 2.5 mg tablet 15 mg PO FR Patient Comments: TAKE 6 TABLETS 1 TIME EACH WEEK folic acid 1 mg tablet 1 mg PO DAILY Patient Comments: TAKE 1 TABLET 1 TIME EACH DAY lisinopril 40 mg tablet 40 mg PO DAILY Ozempic 0.25 mg or 0.5 mg (2 mg/3 mL) pen injector 0.5 mg SQ WEEKLY Qty: 3 0RF Rx Instructions: for 4 weeks aspirin 81 mg tablet,delayed release (DR/EC) 81 mg PO DAILY Qty: 90 3RF metoprolol succinate 25 mg tablet extended release 24 hr 25 mg PO DAILY Qty: 90 3RF prasugrel HCl 10 mg tablet 10 mg PO DAILY Qty: 90 3RF ranolazine 500 mg tablet extended release 12 hr 500 mg PO BID Qty: 180 3RF rosuvastatin 40 mg tablet 40 mg PO DAILY Qty: 90 3RF venlafaxine 75 mg capsule,extended release 24hr See Rx Instructions .ROUTE .COMPLEX Qty: 90 0RF Dose Instruction: TAKE 1 CAPSULE DAILY Rx Instructions: TAKE 1 CAPSULE DAILY sumatriptan succinate 25 mg tablet 25 mg PO DAILYP PRN (Reason: Headache) Patient Comments: TAKE 1 TABLET AT START OF HEADACHE. MAY TAKE ANOTHER TABLET IN 2 HOURS IF NEEDED. DO NOT TAKE MORE THAN 4 TABLETS IN 24 HOURS. Rx Instructions: OFE 1 TABLET AT START OF HEADACHE. MAY TAKE ANOTHER TABLET IN 2 HOURS IF NEEDED. DO NOT TAKE MORE THAN 4 TABLETS IN 24 HOURS. Referrals Follow up/Referrals: Víctor Souza MD [Referring, Medical] - See instructions Fabián Kent MD [Primary Care Provider, Internal Medicine] - See instructions Activity Restrictions/Add. Instructions Additional Instructions/Restrictions: No obvious emergent medical condition today to explain your cutaneous hypersensitivity or your right calf pain. No evidence of blood clot on your bedside ultrasound. As discussed the D-dimer which is a screening test was mildly elevated but with a low pretest probability some studies have suggested that within this realm that was functionally negative as well as less than 1.0. Given the fact that you are on multiple blood thinners it is very unlikely that you developed a clot as there are no clinical signs or symptoms of this as well aside from subjective pain which is more of a hypersensitivity which I do not typically see in the setting of a DVT. Therefore I recommend that you follow-up closely with your bicycle service technician as this could be a cutaneous manifestation of your rheumatologic disorders as you recently stopped her methotrexate. Alternatively I given you a referral to Doctor Harley Renee with dermatology to look into this further. If your symptoms persist I would recommend you get a formal outpatient ultrasound and follow-up to primary care doctor as well. Clinical Impressions Clinical Impression: Cutaneous hypersensitivity, Right calf pain Print Language Print Language: Tajik Discharge ED Provider: Annemarie Cross General Adult HPI General Chief complaint: Extremity Problem,Nontraumatic Stated complaint: right leg pain Time Seen by Provider: 11/26/24 11:16 Mode of Arrival: Ambulatory Source of Information: Patient Description of Symptoms (Recalled from ER Triage Doc. by RN): pt complains of tingling and nerve like pain in her r lower extremity. states it is hard for her to put weight on it. currently on a blood thinner do to a PA in august History of Present Illness HPI narrative: Patient is a 49-year-old female presenting today with right medial calf discomfort. States that it is very hypersensitive with any type of touch at all even her pant leg causes it to be painful. No rash that she is noted. She does have a history of rheumatologic diseases and is currently being evaluated by bicycle service technician. Also recently in the middle of the summer she had an PA and had multiple stents she is on blood thinners since that time. No unilateral leg swelling no discoloration in the leg. Related Data Home Medications ?Medication ?Instructions ?Recorded ?Confirmed folic acid 1 mg tablet 1 mg PO DAILY 04/21/2411/14 methotrexate sodium 2.5 mg tablet 15 mg PO FR 04/21/24 11/14/24 sumatriptan succinate 25 mg tablet 25 mg PO DAILYP PRN Headache 09/18/24 11/14/24 lisinopril 40 mg tablet 40 mg PO DAILY 11/14/2410/31 Previous Rx's ?Medication ?Instructions ?Recorded venlafaxine 75 mg capsule,extended See Rx Instructions .Route 11/07/24 release 24 hr .COMPLEX #90 caps aspirin 81 mg tablet,delayed 81 mg PO DAILY #90 tabs 0 11/14/24 release metoprolol succinate 25 mg 25 mg PO DAILY #90 tabs tablet,extended release 24 hr prasugrel HCl 10 mg tablet 10 mg PO DAILY #90 tabs ranolazine 500 mg tablet,extended 500 mg PO BID #180 t abs 11/14/24 release,12 hr rosuvastatin 40 mg tablet 40 mg PO DAILY #90 tabs 10/31 07/24 semaglutide 0.25 mg or 0.5 mg (2 0.5 mg (0.736 mL) SQ WEEKLY #3 mL 11/14/24 mg/3 mL) subcutaneous pen injector (Ozempic) Allergies Allergy/AdvReac Type Severity Reaction Status Date / Time amlodipine (From [facility]) AdvReac Mild edema Verified 11/14/24 09:36 nadolol AdvReac Mild Hypertensio Verified 11/14/24 09:18 n PFSH PFS Disclaimer: The information contained in this section may have been updated after the patient was seen, as this information can be updated by other users. Medical History ABIMBOLA (obstructive sleep apnea) Myalgia Diabetes mellitus Hyperlipidemia Angina pectoris NSTEMI (non-ST elevated myocardial infarction) Elevated troponin COVID-19 Exposure to COVID-19 virus Viral syndrome Hypoglycemia Gastroenteritis Fall down stairs Concussion Sinusitis Bronchitis UTI (urinary tract infection) Seropositive rheumatoid arthritis of multiple joints Rheumatoid arthritis Hypertension Surgical History H/O cardiac catheterization H/O gastric sleeve History of tonsillectomy History of cholecystectomy History of Family History Other Coronary artery disease Diabetes Hypertension Social History Smoking Status: Never smoker alcohol intake: never substance use type: denies use current occupational status: unemployed Travel in the last 8 weeks?: None household members: spouse and children housing: house Have you lived/traveled outside US in past 30 days?: No Contact w/someone who lives/traveled outside US past 30 days?: No Exposure to someone with infectious disease in past 14 days?: No Do you have a fever (greater than 100.4 F or 38 C)?: No Have you tested positive for COVID-19?: No Exposed to someone with COVID-19 in past 14 days?: No Do you have a sore throat?: No Do you have a cough?: No Do you have any weakness?: No Do you have any diarrhea?: No Are you experiencing any unusual bleeding?: No Do you have any muscle aches/pain?: No Do you have any abdominal pain?: No Are you experiencing loss of taste or smell?: No Other Medical History Have you received the Flu Vaccine for this season: No Have you received the Pneumonia Vaccine: No ROS Obtained: Yes All systems reviewed & no additional complaints except as documented Physical Exam General General appearance: alert Respiratory Respiratory exam: Present normal lung sounds bilaterally Cardiovascular Cardiovascular exam: Present regular rate Extremities Exam Extremities exam: Present other (Right lower extremity patient has hypersensitivity to the touch of the medial aspect of the calf compartments are soft no evidence of any discoloration rash swelling pulses are normal neurologic exam is normal) Neurological Exam Neurological exam: Present alert and oriented X3 Medical Decision Making Medical Records Screening: Per USPSTF and CDC recommendations, given the prevalence of disease in our region, it is our hospital?s policy to screen for HIV and viral Hepatitis for all patients aged 18 and over and those with ongoing risk factors. Ruddy Inquiry Pt receiving controlled substance: No Vital Signs: 11/26/24 11:22 11/26/24 11:30 Temperature 97.9 F Temperature Source Oral Pulse Rate 76 Pulse Rate [Right] 81 Respiratory Rate 16 Blood Pressure 128/84 Blood Pressure [Right Arm] 132/87 Blood Pressure Mean [Right Arm] 102 02 Sat by Pulse Oximetry 98 97 Oxygen Delivery Method Room Air Lab Data Lab results reviewed: Yes I reviewed the patient's lab results. Lab Results 11/26/24 11:41: WBC 7.4, RBC 4.20, Hgb 11.8 L, Hct 35.9 L, MCV 85.5, MCH 28.1, MCHC 32.9, RDW 14.6, Plt Count 217, MPV 10.4, Neut % (Auto) 69.6, Lymph % (Auto) 20.8, Real % (Auto) 7.7, Eos % (Auto) 1.5, Baso % (Auto) 0.3, Neut # (Auto) 5.2, Lymph # (Auto) 1.6, Real # (Auto) 0.6, Eos # (Auto) 0.1, Baso # (Auto) 0.0, D- Dimer 0.56 H, Sodium 139, Potassium 4.1, Chloride 107, Carbon Dioxide 24, Anion Gap 12.1, BUN 11, Creatinine 0.80, Estimated Creat Clear 148, Estimated GFR 77, Est GFR ( Amer) 93, Glucose 93, Calcium 9.0, Total Bilirubin 0.7, AST 21, ALT 23, Alkaline Phosphatase 54, Total Creatine Kinase 94, C-Reactive Protein 1.0, Total Protein 6.7, Albumin 4.3, Globulin 2.4, Albumin/Globulin Ratio 1.8 11/26/24 11:41 11/26/24 11:41 Orders (Tests/Meds): ORDERS Category Date Time Status POCUS Point of Care (ER Only) Stat Exams 11/26/24 11:27 Taken CBC w/Auto Diff [Complete Blood Count Auto Diff] Stat Lab 11/26/24 11:41 Completed CK [Creatine Kinase] Stat Lab 11/26/24 11:41 Completed CMP [Comprehensive Metabolic Panel] Stat Lab 11/26/24 11:41 Completed CRP [C-Reactive Protein] Stat Lab 11/26/24 11:41 Completed D-Dimer Stat Lab 11/26/24 11:41 Completed Medical Decision Narrative: Patient with cutaneous hypersensitivity and calf discomfort. Its unlikely given the fact that she is on anticoagulation and antiplatelets that she would have an acute clot but we will work this up with a bedside ultrasound as well as a D- dimer. If she has an acute inflammatory response however the about dimer may be falsely elevated and she may need to have an outpatient formal ultrasound performed as today will only have limited [id number] ultrasound available in addition to other noninvasive test such as D-dimer. Other things in the differential would be an allergic reaction autoimmune conditions such as lupus dermatomyositis etc. if her workup here is negative we will have her follow-up with her bicycle service technician and/or local flatbed driver. No evidence of any herpetic rash is herpes zoster can certainly cause this as well. Reassessment 1237 patient remains stable exam objectively is completely normal. D-dimer very mildly elevated at 0.56. Patient has a very low pretest probability and some studies suggest that score is less than 1.0 with low pretest probability are functional enough to rule out a DVT. I did also perform an additional bedside ultrasound which was from the common femoral vein all the way down to the popliteal veins which did not demonstrate any evidence of a DVT images were saved. I discussed with her and offered her an outpatient formal ultrasound but discussed with her also that very low pretest probability given the fact that she is on dual antiplatelet therapy and does not have any other signs or symptoms and that her cutaneous hypersensitivity is different than what I normally see with a DVT. Therefore at the moment she opted to not move forward with a bedside ultrasound and will follow-up with her bicycle service technician. She recently stopped her methotrexate and this is when her symptoms began it is possible this is a cutaneous manifestation of her underlying rheumatologic disease and stated above. Additionally it could be early on in the development of shingles. Also could be some other dermatologic condition and I offered that she will follow-up with dermatology as well. Lastly I told her to follow-up with primary care doctor and to return the emergency room with any persistent or worsening of her symptoms. She was agreeable to this plan understood there is some diagnostic uncertainty was discharged in stable condition. Procedures Miscellaneous Procedure Procedure Performed: Structures identified Common femoral veins and popliteal veins on the right Findings complete compression of the right common femoral vein and right popliteal veins with normal augmentation bilaterally Impression no evidence of right DVT The study was performed by me and I personally interpreted all images and videos based on my clinical judgment these images were adequate and did not necessitate further imaging Limited soft tissue ultrasound Indication: Soft tissue pain Identified structures: Location: Medial aspect of the right knee and popliteal fossa Findings: Normal soft tissue altered Impression: Normal soft tissue Images were to permanent archive The study was technically adequate Soft Tissue CPT Codes: CPT Neck: 25476-29 CPT Upper extremity: 51601-06 CPT Axilla: 78225-97 CPT Chest wall: 61910-99 CPT Breast: 93742-22-DM/LT (complete), 79560-12-UI/LT (limited), CPT Upper Back: 94018-64 CPT Lower Back: 62407-56 CPT Abdominal Wall: 99395-01 CPT Pelvic Wall: 16243-00 CPT Lower Extremity: 77970-34 CPT Other Soft Tissue: 91968-24 This study was performed by me, and I personally interpreted all images/videos. Based on my clinical judgement, these images were adequate and did not necessitate further imaging. Critical Care Critical Care Time Critical Care Time: No
--- OUTSIDE RECORDS SUMMARY | 2024-11-26 11:34 | XMS_ITS | Referral Summary ---
Author Organization [employer] ([place], [place], [place], [place]) Address [address] [place] [address] Care Team Providers Care Diesel Mechanic Construction Name Role Phone Fabián Kent MD Primary Care Provider +1- [phone] Allergies No known active allergies Medications lisinopriL [...] Date Steven rded Speak language other than Finnish at home Not on file 05/12/2023 Want [...] file Insurance BLUE CROSS/BLUE SHIELD Care Teams Diesel Mechanic Construction Relationship Specialty Start Date End Date Fabián Kent MD [address] [place] [address] PCP - General Family Medicine 05/12/23
--- OUTSIDE RECORDS SUMMARY | 2024-11-26 11:34 | XMS_ITS | Clinical Summary ---
Author Organization Healthcare Address [address] [place] [address] Care Team Providers Care Machine Coil Assembler Name Role Phone Lovely Uribe MD Primary Care Provider [phone] Allergies No known active allergies Medications dilTIAZem [...] Maternal Grandfather Dangelo Hoffman Paternal Grandfather Larce [place] Social History Tobacco Use Types Packs/Day Years [...] Health Maintenance Due Date Last Done Comments Y-/Child/Adol SDOH Screenings 1976 [id number] Vaccine (#1) 1981 [facility]Y- SDOH Screenings 1994 [...] Screen Nonreactive Nonreactive 03/21/2022 2:03 PM EST [facility] Blood Venous blood specimen / Unknown Venipuncture / Unknown 03/21/2022 10:45 AM EST 03/21/2022 10:48 AM EST March R Noah COMPLAINT EVALUATION OFFICER LAB BLOOD ORDERABLES Final Result [facility] [address] [place] [address] * Acute Hepatitis Panel (03/21/2022 10:45 AM EST) Hepatitis B Surf Antigen Negative Negative 03/21/2022 1:42 PM EST [facility] Hepatitis C Antibody Negative Negative 03/21/2022 1:42 PM EST [facility] Hepatitis A Antibody IgM Negative Negative 03/21/2022 1:42 PM EST [facility] Hepatitis B Core Antibody IgM Negative Negative 03/21/2022 1:42 PM EST [facility] Blood Venous blood specimen / Unknown Venipuncture / Unknown 03/21/2022 10:45 AM EST 03/21/2022 10:48 AM EST march R Noah COMPLAINT EVALUATION OFFICER LAB BLOOD ORDERABLES Final Result [facility] [address] [place] [address] from Last 3 Months or Most Recently Relevant to Health Maintenance Insurance Care Teams Machine Coil Assembler Relationship Specialty Start Date End [place] [address] PCP - General 07/13/20
--- OUTSIDE RECORDS SUMMARY | 2024-11-26 11:34 | XMS_ITS | Clinical Summary ---
Author Organization [employer] ([place], [place], [place], [place]) Address [address] [place] [address] Care Team Providers Care Imaging Science Professor Name Role Phone Fabián Kent MD Primary Care Provider [phone]- [phone] Allergies No known active allergies Medications lisinopriL [...] Date Steven rded Speak language other than Anguillan at home Not on file 05/12/2023 Want [...] 1994 DTAP/TDAP/TD VACCINES (1 - Tdap) 09/09/1995 Pap Smear 1997 Breast Cancer Screening 2016 Lipid Panel 2021 Tobacco Cessation Counseling and Screening (12+) 06/02/2024 06/03/2023 COVID-19 VACCINE (1 - 2023-2 5 season) 2024 Influenza Vaccine (#1) 2024 Pneumococcal Vaccine: 0-49 Years Aged Out No longer eligible based on patient's age to complete this topic Insurance BLUE CROSS/BLUE SHIELD Care Teams Imaging Science Professor Relationship Specialty Start Date End Date Fabián Kent MD [address] [place] [address] PCP - General Family Medicine 05/12/23
--- OUTSIDE RECORDS SUMMARY | 2024-11-26 11:34 | XMS_ITS | Encounter Summary ---
Author Organization [facility] Address [address] [place] [address] Care Team Providers Care Member Of The Legislative Assembly Name Role Phone Fabián Kent MD Primary Care Provider +1- [phone] Reason for Visit * Reason Onset Date Comments Med Refill 11/18/2024 Encounter Details Date Type Department Care Team (Late st Contact Info) Description 11/18/2024 Refill [facility] [address] [address] Abner Valentin DO [address] [phone] Seropositive rheumatoid arthritis (Primary Dx); High risk medication use; Arthralgia, unspecified joint; Fatigue, unspecified type Social History Tobacco Use Types Packs/Day Years [...] encounter Miscellaneous Notes * Telephone Encounter - Daquan Oscar MA - 11/21/2024 9:39 AM EDT Faxed lab orders to [facility] at [phone] * Telephone Encounter - Karen SagastumeEmery Rep - 11/18/2024 1:06 PM EDT SHE ALSO NEEDS A LAB ORDER TO BE MAIL TO HER SO SHE CAN DO LABS documented in this encounter Plan of Treatment Upcoming Encounters Date Type Department Care Team (Late st Contact Info) Description 12/30/2024 11:15 AM EDT Office Visit [facility] [address] [address] Abner Valentin DO [address] [address] Scheduled Orders Name Type Priority Associated Diagnoses Orde r Schedule CBC & Differential Lab Panel Routine Seropositive rheumatoid arthritis High risk medication use Arthralgia, unspecified joint Fatigue, unspecified type Expected: 11/26/2024 (Approximate), Expires: 02/20/2026 Comprehensive Metabolic Panel Lab Routine Seropositive rheumatoid arthritis High risk medication use Arthralgia, unspecified joint Fatigue, unspecified type Expected: 11/26/2024 (Approximate), Expires: 02/20/2026 Sedimentation Rate Lab Routine Seropositive rheumatoid arthritis High risk medication use Arthralgia, unspecified joint Fatigue, unspecified type Expected: 11/26/2024 (Approximate), Expires: 02/20/2026 C-reactive Protein Lab Routine Seropositive rheumatoid arthritis High risk medication use Arthralgia, unspecified joint Fatigue, unspecified type Expected: 11/26/2024 (Approximate), Expires: 02/20/2026 documented as of this encounter Visit Diagnoses Diagnosis Seropositive rheumatoid arthritis- Primary High risk medication use Arthralgia, unspecified joint Fatigue, unspecified type documented in this encounter Care Teams Member Of The Legislative Assembly Relationship Specialty Start Date End Date Fabián Kent MD [address] [place] [address] PCP - General Family Medicine 03/23/24 documented as of this encounter
--- OUTSIDE RECORDS SUMMARY | 2024-11-26 11:34 | XMS_ITS | Encounter Summary ---
Author Organization [facility] Address [address] [place] [address] Care Team Providers Care Vp Construction Name Role Phone Fabián Kent MD Primary Care Provider +1- [phone] Reason for Visit * Reason Onset Date Comments Med Refill 11/17/2024 Encounter Details Date Type Department Care Team (Late st Contact Info) Description 11/17/2024 Refill [facility] RHEUMATOLOGY [address] [address] Abner Valentin DO [address] [address] Social History Tobacco Use Types Packs/Day Years [...] Telephone Encounter - Daquan Oscar MA - 11/18/2024 1:00 PM EDT Rx Refill Note Requested Prescriptions Pending Prescriptions Disp Refills methotrexate 2.5 MG tablet 24 tablet 3 Sig: Take 6 tablets by mouth 1 (One) Time Per Week. Last office visit with prescribing clinician: 08/02/2024 Last telemedicine visit with prescribing clinician: Visit date not found Next office visit with prescribing clinician: 12/30/2024 Daquan Oscar MA 11/18/24, 13:00 EDT Refill request denied due to patient need updated labs. documented in this encounter Plan of Treatment Upcoming Encounters Date Type Department Care Team (Late st Contact Info) Description 12/30/2024 11:15 AM EDT Office Visit [facility]HE[facility] 330 [facility] [address] [place] [phone] Abner Valentin DO 330 [facility] [address] [place] [address] documented as of this encounter Visit Diagnoses Not on filedocumented in this encounter Care Teams Vp Construction Relationship Specialty Start Date End Date Fabián Kent MD [address] [place] [address] PCP - General Family Medicine 03/23/24 documented as of this encounter
--- OUTSIDE RECORDS SUMMARY | 2024-11-26 11:34 | XMS_ITS | Encounter Summary ---
Author Organization [facility] Address [address] [place] [address] Care Team Providers Care Veterinary Virologist Name Role Phone Fabián Kent MD Primary Care Provider [phone]- [phone] Reason for Visit * Reason Onset Date Comments Med Refill 11/17/2024 Encounter Details Date Type Department Care Team (Late st Contact Info) Description 11/17/2024 Refill [facility] RHEUM[facility] [address] [address] Abner Valentin DO [address] [address] Social History Tobacco Use Types [...] Encounter - Daquan Oscar MA - 11/18/2024 12:49 PM EDT Rx Refill Note Requested Prescriptions Pending Prescriptions Disp Refills methotrexate 2.5 MG tablet 24 tablet 3 Sig: Take 6 tablets by mouth 1 (One) Time Per Week. Last office visit with prescribing clinician: 08/02/2024 Last telemedicine visit with prescribing clinician: Visit date not found Next office visit with prescribing clinician: 12/30/2024 Daquan Oscar MA 11/18/24, 12:49 EDT Refill request denied due to patient need updated labs. * Telephone Encounter - Justine Mendez RegSched Rep - 11/17/2024 9:49 AM EDT Caller: Cj Stuart Relationship: Self Best call back number: [phone] Requested Prescriptions: Requested Prescriptions Pending Prescriptions Disp Refills methotrexate 2.5 MG tablet 24 tablet 3 Sig: Take 6 tablets by mouth 1 (One) Time Per Week. Pharmacy where request should be sent: [facility] [address] [phone] [facility] [phone] Last office visit with prescribing clinician: 08/02/2024 Last telemedicine visit with prescribing clinician: Visit date not found Next office visit with prescribing clinician: 12/30/2024 Additional details provided by patient: DUE TO TAKE TOMORROW Does the patient have less than a 3 day supply: [x] Yes [] No Would you like a call back once the refill request has been completed: [] Yes [x] No If the office needs to give you a call back, can they leave a voicemail: [x] Yes [] No documented in this encounter Plan of Treatment Upcoming Encounters Date Type Department Care Team (Late st Contact Info) Description 12/30/2024 11:15 AM EDT Office Visit [facility] RHE[facility] [address] [facility] [address] [place] [address] Abner aVlentin DO 330 [facility] [address] [place], [place] [phone] documented as of this encounter Visit Diagnoses Not on filedocumented in this encounter Care Teams Veterinary Virologist Relationship Specialty Start Date End Date Fabián Kent MD [address] [place] [address] PCP - General Family Medicine 03/23/24 documented as of this encounter
--- OUTSIDE RECORDS SUMMARY | 2024-11-26 11:34 | XMS_ITS | Encounter Summary ---
Author Organization [facility] Address [address] [place] [address] Care Team Providers Care Hygiene Coordinator Name Role Phone Lovely Uribe MD Primary Care Provider [phone] Encounter Details Date Type Department Care Team (Late st Contact Info) Description 04/24/2022 [facility] [address] [place] [address] Fabián Kent MD Social History Tobacco Use [...] documented as of this encounter Care Teams Hygiene Coordinator Relationship Specialty Start Date End Date Lovely Uribe MD [address] [place] [address] PCP - General 07/13/20 documented as of this encounter
--- OUTSIDE RECORDS SUMMARY | 2024-11-26 11:34 | XMS_ITS | Clinical Summary ---
Author Organization [facility] Address [address] [place] [address] Care Team Providers Care Electronic Gaming Device Supervisor Name Role Phone Fabián Kent MD Primary Care Provider +1- [phone] Allergies No known active allergies Medications dilTIAZem [...] normal, Benavidez normal, SSA and SSB normal, Sm/CABLE FORMER Normal, DS DNA Normal, RICKIE 1:320 speckled [...] normal, Benavidez normal, SSA and SSB normal, Sm/CABLE FORMER Normal, DS DNA Normal, RICKIE 1:320 speckled [...] Encounters Date Type Department Care Team Description 11/18/2024 Refill [facility] RHEUM[facility] [address] [address] Abner Valentin DO Seropositive rheumatoid arthritis (Primary Dx); High risk medication use; Arthralgia, unspecified joint; Fatigue, unspecified type 11/17/2024 Refill [facility] RHEUM[facility] [address] [address] Abner Valentin DO 11/17/2024 Refill [facility] RHEUM[facility] [address] [address] Abner Valentin DO from Last 3 Months [...] Description 12/30/2024 11:15 AM EDT Office Visit [facility] RHEUM[facility] [address] [address] Abner Valentin DO [address] [address] Health Maintenance Due Date Last Done Comments Annual Gynecologic Pelvic an d Breast Exam 1976 TDAP/TD VACCINES (1 - Tdap) 09/09/1995 PAP SMEAR 1997 MAMMOGRAM 2016 COLOGUARD 2021 COLON CANCER SCREENING 5 YEA R SIGMOIDOSCOPY 2021 COLONOSCOPY 2021 [address]AL CANCER SCREENING 2021 CT COLONOGRAPHY 2021 FECAL OCCULT BLOOD TEST 2021 FIT Testing (1 year) 2021 ANNUAL PHYSICAL 03/31/2024 INFLUENZA VACCINE 09/30/2024 HEPATITIS C SCREENING Completed 03/31/2024 , 03/21/2022 Pneumococcal Vaccine 0-49 Aged Out No longer eligible based on patient's age to complete this topic Procedures Procedure Name Priority Date/Time Associated Diagnosis Comments HEPATITIS PANEL, ACUTE Routine 03/31/2024 12:39 PM EST Arthralgia, unspecified joint Fatigue, unspecified type Seropositive rheumatoid arthritis from Last 3 Months or Most Recently Relevant to Health Maintenance Results * Hepatitis Panel, Acute (03/31/2024 12:39 PM EST) Hepatitis B Surface Ag Non-Reacti ve Non-Reacti ve 04/01/2024 12:01 AM EST [facility] Hep A IgM Non-Reacti ve Non-Reacti ve 04/01/2024 12:01 AM EST [facility] Hep B C IgM Non-Reacti ve Non-Reacti ve 04/01/2024 12:01 AM EST [facility] Hepatitis C Ab Non-Reacti ve Non-Reacti ve 04/01/2024 12:01 AM EST [facility] Blood Venipuncture / Unknown 03/31/2024 12:39 PM EST 03/31/2024 12:39 PM EST Narrative [facility] - 04/01/2024 12:01 AM EST Results may be falsely decreased if patient taking Biotin. us Anber Valentin DO LAB BLOOD ORDERABLES F inal Result [facility]
[address] [place] [address], from Last 3 Months or Most Recently Relevant to Health Maintenance Insurance Care Teams Electronic Gaming Device Supervisor Relationship Specialty Start Date End Date Fabián Kent MD [facility] [address] [place] [address] PCP - General Family Medicine 03/23/24
[2024-11-26 11:46] LABS: Hematocrit 35.9 % (37.0-47.0); Hemoglobin 11.8 g/dL (12.2-16.2); Immature Granulocytes % 0.1 %; Mean Corpuscular HGB Conc 32.9 g/dL (31.8-35.4); Mean Corpuscular Hemoglobin 28.1 pg (27.0-31.2); Mean Corpuscular Volume 85.5 fl (81-99); Nucleated Red Blood Cells % 0 %; Platelet Count 217 K/mm3 (142-424); Red Blood Count 4.20 M/mm3 (4.20-5.40); Red Cell Distribution Width-SD 45.4 fL; White Blood Count 7.4 K/mm3 (4.8-10.8)
[2024-11-26 11:58] LABS: Alanine Aminotransferase 23 U/L (12-78); Albumin Level 4.3 g/dl (3.5-5.0); Albumin/Globulin Ratio 1.8 (1.1-1.8); Alkaline Phosphatase 54 U/L (38-126); Anion Gap 12.1 mEq/L (5-15); Aspartate Amino Transferase 21 U/L (14-36); Bilirubin,Total 0.7 mg/dl (0.2-1.3); Blood Urea Nitrogen 11 mg/dl (7-17); Calcium 9.0 mg/dl (8.4-10.2); Carbon Dioxide 24 mmol/L (22.0-30.0); Chloride 107 mmol/L (98-107); Creatine Kinase 94 U/L (30-135); Creatinine Clearance Estimated 148 mL/min (50-200); Creatinine,Serum 0.80 mg/dl (0.52-1.04); Estimated Glomerular Filt Rate 77 ml/min (>60); GFR (African American) 93 ML/MIN (>60); Globulin 2.4 g/dL (1.3-3.2); Glucose 93 mg/dl (74-100); Potassium 4.1 mmoL/L (3.5-5.1); Sodium 139 mmol/L (136-145); Total Protein,Serum 6.7 g/dl (6.3-8.2)
[2024-11-26 12:03] LABS: C-Reactive Protein 1.0 mg/L (0-4)
[2024-11-26 12:04] LABS: D-Dimer 0.56 ug/mL (0.0-0.5)
[2024-11-26 12:45] VITALS: BP 126/84; PULSE 81; RESP 18; TEMP 36.7; O2SAT 98
== END 2024-11-26 12:47 | disposition home or self-care (01) ==
PROVIDERS: Emergency Provider Student in an Organized Health Care Education/Training Program; PCP Family Medicine
DX: M79.661 Pain in right lower leg (principal); R20.2 Paresthesia of skin; Z86.73 Personal history of transient ischemic attack (TIA), and cerebral infarction without residual deficits; Z79.01 Long term (current) use of anticoagulants
CPT/HCPCS: 80053; 82550; 85025; 85378; 86140; 99283

== ENCOUNTER 2024-11-26 12:47 | Outpatient (CLI) | payer BC, SELFPAY ==
--- OUTSIDE RECORDS SUMMARY | 2024-11-26 12:52 | XMS_ITS | Encounter Summary ---
Author Organization [facility] Address [address] [place] [address] Care Team Providers Care Advertising Supervisor Name Role Phone Fabián Kent MD Primary Care Provider [phone]- [phone] Reason for Visit * Reason Onset Date Comments Med Refill 11/17/2024 Encounter Details Date Type Department Care Team (Late st Contact Info) Description 11/17/2024 Refill [facility] RHEUMATOLOGY [address] [address] Abner Valentin DO [address] [address] Social History Tobacco Use Types [...] Description 12/30/2024 11:15 AM EDT Office Visit [facility] RHEUM[facility] 330 [facility] [address] [place] [address] Abner Valentin DO 330 [facility] [address] [place] [address] documented as of this encounter Visit Diagnoses Not on filedocumented in this encounter Care Teams Advertising Supervisor Relationship Specialty Start Date End Date Fabián Kent MD [address] [place] [address] PCP - General Family Medicine 03/23/24 documented as of this encounter
--- OUTSIDE RECORDS SUMMARY | 2024-11-26 12:52 | XMS_ITS | Referral Summary ---
Author Organization [facility] ([place], [place], [place], [place]) Address [address] [place] [address] Care Team Providers Care Cancer Registry Coordinator Name Role Phone Fabián Kent MD Primary Care Provider [phone]- [phone] Allergies No known active allergies Medications lisinopriL [...] Date Steven rded Speak language other than Bhutanese at home Not on file 05/12/2023 Want [...] file Insurance BLUE CROSS/BLUE SHIELD Care Teams Cancer Registry Coordinator Relationship Specialty Start Date End Date Fabián Kent MD [address] [place] [address] PCP - General Family Medicine 05/12/23
--- OUTSIDE RECORDS SUMMARY | 2024-11-26 12:52 | XMS_ITS | Clinical Summary ---
Author Organization [employer] ([place], [place], [place], [place]) Address [address] [place] [address] Care Team Providers Care Director Of Strategic Alliances Name Role Phone Fabián Kent MD Primary Care Provider +1- [phone] Allergies No known active allergies Medications lisinopriL [...] Date Steven rded Speak language other than Malian at home Not on file 05/12/2023 Want [...] topic Insurance BLUE CROSS/BLUE SHIELD Care Teams Director Of Strategic Alliances Relationship Specialty Start Date End Date Fabián Kent MD [address] [place] [address] PCP - General Family Medicine 05/12/23
--- OUTSIDE RECORDS SUMMARY | 2024-11-26 12:52 | XMS_ITS | Encounter Summary ---
Author Organization [facility] Address [address] [place] [address] Care Team Providers Care Book Author Name Role Phone Fabián Kent MD Primary Care Provider +1- [phone] Reason for Visit * Reason Onset Date Comments Med Refill 11/17/2024 Encounter Details Date Type Department Care Team (Late st Contact Info) Description 11/17/2024 Refill [facility] RHEUMAT[facility] [address] [address] Abner Valentin DO [address] [address] Social History Tobacco Use Types [...] Stuart Relationship: Self Best call back number: [phone] Requested Prescriptions: Requested Prescriptions Pending Prescriptions Disp Refills methotrexate 2.5 MG tablet 24 tablet 3 Sig: Take 6 tablets by mouth 1 (One) Time Per Week. Pharmacy where request should be sent: [facility] [address] [phone] [facility] [phone] Last office visit with prescribing clinician: 08/02/2024 [...] [facility] 330 [facility] [address] [place] [address] Abner Valentin DO 330 [facility] [address] [place], [place] [id number] documented as of this encounter Visit Diagnoses Not on filedocumented in this encounter Care Teams Book Author Relationship Specialty Start Date End Date Fabián Kent MD [address] [place] [address] PCP - General Family Medicine 03/23/24 documented as of this encounter
--- OUTSIDE RECORDS SUMMARY | 2024-11-26 12:52 | XMS_ITS | Clinical Summary ---
Author Organization [facility] Address [address] [place] [address] Care Team Providers Care Rotor Plate Washer Name Role Phone Lovely Uribe MD Primary Care Provider [phone] Allergies No known active allergies Medications dilTIAZem [...] Maternal Grandfather Dangelo Hoffman Paternal Grandfather Larce Lodge Social History Tobacco Use Types Packs/Day Years [...] Last Done Comments Y-/Child/Adol SDOH Screenings 1976 [id number] Vaccine (#1) 1981 UKY- SDOH Screenings 1994 [...] Screen Nonreactive Nonreactive 03/21/2022 2:03 PM EST [facility] Blood Venous blood specimen / Unknown Venipuncture / Unknown 03/21/2022 10:45 AM EST 03/21/2022 10:48 AM EST March R Noah MOVIE CRITIC LAB BLOOD ORDERABLES Final Result [facility] [address] [place] [address] * Acute Hepatitis Panel (03/21/2022 10:45 AM EST) Hepatitis B Surf Antigen Negative Negative 03/21/2022 1:42 PM EST [facility] Hepatitis C Antibody Negative Negative 03/21/2022 1:42 PM EST [facility] Hepatitis A Antibody IgM Negative Negative 03/21/2022 1:42 PM EST [facility] Hepatitis B Core Antibody IgM Negative Negative 03/21/2022 1:42 PM EST [facility] Blood Venous blood specimen / Unknown Venipuncture / Unknown 03/21/2022 10:45 AM EST 03/21/2022 10:48 AM EST march R Noah MOVIE CRITIC LAB BLOOD ORDERABLES Final Result [facility] [address] [place] [address] from Last 3 Months or Most Recently Relevant to Health Maintenance Insurance Care Teams Rotor Plate Washer Relationship Specialty Start Date End Date Lovely Uribe MD [address] [place] [address] PCP - General 07/13/20
--- OUTSIDE RECORDS SUMMARY | 2024-11-26 12:52 | XMS_ITS | Encounter Summary ---
Author Organization [facility] Address [address] [place] [address] Care Team Providers Care Banbury Mill Operator Name Role Phone Fabián Kent MD Primary Care Provider +1- [phone] Reason for Visit * Reason Onset Date Comments Med Refill 11/18/2024 Encounter Details Date Type Department Care Team (Late st Contact Info) Description 11/18/2024 Refill [facility] RHEUM[facility] [address] [address] Abner Valentin DO [address] [phone] Seropositive rheumatoid arthritis (Primary Dx); High risk [...] 9:39 AM EDT Faxed lab orders to [facility] at [phone] * Telephone Encounter - Karen SagastumeEmery Rep - 11/18/2024 1:06 PM EDT SHE ALSO NEEDS A LAB ORDER TO BE MAIL TO HER SO SHE CAN DO LABS documented in this encounter Plan of Treatment Upcoming Encounters Date Type Department Care Team (Late st Contact Info) Description 12/30/2024 11:15 AM EDT Office Visit [facility] RHEUMAT[facility] [address] [address] Abner Valentin DO [address] [address] Scheduled Orders Name Type Priority Associated Diagnoses [...] type documented in this encounter Care Teams Banbury Mill Operator Relationship Specialty Start Date End Date Fabián Kent MD [address] [place] [address] PCP - General Family Medicine 03/23/24 documented as of this encounter
--- OUTSIDE RECORDS SUMMARY | 2024-11-26 12:52 | XMS_ITS | Encounter Summary ---
Author Organization [facility] Address [address] [place] [address] Care Team Providers Care Hr Consultant Name Role Phone Lovely Uribe MD Primary Care Provider [phone] Encounter Details Date Type Department Care Team (Late st Contact Info) Description 04/24/2022 [facility] [address] [place] [address] Fabián Kent MD Social History Tobacco Use [...] documented as of this encounter Care Teams Hr Consultant Relationship Specialty Start Date End Date Lovely Uribe MD [address] [place] [address] PCP - General 07/13/20 documented as of this encounter
--- OUTSIDE RECORDS SUMMARY | 2024-11-26 12:52 | XMS_ITS | Clinical Summary ---
Author Organization [facility] Address [address] [place] [address] Care Team Providers Care Telescope Maintenance Name Role Phone Fabián Kent MD Primary Care Provider +1- [phone] Allergies No known active allergies Medications dilTIAZem [...] normal, Benavidez normal, SSA and SSB normal, Sm/METHODOLOGIST Normal, DS DNA Normal, RICKIE 1:320 speckled [...] normal, Benavidez normal, SSA and SSB normal, Sm/METHODOLOGIST Normal, DS DNA Normal, RICKIE 1:320 speckled [...] Type Department Care Team Description 11/18/2024 Refill [facility] [address] [address] Abner Valentin DO Seropositive rheumatoid arthritis (Primary Dx); High risk medication use; Arthralgia, unspecified joint; Fatigue, unspecified type 11/17/2024 Refill [facility] [address] [address] Abner Valentin DO 11/17/2024 Refill [facility] [address] [address] Abner Valentin DO from Last [...] Visit [facility] [address] [address] Abner Valentin DO [address] [address] Health Maintenance Due Date Last Done Comments [...] ve Non-Reacti ve 04/01/2024 12:01 AM EST [facility] Hep A IgM Non-Reacti ve Non-Reacti ve 04/01/2024 12:01 AM EST [facility] Hep B C IgM Non-Reacti ve Non-Reacti ve 04/01/2024 12:01 AM EST [facility] Hepatitis C Ab Non-Reacti ve Non-Reacti ve 04/01/2024 12:01 AM EST [facility] Blood Venipuncture / Unknown 03/31/2024 12:39 PM EST 03/31/2024 12:39 PM EST Narrative [facility] - 04/01/2024 12:01 AM EST Results may be falsely decreased if patient taking Biotin. us Abner Valentin DO LAB BLOOD ORDERABLES F inal Result [facility]
[address] [place] [address], from Last 3 Months or Most Recently Relevant to Health Maintenance Insurance Care Teams Telescope Maintenance Relationship Specialty Start Date End Date Fabián Kent MD [facility] [address] [place] [address] PCP - General Family Medicine 03/23/24
[2024-11-28 16:28] LABS: C-Reactive Protein 1.1 mg/L (0-4)
== END 2024-11-26 23:59 | disposition home or self-care (01) ==
LOC: LAB 12:50
PROVIDERS: Internal Medicine; PCP Family Medicine; Visit Provider Family Medicine
DX: M05.9 Rheumatoid arthritis with rheumatoid factor, unspecified (principal); M25.50 Pain in unspecified joint; R53.83 Other fatigue; Z79.899 Other long term (current) drug therapy
CPT/HCPCS: 85651; 86140

== ENCOUNTER 2024-12-16 16:56 | Outpatient (CLI) | payer BC, SELFPAY ==
--- OUTSIDE RECORDS SUMMARY | 2024-12-16 16:59 | XMS_ITS | Data Portability ---
Author Organization [place] [facility] Address [address] [place] [address] Care Team Providers Care Camp Head Counselor Name Role Phone [place] HINKLE Primary Care Provider [phone] Assessment Encounter Date Assessment Date Assessment LastModified [...] CT, angiogram, chest, w/wo contrast 2021 022 [email or web address] 1 [facility] (Centralized Scheduling), [address] [place] [address] , [place], [address], 08:46:24 Medication Orders None recorded. Patient TargetsNo targets recorded. Patient InstructionsNo instructions recorded. Reason for Referral None Reported. Results Created Date Observation Date Name Description Value Unit Range Abnormal Flag Note LastModifiedBy Organization Detail LastModifiedTime 12/17/1912/16/2021 CREAT ININE W/GFR note See Note Order ing Provi maor: Jacob regan MD Not Available [address] , [place], [address], 12/16/2021 11:23:05 12/17/1912/16/2021 CREAT ININE W/GFR creatinine 0.68 mg/dL 0.55-1 .02 normal Not Available [address] , [place], [address], 12/16/2021 11:23:05 12/17/1912/16/2021 CREAT ININE W/GFR glom filtr rate (estimated) > 60 mL/mi n >60 normal Not Available [address] [place], [place], [address], 12/16/2021 11:23:05 12/17/1912/16/2021 CREAT ININE W/GFR GFR est (if -amer ican) > 60 mL/mi n >60 normal Not Available [address] [place], [place], [address], 12/16/2021 11:23:05 12/17/1912/16/2021 CREAT ININE W/GFR performing lab see note - [facility] [address] [place] [address] [facility] [address] Not Available [address] [place], [place], [address], 12/16/2021 11:23:05 12/17/1912/16/2021 CT, chest , w/ contr ast [facility] Name: CJ STAURT9 Medica l Elli Phys: Broderick CHA, [place] [address] : 1975 Age: 46 Sex: F Acct: [id number] Loc: G.CT PHONE #: Exam Date: 2021 Status : REG CLI FAX #: Rad# [id number] Unit# [id number] Admit Date: 2021 EXAMS: CPT CODE: [id number] CTA CHEST (PE) 10794 Examin ation: CTA chest PE protoc ol [...] ia. PAGE 1 Signed Report (KEILA NUED) [facility] Name: CJ STUART ViaCubea Leho Phys: Broderick CHA, [place] [address] : 1975 Age: 46 Sex: F Acct: [id number] Loc: G.CT PHONE #: Exam Date: 2021 Status : REG CLI FAX #: Rad# [id number] Unit# [id number] Admit Date: 2021 EXAMS: CPT CODE: [id number] CTA CHEST (PE) 43903 Electr onical ly Signed by GIOVANNI DAVENPORT MD on 2021 at 1208 Report ed and signed by: GIOVANNI DAVENPORT MD CC: [place] BartholomewP-C; Jaocb Mcconnell MD Dictat ed Date/T kunal: 2021 [...] BRODERICK Al ting Provid er: MEEK BE [address] , [place], [address], 12/16/2021 14:05:13 Result Notes Documentation Provider Name and Address Organization Details Recorded Time Ct, Chest, W/ Contrast : [facility] Name: CJ STUART [address] [place] [address] Phys: [place] [address] : 1975 Age: 46 Sex: F Acct: [id number] Loc: G.CT PHONE #: Exam Date: 12/16/2021 Status: REG CLI FAX #: Rad# [id number] Unit# [id number] Admit Date: 12/16/2021 EXAMS: CPT CODE: [id number] CTA CHEST (PE) 56304 Examination: CTA chest PE protocol 12/16/2021 History: [...] Society criteria. PAGE 1 Signed Report (CONTINUED) [facility] Name: CJ STUART [address] Phys: Broderick CHA, [place] [address] : 1975 Age: 46 Sex: F Acct: [id number] Loc: G.CT PHONE #: Exam Date: 12/16/2021 Status: REG CLI FAX #: Rad# [id number] Unit# [id number] Admit Date: 12/16/2021 EXAMS: CPT CODE: [id number] CTA CHEST (PE) 24414 at 1208 Reported and signed by: KYLIE DAVENPORT MD CC: [place] SORIA-C; Jacob Mcconnell MD Dictated Date/Time: 12/16/2021 (1208) Technologist: MARYANNE WINKLER Transcribed Date/Time: 12/16/2021 (1208) Mess Cook: Electronic Signature Date/Time: 12/16/2021 (1208) Printed Date/Time: 12/16/2021 (1229) BATCH NO: N/A PAGE 2 Signed Report CC'ed Logic: Ordering Provider: BRODERICK PERALTA Attending Provider: BRODERICK PERALTA Referring Provider: BRODERICK PERALTA Consulting Provider: MANAN Casanova [facility], [place] - [place] - [place] & [place] 12/16/2021 14:05:13 Problems Name Problem SNOMED Code Status Onset Date Resolution Date Notes Provider Name and Address Organization Details Recorded Time Dyspnea on exertion 90443451 Active 2021 Jacob Mcconnell MD [facility] [address], [place], [address] [facility] [place] [facility] [place] 2 09:11:04 Tachycardia 2081083 Active 2021 Jacob Mcconnell MD [address] [place] [address],[address], [place], [address], [facility] & [place] 2 09:11:17 Edema 572111952 Active 2021 Jacob Mcconnell MD [address] [place] [address],[address], [place], [address], [facility] & [place] 2 09:11:35 Problem Notes None recorded. Procedures Surgical History Date Name Laterality Status Provider Name and Address Organization Details Recorded Time 007 Cholecystectomy completed [facility] Kannan DAMICO [facility] & [place] 11/28/2021 14:16:31 006 Tonsillectomy/Farhad oidectomy completed Poonamalysa DAMICO [facility] & [place] 11/28/2021 14:16:31 Imaging Results None recorded. Procedure [...] Updated DateTime 2 165.1 cm 45.1 kg/m2 774451. 53 g 98 % 98 % 110 /min 128/76 mm[Hg] Poonam García n [facility] & [place] 2 14:15:00 Social History Question Answer Notes LastModified by PublishThis ion Details LastModified Time Tobacco Smoking Status Never Smoker Poonam Brunner null, [facility] & [place] 11/28/2021 14:19:49 If You Are , What Was Your Level Of Alcohol Consumption Prior To ? None [email or web address] Information not available 11/28/2021 Sex: Unknown Functional Status Question Answer Note LastModified by Organizat ion Details LastModified Time Do you use any illicit or recreational drugs? No [email or web address] Information not available 11/28/2021 What is your level of alcohol consumption? None [email or web address] Information not available 11/28/2021 Mental Status None recorded. Family History Relationship Description Onset Age of this Age Resolved Age Notes LastModified by Organization Details LastModified Time Father No current problems or disability [email or web address] Not available 0 11/28/2021 14:19:33 Mother No current problems or disability [email or web address] Not available 0 11/28/2021 14:19:33 Medical History Condition Response Obesity Y Headaches Y Hypertension Y Gynecological HistoryNo gynecological history recorded. Obstetrics History GPAL:G 0 P 0 0 0 0 Past Encounters Encounter ID Performer Location Encounter Start Date Encounter Closed Date Diagnosis/Indication Diagnosis SNOMED-CT Code Diagnosis ICD10 Code Diagnosis IMO Codes Diagnosis Note [id number] Jacob Mcconnell MD [address] [address] 11/28/2021 08:41:47 11/28/2021 09:08:09 Dyspnea on exertion 05098577 R06.09 Tachycardia 5780003 R00. [address]-COVID-19 syndrome 9649539612 Z86.16 Edema 379502641 R60.9 Health Concerns Section Related Observation LastModified by Organization Detai ls LastModified Time None Recorded Concern Status LastModified by Organization Details LastModified Time None Recorded Advance Directives Directive None Recorded Payers Insurance Date Sequence Insurance Name Policy Number Policy Harman Covered Member ID Harman Member ID Guarantor Name 12/23/2021 1 [place] [id number] Cj Stuart [id number] Cj Stuart 01/16/2023 1 [facility] (MEDICAID HMO) Zac Roa [id number] Cj Stuart 10/01/2021 1 [facility] [id number] Irvin B Roa [id number] Cj Stuart Notes Date Note Type Note [...] shortness of breath Jacob Mcconnell MD [address] [facility],[address], [place], [address], [facility] 11/29/2021 17:09:15 OBGyn Episode No OBEpisode recorded.
--- OUTSIDE RECORDS SUMMARY | 2024-12-16 16:59 | XMS_ITS | Encounter Summary ---
Author Organization [facility] Address [address] [place] [address] Care Team Providers Care Fisheries Inspector Name Role Phone Fabián Kent MD Primary Care Provider [phone]- [phone] Reason for Visit * Reason Onset Date Comments Med Refill 11/17/2024 Encounter Details Date Type Department Care Team (Late st Contact Info) Description 11/17/2024 Refill [facility] RHEUMATOLOGY [address] [address] Abner Vlaentin DO [address] [address] Social History Tobacco Use Types [...] Description 12/30/2024 11:15 AM EDT Office Visit [facility] RHEUMATOLOGY 330 [facility] [address] [place] [address] Abner Valentin DO 330 [facility] [address] [place] [address] documented as of this encounter Visit Diagnoses Not on filedocumented in this encounter Care Teams Fisheries Inspector Relationship Specialty Start Date End Date Fabián Kent MD [address] [place] [address] PCP - General Family Medicine 03/23/24 documented as of this encounter
--- OUTSIDE RECORDS SUMMARY | 2024-12-16 16:59 | XMS_ITS | Clinical Summary ---
Author Organization [facility] ([place], [place], [place], [place]) Address [address] [place] [address] Care Team Providers Care Tube Mounter Name Role Phone Fabián Kent MD Primary Care Provider [phone]- [phone] Allergies No known active allergies Medications lisinopriL [...] Date Steven rded Speak language other than Martiniquais at home Not on file 05/12/2023 Want [...] topic Insurance BLUE CROSS/BLUE SHIELD Care Teams Tube Mounter Relationship Specialty Start Date End Date Fabián Kent MD [address] [place] [address] PCP - General Family Medicine 05/12/23
--- OUTSIDE RECORDS SUMMARY | 2024-12-16 16:59 | XMS_ITS | Encounter Summary ---
Author Organization [facility] Address [address] [place] [address] Care Team Providers Care Farm Equipment Engineer Name Role Phone Fabián Kent MD Primary Care Provider [phone]- [phone] Encounter Details Date Type Department Care Team (Late st Contact Info) Description 11/28/2024 Results Follow-Up [facility] MEDICAL [facility] RHE[facility] 330 [facility] 100 [place] [address] Abner Valentin DO [address] [id number] Social History Tobacco Use Types Packs/Day Years [...] on file documented as of this encounter Progress Notes * Alicia Lo MA - 12/01/2024 8:41 AM EDTAddended by: ALICIA LO on: 12/01/2024 08:41 AM Modules accepted: Orders documented in this encounter Miscellaneous Notes * Telephone Encounter - Alicia Lo MA - 12/01/2024 8:39 AM EDT Refill request for MTX. Lab are current and in chart from 11/26/24 and she has a RTC on 12/30/24. I sent in for a 1 mo supply with no refills. -WISAM Cast documented in this encounter Plan of Treatment Upcoming Encounters Date Type Department Care Team (Late st Contact Info) Description 12/30/2024 11:15 AM EDT Office Visit [facility] RHEUMATOLOGY [address] [address] Abner Valentin DO [address] [address] documented as of this encounter Visit Diagnoses Not on filedocumented in this encounter Care Teams Farm Equipment Engineer Relationship Specialty Start Date End Date Fabián Kent MD [address] [place] [address] PCP - General Family Medicine 03/23/24 documented as of this encounter
--- OUTSIDE RECORDS SUMMARY | 2024-12-16 16:59 | XMS_ITS | Encounter Summary ---
Author Organization Healthcare Address [address] [place] [address] Care Team Providers Care Tape Sewer Name Role Phone Lovely Uribe MD Primary Care Provider [phone] Encounter Details Date Type Department Care Team (Late st Contact Info) Description 04/24/2022 [facility] [address] [place] [address] Fabián Kent MD Social History Tobacco Use [...] documented as of this encounter Care Teams Tape Sewer Relationship Specialty Start Date End Date Lovely Uribe MD [address] [place] [address] PCP - General 07/13/20 documented as of this encounter
--- OUTSIDE RECORDS SUMMARY | 2024-12-16 16:59 | XMS_ITS | Clinical Summary ---
Author Organization [facility] Address [address] [place] [address] Care Team Providers Care Personalized Living Manager Nurse Name Role Phone Fabián Kent MD Primary Care Provider [phone]- [phone] Allergies No known active allergies Medications dilTIAZem CD (CARDIZEM CD) 180 MG 24 hr capsule Take 1 capsule by mouth Daily. 4 Active lisinopril (PRINIVIL,ZESTR IL) 20 MG tablet Take 1 tablet by mouth Daily. Active venlafaxine XR (EFFEXOR-XR) 75 MG 24 hr capsule Take 1 capsule by mouth Daily. Active folic acid (FOLVITE) 1 MG tablet Take 1 tablet by mouth Daily. 30 tablet 5 5 Active meloxicam (MOBIC) 15 MG tablet take 1 tablet 1 time each day 5 Active methotrexate 2.5 MG tablet Take 6 tablets by mouth 1 (One) Time Per Week. 24 tablet 5 Active methotrexate 2.5 MG tablet Take 6 tablets by mouth 1 (One) Time Per Week. 24 tablet 3 5 12/02/19 25 Discontinu ed(Reorder ) Active Problems Problem Noted Date Diagnosed Date [...] normal, Benavidez normal, SSA and SSB normal, Sm/MECHANICAL STRIPER Normal, DS DNA Normal, RICKIE 1:320 speckled [...] normal, Benavidez normal, SSA and SSB normal, Sm/MECHANICAL STRIPER Normal, DS DNA Normal, RICKIE 1:320 speckled [...] Encounters Date Type Department Care Team Description 11/28/2024 Results Follow-Up [facility] RHEUMATOLOGY [address] [place] [address] Abner Valentin DO 11/18/2024 Refill [facility] RHE[facility] [address] [place] [address] Abner Valentin DO Seropositive rheumatoid arthritis (Primary Dx); High risk medication use; Arthralgia, unspecified joint; Fatigue, unspecified type 11/17/2024 Refill [facility] RHE[facility] [address] [place] [address] Abner Valentin DO 11/17/2024 Refill [facility] [address] [place] [address] Abner Valentin DO from Last 3 [...] Description 12/30/2024 11:15 AM EDT Office Visit [facility] 330 [facility] [place] [address] Abner Valentin DO [address] [address] Health Maintenance Due Date Last Done Comments [...] Procedure Name Priority Date/Time Associated Diagnosis Comments SCANNED - LABS 11/26/2024 C-REACTIVE PROTEIN Routine 11/26/2024 Seropositive rheumatoid arthritis High risk medication use Arthralgia, unspecified joint Fatigue, unspecified type SEDIMENTATION RATE Routine 11/26/2024 Seropositive rheumatoid arthritis High risk medication use Arthralgia, unspecified joint Fatigue, unspecified type HEPATITIS PANEL, ACUTE Routine 12:39 PM EST Arthralgia, unspecified joint Fatigue, unspecified type Seropositive rheumatoid arthritis from Last 3 Months or Most Recently Relevant to Health Maintenance Results * LABS SCANNED (11/26/2024) Abner Valentin DO LAB BLOOD ORDERABLES F inal Result * Sedimentation Rate (11/26/2024) Blood Abner Cabrera Barbie LAB BLOOD ORDERABLES F inal Result [facility] (AMBULATORY) [address] [place] [address], [place] [phone] * C-reactive Protein (11/26/2024) Blood [facility] Rick Barbie DO LAB BLOOD ORDERABLES F inal Result Performing Organization Address [facility] Co de Phone Number [facility] [address] [place] [address], [place] [phone] * Hepatitis Panel, Acute (03/31/2024 12:39 PM EST) Hepatitis B Surface Ag Non-Reacti ve Non-Reacti ve 04/01/2024 12:01 AM EST [facility] Hep A IgM Non-Reacti ve Non-Reacti ve 04/01/2024 12:01 AM EST [facility] Hep B C IgM Non-Reacti ve Non-Reacti ve 04/01/2024 12:01 AM EST [facility] Hepatitis C Ab Non-Reacti ve Non-Reacti ve 04/01/2024 12:01 AM EST [facility] Blood Venipuncture / Unknown 03/31/2024 12:39 PM EST 03/31/2024 12:39 PM EST Narrative [facility] - 04/01/2024 12:01 AM EST Results may be falsely decreased if patient taking Biotin. Abnerstarla Cabrera [place] DO LAB BLOOD ORDERABLES F inal Result [facility]
[address] [place] [address], [place] [phone] from Last 3 Months or Most Recently Relevant to Health Maintenance Insurance [facility] PPO Care Teams Personalized Living Manager Nurse Relationship Specialty Start Date End Date Fabián Kent MD [address] [place] [address] PCP - General Family Medicine 03/23/24
--- OUTSIDE RECORDS SUMMARY | 2024-12-16 16:59 | XMS_ITS | Clinical Summary ---
Author Organization Healthcare Address [address] [place] [address] Care Team Providers Care Waitstaff Captain Name Role Phone Lovely Uribe MD Primary Care Provider [phone] Allergies No known active allergies Medications dilTIAZem [...] Anitha Relation Name Status Comments Maternal Grandfather [place] Paternal Grandfather Larce [place] Social History Tobacco Use Types Packs/Day Years [...] Last Done Comments Y-/Child/Adol SDOH Screenings 1975 HKU-QABOT-20 Vaccine (#1) 1981 UKY- SDOH Screenings 1994 [...] Nonreactive 03/21/2022 2:03 PM EST [facility] Blood Venous blood specimen / Unknown Venipuncture / Unknown 03/21/2022 10:45 AM EST 03/21/2022 10:48 AM EST March R Noah WELDING PRODUCTION SUPERVISOR LAB BLOOD ORDERABLES Final Result [facility] [address] [place] [address] * Acute Hepatitis Panel (03/21/2022 10:45 AM EST) Hepatitis B Surf Antigen Negative Negative 03/21/2022 1:42 PM EST [facility] Hepatitis C Antibody Negative Negative 03/21/2022 1:42 PM EST [facility] Hepatitis A Antibody IgM Negative Negative 03/21/2022 1:42 PM EST [facility] Hepatitis B Core Antibody IgM Negative Negative 03/21/2022 1:42 PM EST [facility] Blood Venous blood specimen / Unknown Venipuncture / Unknown 03/21/2022 10:45 AM EST 03/21/2022 10:48 AM EST march R Noah WELDING PRODUCTION SUPERVISOR LAB BLOOD ORDERABLES Final Result [facility] [address] [place] [address] from Last 3 Months or Most Recently Relevant to Health Maintenance Insurance Care Teams Waitstaff Captain Relationship Specialty Start Date End Date Lovely Uribe MD [address] [place] [address] PCP - General 07/13/20
--- OUTSIDE RECORDS SUMMARY | 2024-12-16 16:59 | XMS_ITS | Referral Summary ---
Author Organization [employer] ([place], [place], [place], [place]) Address [address] [place] [address] Care Team Providers Care Adult Care Provider Name Role Phone Fabián Kent MD Primary Care Provider +1- [phone] Allergies No known active allergies Medications lisinopriL [...] Date Steven rded Speak language other than Frisian at home Not on file 05/12/2023 Want [...] file Insurance BLUE CROSS/BLUE SHIELD Care Teams Adult Care Provider Relationship Specialty Start Date End Date Fabián Kent MD [address] [place] [address] PCP - General Family Medicine 05/12/23
--- OUTSIDE RECORDS SUMMARY | 2024-12-16 16:59 | XMS_ITS | Encounter Summary ---
Author Organization [facility] Address [address] [place] [address] Care Team Providers Care Carburetor Rebuilder Name Role Phone Fabián Kent MD Primary Care Provider [phone]- [phone] Reason for Visit * Reason Onset Date Comments Med Refill 11/17/2024 Encounter Details Date Type Department Care Team (Late st Contact Info) Description 11/17/2024 Refill [facility] RHEUMATOLOGY [address] [address] Abner Valentin DO [address] [address] Social History Tobacco Use Types [...] Rep - 11/17/2024 9:49 AM EDT Caller: Jonas Stuart Relationship: Self Best call back number: [phone] Requested Prescriptions: Requested Prescriptions Pending Prescriptions Disp Refills methotrexate 2.5 MG tablet 24 tablet 3 Sig: Take 6 tablets by mouth 1 (One) Time Per Week. Pharmacy where request should be sent: [facility] [address] [phone] [facility] [phone] Last office visit with prescribing clinician: 08/02/2024 [...] Description 12/30/2024 11:15 AM EDT Office Visit [facility] RHEUMATOLOGY 330 [facility] 100 [place] [address] Abner Valentin DO 330 [facility] 100 [place], [place] [id number] documented as of this encounter Visit Diagnoses Not on filedocumented in this encounter Care Teams Carburetor Rebuilder Relationship Specialty Start Date End Date Fabián Kent MD [address] [place] [address] PCP - General Family Medicine 03/23/24 documented as of this encounter
--- OUTSIDE RECORDS SUMMARY | 2024-12-16 16:59 | XMS_ITS | Encounter Summary ---
Author Organization [facility] Address [address] [place] [address] Care Team Providers Care Director Of Hemophilia Name Role Phone Fabián Kent MD Primary Care Provider +1- [phone] Reason for Visit * Reason Onset Date Comments Med Refill 11/18/2024 Encounter Details Date Type Department Care Team (Late st Contact Info) Description 11/18/2024 Refill [facility] R[facility] [address] [address] Abner Valentin DO [address] [id number] Seropositive rheumatoid arthritis (Primary Dx); High risk [...] 9:39 AM EDT Faxed lab orders to [facility] at [phone] * Telephone Encounter - Karen Sagastume RegSched Rep - 11/18/2024 1:06 PM EDT SHE ALSO NEEDS A LAB ORDER TO BE MAIL TO HER SO SHE CAN DO LABS documented in this encounter Plan of Treatment Upcoming Encounters Date Type Department Care Team (Late st Contact Info) Description 12/30/2024 11:15 AM EDT Office Visit [facility] RHEUMATOLOGY [address] [address] Abner Valentin DO 330 [facility] [address] [place] [address] Scheduled Orders Name Type Priority Associated Diagnoses Orde r Schedule CBC & Differential Lab Panel Routine Seropositive rheumatoid arthritis High risk medication use Arthralgia, unspecified joint Fatigue, unspecified type Expected: 11/26/2024 (Approximate), Expires: 02/20/2026 Comprehensive Metabolic Panel Lab Routine Seropositive rheumatoid arthritis High risk medication use Arthralgia, unspecified joint Fatigue, unspecified type Expected: 11/26/2024 (Approximate), Expires: 02/20/2026 documented as of this encounter Results * C-reactive Protein (11/26/2024) Blood Abner Valentin DO LAB BLOOD ORDERABLES F inal Result Performing Organization Address City/[facility]/ZIP Co de Phone Number [facility] (AMBULATORY) [address] [place] [address], [place] [phone] * Sedimentation Rate (11/26/2024) Blood Abner Valentin DO LAB BLOOD ORDERABLES F inal Result Performing Organization Address City/[facility]/ZIP Co de Phone Number [facility] (AMBULATORY) [address] [place] [address], [place] [phone] documented in this encounter Visit Diagnoses Diagnosis Seropositive rheumatoid arthritis- Primary High risk medication use Arthralgia, unspecified joint Fatigue, unspecified type documented in this encounter Care Teams Director Of Hemophilia Relationship Specialty Start Date End Date Fabián Kent MD [address] [place] [address] PCP - General Family Medicine 03/23/24 documented as of this encounter
--- NOTE | 2024-12-16 17:00 | MM_ITS ---
PROCEDURE INFORMATION: Exam: MG Bilateral Screening 3D Mammography Exam date and time: 12/16/2024 4:58 PM Age: 49 years old Clinical indication: Screening exam. TECHNIQUE: Imaging protocol: Bilateral Screening tomosynthesis and 2D mammography including computer-aided detection (CAD) when performed. COMPARISON: 1. MG MM DIG SCREENING MAMM BI W/CAD 11/03/2023 2:03 PM 2. MG SCN DIG BREAST TOMOSYN GLENDA 03/06/2020 11:16 AM FINDINGS: MAMMOGRAPHY: Breast composition: The breasts are almost entirely fatty. Mass: No suspicious masses. Architectural distortion: None. Calcifications: No suspicious calcifications. Asymmetric density: None. Skin thickening: None. Axillary adenopathy: None. IMPRESSION: No mammographic evidence of malignancy. Annual screening is recommended unless otherwise clinically indicated. ASSESSMENT: BI-RADS Category 1: Negative.
== END 2024-12-16 23:59 | disposition home or self-care (01) ==
LOC: RAD 16:57
PROVIDERS: PCP Family Medicine; Visit Provider Family Medicine
DX: Z12.31 Encounter for screening mammogram for malignant neoplasm of breast (principal)
CPT/HCPCS: 77063; 77067

== ENCOUNTER 2025-02-14 09:58 | Outpatient (CLI) | payer BC, SELFPAY ==
--- OUTSIDE RECORDS SUMMARY | 2024-12-30 10:15 | XMS_ITS | Encounter Summary ---
Author Organization [facility] Address [address] [place] [address] Care Team Providers Care Cryptologist Name Role Phone Fabián Kent MD Primary Care Provider +1- [phone] Reason for Visit * Reason Comments Rheumatoid Arthritis Follow up Encounter Details Date Type Department Care Team (Late st Contact Info) Description 12/30/2024 11:15 AM EDT Office Visit [facility] R[facility]Y [address] [address] Abner Valentin DO [address] [phone] Seropositive rheumatoid arthritis (Primary Dx); High risk medication use Social History Tobacco Use Types Packs/Day Years Used Date Smoking Tobacco: Never Passive Smoke Exposure: Past Smokeless Tobacco: Never Tobacco Cessation:Counseling Given: Not Answered Alcohol Use Standard Drinks/Week Comments Never 0 (1 standard drink = 0.6 oz pur e alcohol) Comments Unknown Sex and Gender Information Value Date Recorded Sex Assigned at Female 12/30/2024 10:48 AM EDT Legal Sex Female 10:45 AM EST Gender Identity Not on file Sexual Orientation Straight 12/30/2024 10 :48 AM EDT documented as of this encounter Last Filed Vital Signs Vital Sign Reading Time Taken Comments Blood Pressure 138/76 12/30/2024 11:08 AM EDT Pulse 85 12/30/2024 11:08 AM EDT Temperature 36.6 C (97.8 F) 12/30/2024 11:08 AM EDT Respiratory Rate - - Oxygen Saturation - - Inhaled Oxygen Concentration - - Weight 121 kg (266 lb) 12/30/2024 11:08 AM EDT Height 165.1 cm (5' 5 ) 12/30/2024 11:08 AM EDT Body Mass Index 44.26 12/30/2024 11:08 AM EDT documented in this encounter Patient Instructions * Attachments The following attachments cannot be sent through Care Everywhere. * Rheumatoid Arthritis (Mac[place]) documented in this encounter Progress Notes * Abner Valentin DO - 12/30/2024 11:15 AM EDTAssociated Problem(s): Seropositive rheumatoid arthritis Medication/treatment/interventions tried include: Tylenol, sulfasalazine, venlafaxine, she saw Rheumatology 2022, Paroxetine, methotrexate/folic acid, meloxicam 03/21/22: ESR 25 (< 20), RF 18 (<14), CCP Negative, CRP normal, Benavidez normal, SSA and SSB normal, Sm/SCIENTIFIC INFORMATICS PROJECT LEADER Normal, DS DNA Normal, RICKIE 1:320 speckled 03/31/24: RICKIE 1:640 speckled, RF + She previously saw rheumatology She has tried sulfasalazine in the past. She did not think it helped her. We gave her a handout on RA to review. Continue/refill MTX & folic acid She reports feeling well today Follow up in 4 months. She has stopped taking NSAIDS due to coronary artery disease. Orders: CBC Auto Differential Comprehensive Metabolic Panel C-reactive Protein Sedimentation Rate * Abner Valentin DO - 12/30/2024 11:15 AM EDTAssociated Problem(s): High risk medication use Methotrexate 15 mg PO once/week for RA Started 03/31/24 1. CBC and CMP every 8-12 weeks to monitor for medication toxicity. 2. Take folate supplements daily. 3. No recent serious infections. 4. Refill today Orders: CBC Auto Differential Comprehensive Metabolic Panel C-reactive Protein Sedimentation Rate * Abner Valentin, - 12/30/2024 11:15 AM EDT Images from the original note were not included. Office Follow Up Date: 12/30/2024 Patient Name: Kiran Stuart Date of : 1975 Chief Complaint Patient presents with Rheumatoid Arthritis Follow up History of Present Illness: Kiran Stuart is a 49 y.o. female who is here today for follow up. She established care with us as of 03/31/24. We have prescribed her methotrexate/folic acid. Since we saw her she suffered a heart attack. Today she rates her pain as 3/10 in severity. She has very little morning stiffness. No red or hot joints. No swelling. No muscle pain or weakness. No back or neck issues. No sicca symptoms. No shortness of breath. She has had chest pain. She is constipated. No issues. No headaches or paresthesias. No lymphadenopathy. No abnormal bruising/bleeding. No rash. No hair loss. Subjective Review of Systems HENT: Negative. Eyes: Negative. Respiratory: Negative. Cardiovascular: Positive for chest pain. Gastrointestinal: Positive for constipation. Endocrine: Negative. Musculoskeletal: Positive for arthralgias. Skin: Negative. Allergic/Immunologic: Negative. Neurological: Negative. Hematological: Negative. Psychiatric/Behavioral: Negative. All other systems reviewed and are negative. Current Outpatient Medications: Aspirin Low Dose 81 MG EC tablet, Take 1 tablet by mouth Daily., Disp: , Rfl: folic acid (FOLVITE) 1 MG tablet, Take 1 tablet by mouth Daily., Disp: 30 tablet, Rfl: 5 lisinopril (PRINIVIL,ZESTRIL) 40 MG tablet, Take 1 tablet by mouth Daily., Disp: , Rfl: methotrexate 2.5 MG tablet, Take 6 tablets by mouth 1 (One) Time Per Week., Disp: 24 tablet, Rfl: 0 metoprolol succinate XL (TOPROL-XL) 25 MG 24 hr tablet, Take 1 tablet by mouth Daily., Disp: , Rfl: Ozempic, 1 MG/DOSE, 4 MG/3ML solution pen-injector, , Disp: , Rfl: prasugrel (EFFIENT) 10 MG tablet, Take 1 tablet by mouth Daily., Disp: , Rfl: ranolazine (RANEXA) 500 MG 12 hr tablet, Take 1 tablet by mouth 2 (Two) Times a Day., Disp: , Rfl: rosuvastatin (CRESTOR) 40 MG tablet, Take 1 tablet by mouth Daily., Disp: , Rfl: venlafaxine XR (EFFEXOR-XR) 75 MG 24 hr capsule, Take 1 capsule by mouth Daily., Disp: , Rfl: No Known Allergies I have reviewed and updated the patient's chief complaint, history of present illness, review of systems, past medical history, surgical history, family history, social history, medications and allergy list as appropriate. Objective Vitals: 12/30/24 1108 BP: 138/76 BP Location: Left arm Patient Position: Sitting Cuff Size: Adult Pulse: 85 Temp: 97.8 ??F (36.6 ??C) Weight: 121 kg (266 lb) Height: 165.1 cm (65 ) PainSc: 3 PainLoc: Generalized Comment: hands Body mass index is 44.26 kg/m??. Physical Exam General: Well appearing 49 year old female. Not in distress. She [...] normal, Benavidez normal, SSA and SSB normal, Sm/SCIENTIFIC INFORMATICS PROJECT LEADER Normal, DS DNA Normal, RICKIE 1:320 speckled 03/31/24: RICKIE 1:640 speckled, RF + She previously saw [facility] She has tried sulfasalazine in the past. She did not think it helped her. We gave her a handout on RA to review. Continue/refill MTX & folic acid She reports feeling well today Follow up in 4 months. She has stopped taking NSAIDS due to coronary artery disease. Orders: CBC Auto Differential Comprehensive Metabolic Panel [...] Up: Return in about 4 months (around 04/29/2025). Abner Valentin DO [facility] [place] [facility] documented in this encounter Plan of Treatment Upcoming Encounters Date Type Department Care Team (Late st Contact Info) Description 04/28/2025 11:00 AM EST Office Visit [facility] R[facility] [address] [phone] Latanya Medina APRN [address] [address] 08/25/2025 11:30 AM EDT Office Visit [facility] [address] [address] Abner Valentin DO [address] [address] Scheduled Orders Name Type Priority Associated Diagnoses Orde r Schedule CBC Auto Differential Lab Routine Seropositive rheumatoid arthritis High risk medication use Ordered: 12/30/2024 Comprehensive Metabolic Panel Lab Routine Seropositive rheumatoid arthritis High risk medication use Ordered: 12/30/2024 C-reactive Protein Lab Routine Seropositive rheumatoid arthritis High risk medication use Ordered: 12/30/2024 Sedimentation Rate Lab Routine Seropositive rheumatoid arthritis High risk medication use Ordered: 12/30/2024 documented as of this encounter Visit Diagnoses Diagnosis Seropositive rheumatoid arthritis- Primary High risk medication use documented in this encounter Care Teams Cryptologist Relationship Specialty Start Date End Date Fabián Kent MD [address] [place] [address] PCP - General Family Medicine 03/23/24 documented as of this encounter
--- OUTSIDE RECORDS SUMMARY | 2025-02-14 10:19 | XMS_ITS | Clinical Summary ---
Author Organization [facility] Address [address] [place] [address] Care Team Providers Care Before School Babysitter Name Role Phone Fabián Kent MD Primary Care Provider +1- [phone] Allergies No known active allergies Medications venlafaxine XR (EFFEXOR-XR) 75 MG 24 hr capsule Take 1 capsule by mouth Daily. Active Aspirin Low Dose 81 MG EC tablet Take 1 tablet by mouth Daily. 11/14/2024 Active metoprolol succinate XL (TOPROL-XL) 25 MG 24 hr tablet Take 1 tablet by mouth Daily. 10/13/2024 Active prasugrel (EFFIENT) 10 MG tablet Take 1 tablet by mouth Daily. 11/14/2024 Active ranolazine (RANEXA) 500 MG 12 hr tablet Take 1 tablet by mouth 2 (Two) Times a Day. 11/14/2024 Active rosuvastatin (CRESTOR) 40 MG tablet Take 1 tablet by mouth Daily. 11/14/2024 Active Ozempic, 1 MG/DOSE, 4 MG/3ML solution pen-injector 12/27/2024 Active lisinopril (PRINIVIL,ZESTR IL) 40 MG tablet Take 1 tablet by mouth Daily. 10/13/2024 Active folic acid (FOLVITE) 1 MG tablet Take 1 tablet by mouth Daily. 30 tablet 5 12/30/2024 Active methotrexate 2.5 MG tablet Take 6 tablets by mouth 1 (One) Time Per Week. 24 tablet 5 12/30/2024 Active Active Problems Problem Noted Date Diagnosed Date High risk medication use 08/02/2024 Assessment & Plan (12/30/2024 11:34 AM EDT): Methotrexate 15 mg PO once/week for RA Started 03/31/24 1. CBC and CMP every 8-12 weeks to monitor for medication toxicity. 2. Take folate supplements daily. 3. No recent serious infections. 4. Refill today Orders: CBC Auto Differential Comprehensive Metabolic Panel C-reactive Protein Sedimentation Rate Assessment & Plan (08/02/2024 2:22 PM EDT): Methotrexate 15 mg PO once/week for RA Started 03/31/24 1. CBC and CMP every 8-12 weeks to monitor for medication toxicity. 2. Take folate supplements daily. 3. No recent serious infections. 4. Refill today Orders: CBC Auto Differential Comprehensive Metabolic Panel C-reactive Protein Sedimentation Rate Seropositive rheumatoid arthritis 03/31/2024 Assessment & Plan (12/30/2024 11:43 AM EDT): Medication/treatment/interventions tried include: Tylenol, sulfasalazine, venlafaxine, she saw [facility] 2022, Paroxetine, methotrexate/folic acid, meloxicam 03/21/22: ESR 25 (< 20), RF 18 (<14), CCP Negative, CRP normal, Benavidez normal, SSA and SSB normal, Sm/PAPERHANGER ASSISTANT Normal, DS DNA Normal, RICKIE 1:320 speckled [...] C-reactive Protein Sedimentation Rate Assessment & Plan (08/02/2024 2:22 PM EDT): Medication/treatment/interventions tried include: Tylenol, sulfasalazine, venlafaxine, she saw Rheumatology 2022, Paroxetine, methotrexate/folic acid, meloxicam 03/21/22: ESR 25 (< 20), RF 18 (<14), CCP Negative, CRP normal, Benavidez normal, SSA and SSB normal, Sm/PAPERHANGER ASSISTANT Normal, DS DNA Normal, RICKIE 1:320 speckled [...] normal, Benavidez normal, SSA and SSB normal, Sm/PAPERHANGER ASSISTANT Normal, DS DNA Normal, RICKIE 1:320 speckled [...] Encounters Date Type Department Care Team Description 12/30/2024 11:15 AM EDT Office Visit [facility] RHEUM[facility] [address] [phone] Abner Valentin DO Seropositive rheumatoid arthritis (Primary Dx); High risk medication use 12/30/2024 Travel 11/28/2024 Results Follow-Up [facility] RHEUM[facility] [address] [place] [phone] Abner Valentin DO 11/18/2024 Refill [facility] [address] [place] [phone] Abner Valentin DO Seropositive rheumatoid arthritis (Primary Dx); High risk medication use; Arthralgia, unspecified joint; Fatigue, unspecified type 11/17/2024 Refill [facility] RHE[facility] [address] [place] [phone] Abner Valentin DO 11/17/2024 Refill [facility] R[facility] [address] [place] [phone] Abner Valentin DO from Last 3 Months [...] Orientation Straight 12/30/2024 10 :48 AM EDT Last Filed Vital Signs Vital Sign Reading [...] Mass Index 44.26 12/30/2024 11:08 AM EDT Plan of Treatment Upcoming Encounters Date Type Department Care Team (Late st Contact Info) Description 04/28/2025 11:00 AM EST Office Visit [facility] RHE[facility] [address] [phone] Latanya Medina APRN [address] [phone] 08/25/2025 11:30 AM EDT Office Visit [facility] RHE[facility] [address] [address] Abner Valentin DO [address] [phone] Health Maintenance Due Date Last Done Comments [...] Health Maintenance Results * LABS SCANNED (11/26/2024) [facility] [place] [place] Barbie DO LAB BLOOD ORDERABLES F inal Result * Sedimentation Rate (11/26/2024) Blood [facility] Rick Barbie DO LAB BLOOD ORDERABLES F inal Result Performing Organization Address [facility] de Phone Number [facility] ([facility]) [address] [place] [address], [place] [phone] * C-reactive Protein (11/26/2024) Blood [facility] Rick Mcintosh DO LAB BLOOD ORDERABLES F inal Result Performing Organization Address [facility] de Phone Number [facility] [address] [place] [address], [place] [phone] * Hepatitis Panel, Acute (03/31/2024 12:39 PM EST) Hepatitis B Surface Ag Non-Reacti ve Non-Reacti ve 04/01/2024 12:01 AM EST [facility] Hep A IgM Non-Reacti ve Non-Reacti ve 04/01/2024 12:01 AM EST [facility] Hep B C IgM Non-Reacti ve Non-Reacti ve 04/01/2024 12:01 AM EST [facility] Hepatitis C Ab Non-Reacti ve Non-Reacti ve 04/01/2024 12:01 AM EST [facility] Blood Venipuncture / Unknown 03/31/2024 12:39 PM EST 03/31/2024 12:39 PM EST Narrative [facility] - 04/01/2024 12:01 AM EST Results may be falsely decreased if patient taking Biotin. [facility] Rick Barbie DO LAB BLOOD ORDERABLES F inal Result Performing Organization Address [facility]/State/ZIP Co de Phone Number [facility]
[address] [place] [address], from Last 3 Months or Most Recently Relevant to Health Maintenance Insurance [facility] PPO Care Teams Before School Babysitter Relationship Specialty Start Date End Date Fabián Kent MD [address] [place] [address] PCP - General Family Medicine 03/23/24
--- OUTSIDE RECORDS SUMMARY | 2025-02-14 10:19 | XMS_ITS | Encounter Summary ---
Author Organization [facility] Address [address] [place] [address] Care Team Providers Care Beef Selector Name Role Phone Fabián Kent MD Primary Care Provider [phone]- [phone] Encounter Details Date Type Department Care Team (Latest Contact Info) Description 12/30/2024 Travel Social History Tobacco Use Types Packs/Day Years Used Date Smoking Tobacco: Never Passive Smoke Exposure: Past Smokeless Tobacco: Never Alcohol Use Standard Drinks/Week Comments Never 0 (1 standard drink = 0.6 oz pur e alcohol) Comments Unknown Sex and Gender Information Value Date Recorded Sex Assigned at Female 12/30/2024 10:48 AM EDT Legal Sex Female 10:45 AM EST Gender Identity Not on file Sexual Orientation Straight 12/30/2024 10 :48 AM EDT documented as of this encounter Plan of Treatment Upcoming Encounters Date Type Department Care Team (Late st Contact Info) Description 04/28/2025 11:00 AM EST Office Visit [facility] RHEUMATOLOGY [address] [place] [phone] Latanya Medina APRN [address] [address] 08/25/2025 11:30 AM EDT Office Visit [facility] RHEUMATOLOGY [address] [place] [address] Abner Valentin DO [address] [address] documented as of this encounter Visit Diagnoses Not on filedocumented in this encounter Care Teams Beef Selector Relationship Specialty Start Date End Date Fabián Kent MD [address] [place] [address] PCP - General Family Medicine 03/23/24 documented as of this encounter
--- OUTSIDE RECORDS SUMMARY | 2025-02-14 10:19 | XMS_ITS | Clinical Summary ---
Author Organization [employer] ([place], [place], [place], [place], [place]) Address [address] [place] [address] Care Team Providers Care Brewmaster Name Role Phone Fabián Kent MD Primary Care Provider +1- [phone] Allergies No known active allergies Medications lisinopriL [...] Date Steven rded Speak language other than Romanian at home Not on file 05/12/2023 Want [...] topic Insurance BLUE CROSS/BLUE SHIELD Care Teams Brewmaster Relationship Specialty Start Date End Date Fabián Kent MD [address] [place] [address] PCP - General Family Medicine 05/12/23
--- OUTSIDE RECORDS SUMMARY | 2025-02-14 10:19 | XMS_ITS | Encounter Summary ---
Author Organization [facility] Address [address] [place] [address] Care Team Providers Care Monologist Name Role Phone Lovely Uribe MD Primary Care Provider [phone] Encounter Details Date Type Department Care Team (Late st Contact Info) Description 04/24/2022 [facility] [address] [place] [address] Fabián Kent MD Social History Tobacco Use [...] documented as of this encounter Care Teams Monologist Relationship Specialty Start Date End Date Lovely Uribe MD [address] [place] [id number] PCP - General 07/13/20 documented as of this encounter
--- OUTSIDE RECORDS SUMMARY | 2025-02-14 10:19 | XMS_ITS | Referral Summary ---
Author Organization [id number] ([place], [place], [place], [place], [place]) Address [address] [place] [address] Care Team Providers Care Music Historian Name Role Phone Fabián Kent MD Primary Care Provider [phone]- [phone] Allergies No known active allergies Medications lisinopriL [...] Date Steven rded Speak language other than Greenlandic at home Not on file 05/12/2023 Want [...] file Insurance BLUE CROSS/BLUE SHIELD Care Teams Music Historian Relationship Specialty Start Date End Date Fabián Kent MD [address] [place] [address] PCP - General Family Medicine 05/12/23
--- OUTSIDE RECORDS SUMMARY | 2025-02-14 10:20 | XMS_ITS | Clinical Summary ---
Author Organization [facility] Address [address] [place] [address] Care Team Providers Care Caramel Coloring Operator Name Role Phone Lovely Uribe MD Primary Care Provider [phone] Allergies No known active allergies Medications dilTIAZem [...] Grandfather Dangelo Hoffman Cancer Paternal Grandfather Larce Bernardston Relation Name Status Comments Maternal Grandfather Dangelo [...] Health Maintenance Due Date Last Done Comments [facility]-/Child/Adol SDOH Screenings 1975 [id number] Vaccine (#1) 03/11/1977 [facility]- SDOH Screenings 1994 [facility]-Adult SDOH Screenings [...] 03/21/2022 [facility]-Obesity Intervention Completed 03/21/2022 HPV Vaccines (No Doses Required) Completed [facility]-HIB Vaccines Aged Out No longer e [...] Screen Nonreactive Nonreactive 03/21/2022 2:03 PM EST [facility] Blood Venous blood specimen / Unknown Venipuncture / Unknown 03/21/2022 10:45 AM EST 03/21/2022 10:48 AM EST [facility] [employer] LAB BLOOD ORDERABLES Final Result [facility] [address] [place] [address] * Acute Hepatitis Panel (03/21/2022 10:45 AM EST) Hepatitis B Surf Antigen Negative Negative 03/21/2022 1:42 PM EST [facility] Hepatitis C Antibody Negative Negative 03/21/2022 1:42 PM EST [facility] Hepatitis A Antibody IgM Negative Negative 03/21/2022 1:42 PM EST [facility] Hepatitis B Core Antibody IgM Negative Negative 03/21/2022 1:42 PM EST [facility] Blood Venous blood specimen / Unknown Venipuncture / Unknown 03/21/2022 10:45 AM EST 03/21/2022 10:48 AM EST March R [facility] [employer] [facility] LAB BLOOD ORDERABLES Final Result [facility] [address] [place] [address] from Last 3 Months or Most Recently Relevant to Health Maintenance Insurance [employer] Care Teams Caramel Coloring Operator Relationship Specialty Start Date End Date Lovely Uribe MD [address] [place] [address] PCP - General 07/13/20
[2025-02-14 10:29] LABS: Hematocrit 41.3 % (37.0-47.0); Hemoglobin 13.0 g/dL (12.2-16.2); Immature Granulocytes % 0.3 %; Mean Corpuscular HGB Conc 31.5 g/dL (31.8-35.4); Mean Corpuscular Hemoglobin 27.3 pg (27.0-31.2); Mean Corpuscular Volume 86.8 fl (81-99); Nucleated Red Blood Cells % 0 %; Platelet Count 247 K/mm3 (142-424); Red Blood Count 4.76 M/mm3 (4.20-5.40); Red Cell Distribution Width-SD 45.9 fL; White Blood Count 7.9 K/mm3 (4.8-10.8)
[2025-02-14 11:55] LABS: Hemoglobin A1C 5.0 % (4.0-6.0)
[2025-02-14 12:19] LABS: Alanine Aminotransferase 22 U/L (12-78); Albumin Level 4.9 g/dl (3.5-5.0); Alkaline Phosphatase 57 U/L (38-126); Anion Gap 14.4 mEq/L (5-15); Aspartate Amino Transferase 22 U/L (14-36); Bilirubin,Direct 0.3 mg/dl (0.0-0.4); Bilirubin,Indirect 0.6 mg/dL (0.0-0.9); Bilirubin,Total 0.9 mg/dl (0.2-1.3); Bilirubin,Unconjugated 0.6 mg/dL (0.0-1.1); Blood Urea Nitrogen 15 mg/dl (7-17); Calcium 9.6 mg/dl (8.4-10.2); Carbon Dioxide 25 mmol/L (22.0-30.0); Chloride 107 mmol/L (98-107); Cholesterol 96 mg/dl (140-200); Creatinine,Serum 0.90 mg/dl (0.52-1.04); Estimated Glomerular Filt Rate 67 ml/min (>60); GFR (African American) 81 ML/MIN (>60); Glucose 84 mg/dl (74-100); HDL Cholesterol 37 mg/dl (40-60); Magnesium 2.0 mg/dl (1.6-2.3); Potassium 4.4 mmoL/L (3.5-5.1); Sodium 142 mmol/L (136-145); Total Protein,Serum 7.5 g/dl (6.3-8.2); Triglycerides 143 mg/dl (30-150)
[2025-02-14 12:35] LABS: Free T4 (Free Thyroxine) 1.09 ng/dl (0.78-2.19)
[2025-02-14 12:53] LABS: Thyroid Stimulating Hormone 0.45 uIU/mL (0.465-4.68)
[2025-02-15 11:55] LABS: T4 (Thyroxine) 7.0 ug/dl (5.53-11.0)
== END 2025-02-14 23:59 | disposition home or self-care (01) ==
LOC: LAB 09:59
PROVIDERS: PCP Family Medicine; Visit Provider Physician Assistant
DX: I25.10 Atherosclerotic heart disease of native coronary artery without angina pectoris (principal); E78.2 Mixed hyperlipidemia; E11.9 Type 2 diabetes mellitus without complications; I10 Essential (primary) hypertension
CPT/HCPCS: 36415; 80048; 80061; 80076; 83036; 83735; 84439; 84443; 85025